=== PATIENT | female | born 1955 | race Caucasian/White ===

== ENCOUNTER 2017-06-04 15:14 | Emergency (ER) | payer BC, MEDICARE, SELFPAY ==
[2017-06-04 16:22] VITALS: BP 117/72; PULSE 110; RESP 20; TEMP 37; O2SAT 98; BMI 27.4
[2017-06-04 16:23] LABS: UTC Influenza A Antigen Negative (Negative); UTC Influenza B Antigen Negative (Negative)
--- NOTE | 2017-06-04 16:58 | HMH.EDUTC ---
[facility] [place] Disposition Clinical Impression: Viral upper respiratory illness Disposition: Home, Self-Care Condition on Discharge: Good Instructions: DI for Viral Upper Respiratory Infection -- Adult Additional Instructions: * Monitor Temp. Tylenol and/or Ibuprofen as needed. ER if fever is no less than 101 despite alternating Tylenol and Ibuprofen * Encourage fluids, water, Gatorade, powerade, pedialyte if infant/toddler/or child * Warm salt water gargles for throat irritation *Warm fluids *Sore throat lozenges *Sleep elevated *humidifier or vaporizer Lots of rest Increase fluids, water, Gatorade, powerade Follow up with family doctor Return if needed Prescriptions: Dextromethorphan Polistirex [Delsym] 10 ml PO Q12H #200 blas.er.12h Referrals: Brandon Woods [Primary Care Provider] - Time of Disposition: 17:02 Medical Decision Making Vital Signs: 06/04/17 16:22 Temperature 98.6 F Temperature Source Temporal Artery Scan Pulse Rate [Brachial] 110 H Respiratory Rate 20 Blood Pressure [Right Arm] 117/72 Blood Pressure Mean [Right Arm] 87 Blood Pressure Source [Right Arm] Automatic Cuff Blood Pressure Position [Right Arm] Sitting 02 Sat by Pulse Oximetry 98 Oxygen Delivery Method Room Air - Lab Data Lab Results 06/04/17 16:13: Influenza Type A Ag Negative, Influenza Type B Ag Negative - Mitchell Inquiry Pt receiving controlled substance: No Mitchell was queried for this patient: No [facility] [place] HPI - General Stated complaint: Dry cough, headache, body aches Mode of Arrival: Ambulatory Source of Information: Patient Limitations: No Limitations Description of Symptoms (Recalled from Triage Doc. by RN): HAS FLU SYMPTOMS SINCE LAST NIGHT, GRANDSON HAS FLU HEENT Symptoms (Recalled from RN notes): Yes Resp Symptoms (Recalled from RN notes): Yes Skin Symptoms (Recalled from RN notes): No MS Symptoms (Recalled from RN notes): No Functional Status (Recalled from RN notes): NA - History of Present Illness Provider Complaint: State that she has been taking care of two of her grandchildren that have had the flu and she was worried that she may have had it too and wanted to get checked States that she has been having body aches and not feeling well - Related Data Home Medications Medication Instructions Recorded Confirmed Phentermine HCl 37.5 mg PO BID 06/04/17 06/04/17 Simvastatin [Simvastatin] 20 mg PO DAILY 06/04/17 06/04/17 Triamterene/Hydrochlorothiazid 25 mg PO DAILY 06/04/17 06/04/17 [Maxzide-25 tablet] Previous Rx's Medication Instructions Recorded Dextromethorphan Polistirex 10 ml PO Q12H #200 blas.er.12h 06/04/17 [Delsym] Allergies Allergy/AdvReac Type Severity Reaction Status Date / Time clindamycin [CLINDAMYCIN] Allergy Unknown Verified 06/04/17 16:25 diazepam [From VALIUM] Allergy Unknown Verified 06/04/17 16:25 Tetracyclines [TETRACYCLINES] Allergy Unknown Verified 06/04/17 16:25 - Worker's Comp Is this a Worker's Comp case?: No [facility] History I have reviewed the patient's past medical history: Yes - *Social History Smoking Status: Never smoker Alcohol Intake: never - Psychiatric History Expresses thoughts of harming self/others: None Suicide Plan Description: No Plan ROS Obtained: Yes All systems reviewed & no additional complaints - Constitutional Constitutional: Reports body ache, Reports chills, Reports fever(s) - Respiratory Respiratory: Yes cough Physical Exam - General General appearance: alert, in no apparent distress - ENT ENT exam: Present: normal exam, normal oropharynx, mucous membranes moist, TM's normal bilaterally, normal external ear exam - Respiratory Respiratory exam: Present: normal lung sounds bilaterally. Absent: respiratory distress - Cardiovascular Cardiovascular exam: Present: normal rhythm. Absent: JVD - Abdominal Exam Abdominal exam: Present: soft, normal bowel sounds. Absent: distention, tenderness, guarding - Ne
--- NOTE | 2017-06-04 17:01 | ED_ITS ---
[facility] [place] Disposition Clinical Impression: Viral upper respiratory illness Disposition: Home, Self-Care Condition on Discharge: Good Instructions: DI for Viral Upper Respiratory Infection -- Adult Additional Instructions: * Monitor Temp. Tylenol and/or Ibuprofen as needed. ER if fever is no less than 101 despite alternating Tylenol and Ibuprofen * Encourage fluids, water, Gatorade, powerade, pedialyte if infant/toddler/or child * Warm salt water gargles for throat irritation *Warm fluids *Sore throat lozenges *Sleep elevated *humidifier or vaporizer Lots of rest Increase fluids, water, Gatorade, powerade Follow up with family doctor Return if needed Prescriptions: Dextromethorphan Polistirex [Delsym] 10 ml PO Q12H #200 blas.er.12h Referrals: Brandon Woods [Primary Care Provider] - Time of Disposition: 17:02 Medical Decision Making Vital Signs: 06/04/17 16:22 Temperature 98.6 F Temperature Source Temporal Artery Scan Pulse Rate [Brachial] 110 H Respiratory Rate 20 Blood Pressure [Right Arm] 117/72 Blood Pressure Mean [Right Arm] 87 Blood Pressure Source [Right Arm] Automatic Cuff Blood Pressure Position [Right Arm] Sitting 02 Sat by Pulse Oximetry 98 Oxygen Delivery Method Room Air - Lab Data Lab Results 06/04/17 16:13: Influenza Type A Ag Negative, Influenza Type B Ag Negative - Mitchell Inquiry Pt receiving controlled substance: No Mitchell was queried for this patient: No [facility] [place] HPI - General Stated complaint: Dry cough, headache, body aches Mode of Arrival: Ambulatory Source of Information: Patient Limitations: No Limitations Description of Symptoms (Recalled from Triage Doc. by RN): HAS FLU SYMPTOMS SINCE LAST NIGHT, GRANDSON HAS FLU HEENT Symptoms (Recalled from RN notes): Yes Resp Symptoms (Recalled from RN notes): Yes Skin Symptoms (Recalled from RN notes): No MS Symptoms (Recalled from RN notes): No Functional Status (Recalled from RN notes): NA - History of Present Illness Provider Complaint: State that she has been taking care of two of her grandchildren that have had the flu and she was worried that she may have had it too and wanted to get checked States that she has been having body aches and not feeling well - Related Data Home Medications Medication Instructions Recorded Confirmed Phentermine HCl 37.5 mg PO BID 06/04/17 06/04/17 Simvastatin [Simvastatin] 20 mg PO DAILY 06/04/17 06/04/17 Triamterene/Hydrochlorothiazid 25 mg PO DAILY 06/04/17 06/04/17 [Maxzide-25 tablet] Previous Rx's Medication Instructions Recorded Dextromethorphan Polistirex 10 ml PO Q12H #200 blas.er.12h 06/04/17 [Delsym] Allergies Allergy/AdvReac Type Severity Reaction Status Date / Time clindamycin [CLINDAMYCIN] Allergy Unknown Verified 06/04/17 16:25 diazepam [From VALIUM] Allergy Unknown Verified 06/04/17 16:25 Tetracyclines [TETRACYCLINES] Allergy Unknown Verified 06/04/17 16:25 - Worker's Comp Is this a Worker's Comp case?: No [facility] [place] History I have reviewed the patient's past medical history: Yes - *Social History Smoking Status: Never smoker Alcohol Intake: never - Psychiatric History Expresses thoughts of harming self/others: None Suicide Plan Description: No Plan ROS Obtained: Yes All systems re
== END 2017-06-04 17:30 | disposition home or self-care (01) ==
PROVIDERS: Emergency Provider Nurse Practitioner; PCP Internal Medicine
DX: J06.9 Acute upper respiratory infection, unspecified (principal); I10 Essential (primary) hypertension; E78.5 Hyperlipidemia, unspecified
CPT/HCPCS: 87804; 99202

== ENCOUNTER → 2017-06-22 11:31 | Outpatient (CLI) | payer BC, MEDICARE, SELFPAY ==
--- NOTE | 2017-06-22 12:12 | XR_ITS ---
XR chest 2V Ordering Physician: Brandon Woods Patient Age: 61 years: Female HISTO RY: ITS.REASON: CHEST PAIN,SHORTNESS OF BREATH chest pain short of breath TECHNIQUE PA and lateral chest COMPARISON :January 2011 CXR 2 view Also left shoulder from January 2012 FINDINGS Nothing definitely acute. I believe the subtle density off the cardiac apex is most likely slightly more evident anterior fat pad and doubt infiltrate . Heart is upper normal in size mitesh [Structures unremarkable. Lungs clear. Chest wall unremarkable. T-spine intact. IMPRESSION: Lungs clear nothing definitely acute
[2017-06-22 12:20] LABS: Troponin I < 0.02 ng/ml (0.00-0.06)
== END ==
PROVIDERS: PCP Internal Medicine; Visit Provider Internal Medicine
DX: R07.9 Chest pain, unspecified (principal); R06.02 Shortness of breath
CPT/HCPCS: 36415; 71046; 84484; 93005

== ENCOUNTER 2017-06-23 11:23 | Day surgery (SDC) | payer BC, MEDICARE, SELFPAY ==
[2017-06-23] VITALS (12 sets, daily range): BP systolic 100–120; BP diastolic 58–74; PULSE 63–101; RESP 16–20; TEMP 36.7; O2SAT 92–100; BMI 27.4
--- NOTE | 2017-06-23 11:12 | IR_ITS ---
CARDIAC CATHETERIZATION DATE OF CATHETERIZATION:06/23/2017 12:14 PM PROCEDURES: 1. Left heart catheterization 2. Left ventriculogram 3. Selective coronary angiogram INDICATION FOR TEST: 1. New left bundle-branch block 2. Angina pectoris class IV 3. LDL 201 with severe hyperlipidemia 4. Numerous risk factors for coronary artery disease Informed consent was obtained prior to the procedure. COMPLICATIONS: None ESTIMATED BLOOD LOSS: Less than 10 ml. TECHNIQUE: One percent lidocaine used to anesthetize the right anterior aspect of the wrist. The right radial artery was accessed via the Seldinger technique. A 6 Green[place] sheath was placed in the right radial artery. 2.5 mg of verapamil, 800 mcg of nitroglycerin and 5000 U Heparin were given through the arterial sheath. The trap catheter was also used to perform left heart catheterization and left ventriculography. At the end of the procedure the patient was transferred to the post-op holding area in stable condition for arterial sheath removal. ANGIOGRAPHIC RESULTS: 1. The left main artery normal 2. The left anterior descending artery normal 3. The circumflex artery normal 4. The right coronary artery dominant normal 5. The SINGH ventriculogram reveals normal left ventricular size with anterior wall hypokinesis estimated ejection fraction 45% 6. The left ventricular end-diastolic pressure 20 mmHg IMPRESSION: 1. Normal coronary arteries. 2. Regional wall motion abnormality with mildly reduced ejection fraction consistent with cardiomyopathy of unknown etiology 3. Mildly elevated LVEDP PLAN: 1. Bisoprolol 10 mg daily 2. Lisinopril 2.5 mg twice a day 3. Lipitor 40 mg daily in order to decrease the severely elevated LDL of 201. 4. Echocardiogram will be obtained 5. Chest x-ray 6. Risk factor modification
[2017-06-23 12:05] LABS: Basophils # 0.1 K/mm3 (0-0.2); Eosinophils # 0.3 K/mm3 (0.0-0.4); Eosinophils % 3.6 % (0.1-12.0); Hematocrit 42.3 % (37.0-47.0); Lymphocytes # 2.5 K/mm3 (0.7-4.5); Lymphocytes % 27.1 K/mm3 (10-50); Mean Corpuscular HGB Conc 33.2 g/dL (31.8-35.4); Mean Corpuscular Hemoglobin 28.5 pg (27.0-31.2); Mean Platelet Volume 6.9 fl (7.4-10.4); Monocytes # 0.6 K/mm3 (0.1-1.0); Monocytes % 5.9 % (1.7-9.3); Neutrophils # 5.8 K/mm3 (1.8-7.8); Neutrophils % 62.4 % (37.0-80.0); Platelet Count 377 K/mm3 (142-424); Red Blood Count 4.92 M/mm3 (4.20-5.40); Red Cell Distribution Width 12.9 % (11.5-17.5); White Blood Count 9.3 K/mm3 (4.8-10.8)
[2017-06-23 12:10] LABS: Blood Urea Nitrogen 13 mg/dL (7-18); Carbon Dioxide 27 mmol/L (21.0-32.0); Chloride 108 mmol/L (98-107); Creatinine Clearance Estimated 100 mL/min (0-300); Creatinine,Serum 0.71 mg/dL (0.55-1.02); Estimated Glomerular Filt Rate 84 ml/min (>60); GFR (African American) 102 ML/MIN (>60); Glucose 97 mg/dL (74-106); Sodium 143 mmol/L (136-145)
== END 2017-06-23 15:51 | disposition home or self-care (01) ==
LOC: CATHLAB 11:23
PROVIDERS: PCP Internal Medicine; Visit Provider Internal Medicine
DX: I20.9 Angina pectoris, unspecified (principal); I42.9 Cardiomyopathy, unspecified; I44.7 Left bundle-branch block, unspecified; E78.4 Other hyperlipidemia
CPT/HCPCS: 80048; 85025; 93458; 99152; C1725; C1769; J1644; Q9967

== ENCOUNTER 2017-06-30 12:43 | Emergency (ER) | payer BC, MEDICARE, SELFPAY ==
[2017-06-30 13:34] VITALS: BP 118/51; PULSE 79; RESP 20; TEMP 36.6; O2SAT 99; BMI 26.6
[2017-06-30 13:44] VITALS: BP 115/65; PULSE 80; RESP 20; TEMP 36.7; O2SAT 100
[2017-06-30 14:03] LABS: Appearance,Urine SL CLOUDY (Clear); Bilirubin,Urine Negative (Negative); Blood, Urine TRACE-I (Negative); Color,Urine YELLOW (Yellow); Glucose,Urine (UA) Negative (Negative); Ketones,Urine Negative (Negative); Leukocyte Esterase,Urine 2+ (Negative); Microscopic, Urine URINE MICROSCOPIC (MICROSCOPIC); Nitrate,Urine Negative (Negative); PH,Urine 5.5 (5.0-8.5); Protein,Urine Negative (Negative); Specific Gravity, Urine 1.015 (1.005-1.030); Urobilinogen,Urine 0.2 EU/dl (0.2)
[2017-06-30 14:08] LABS: Basophils # 0.1 K/mm3 (0-0.2); Basophils % 0.8 % (0.1-2.0); Eosinophils # 0.3 K/mm3 (0.0-0.4); Hematocrit 43.2 % (37.0-47.0); Hemoglobin 14.1 g/dL (12.2-16.2); Lymphocytes # 2.2 K/mm3 (0.7-4.5); Lymphocytes % 23.6 K/mm3 (10-50); Mean Corpuscular HGB Conc 32.6 g/dL (31.8-35.4); Mean Corpuscular Hemoglobin 28.5 pg (27.0-31.2); Mean Corpuscular Volume 87.5 fl (81-99); Monocytes # 0.6 K/mm3 (0.1-1.0); Monocytes % 6.6 % (1.7-9.3); Neutrophils # 6.3 K/mm3 (1.8-7.8); Platelet Count 371 K/mm3 (142-424); Red Blood Count 4.94 M/mm3 (4.20-5.40); Red Cell Distribution Width 13.1 % (11.5-17.5); White Blood Count 9.5 K/mm3 (4.8-10.8)
[2017-06-30 14:10] LABS: Bacteria,Urine 1+ /lpf
[2017-06-30 14:15] LABS: Alanine Aminotransferase 35 U/L (12-78); Albumin Level 4.1 gm/dL (3.4-5.0); Alkaline Phosphatase 123 U/L (46-116); Anion Gap 11.6 mEq/L (5-15); Aspartate Amino Transferase 24 U/L (15-37); Bilirubin,Total 0.6 mg/dL (0.2-1.0); Blood Urea Nitrogen 13 mg/dL (7-18); Calcium 8.8 mg/dL (8.5-10.1); Carbon Dioxide 30 mmol/L (21.0-32.0); Chloride 105 mmol/L (98-107); Creatinine Clearance Estimated 68 mL/min (0-300); Creatinine,Serum 0.72 mg/dL (0.55-1.02); Estimated Glomerular Filt Rate 82 ml/min (>60); GFR (African American) 100 ML/MIN (>60); Globulin 4.1 gm/dl (1.3-3.2); Potassium 3.6 mmoL/L (3.5-5.1); Sodium 143 mmol/L (136-145); Total Protein,Serum 8.2 gm/dL (6.4-8.2)
--- NOTE | 2017-06-30 14:52 | CT_ITS ---
CT abdomen pelvis without contrast CLINICAL INDICATION: Rectal bleeding and diarrhea, history of ulcerative colitis, UTI ITS.REASON: abdominal pain, hx of ulcerative colitis ORDERING PHYSICIAN: Zeeshan Ray MD PATIENT AGE: 62 years COMPARISON: None TECHNIQUE: Axial images obtained with sagittal and coronal reformats. PROCEDURE: Oral Contrast: None IV Contrast: None . FINDINGS: Lung bases show no acute finding. There is a small hiatal hernia. The liver, gallbladder, spleen, adrenal glands, and pancreas have an unremarkable unenhanced CT appearance. Bilateral parapelvic renal cysts. No obstructing renal or ureteral calculi. No intestinal obstruction or free air. No evidence of appendicitis. There is diffuse thickening of the descending and sigmoid colon without distention or pericolic stranding of the fat consistent with colitis. Prior hysterectomy. No acute bony anomalies. IMPRESSION: 1. Mild diffuse thickening of the descending and sigmoid colon consistent with colitis. 2. Otherwise negative unenhanced CT abdomen pelvis
[2017-06-30 15:00] VITALS: BP 123/79; PULSE 65; RESP 18
[2017-06-30 16:05] LABS: Glucose 148 mg/dL (74-106)
--- NOTE | 2017-06-30 18:53 | HMH.EDGENADL ---
ED Disposition Clinical Impression: Rectal bleeding Ulcerative colitis Qualifiers: Ulcerative colitis location: other ulcerative colitis Digestive disease complication type: other complication Qualified Code(s): K51.818 - Other ulcerative colitis with other complication Abdominal pain Qualifiers: Abdominal location: left lower quadrant Qualified Code(s): R10.32 - Left lower quadrant pain Disposition: Home, Self-Care Condition on Discharge: Good Instructions: Ulcerative Colitis, Gastrointestinal Bleeding Additional Instructions: Please drink plenty of fluids, we will up with Dr. Lazo, as already scheduled. Prescriptions: Ciprofloxacin HCl [Cipro 500mg Tab] 500 mg PO BID #20 tab metroNIDAZOLE [Flagyl] 500 mg PO TID #30 tab predniSONE [Prednisone 20mg Tab] 20 mg PO TID #15 tab Referrals: Brandon Woods [Primary Care Provider] - Davie Lazo MD [Staff Physician] - Time of Disposition: 18:53 - Critical Care Critical Care Time: No Attestation: On 06/30/17, the high probability of a clinically significant, sudden or life threatening deterioration of the following system(s) required my full and direct attention, intervention and personal management. The time I documented below is in addition to time spent performing reported procedures but includes the following listed in this critical care notation. Medical Decision Making - Medical Records Medical records reviewed: Yes: I reviewed the patient's medical records. Vital Signs: 06/30/17 13:34 06/30/17 13:44 06/30/17 15:00 Temperature 97.9 F 98.0 F Temperature Source Oral Oral Pulse Rate Pulse Rate [Right Radial] 79 80 65 Respiratory Rate 20 20 18 Blood Pressure Blood Pressure [Right Arm] 118/51 115/65 123/79 Blood Pressure Mean [Right Arm] 73 81 93 Blood Pressure Source [Right Arm] Automatic Cuff Automatic Cuff Automatic Cuff Blood Pressure Position [Right Arm] Sitting Supine Supine 02 Sat by Pulse Oximetry 99 100 Oxygen Delivery Method Room Air Room Air 06/30/17 21:18 Temperature 0 F L Temperature Source Pulse Rate 0 L Pulse Rate [Right Radial] Respiratory Rate 0 L Blood Pressure 0/0 Blood Pressure [Right Arm] Blood Pressure Mean [Right Arm] Blood Pressure Source [Right Arm] Blood Pressure Position [Right Arm] 02 Sat by Pulse Oximetry Oxygen Delivery Method - Lab Data Lab results reviewed: Yes: I reviewed the patient's lab results. Lab Results 06/30/17 13:30: WBC 9.5, RBC 4.94, Hgb 14.1, Hct 43.2, MCV 87.5, MCH 28.5, MCHC 32.6, RDW 13.1, Plt Count 371, MPV 7.0 L, Neut % (Auto) 66.0, Lymph % (Auto) 23.6, [place] % (Auto) 6.6, Eos % (Auto) 3.0, Baso % (Auto) 0.8, Neut # (Auto) 6.3, Lymph # (Auto) 2.2, Terry # (Auto) 0.6, Eos # (Auto) 0.3, Baso # (Auto) 0.1 06/30/17 13:30: Sodium 143, Potassium 3.6, Chloride 105, Carbon Dioxide 30, Anion Gap 11.6, BUN 13, Creatinine 0.72, Estimated Creat Clear 68, Estimated GFR 82, Est GFR ( Amer) 100, Glucose 148 H, Calcium 8.8, Total Bilirubin 0.6, AST 24, ALT 35, Alkaline Phosphatase 123 H, Total Protein 8.2, Albumin 4.1, Globulin 4.1 H, Albumin/Globulin Ratio 1.0 L 06/30/17 13:55: Urine Color Yellow, Urine Appearance Sl cloudy, Urine pH 5.5, Ur Specific [place] 1.015, Urine Protein Negative, Urine Glucose (UA) Negative, Urine Ketones Negative, Urine Blood Trace-i, Urine Nitrate Negative, Urine Bilirubin Negative, Urine Urobilinogen 0.2, Ur Leukocyte Esterase 2+ A, Urine RBC None, Urine WBC 10-20, Ur Squamous Epith Cells 5-10, Urine Bacteria 1+ Result diagrams: 06/30/17 13:30 06/30/17 13:30 Orders (Tests/Meds): ED MEDICATIONS Discontinued Medications Generic Name Dose Route Start Last Admin Trade Name Freq PRN Reason Stop Dose Admin Lactated Ringer's 1,000 mls @ 999 mls/hr 06/30/17 15:00 06/30/17 15:18 Lactated Ringer's 1000 Ml Bag IV 06/30/17 16:00 999 mls/hr .Q1H1M KIMMY Administration Ketorolac Tromethamine 30 mg 06/30/17 14:53 06/30/17 15:18 To
--- NOTE | 2017-06-30 18:56 | ED_ITS ---
ED Disposition Clinical Impression: Rectal bleeding Ulcerative colitis Qualifiers: Ulcerative colitis location: other ulcerative colitis Digestive disease complication type: other complication Qualified Code(s): K51.818 - Other ulcerative colitis with other complication Abdominal pain Qualifiers: Abdominal location: left lower quadrant Qualified Code(s): R10.32 - Left lower quadrant pain Disposition: Home, Self-Care Condition on Discharge: Good Instructions: Ulcerative Colitis, Gastrointestinal Bleeding Additional Instructions: Please drink plenty of fluids, we will up with Dr. Lazo, as already scheduled. Prescriptions: Ciprofloxacin HCl [Cipro 500mg Tab] 500 mg PO BID #20 tab metroNIDAZOLE [Flagyl] 500 mg PO TID #30 tab predniSONE [Prednisone 20mg Tab] 20 mg PO TID #15 tab Referrals: Brandon Woods [Primary Care Provider] - Davie Lazo MD [Staff Physician] - Time of Disposition: 18:53 - Critical Care Critical Care Time: No Attestation: On 06/30/17, the high probability of a clinically significant, sudden or life threatening deterioration of the following system(s) required my full and direct attention, intervention and personal management. The time I documented below is in addition to time spent performing reported procedures but includes the following listed in this critical care notation. Medical Decision Making - Medical Records Medical records reviewed: Yes: I reviewed the patient's medical records. Vital Signs: 06/30/17 13:34 06/30/17 13:44 06/30/17 15:00 Temperature 97.9 F 98.0 F Temperature Source Oral Oral Pulse Rate Pulse Rate [Right Radial] 79 80 65 Respiratory Rate 20 20 18 Blood Pressure Blood Pressure [Right Arm] 118/51 115/65 123/79 Blood Pressure Mean [Right Arm] 73 81 93 Blood Pressure Source [Right Arm] Automatic Cuff Automatic Cuff Automatic Cuff Blood Pressure Position [Right Arm] Sitting Supine Supine 02 Sat by Pulse Oximetry 99 100 Oxygen Delivery Method Room Air Room Air 06/30/17 21:18 Temperature 0 F L Temperature Source Pulse Rate 0 L Pulse Rate [Right Radial] Respiratory Rate 0 L Blood Pressure 0/0 Blood Pressure [Right Arm] Blood Pressure Mean [Right Arm] Blood Pressure Source [Right Arm] Blood Pressure Position [Right Arm] 02 Sat by Pulse Oximetry Oxygen Delivery Method - Lab Data Lab results reviewed: Yes: I reviewed the patient's lab results. Lab Results 06/30/17 13:30: WBC 9.5, RBC 4.94, Hgb 14.1, Hct 43.2, MCV 87.5, MCH 28.5, MCHC 32.6, RDW 13.1, Plt Count 371, MPV 7.0 L, Neut % (Auto) 66.0, Lymph % (Auto) 23.6, [place] % (Auto) 6.6, Eos % (Auto) 3.0, Baso % (Auto) 0.8, Neut # (Auto) 6.3 , Lymph # (Auto) 2.2, [place] # (Auto) 0.6, Eos # (Auto) 0.3, Baso # (Auto) 0.1 06/30/17 13:30: Sodium 143, Potassium 3.6, Chloride 105, Carbon Dioxide 30, Anion Gap 11.6, BUN 13, Creatinine 0.72, Estimated Creat Clear 68, Estimated GFR 82, Est GFR ( Amer) 100, Glucose 148 H, Calcium 8.8, Total Bilirubin 0.6, AST 24, ALT 35, Alkaline Phosphatase 123 H, Total Protein 8.2, Albumin 4.1 , Globulin 4.1 H, Albumin/Globulin Ratio 1.0 L 06/30/17 13:55: Urine Color Yellow, Urine Appearance Sl cloudy, Urine pH 5.5, Ur Specific [place] 1.015, Urine Protein Negative, Urine Glucose (UA) Negative, Urine Ketones Negative, Urine Blood Trace-i, Urine Nitrate Negative, Urine Bilirubin Ne
[2017-06-30 21:18] VITALS: BP 0/0; PULSE 0; RESP 0; TEMP -17.7; TEMP 0
== END 2017-06-30 21:18 | disposition home or self-care (01) ==
PROVIDERS: Emergency Provider Emergency Medicine; PCP Internal Medicine
DX: K51.911 Ulcerative colitis, unspecified with rectal bleeding (principal); R10.32 Left lower quadrant pain; Z87.19 Personal history of other diseases of the digestive system
CPT/HCPCS: 74176; 74177; 80053; 81001; 85025; 87086; 96365; 96375; 99281; 99282; J2405

== ENCOUNTER 2017-07-31 10:45 | Day surgery (SDC) | payer BC, MEDICARE, SELFPAY ==
[2017-07-30 09:09] VITALS: BMI 26.6
[2017-07-31 11:07] VITALS: BP 127/71; PULSE 88; RESP 18; TEMP 36.4; O2SAT 95
[2017-07-31 11:31] VITALS: O2SAT 98
--- NOTE | 2017-07-31 11:53 | P.PCN_ITS ---
[facility] Procedure Note Procedure Note:: Upper Endoscopy Procedure Report: Esophagogastroduodenoscopy with cold biopsies and TTS balloon dilation Endoscopost: Davie Lazo II, MD Referring Physician: Brandon Woods MD Date of Procedure: July 31, 2017 Equipment: Olympus GIF 180 standard upper endoscope Sedation: MAC sedation Indications: Mrs. Ayoub is a 62-year-old female with dyspepsia. She has had chest pain and she has had cardiac evaluation which was normal. She was told that she had severe inflammation of the esophagus. She did go to the emergency department last month and had a CT scan of the chest and abdomen that did show diffuse thickening of the descending and sigmoid colon. The patient does have a history of ulcerative colitis. She continues to have some abdominal pain in the left lower abdomen. She continues to have reflux, dyspepsia and some dysphagia. Procedure: Prior to the procedure, a history and physical exam was performed, and patient' s medications and allergies were reviewed. The risks, benefits and alternatives of the sedation and procedure were discussed with the patient. All questions were answered and informed consent was obtained. The patient was brought to the procedure room. Patient identification and proposed procedure were verified by the physician and the nurse. The patient was placed in a left lateral decubitus position and the scope was passed under direct vision. Throughout the procedure, the patient's blood pressure, pulse, and oxygen saturations were monitored continuously. The upper GI endoscopy was accomplished without difficulty. The patient tolerated the procedure well. Findings: The scope was passed directly into the upper esophagus and advanced to the third portion of the duodenum. The post bulbar duodenum and duodenal bulb were normal with normal mucosa and conniventes. The scope was withdrawn through a normal duodenal bulb and pylorus into the stomach. There was bile reflux with linear erythema of the antrum and body consistent with linear reactive gastritis. The remainder of the antrum, body and fundus of the stomach were grossly normal. Upon retroflexion there was no significant hiatal hernia. 2 biopsies were taken in the antrum and along the lesser curvature for histology to rule out gastritis and/or H pylori. The scope was then withdrawn into the esophagus. There were at least 1 or 2 distal superficial erosions consistent with grade A reflux esophagitis (LA classification). There were tertiary contractions and evidence of moderate esophageal dysmotility/ esophageal dyskinesia. The entire esophagus was dilated to 60 [place]/20 mm with a TTS hydrostatic balloon. There was some resistance at the cricopharyngeus. The remainder of the esophageal mucosa was normal. Impression: 1. Cricopharyngeal spasm status post dilation to 20 mm 2. Grade A reflux esophagitis (LA classification) with moderate esophageal dysmotility/esophageal dyskinesia 3. 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 We will discuss additional dietary measures and treatment options. I will proceed with flexible sigmoidoscopy for further evaluation of her ulcerative colitis and abnormal CAT scan.
--- NOTE | 2017-07-31 11:59 | HMH.PROC ---
[facility] [place] Procedure Note Procedure Note:: Flexible Sigmoidoscopy Procedure Report: Sigmoidoscopy with cold biopsies Endoscopist: Davie Lazo II, MD Referring physician: Brandon Woods MD Date of Procedure: July 31, 2017 Equipment: Olympus 180 variable stiffness pediatric colonoscope Sedation: MAC sedation Indication: Mrs. Ayoub is a 62-year-old female with a long history of ulcerative colitis. This is primarily been left-sided ulcerative colitis. She did have a full colonoscopy in January 2017 and had minimally active chronic left-sided ulcerative colitis with grade 1 internal hemorrhoids. She had been on Lialda 4.8 g daily and was recommended to have full screening again in 3 years. The patient has had severe rectal bleeding, left lower quadrant abdominal pain and bowel irregularity. Showed mild diffuse thickening of the descending and sigmoid colon with colitis. She was given 10 days of Cipro and Flagyl with a short course of prednisone. She had some fever. PCR panel was negative. Blood work showed no hemoglobin 14.1 and hematocrit 43.2. There was a large cystic mass of the ovary consistent with adnexal cyst and possible cystic neoplasm of the ovary. Procedure: Prior to the procedure, a history and physical exam was performed, and patient's medications and allergies were reviewed. The risks, benefits and alternatives of the sedation and procedure were discussed with the patient. All questions were answered and informed consent was obtained. The patient was brought to the procedure room. Patient identification and proposed procedure were verified by the physician and the nurse. The patient was placed in a left lateral decubitus position and the scope was passed under direct vision. Throughout the procedure, the patient's blood pressure, pulse, and oxygen saturations were monitored continuously. The colonoscopy was accomplished without difficulty. The patient tolerated the procedure well. Findings: On digital rectal examination there was normal rectal tone there were no external hemorrhoids the scope was then inserted through the vein down to the rectum and advanced to 45 cm. There was solid stool proximal to this. Upon withdrawal there was loss of haustral pattern/haustral folds with lead piping but mostly colonoscopic remission of the left-sided ulcerative colitis. There was minimal erythema and minimal loss of vascular pattern. There was no granularity friability or bleeding. There was no ulceration. Cold biopsies were taken from the sigmoid and rectum. Within the rectum there were small grade 1 internal hemorrhoids without cryptitis. Impression: 1. Minimally active left-sided ulcerative colitis with mostly chronic changes ( lead piping with loss of haustral pattern) Plan: I will follow up the biopsies. I would continue maintenance of remission therapy. I do feel that most of her symptoms are most likely functional. We will discuss treatment options.
[2017-07-31 12:00] VITALS: BP 103/67; PULSE 85; RESP 20; TEMP 36.4; O2SAT 93
[2017-07-31 12:10] VITALS: BP 95/63; PULSE 78; RESP 20; O2SAT 97
[2017-07-31 12:20] VITALS: BP 120/76; PULSE 65; RESP 20; O2SAT 93
[2017-07-31 12:30] VITALS: BP 116/73; PULSE 68; RESP 20; O2SAT 99
--- NOTE | 2017-07-31 14:46 | P.PN_ITS ---
[facility] Anesthesia Checklist - Patient Identification Patient Identification: Arm Band - Structural Data Admitted From: Home Planned Operative Procedure/s: egd/flexible sigmoidoscopy Consent for Planned Operative Procedure(s) Verified: Yes Verified Documents: Surgical Consent, History and Physical - NPO Status Verified Time NPO: 00:00 - Additional verifications Anesthesia Reactions: No - Airway Assessment C-Spine Mobility Assessed: Yes (mp2) TMJ Mobility Assessed: Yes - Neurological Assessment Level of Consciousness: Awake, Alert - Anesthesia Plan Anesthesia Risk discussed: Yes Anesthesia Plan: Verified ASA Class: II Anesthesia Type: MAC [facility] Anesthesia HX I have reviewed the patient's past medical history: Yes Medical History: Reports:: Gastroesophageal Reflux Disease(GERD), Hyperlipidemia , Hypertension Denies:: Diabetes Mellitus Type 1, Diabetes Mellitus Type 2, Lung Disease, Seizures Other Surgeries: Yes: Hysterectomy-Total, Tubal Ligation Amputation: No Fractures: No *Family Hx:: Coronary Artery Disease, Heart Attack, Cancer
== END 2017-07-31 12:35 | disposition home or self-care (01) ==
PROVIDERS: PCP Internal Medicine; Visit Provider Internal Medicine Gastroenterology
PROC: 0DJ08ZZ Inspection of Upper Intestinal Tract, Via Natural or Artificial Opening Endoscopic (ICD-10-PCS; CPT 43235; principal; 2017-07-31 11:30)
PROC: 0DJD8ZZ Inspection of Lower Intestinal Tract, Via Natural or Artificial Opening Endoscopic (ICD-10-PCS; CPT 45330; 2017-07-31 11:30)
DX: J39.2 Other diseases of pharynx (principal); K21.0 Gastro-esophageal reflux disease with esophagitis; K22.10 Ulcer of esophagus without bleeding; K22.4 Dyskinesia of esophagus; K29.60 Other gastritis without bleeding; K51.90 Ulcerative colitis, unspecified, without complications
CPT/HCPCS: 43239; 43249; 45331; C1726

== ENCOUNTER → 2017-09-07 12:49 | Outpatient (CLI) | payer BC, MEDICARE, SELFPAY ==
--- NOTE | 2017-09-07 12:52 | CA_ITS ---
PROCEDURE: 2-D M-mode and color Doppler study INDICATIONS FOR THE TEST: Chest pain + COPD Heart Murmur Tobacco Smoking Palpitations Fatigue+ Syncope Edema Hypertension+Diabetes Mellitus Rheumatic Fever SOB LINK+Obesity Hyperlipidemia Family History HD+ Additional History ABN EKG PATIENT INFORMATION HEIGHT: 65 WEIGHT:165 GENDER: Female B/P:135/67 2-D/M-MODE INTERPRETATION: 2-D MEASUREMENTS OBSERVED VALUES IN CMS Right Ventricular Dimension (RVDd) 2.1 Interventricular Septum (Thickness)(IVsd) 1.1 Left Ventricular Internal Dimensions(LVIDd) 4.1 Left Ventricular Posterior Wall (Thickness)(LVPWd) 1.0 Aortic Root 3.0 Aortic Cusp Separation 2.0 Left Atrial Dimensions (LAD) 3.4 2D 1. Left atrium is mildly enlarged, left ventricle is normal size, there is mild concentric left ventricular hypertrophy, visually estimated ejection fraction 55% with no obvious regional wall motion abnormality. 2. The right atrium and right ventricle are normal size and contractility. 3. The aortic valve is minimally thickened and fibrosed. 4. The mitral and tricuspid valve leaflets are grossly normal . 5. The pulmonic valve is poorly visualized 6. No significant pericardial effusion noted. DOPPLER INTERROGATION: Doppler interrogation of the aortic, mitral and tricuspid valvular presence of mild mitral and tricuspid regurgitation, tricuspid and jet velocity is insufficient for calculation of the right ventricular systolic pressure, grade 1 diastolic dysfunction seen with tissue Doppler evidence of raised left atrial pressure. CONCLUSION: 1. Mildly enlarged left atrium, normal left ventricular size, mild concentric left ventricular hypertrophy, visually estimated ejection fraction 55% with no obvious regional wall motion abnormality, grade 1 diastolic dysfunction seen with tissue Doppler evidence of raised left atrial pressure. 2. Mild mitral and tricuspid regurgitation 3. No significant pericardial effusion noted.
== END ==
PROVIDERS: PCP Internal Medicine; Visit Provider Internal Medicine
DX: R07.9 Chest pain, unspecified (principal); I10 Essential (primary) hypertension; E78.5 Hyperlipidemia, unspecified; R06.00 Dyspnea, unspecified; R55 Syncope and collapse; R94.31 Abnormal electrocardiogram [ECG] [EKG]; Z82.49 Family history of ischemic heart disease and other diseases of the circulatory system
CPT/HCPCS: 93306

== ENCOUNTER → 2017-09-14 08:08 | Outpatient (POV) | payer BC, MEDICARE, SELFPAY | PROVIDERS: PCP Internal Medicine; Visit Provider Nurse Practitioner Acute Care | DX: Z00.00 Encounter for general adult medical examination without abnormal findings (principal) ==

== ENCOUNTER → 2018-02-15 15:19 | Outpatient (POV) | payer BC, MEDICARE, SELFPAY | PROVIDERS: PCP Internal Medicine; Visit Provider Nurse Practitioner Acute Care | DX: Z00.00 Encounter for general adult medical examination without abnormal findings (principal) ==

== ENCOUNTER → 2018-03-23 10:17 | Outpatient (CLI) | payer BC, MEDICARE, SELFPAY ==
[2018-03-23 10:49] LABS: Basophils # 0.1 K/mm3 (0-0.2); Basophils % 1.4 % (0.1-2.0); Eosinophils # 0.2 K/mm3 (0.0-0.4); Eosinophils % 3.4 % (0.1-12.0); Hematocrit 43.5 % (37.0-47.0); Hemoglobin 14.2 g/dL (12.2-16.2); Lymphocytes # 1.5 K/mm3 (0.7-4.5); Lymphocytes % 24.2 K/mm3 (10-50); Mean Corpuscular HGB Conc 32.7 g/dL (31.8-35.4); Mean Corpuscular Hemoglobin 28.6 pg (27.0-31.2); Mean Corpuscular Volume 87.4 fl (81-99); Mean Platelet Volume 6.6 fl (7.4-10.4); Monocytes # 0.3 K/mm3 (0.1-1.0); Monocytes % 5.5 % (1.7-9.3); Neutrophils # 4.1 K/mm3 (1.8-7.8); Neutrophils % 65.6 % (37.0-80.0); Platelet Count 340 K/mm3 (142-424); Red Blood Count 4.98 M/mm3 (4.20-5.40); Red Cell Distribution Width 12.8 % (11.5-17.5); White Blood Count 6.3 K/mm3 (4.8-10.8)
[2018-03-23 12:43] LABS: Cholesterol 178 mg/dL (140-200); HDL Cholesterol 45 mg/dL (29-89); LDL Cholesterol 117 mg/dL (0-130); Triglycerides 81 mg/dL (30-200); VLDL Cholesterol 16 mg/dL (0-40)
[2018-03-23 13:07] LABS: Alanine Aminotransferase 21 U/L (12-78); Albumin Level 3.9 gm/dL (3.4-5.0); Albumin/Globulin Ratio 1.1 (1.1-1.8); Alkaline Phosphatase 113 U/L (46-116); Anion Gap 11.3 mEq/L (5-15); Aspartate Amino Transferase 14 U/L (15-37); Bilirubin,Total 0.6 mg/dL (0.2-1.0); Blood Urea Nitrogen 12 mg/dL (7-18); C-Reactive Protein 1.3 mg/L (0.0-0.9); Carbon Dioxide 29 mmol/L (21.0-32.0); Chloride 105 mmol/L (98-107); Creatinine,Serum 0.62 mg/dL (0.55-1.02); Estimated Glomerular Filt Rate 98 ml/min (>60); Ferritin 75 ng/mL (8-388); GFR (African American) 118 ML/MIN (>60); Globulin 3.5 gm/dl (1.3-3.2); Glucose 94 mg/dL (74-106); Potassium 4.3 mmoL/L (3.5-5.1); Sodium 141 mmol/L (136-145); Total Protein,Serum 7.4 gm/dL (6.4-8.2)
[2018-03-23 13:23] LABS: Erythrocyte Sedimentation Rate 38 mm/hr (0-30)
[2018-03-24 08:27] LABS: Iron 45 ug/dL (27-139); UIBC 219 ug/dL (118-369)
[2018-03-24 14:45] LABS: Iron Saturation 17 % (15-55); Vitamin B12 389 pg/mL (232-1245); Vitamin D 25 Hydroxy 26.5 ng/mL (30.0-100.0)
== END ==
PROVIDERS: PCP Internal Medicine; Visit Provider Nurse Practitioner Acute Care
DX: K51.20 Ulcerative (chronic) proctitis without complications (principal); K30 Functional dyspepsia
CPT/HCPCS: 36415; 80053; 80061; 82607; 82652; 82728; 83540; 83550; 85025; 85651; 86140

== ENCOUNTER → 2018-07-20 11:01 | Outpatient (POV) | payer BC, MEDICARE, SELFPAY | PROVIDERS: Visit Provider Dermatology | DX: Z00.00 Encounter for general adult medical examination without abnormal findings (principal) ==

== ENCOUNTER → 2018-07-28 16:12 | Outpatient (CLI) | payer BC, MEDICARE, SELFPAY ==
--- NOTE | 2018-07-28 16:17 | MM_ITS ---
MM Dig screening mamm BI w/CAD CAD Screening COMPARISON: Digital mammograms with CAD 02/13/2016 and additional views left breast, outside facility 02/21/2016 INDICATION: There is no personal or family history of breast cancer there have been previous biopsies on left breast for benign disease. TECHNIQUE: Standard CC and MLO images were obtained. R2 CAD reviewed. FINDINGS: Prominent diffuse somewhat heterogenic fibroglandular densities are seen in the central portions of both breasts. There are 2 biopsy clips left breast. There are few benign-appearing microcalcifications in each breast. There is a mole marker left breast. There is no suspicious lesion and there are no suspicious microcalcifications. IMPRESSION: Moderate diffuse breast density with no suspicious lesion seen BI-RADS Category: 2 Benign Finding(s) RECOMMENDED FOLLOW-UP: 1YR - 1 YEAR FOLLOW-UP (A letter has been sent to the patient regarding results of the study.)
== END ==
PROVIDERS: PCP Internal Medicine; Visit Provider Obstetrics & Gynecology
DX: Z12.31 Encounter for screening mammogram for malignant neoplasm of breast (principal)
CPT/HCPCS: 77067

== ENCOUNTER → 2018-12-27 14:31 | Outpatient (POV) | payer BC, MEDICARE, SELFPAY ==
[2018-12-27 16:28] LABS: Basophils # 0.1 K/mm3 (0-0.2); Basophils % 1.1 % (0.1-2.0); Eosinophils # 0.4 K/mm3 (0.0-0.4); Eosinophils % 5.4 % (0.1-12.0); Hematocrit 43.1 % (37.0-47.0); Hemoglobin 13.9 g/dL (12.2-16.2); Lymphocytes # 1.9 K/mm3 (0.7-4.5); Lymphocytes % 28.4 % (10-50); Mean Corpuscular HGB Conc 32.3 g/dL (31.8-35.4); Mean Corpuscular Hemoglobin 28.8 pg (27.0-31.2); Mean Corpuscular Volume 89.2 fl (81-99); Mean Platelet Volume 6.6 fl (7.4-10.4); Monocytes # 0.4 K/mm3 (0.1-1.0); Monocytes % 6.1 % (1.7-9.3); Neutrophils # 3.9 K/mm3 (1.8-7.8); Platelet Count 367 K/mm3 (142-424); Red Blood Count 4.83 M/mm3 (4.20-5.40); Red Cell Distribution Width 12.9 % (11.5-17.5); White Blood Count 6.5 K/mm3 (4.8-10.8)
[2018-12-27 17:27] LABS: Chol/HDL Ratio 4.1 (1-3.5); Cholesterol 220 mg/dL (140-200); HDL Cholesterol 54 mg/dL (29-89); LDL Cholesterol 149 mg/dL (0-130); Triglycerides 87 mg/dL (30-200); VLDL Cholesterol 17 mg/dL (0-40)
[2018-12-27 17:32] LABS: Erythrocyte Sedimentation Rate 11 mm/hr (0-30)
[2018-12-27 17:40] LABS: Alanine Aminotransferase 22 U/L (12-78); Albumin/Globulin Ratio 1.2 (1.1-1.8); Alkaline Phosphatase 86 U/L (46-116); Aspartate Amino Transferase 13 U/L (15-37); Bilirubin,Total 0.7 mg/dL (0.2-1.0); Blood Urea Nitrogen 11 mg/dL (7-18); Calcium 9.3 mg/dL (8.5-10.1); Carbon Dioxide 29 mmol/L (21.0-32.0); Chloride 103 mmol/L (98-107); Creatinine,Serum 0.56 mg/dL (0.55-1.02); Estimated Glomerular Filt Rate 110 ml/min (>60); Ferritin 52 ng/mL (8-388); GFR (African American) 133 ML/MIN (>60); Globulin 3.3 gm/dl (1.3-3.2); Glucose 80 mg/dL (74-106); Sodium 139 mmol/L (136-145); Total Protein,Serum 7.3 gm/dL (6.4-8.2)
[2018-12-27 17:42] LABS: C-Reactive Protein < 0.2 mg/dL (0.0-0.9)
[2018-12-29 08:17] LABS: Iron 82 ug/dL (27-139); UIBC 218 ug/dL (118-369)
[2018-12-29 11:13] LABS: Iron Saturation 27 % (15-55); Vitamin B12 382 pg/mL (232-1245); Vitamin D 25 Hydroxy 19.9 ng/mL (30.0-100.0)
== END ==
PROVIDERS: PCP Internal Medicine; Visit Provider Nurse Practitioner Family
DX: K51.20 Ulcerative (chronic) proctitis without complications (principal); K30 Functional dyspepsia; K59.00 Constipation, unspecified; E78.5 Hyperlipidemia, unspecified; R06.00 Dyspnea, unspecified
CPT/HCPCS: 36415; 80053; 80061; 82607; 82652; 82728; 83540; 83550; 85025; 85651; 86140

== ENCOUNTER → 2019-02-28 12:49 | Outpatient (POV) | payer BC, MEDICARE, SELFPAY | PROVIDERS: PCP Internal Medicine; Visit Provider Nurse Practitioner Family | DX: Z00.00 Encounter for general adult medical examination without abnormal findings (principal) ==

== ENCOUNTER → 2019-03-29 08:05 | Outpatient (POV) | payer BC, MEDICARE, SELFPAY | PROVIDERS: Visit Provider Dermatology | DX: Z00.00 Encounter for general adult medical examination without abnormal findings (principal) ==

== ENCOUNTER → 2019-05-24 11:40 | Outpatient (CLI) | payer BC, MEDICARE, SELFPAY ==
[2019-05-24 11:57] LABS: Basophils # 0.1 K/mm3 (0-0.2); Eosinophils # 0.2 K/mm3 (0.0-0.4); Eosinophils % 3.3 % (0.1-12.0); Hematocrit 43.1 % (37.0-47.0); Hemoglobin 13.7 g/dL (12.2-16.2); Lymphocytes # 1.3 K/mm3 (0.7-4.5); Lymphocytes % 24.5 % (10-50); Mean Corpuscular HGB Conc 31.8 g/dL (31.8-35.4); Mean Corpuscular Hemoglobin 28.8 pg (27.0-31.2); Mean Corpuscular Volume 90.4 fl (81-99); Monocytes # 0.4 K/mm3 (0.1-1.0); Monocytes % 8.6 % (1.7-9.3); Neutrophils # 3.2 K/mm3 (1.8-7.8); Neutrophils % 62.6 % (37.0-80.0); Platelet Count 269 K/mm3 (142-424); Red Blood Count 4.77 M/mm3 (4.20-5.40); Red Cell Distribution Width 13.9 % (11.5-17.5); White Blood Count 5.1 K/mm3 (4.8-10.8)
== END ==
PROVIDERS: Visit Provider Internal Medicine
DX: K92.1 Melena (principal); K52.9 Noninfective gastroenteritis and colitis, unspecified
CPT/HCPCS: 36415; 85025

== ENCOUNTER → 2019-07-27 07:51 | Outpatient (CLI) | payer MEDICARE, SELFPAY ==
--- NOTE | 2019-07-27 07:51 | MM_ITS ---
PROCEDURE: MM DIG SCREENING MAMM BI W/CAD CLINICAL INDICATION: screening There is a history of breast cancer patient's sister diagnosed after menopause. There have been previous biopsies on each breast for benign disease. COMPARISON: [facility] DIG MAMM-SCREEN CHING from 02/13/2016 MY Digital Dx Unilat LT from 02/21/2016 [facility] MM Dig screening mamm BI w/CAD from 07/28/2018 TECHNIQUE: Standard CC and MLO images and 3D Tomosynthesis was obtained. R2 CAD reviewed. FINDINGS: Moderate diffuse fibroglandular densities are seen in the central portions of both breasts and the findings of bilateral and symmetrical. There are 2 biopsy clips left breast and a single biopsy clip right breast. There is a mole marker left breast. Ollie images were reviewed. There is no new or suspicious lesion in either breast and no suspicious microcalcifications. IMPRESSION: Moderate diffuse breast density with no suspicious lesions seen BI-RAD Category: 2 Benign Finding(s) FOLLOW-UP: 1YR 1 Year Follow-up (A letter has been sent to the patient regarding results of the study.) Dictated by: Dr. Zeeshan Ramirez MD 07/28/2019 10:[address] Zeeshan Ramirez MD in [place] 07/28/2019 10:14
== END ==
PROVIDERS: PCP Internal Medicine; Referring Provider Obstetrics & Gynecology; Visit Provider Obstetrics & Gynecology
DX: Z12.31 Encounter for screening mammogram for malignant neoplasm of breast (principal)
CPT/HCPCS: 77063; 77067

== ENCOUNTER → 2019-10-20 10:45 | Outpatient (CLI) | payer MEDICARE, SELFPAY | PROVIDERS: PCP Internal Medicine; Visit Provider Internal Medicine | DX: R55 Syncope and collapse (principal) | CPT/HCPCS: 93270 ==

== ENCOUNTER → 2019-12-06 08:16 | Outpatient (POV) | payer MEDICARE, SELFPAY | PROVIDERS: PCP Internal Medicine; Visit Provider Dermatology | DX: Z00.00 Encounter for general adult medical examination without abnormal findings (principal) ==

== ENCOUNTER → 2019-12-09 07:48 | Outpatient (CLI) | payer MEDICARE, SELFPAY ==
--- NOTE | 2019-12-09 | CA_ITS ---
APPROVED REPORT Exam: Pharmacologic Technologist: Mariluz Cook, Ht: 5 ft 5 in Wt: 173 lbs BSA: 1.86 m2 HR: 70 bpm BP: 131/56 mmHg Rhythm: SINUS RHYTHM,RBBB Medical History Medical History: Hyperlipidemia Medications: Lasix,,,,, Cardiac Risk Factors: Hyperlipidemia, FHX of CAD Stress Test Details Test: LEXISCAN HR Resting HR: 79 bpm Max Heart Rate (APMHR): 157 bpm Max HR Achieved: 119 bpm Target HR (85% APMHR): 133 bpm % of APMHR: 75 Recovery HR: 70 bpm BP Resting BP: 131.0/56.0 mmHg Max BP: 132.0/56.0 mmHg Recovery BP: 119.0/62.0 mmHg ECG Resting ECG: SINUS RHYTHM,RBBB Clinical Exercise duration: 04:00 min Highest Stage Achieved: Stress ECG Conclusion LEXISCAN PORTION COMPLETED. PATIENT C/O SOA AT PEAK INFUSION. NO CP. POSITIVE FOR SOA AT PEAK INFUSION. RESOLVED IN RECOVERY. NO ECTOPY. GREATER THAN 1.5MM ST DEPRESSION. IMAGES TO FOLLOW Test Summary REST . . . . . . . Sitting REST . . . . . . . Sitting REST 03:00 . . 79 . 131/ 56 . . Stage 1 . . . . . . . Myoview Injected Stage 1 01:00 . . 111 . . . . Stage 2 01:00 . . 108 . 119/ 69 . . Stage 3 01:00 . . 101 . 132/ 56 . . Stage 4 01:00 . . 100 . 125/ 66 . Stop exercise at 04:00 RECOVERY 01:00 . . 106 . 119/ 62 . . RECOVERY 02:00 . . 96 . 127/ 65 . . RECOVERY 03:00 . . 96 . 119/ 62 . . RECOVERY 03:58 . . 95 . 118/ 59 . . Electronically signed by : Dc Stoll, 12/09/2019 13:36:31
--- NOTE | 2019-12-09 07:48 | NM_ITS ---
APPROVED REPORT Exam: Nuclear Stress Test Indication: chest pain..short of breath..fatigue Patient Location: Outpatient Stress Tech: Nisreen Joyce [place] Tech:LAURA Ac RT(R)(N) Ht: 5 ft 5 in Wt: 173 lbs Bra Size: 38b HR: 70 bpm BP: 131/56 mmHg BSA: 1.86 m2 BMI: 28.7 History: chest pain..short of breath..fatigue Procedure: Patient received a 0.4 mg of intravenous Lexiscan, resting heart rate 70 bpm, resting blood pressure 131/56 mmHg, with Lexiscan maximum heart rate achived was 114 bpm which is Less than 85 % of the maximum predicted heart rate and blood pressure was 119/69 mmHg. With Lexiscan, patient denied any complaint of chest pain. Electrocardiogram Resting electrocardiogram shows sinus rhythm left bundle branch block, with Lexiscan there is less than 1.[address] segment depression noted from the baseline EKG. The EKG portion of the Lexiscan Myoview is nondiagnostic. Cardiac Stress and Resting SPECT Images: Cardiac Stress and Resting SPECT images were obtained using technetium 99m Myoview 27.6 mCi stress and 10.10 mCi at rest. Gated SPECT for analysis of segmental wall motion and calculation of the ejection fraction also done. Cardiac stress and resting SPECT images show a fixed defect involving the anteroseptal wall with normal adeline gated SPECT is likely secondary to intraventricular conduction delay and left bundle branch block, no reversible ischemia seen. Computer derived ejection fraction is 61% with no regional wall motion abnormality, right ventricle is normal size and contractility. Conclusion: 1. The EKG portion of the Lexiscan Myoview is nondiagnostic. 2. Scintigraphic evidence of fixed defect involving the anteroseptal area likely secondary to left bundle branch block, there is no reversible ischemia seen, computer derived ejection fraction is 61% with no regional wall motion abnormality, right ventricle is normal size and contractility. 3. Likely normal Lexiscan Myoview study. Electronically signed by : Dc Stoll, 12/09/2019 13:39:20
--- NOTE | 2019-12-09 08:11 | CA_ITS ---
APPROVED REPORT EXAM: Comprehensive 2D, Doppler, and color-flow Echocardiogram [employer] Specialist: Neelima Wang RDCS Ht: 5 ft 8 in Wt: 175lbs BSA: 1.93 BP: 157/75 mmHg Indications: CP, SOB, LINK, HTN, hyperlipidemia, syncope 2D Dimensions LVOT 1.89 cm (M/F) 1.5-2.5 M-Mode Dimensions RVDd 2.18 cm (0.9-2.6) LVDd 5.62 cm (3.5-5.7) LVDs 4.76 cm (3.5-5.7) IVSd 0.84 cm (0.6-1.1) PWd 0.55 cm (0.6-1.1) EF (Teich) 32.00% FS 15.30% EDV (Teich) 154.90 mL ESV (Teich) 105.40 mL LV Diastology E/A Ratio 0.86 Mitral Valve MV A Velocity 69.00 (40-130 cm/s) Left Ventricle Left atrium is mildly enlarged, left ventricle is normal size, mild concentric left ventricular hypertrophy, visually estimated ejection fraction 55% with no regional wall motion abnormality, grade 1 diastolic dysfunction seen without tissue Doppler evidence of raise left atrial pressure. Right Ventricle Right atrium and right ventricular normal size and contractility. Aortic Valve Aortic valve is minimally thickened and fibrosed, there is no aortic stenosis or aortic insufficiency. Mitral Valve Mitral valve is grossly normal, there is mild mitral regurgitation. Tricuspid Valve Tricuspid valve is grossly normal, there is mild tricuspid regurgitation, tricuspid regurgitation jet velocity is inadequate for calculation of the right ventricular systolic pressure. Pulmonic Valve Pulmonic valve is poorly visualized. Great Vessels Aortic root is normal size. Pericardium No significant pericardial effusion noted. Conclusion 1. Mildly enlarged left atrium, normal left ventricular size, mild concentric left ventricular hypertrophy, visually estimated ejection fraction 55% with no regional wall motion abnormality, grade 1 diastolic dysfunction seen without tissue Doppler evidence of raise left atrial pressure. 2. Thickened and calcified aortic valve consistent with aortic sclerosis, there is no aortic stenosis or aortic insufficiency. 3. Mild mitral and tricuspid regurgitation. 4. No significant pericardial effusion noted. Electronically signed by : Dc Stoll, 12/09/2019 14:10:07
== END ==
PROVIDERS: PCP Internal Medicine; Visit Provider Urology
DX: I10 Essential (primary) hypertension; R00.2 Palpitations; R06.00 Dyspnea, unspecified; R55 Syncope and collapse; R60.0 Localized edema; E78.49 Other hyperlipidemia
CPT/HCPCS: 78452; 93017; 93306; A9502; J2785

== ENCOUNTER → 2019-12-28 14:45 | Outpatient (CLI) | payer MEDICARE, SELFPAY ==
[2019-12-28 15:38] LABS: Chloride 103 mmol/L (98-107); Potassium 4.7 mmoL/L (3.5-5.1); Sodium 142 mmol/L (136-145)
[2019-12-28 15:40] LABS: Blood Urea Nitrogen 18 mg/dl (7-17); Estimated Glomerular Filt Rate 85 ml/min (>60); GFR (African American) 102 ML/MIN (>60)
[2019-12-28 15:41] LABS: Alanine Aminotransferase 20 U/L (12-78); Albumin Level 4.5 g/dl (3.5-5.0); Alkaline Phosphatase 98 U/L (38-126); Anion Gap 15.7 mEq/L (5-15); Aspartate Amino Transferase 23 U/L (14-36); Bilirubin,Unconjugated 1.1 mg/dL (0.0-1.1); Calcium 9.9 mg/dl (8.4-10.2); Carbon Dioxide 28 mmol/L (22.0-30.0); Cholesterol 221 mg/dl (140-200); Glucose 101 mg/dl (74-100); Total Protein,Serum 7.6 g/dl (6.3-8.2); Triglycerides 185 mg/dl (30-150); VLDL Cholesterol 37 mg/dL (0-40)
[2019-12-28 15:42] LABS: Chol/HDL Ratio 5.8 (1-3.5); HDL Cholesterol 38 mg/dl (40-60)
[2019-12-28 15:53] LABS: Direct LDL Cholesterol 148.74 mg/dL (100-129)
== END ==
PROVIDERS: Visit Provider Urology
DX: E78.5 Hyperlipidemia, unspecified (principal); I10 Essential (primary) hypertension; R00.2 Palpitations; R06.00 Dyspnea, unspecified; R07.9 Chest pain, unspecified; R55 Syncope and collapse; R60.0 Localized edema
CPT/HCPCS: 36415; 80048; 80061; 80076

== ENCOUNTER → 2020-03-09 10:40 | Outpatient (CLI) | payer MEDICARE, SELFPAY ==
[2020-03-09 11:28] LABS: Basophils # 0.1 K/mm3 (0-0.2); Basophils % 1.5 % (0.1-2.0); Eosinophils # 0.3 K/mm3 (0.0-0.4); Eosinophils % 4.8 % (0.1-12.0); Hematocrit 48.4 % (37.0-47.0); Hemoglobin 15.5 g/dL (12.2-16.2); Lymphocytes # 1.7 K/mm3 (0.7-4.5); Lymphocytes % 25.9 % (10-50); Mean Corpuscular HGB Conc 31.9 g/dL (31.8-35.4); Mean Corpuscular Hemoglobin 28.2 pg (27.0-31.2); Mean Corpuscular Volume 88.3 fl (81-99); Mean Platelet Volume 7.4 fl (7.4-10.4); Monocytes # 0.6 K/mm3 (0.1-1.0); Monocytes % 8.8 % (1.7-9.3); Neutrophils # 3.9 K/mm3 (1.8-7.8); Neutrophils % 58.9 % (37.0-80.0); Platelet Count 403 K/mm3 (142-424); Red Blood Count 5.48 M/mm3 (4.20-5.40); Red Cell Distribution Width 13.4 % (11.5-17.5); White Blood Count 6.6 K/mm3 (4.8-10.8)
[2020-03-09 12:02] LABS: Erythrocyte Sedimentation Rate 13 mm/hr (0-30)
[2020-03-09 13:06] LABS: Chloride 100 mmol/L (98-107); Sodium 139 mmol/L (136-145)
[2020-03-09 13:07] LABS: Potassium 4.7 mmoL/L (3.5-5.1)
[2020-03-09 13:09] LABS: Alanine Aminotransferase 20 U/L (12-78); Albumin Level 4.6 g/dl (3.5-5.0); Albumin/Globulin Ratio 1.5 (1.1-1.8); Alkaline Phosphatase 97 U/L (38-126); Anion Gap 12.7 mEq/L (5-15); Aspartate Amino Transferase 24 U/L (14-36); Blood Urea Nitrogen 19 mg/dl (7-17); Calcium 10.2 mg/dl (8.4-10.2); Carbon Dioxide 31 mmol/L (22.0-30.0); Estimated Glomerular Filt Rate 72 ml/min (>60); GFR (African American) 88 ML/MIN (>60); Glucose 115 mg/dl (74-100); Iron 65 ug/dL (37-170); Total Protein,Serum 7.6 g/dl (6.3-8.2)
[2020-03-09 13:15] LABS: C-Reactive Protein 10.7 mg/L (0-4)
[2020-03-09 13:19] LABS: Total Iron Binding Capacity 357 ug/dL (265-497)
[2020-03-09 13:27] LABS: 25-OH Vitamin D, Total 26.2 ng/mL (30-100)
[2020-03-09 13:45] LABS: Ferritin 43.2 ng/ml (11.1-264)
[2020-03-09 15:38] LABS: Vitamin B12 420 pg/mL (239-931)
[2020-03-12 12:11] LABS: Adenovirus F 40/41, stool Not Detected (NotDetected); Astrovirus Not Detected (NotDetected); Campylobacter Not Detected (NotDetected); Cryptosporidium Not Detected (NotDetected); Cyclospora Cayetanesis Not Detected (NotDetected); Entamoeba histolytica Not Detected (NotDetected); Enteroaggregative E coli Not Detected (NotDetected); Enteropathogenic E coli Not Detected (NotDetected); Enterotoxigenic E coli Not Detected (NotDetected); Giardia lamblia Not Detected (NotDetected); Norovirus Not Detected (NotDetected); Plesimonas Shigalloides, PCR Not Detected (NotDetected); Rotavirus A Not Detected (NotDetected); Salmonella, PCR Not Detected (NotDetected); Sapovirus Not Detected (NotDetected); Shiga-like toxin E coli Not Detected (NotDetected); Shigella Enterovasive E coli Not Detected (NotDetected); Vibrio Cholerae Not Detected (NotDetected); Vibrio, PCR Not Detected (NotDetected); Yersinia Entercolitica, PCR Not Detected (NotDetected)
[2020-03-16 09:18] LABS: Clostridium Difficile A/B, PCR Detected (NotDetected)
[2020-03-18 15:27] LABS: Calprotectin, Fecal 1726 ug/g (0-120)
== END ==
PROVIDERS: Visit Provider Nurse Practitioner Family
DX: R10.30 Lower abdominal pain, unspecified (principal); R19.7 Diarrhea, unspecified; R19.4 Change in bowel habit; K51.20 Ulcerative (chronic) proctitis without complications; K30 Functional dyspepsia; K62.5 Hemorrhage of anus and rectum
CPT/HCPCS: 36415; 80053; 82306; 82607; 82728; 83540; 83550; 83993; 85025; 85651; 86140; 87506

== ENCOUNTER → 2020-04-11 09:49 | Outpatient (CLI) | payer MEDICARE, SELFPAY ==
[2020-04-11 11:40] LABS: Coronavirus 19 IgG Antibody Negative (Negative); Coronavirus 19 IgM Antibody Negative (Negative)
== END ==
PROVIDERS: Visit Provider Internal Medicine Gastroenterology
DX: Z01.818 Encounter for other preprocedural examination (principal); Z12.11 Encounter for screening for malignant neoplasm of colon
CPT/HCPCS: 36415; 86328

== ENCOUNTER 2020-04-13 11:33 | Day surgery (SDC) | payer MEDICARE, SELFPAY ==
[2020-04-10 12:32] VITALS: BMI 28.6
[2020-04-10 13:47] VITALS: BMI 28.3
[2020-04-13] VITALS (8 sets, daily range): BP systolic 99–166; BP diastolic 58–86; PULSE 76–101; RESP 16–18; TEMP 36.5; O2SAT 90–100
--- NOTE | 2020-04-13 12:40 | P.PN_ITS ---
[facility] Anesthesia Checklist - Structural Data Admitted From: Home Planned Operative Procedure/s: colonoscopy Consent for Planned Operative Procedure(s) Verified: Yes - Additional verifications Anesthesia Reactions: No - Airway Assessment C-Spine Mobility Assessed: Yes TMJ Mobility Assessed: Yes Dentition: Poor Dentition - Neurological Assessment Level of Consciousness: Awake, Alert, Appropriate - Anesthesia Plan Anesthesia Risk discussed: Yes Anesthesia Plan: Verified ASA Class: III Anesthesia Type: MAC [facility] History I have reviewed the patient's past medical history: Yes Medical History: Reports:: Gastroesophageal Reflux Disease(GERD), Hyperlipidemia, Hypertension, Palpitations Denies:: Cancer, Diabetes Mellitus Type 1, Diabetes Mellitus Type 2, Internal Pacemaker, Lung Disease, MRSA, Seizures *Have you ever received a pneumonia vaccine?: No *Have you received a flu vaccine this season?: No Anesthesia experience/problems:: none Other Surgeries: Yes: Cancer Surgery (Back ), Cardiac Catheterization (x2), Colonoscopy, Dilation and Curettage, Hysterectomy-Total, Tubal Ligation. No: Pacemaker Amputation: No Fractures: Yes - *Social History Last grade of school completed: High school graduate Smoking Status: Never smoker Alcohol Intake: never Alcohol Intake Frequency:: other Substance Use Type: denies use *Occupational Status:: disabled Housing: house Household Members: spouse *Travel in the last 8 weeks: None Family Hx:: Coronary Artery Disease, Heart Attack, Cancer
--- NOTE | 2020-04-13 12:46 | HMH.PROC ---
[facility] Procedure Note Procedure Note:: Colonoscopy Procedure Report: Colonoscopy with cold biopsies Endoscopist: Davie Lazo II, MD Referring physician: Brandon Woods MD Date of Procedure: April 13, 2020 Equipment: Olympus 180 variable stiffness pediatric colonoscope Sedation: MAC sedation Indication: Mrs. Ayoub is a 64-year-old female who is here for diagnostic colonoscopy. The patient continues to have bright red rectal bleeding that is frequent. She gets some lower abdominal discomfort. She was previously on Lialda and Canasa but stopped this. She also stopped the MiraLAX and Konsyl. She has been taking FiberCon. She did have a sigmoidoscopy in July 2017 and had minimally active left-sided colitis with changes of chronic proctitis. She had a colonoscopy in June 2016 showing minimally active ulcerative colitis and grade 1-2 internal hemorrhoids which were ablated/coagulated. Her recent fecal calprotectin from March 09, 2020 was 1726 (normal being less than 120 mcg/g). She is not on any maintenance of remission therapy presently. Procedure: Prior to the procedure, a history and physical exam was performed, and patient's medications and allergies were reviewed. The risks, benefits and alternatives of the sedation and procedure were discussed with the patient. All questions were answered and informed consent was obtained. The patient was brought to the procedure room. Patient identification and proposed procedure were verified by the physician and the nurse. The patient was placed in a left lateral decubitus position and the scope was passed under direct vision. Throughout the procedure, the patient's blood pressure, pulse, and oxygen saturations were monitored continuously. The colonoscopy was accomplished without difficulty. The patient tolerated the procedure well. Findings: On digital rectal examination there was normal rectal tone. There were no external hemorrhoids. The colonoscope was introduced through the anal canal to the rectum and advanced to the cecum. The ileocecal valve and appendiceal orifice were identified. The scope was advanced a short distance into the ileum which appeared grossly normal. The scope was then withdrawn into the colon. There was no evidence of patchy erythema throughout the colon alternating with skip areas and normal vascular pattern. There were intermittent aphthous ulcers in the colon. The findings with skip areas would be consistent with chronic Crohn's colitis. Individual biopsies were taken from the right colon, left colon and rectum. There was evidence of proctitis. There were grade 1 internal hemorrhoids but the bleeding appeared to be related to the proctitis. The preparation was excellent throughout with [place] Preparation Score of 9. The cecal time was 12 minutes. Impression: 1. Chronic Crohn's colitis with skip areas (mild to moderate) Plan: The patient does have Crohn's disease of the large intestine but not small intestine. I would recommend a step up approach presently and go back to [place]. I would consider a prednisone taper. If her symptoms persist, I would consider adding Xeljanz. I will discuss treatment options.
== END 2020-04-13 14:10 | disposition home or self-care (01) ==
LOC: OUTP 11:35
PROVIDERS: PCP Internal Medicine; Visit Provider Internal Medicine Gastroenterology
PROC: 0DJD8ZZ Inspection of Lower Intestinal Tract, Via Natural or Artificial Opening Endoscopic (ICD-10-PCS; CPT 45378; principal; 2020-04-13 12:30)
DX: K50.10 Crohn's disease of large intestine without complications (principal); K64.0 First degree hemorrhoids; K62.89 Other specified diseases of anus and rectum; Z87.19 Personal history of other diseases of the digestive system
CPT/HCPCS: 45380; 88305

== ENCOUNTER → 2020-06-11 14:52 | Outpatient (CLI) | payer MEDICARE, SELFPAY ==
[2020-06-11 15:16] LABS: Basophils # 0.1 K/mm3 (0-0.2); Eosinophils # 0.4 K/mm3 (0.0-0.4); Eosinophils % 4.7 % (0.1-12.0); Hematocrit 45.4 % (37.0-47.0); Hemoglobin 15.6 g/dL (12.2-16.2); Lymphocytes # 2.4 K/mm3 (0.7-4.5); Lymphocytes % 29.5 % (10-50); Mean Corpuscular HGB Conc 34.3 g/dL (31.8-35.4); Mean Corpuscular Hemoglobin 29.1 pg (27.0-31.2); Mean Corpuscular Volume 84.9 fl (81-99); Mean Platelet Volume 7.1 fl (7.4-10.4); Monocytes # 0.7 K/mm3 (0.1-1.0); Monocytes % 8.1 % (1.7-9.3); Neutrophils # 4.6 K/mm3 (1.8-7.8); Neutrophils % 56.6 % (37.0-80.0); Platelet Count 373 K/mm3 (142-424); Red Blood Count 5.34 M/mm3 (4.20-5.40); Red Cell Distribution Width 14.3 % (11.5-17.5); White Blood Count 8.1 K/mm3 (4.8-10.8)
--- NOTE | 2020-06-11 15:28 | XR_ITS ---
PROCEDURE: XR ACUTE ABDOMEN SERIES CLINICAL INDICATION: RLQ ABD PAIN, CROHN'S DISEASE COMPARISON: CT ABDPELW CT abdomen pelvis w/o con from 06/30/2017 CR XR CHEST PORTABLE from 08/26/2019 FINDINGS: Frontal view of the chest shows no acute finding. Upright and supine views of the abdomen demonstrates a nonspecific bowel gas pattern. No intestinal obstruction or free air. No acute bony findings. Scattered pelvic calcifications are present consistent phleboliths. Other findings:None. IMPRESSION: No acute findings. Dictated by: Zion Sands MD 06/11/2020 16:09 Zion Sands MD in [place] 06/11/2020 16:09
[2020-06-12 10:13] LABS: Blood Urea Nitrogen 15 mg/dl (7-17); Estimated Glomerular Filt Rate 72 ml/min (>60); GFR (African American) 88 ML/MIN (>60)
== END ==
PROVIDERS: PCP Internal Medicine; Visit Provider Internal Medicine
DX: R10.31 Right lower quadrant pain (principal); K50.90 Crohn's disease, unspecified, without complications
CPT/HCPCS: 36415; 74021; 82565; 84520; 85025

== ENCOUNTER → 2020-06-14 10:58 | Outpatient (CLI) | payer MEDICARE, SELFPAY ==
--- NOTE | 2020-06-14 11:02 | CT_ITS ---
PROCEDURE: CT ABDOMEN PELVIS W CON CLINICAL INDICATION: MID LOWER ADB PAIN, CROHN'S DISEASE Pain lower belly Nodule rt side marked with BB Chrons disease since March COMPARISON: CT ABDPELW CT abdomen pelvis w/o con from 06/30/2017 TECHNIQUE: IV Contrast: 75ML Isovue 370 Oral Contrast None Axial images obtained with sagittal and coronal reformats. All CT scans at the facility use one or more dose reduction, viz: automated exposure control, ma/kV adjustment per patient size (including targeted exams where dose is matched to indication, i.e. head), or iterative reconstruction technique. FINDINGS: LOWER THORAX: No acute finding ABDOMEN & PELVIS: The liver, spleen, adrenal glands, gallbladder, pancreas, have an unremarkable appearance. There are bilateral parapelvic renal cysts. No intestinal obstruction or free air. There is given history of Crohn's disease. Terminal ileum has an unremarkable appearance. There is no evidence of small-bowel obstruction. There is mild thickening of the ascending colon, hepatic flexure, and proximal transverse colon. There is also mild thickening with prominent submucosal fat in the descending colon and sigmoid colon. This may be seen with chronic inflammatory bowel disease and may also be seen with obesity. There has been a prior hysterectomy. No abscess is evident. No fistulous tracts apparent. There is a small umbilical hernia which contains fat. There is anterior angulation at the tip of the coccyx. There are few small mesenteric lymph nodes. IMPRESSION: 1. There is mild thickening of the ascending colon hepatic flexure and proximal descending colon suggesting mild colitis. 2. There is also thickening with prominent submucosal fat within the descending colon and sigmoid colon. This is not significantly changed and could be seen with chronic inflammatory bowel disease or other entities such as obesity. This is not significantly changed. 3. No abscess or bowel obstruction. Dictated by: Zion Sands MD 06/15/2020 12:25 Zion Sands MD in [place] 06/15/2020 12:25
== END ==
PROVIDERS: PCP Internal Medicine; Visit Provider Internal Medicine
DX: R10.30 Lower abdominal pain, unspecified (principal); K50.90 Crohn's disease, unspecified, without complications
CPT/HCPCS: 74177; Q9967

== ENCOUNTER → 2020-07-11 13:39 | Outpatient (CLI) | payer MEDICARE, SELFPAY ==
[2020-07-11 14:38] LABS: Basophils # 0.1 K/mm3 (0-0.2); Basophils % 1.2 % (0.1-2.0); Eosinophils # 0.8 K/mm3 (0.0-0.4); Eosinophils % 10.2 % (0.1-12.0); Hematocrit 45.2 % (37.0-47.0); Hemoglobin 14.8 g/dL (12.2-16.2); Lymphocytes # 2.1 K/mm3 (0.7-4.5); Lymphocytes % 27.1 % (10-50); Mean Corpuscular HGB Conc 32.7 g/dL (31.8-35.4); Mean Corpuscular Hemoglobin 29.1 pg (27.0-31.2); Mean Platelet Volume 6.9 fl (7.4-10.4); Monocytes # 0.5 K/mm3 (0.1-1.0); Monocytes % 5.9 % (1.7-9.3); Neutrophils # 4.4 K/mm3 (1.8-7.8); Neutrophils % 55.6 % (37.0-80.0); Platelet Count 342 K/mm3 (142-424); Red Blood Count 5.08 M/mm3 (4.20-5.40); Red Cell Distribution Width 14.5 % (11.5-17.5); White Blood Count 7.8 K/mm3 (4.8-10.8)
[2020-07-11 15:31] LABS: Chloride 106 mmol/L (98-107); Sodium 140 mmol/L (136-145)
[2020-07-11 15:32] LABS: Potassium 4.3 mmoL/L (3.5-5.1)
[2020-07-11 15:34] LABS: Alanine Aminotransferase 39 U/L (12-78); Alkaline Phosphatase 125 U/L (38-126); Anion Gap 15.3 mEq/L (5-15); Aspartate Amino Transferase 27 U/L (14-36); Bilirubin,Total 0.8 mg/dl (0.2-1.3); Blood Urea Nitrogen 12 mg/dl (7-17); Carbon Dioxide 23 mmol/L (22.0-30.0); Estimated Glomerular Filt Rate 84 ml/min (>60); GFR (African American) 102 ML/MIN (>60)
[2020-07-11 15:35] LABS: Albumin Level 4.8 g/dl (3.5-5.0); Albumin/Globulin Ratio 1.5 (1.1-1.8); Globulin 3.3 g/dL (1.3-3.2); Glucose 140 mg/dl (74-100); Iron 85 ug/dL (37-170); Total Protein,Serum 8.1 g/dl (6.3-8.2)
[2020-07-11 15:41] LABS: C-Reactive Protein 6.9 mg/L (0-4)
[2020-07-11 15:44] LABS: Total Iron Binding Capacity 319 ug/dL (265-497)
[2020-07-11 16:10] LABS: Ferritin 46.8 ng/ml (11.1-264)
[2020-07-11 16:13] LABS: 25-OH Vitamin D, Total < 12.8 ng/mL (30-100)
[2020-07-11 16:27] LABS: Vitamin B12 333 pg/mL (239-931)
[2020-07-11 17:01] LABS: Erythrocyte Sedimentation Rate 18 mm/hr (0-30)
== END ==
PROVIDERS: Visit Provider Nurse Practitioner Family
DX: R10.30 Lower abdominal pain, unspecified (principal); A04.72 Enterocolitis due to Clostridium difficile, not specified as recurrent; K50.111 Crohn's disease of large intestine with rectal bleeding; R19.7 Diarrhea, unspecified; E55.9 Vitamin D deficiency, unspecified
CPT/HCPCS: 36415; 80053; 82306; 82607; 82728; 83540; 83550; 85025; 85651; 86140

== ENCOUNTER → 2020-07-16 15:53 | Outpatient (POV) | payer MEDICARE, SELFPAY | PROVIDERS: Visit Provider Nurse Practitioner Family | DX: Z00.00 Encounter for general adult medical examination without abnormal findings (principal) ==

== ENCOUNTER → 2020-07-31 10:23 | Outpatient (CLI) | payer MEDICARE, SELFPAY ==
--- NOTE | 2020-07-31 10:23 | MM_ITS ---
PROCEDURE: MM DIG SCREENING MAMM BI W/CAD Digital Breast Tomosynthesis Included CLINICAL INDICATION: Routine Screening Mammogram There is a history of breast cancer patient's sister diagnosed after menopause. There have been previous biopsies on each breast for benign disease. COMPARISON: MG MY Digital Dx Unilat LT from 02/21/2016 MG [facility] MM Dig screening mamm BI w/CAD from 07/28/2018 MG MM DIG SCREENING MAMM BI W/CAD from 07/27/2019 TECHNIQUE: Standard CC and MLO images and 3D Tomosynthesis was obtained. R2 CAD reviewed. FINDINGS: Moderate somewhat heterogenic fibroglandular densities are seen in the central portions of both breasts. There are 2 biopsy clips left breast and a single biopsy clip right breast. There is a mole marker left breast. There is no new or suspicious lesion in either breast and no suspicious microcalcifications. IMPRESSION: Stable moderate breast density with no suspicious lesions seen BI-RAD Category: 2 Benign Finding(s) FOLLOW-UP: 1YR 1 Year Follow-up (A letter has been sent to the patient regarding results of the study.) Dictated by: Dr. Zeeshan Ramirez MD 08/05/2020 12:26 Dr. Zeeshan Ramirez MD in [place] 08/05/2020 12:26
== END ==
PROVIDERS: PCP Internal Medicine; Visit Provider Obstetrics & Gynecology
DX: Z12.31 Encounter for screening mammogram for malignant neoplasm of breast (principal)
CPT/HCPCS: 77063; 77067

== ENCOUNTER → 2020-07-31 13:29 | Outpatient (POV) | payer MEDICARE, SELFPAY | PROVIDERS: Visit Provider Dermatology | DX: Z00.00 Encounter for general adult medical examination without abnormal findings (principal) ==

== ENCOUNTER → 2020-09-11 15:01 | Outpatient (CLI) | payer MEDICARE, SELFPAY ==
--- NOTE | 2020-09-11 15:14 | ECG_ITS ---
APPROVED REPORT Exam: Resting ECG HR:109 bpm ECG Measurements Heart Rate 109 AXES AZ 176 P 47 QRSd 132 QRS -5 QT 374 T 121 QTc 503 Conclusion Sinus tachycardia Left bundle branch block Abnormal ECG Electronically signed by : Jonathan Bill, 09/12/2020 17:35:20
== END ==
PROVIDERS: PCP Internal Medicine; Visit Provider Internal Medicine
DX: R00.0 Tachycardia, unspecified (principal); I44.7 Left bundle-branch block, unspecified
CPT/HCPCS: 93005; 93225; 93226

== ENCOUNTER 2020-09-12 21:41 | Observation (INO) | payer MEDICARE, SELFPAY ==
--- NOTE | 2020-09-12 21:32 | ECG_ITS ---
APPROVED REPORT Exam: Resting ECG HR:130 bpm ECG Measurements Heart Rate 130 AXES UT 200 P -3 QRSd 126 QRS -17 QT 298 T 137 QTc 438 Conclusion Sinus tachycardia Left bundle branch block Abnormal ECG Electronically signed by : Jonathan Bill, 09/14/2020 19:12:17
[2020-09-12 21:44] VITALS: BP 133/100; PULSE 133; RESP 16; TEMP 36.6; O2SAT 96
--- NOTE | 2020-09-12 21:55 | XR_ITS ---
PROCEDURE: XR CHEST 2V CLINICAL HISTORY: chest pain COMPARISON: CR CXR CHEST(2 VIEWS-NOT PORTABLE) from 06/06/2016 CR CXR2V XR chest 2V from 06/22/2017 CR XR CHEST PORTABLE from 08/26/[address] ABDOMEN PELVIS W CON from 09/12/2020 FINDINGS: The cardiomediastinal silhouette and pulmonary vascularity are within normal limits. No lobar consolidation or collapse. No acute bony abnormalities. IMPRESSION: No acute findings. Dictated by: Zion Sands MD 09/13/2020 05:26 Zion Sands MD in [place] 09/13/2020 05:26
--- NOTE | 2020-09-12 21:55 | CT_ITS ---
PROCEDURE: CT ABDOMEN PELVIS W CON CLINICAL INDICATION: midepigastric pain Mid epigastric pain, vomiting COMPARISON: CT CT ABDOMEN PELVIS W CON from 06/14/2020 TECHNIQUE: IV Contrast: 75ML Isovue 370 Oral Contrast None Axial images obtained with sagittal and coronal reformats. All CT scans at the facility use one or more dose reduction, viz: automated exposure control, ma/kV adjustment per patient size (including targeted exams where dose is matched to indication, i.e. head), or iterative reconstruction technique. FINDINGS: LOWER THORAX: Small hiatal hernia. ABDOMEN & PELVIS: The liver, spleen, adrenal glands, and pancreas have an unremarkable appearance. Gallbladder is slightly distended. No evidence of appendicitis. There are bilateral parapelvic renal cysts. No renal or ureteral calculi. There is mild colonic wall thickening involving the ascending colon, hepatic flexure, descending colon and rectosigmoid. There is also mild diffuse small bowel wall thickening. No intestinal obstruction or free air. There is fatty infiltration of the colon involving the rectosigmoid region. There is a moderate amount of retained colonic feces. Prior hysterectomy. No acute bony findings. IMPRESSION: 1. Diffuse small bowel wall thickening and segmental large bowel wall thickening. Enterocolitis is considered. Celiac sprue also a consideration. 2. Constipation Dictated by: Zion Sands MD 09/13/2020 06:29 Zion Sands MD in [facility] 09/13/2020 06:29
[2020-09-12 22:04] LABS: Basophils % 0.3 % (0.1-2.0); Eosinophils # 0.2 K/mm3 (0.0-0.4); Hematocrit 45.1 % (37.0-47.0); Lymphocytes # 0.9 K/mm3 (0.7-4.5); Mean Corpuscular HGB Conc 33.2 g/dL (31.8-35.4); Mean Corpuscular Hemoglobin 28.8 pg (27.0-31.2); Mean Corpuscular Volume 86.7 fl (81-99); Mean Platelet Volume 7.3 fl (7.4-10.4); Monocytes # 0.4 K/mm3 (0.1-1.0); Monocytes % 3.7 % (1.7-9.3); Neutrophils # 9.9 K/mm3 (1.8-7.8); Neutrophils % 85.9 % (37.0-80.0); Platelet Count 385 K/mm3 (142-424); Red Blood Count 5.21 M/mm3 (4.20-5.40); Red Cell Distribution Width 13.4 % (11.5-17.5); White Blood Count 11.5 K/mm3 (4.8-10.8)
--- NOTE | 2020-09-12 22:05 | HMH.EDCP ---
ED Disposition Clinical Impression: Obesity (BMI 30.0-34.9), LBBB (left bundle branch block) Chest pain Qualifiers: Chest pain type: precordial pain Qualified Code(s): R07.2 - Precordial pain Disposition: Admitted as Observation Condition on Discharge: Good - Critical Care Critical Care Time: No Attestation: On 09/12/20, the high probability of a clinically significant, sudden or life threatening deterioration of the following system(s) required my full and direct attention, intervention and personal management. The time I documented below is in addition to time spent performing reported procedures but includes the following listed in this critical care notation. Medical Decision Making - Medical Records Medical records reviewed: Yes: I reviewed the patient's medical records. - Mitchell Inquiry Pt receiving controlled substance: No Vital Signs: 09/12/20 21:44 09/12/20 22:16 09/12/20 22:49 Temperature 97.8 F Temperature Source Oral Pulse Rate 120 H 126 H Pulse Rate [Right Brachial] 133 H Respiratory Rate 16 18 18 Blood Pressure 124/88 133/84 Blood Pressure [Right Arm] 133/100 H Blood Pressure Mean 97 Blood Pressure Mean [Right Arm] 111 Blood Pressure Source Automatic Cuff Blood Pressure Source [Right Arm] Automatic Cuff Blood Pressure Position Supine Blood Pressure Position [Right Arm] Sitting 02 Sat by Pulse Oximetry 96 96 97 Oxygen Delivery Method Room Air Room Air 09/12/20 23:00 09/12/20 23:30 Temperature Temperature Source Pulse Rate 127 H 123 H Pulse Rate [Right Brachial] Respiratory Rate 18 18 Blood Pressure 141/79 H 140/75 Blood Pressure [Right Arm] Blood Pressure Mean 95 92 Blood Pressure Mean [Right Arm] Blood Pressure Source Blood Pressure Source [Right Arm] Blood Pressure Position Blood Pressure Position [Right Arm] 02 Sat by Pulse Oximetry 95 96 Oxygen Delivery Method - Lab Data Lab results reviewed: Yes: I reviewed the patient's lab results. Lab Results 09/12/20 21:40: WBC 11.5 H, RBC 5.21, Hgb 15.0, Hct 45.1, MCV 86.7, MCH 28.8, MCHC 33.2, RDW 13.4, Plt Count 385, MPV 7.3 L, Neut % (Auto) 85.9 H, Lymph % (Auto) 8.0 L, [place] % (Auto) 3.7, Eos % (Auto) 2.0, Baso % (Auto) 0.3, Neut # (Auto) 9.9 H, Lymph # (Auto) 0.9, [place] # (Auto) 0.4, Eos # (Auto) 0.2, Baso # (Auto) 0.0, Total Counted 100, Neutrophils % (Manual) 80 H, Band Neutrophils % 7.0, Lymphocytes % (Manual) 5 L, Monocytes % (Manual) 4, Eosinophils % (Manual) 4 H, Toxic Granulation 1+, Platelet Estimate Normal, RBC Morphology Normal, ESR 18 09/12/20 21:40: Sodium 139, Potassium 4.0, Chloride 106, Carbon Dioxide 25, Anion Gap 12.0, BUN 17, Creatinine 0.80, Estimated Creat Clear 71, Estimated GFR 72, Est GFR ( Amer) 87, Glucose 141 H, Calcium 9.5, Total Bilirubin 0.6, Direct Bilirubin 0.0, Conjugated Bilirubin 0.0, Indirect Bilirubin 0.6, Unconjugated Bilirubin 0.7, AST 33, ALT 24, Alkaline Phosphatase 112, C-Reactive Protein 9.5 H, Total Protein 8.0, Albumin 4.6, Amylase 66, Lipase 125 09/12/20 21:40: Troponin I < 0.01 Result diagrams: 09/12/20 21:40 09/12/20 21:40 Orders (Tests/Meds): ED MEDICATIONS Generic Name Dose Route Start Last Admin Trade Name Freq PRN Reason Stop Dose Admin Sodium Chloride 1,000 mls @ 999 mls/hr 09/12/20 22:00 09/12/20 22:02 Sod Chlor 0.9% 1000ml Bag IV 09/12/20 23:00 999 mls/hr .Q1H1M KIMMY Administration Sodium Chloride 8 ml 09/12/20 21:57 Sodium Chloride 0.9% 10ml Vial IV 10/12/20 21:56 NEEDED PRN dilute pepcid Discontinued Medications Generic Name Dose Route Start Last Admin Trade Name Freq PRN Reason Stop Dose Admin Famotidine 20 mg 09/12/20 21:57 09/12/20 22:03 Famotidine 20mg/2ml Vial IV 09/12/20 21:58 20 mg ONCE ONE Administration Iopamidol 75 ml 09/12/20 22:55 09/12/20 22:56 Iopamidol-370 (76%);100ml Bottle IV 09/12/20 22:56 75 ml ONCE ONE Administration Metoclopramide HCl 1
[2020-09-12 22:07] LABS: MANUAL DIFFERENTIAL MANUAL DIFFERENTIAL (MANUAL DIFF)
[2020-09-12 22:09] LABS: Alanine Aminotransferase 24 U/L (12-78); Albumin Level 4.6 g/dl (3.5-5.0); Alkaline Phosphatase 112 U/L (38-126); Amylase 66 U/L (30-110); Aspartate Amino Transferase 33 U/L (14-36); Bilirubin,Indirect 0.6 mg/dL (0.0-0.9); Bilirubin,Total 0.6 mg/dl (0.2-1.3); Bilirubin,Unconjugated 0.7 mg/dL (0.0-1.1); Blood Urea Nitrogen 17 mg/dl (7-17); Calcium 9.5 mg/dl (8.4-10.2); Carbon Dioxide 25 mmol/L (22.0-30.0); Chloride 106 mmol/L (98-107); Creatinine Clearance Estimated 71 mL/min (50-200); Estimated Glomerular Filt Rate 72 ml/min (>60); GFR (African American) 87 ML/MIN (>60); Glucose 141 mg/dl (74-100); Lipase 125 U/L (23-300); Sodium 139 mmol/L (136-145)
[2020-09-12 22:16] VITALS: BP 124/88; PULSE 120; RESP 18; O2SAT 96
[2020-09-12 22:16] LABS: C-Reactive Protein 9.5 mg/L (0-4)
[2020-09-12 22:41] LABS: Erythrocyte Sedimentation Rate 18 mm/hr (0-30)
[2020-09-12 22:49] VITALS: BP 133/84; PULSE 126; RESP 18; O2SAT 97
[2020-09-12 22:59] LABS: Eosinophils % 4 % (0-3); Lymphocytes % 5 % (10-50); Monocytes % 4 % (2-9); Neutrophils % 80 % (42-76); Total Cells Counted 100
[2020-09-12 23:00] VITALS: BP 141/79; PULSE 127; RESP 18; O2SAT 95
[2020-09-12 23:02] LABS: Platelet Estimate Normal; RBC Morphology Normal
[2020-09-12 23:03] LABS: Toxic Granulation 1+
[2020-09-12 23:30] VITALS: BP 140/75; PULSE 123; RESP 18; O2SAT 96
[2020-09-13] VITALS (7 sets, daily range): BP systolic 114–150; BP diastolic 58–77; PULSE 80–127; RESP 14–26; TEMP 36.5–37.5; O2SAT 92–98; BMI 29.0
[2020-09-13 00:03] LABS: Adenovirus,PCR Not Detected (NotDetected); Bordetella Pertussis Not Detected (NotDetected); Chlamydophila Pneumoniae, PCR Not Detected (NotDetected); Coronavirus 19, PCR Not Detected (NotDetected); Coronavirus 229E Not Detected (NotDetected); Coronavirus NL63 Not Detected (NotDetected); Coronavirus OC43 Not Detected (NotDetected); Coronovirus HKU1,PCR Not Detected (NotDetected); Human Metapneumovirus Not Detected (NotDetected); Influenza A, PCR Not Detected (NotDetected); Influenza AH1, 2009 Not Detected (NotDetected); Influenza AH1, PCR Not Detected (NotDetected); Influenza AH3,PCR Not Detected (NotDetected); Influenza B, PCR Not Detected (NotDetected); Mycoplasma Pneumoniae, PCR Not Detected (NotDetected); Parainfluenza 1, PCR Not Detected (NotDetected); Parainfluenza 2, PCR Not Detected (NotDetected); Parainfluenza 3, PCR Not Detected (NotDetected); Parainfluenza 4, PCR Not Detected (NotDetected); Respiratory Syncytial Virus Not Detected (NotDetected); Rhinovirus/Enterovirus Not Detected (NotDetected)
[2020-09-13 00:18] LABS: Troponin I < 0.01 ng/ml (0.00-0.034)
--- NOTE | 2020-09-13 01:47 | PC.NURSE ---
patient up to floor via wheelchair .
--- NOTE | 2020-09-13 03:39 | PC.NURSE ---
Pt. has not c/o cp, n/v/d, or dizziness. Pt. reports soa upon movement or supine; reports intermittent productive cough with quintanilla, thick sputum, instructed pt. on obtaining sputum sample, pt. has not expectorated since admission.
[2020-09-13 04:13] LABS: Troponin I < 0.01 ng/ml (0.00-0.034)
[2020-09-13 06:22] LABS: Chloride 106 mmol/L (98-107); Potassium 3.8 mmoL/L (3.5-5.1); Sodium 136 mmol/L (136-145)
[2020-09-13 06:25] LABS: Anion Gap 10.8 mEq/L (5-15); Basophils % 0.4 % (0.1-2.0); Blood Urea Nitrogen 12 mg/dl (7-17); Carbon Dioxide 23 mmol/L (22.0-30.0); Creatinine Clearance Estimated 69 mL/min (50-200); Eosinophils # 0.2 K/mm3 (0.0-0.4); Eosinophils % 2.2 % (0.1-12.0); Estimated Glomerular Filt Rate 101 ml/min (>60); GFR (African American) 122 ML/MIN (>60); Glucose 137 mg/dl (74-100); Hematocrit 39.3 % (37.0-47.0); Lymphocytes # 0.9 K/mm3 (0.7-4.5); Lymphocytes % 8.8 % (10-50); Mean Corpuscular HGB Conc 33.8 g/dL (31.8-35.4); Mean Corpuscular Volume 85.9 fl (81-99); Mean Platelet Volume 7.4 fl (7.4-10.4); Monocytes # 0.4 K/mm3 (0.1-1.0); Monocytes % 3.9 % (1.7-9.3); Neutrophils # 8.9 K/mm3 (1.8-7.8); Neutrophils % 84.7 % (37.0-80.0); Platelet Count 344 K/mm3 (142-424); Red Blood Count 4.57 M/mm3 (4.20-5.40); Red Cell Distribution Width 13.5 % (11.5-17.5); White Blood Count 10.5 K/mm3 (4.8-10.8)
[2020-09-13 06:26] LABS: Chol/HDL Ratio 7.5 (1-3.5); Cholesterol 217 mg/dl (140-200); HDL Cholesterol 29 mg/dl (40-60); Magnesium 1.5 mg/dl (1.6-2.3); Triglycerides 123 mg/dl (30-150); VLDL Cholesterol 25 mg/dL (0-40)
[2020-09-13 06:40] LABS: Troponin I < 0.01 ng/ml (0.00-0.034)
[2020-09-13 06:42] LABS: Calcium 8.5 mg/dl (8.4-10.2)
[2020-09-13 06:45] LABS: Hemoglobin 13.2 g/dL (12.2-16.2)
--- NOTE | 2020-09-13 07:12 | HMH.PHAVTE ---
[facility] Pharmacy VTE Monitoring - Patient Demographics Admission date: 09/13/20 Report Date: 09/13/20 Time: 07:12 Allergies/Adverse Reactions: Patient Allergies clindamycin [CLINDAMYCIN] Allergy (Unknown, Verified 09/11/20 13:43) diazepam [From VALIUM] Allergy (Unknown, Verified 09/11/20 13:43) Tetracyclines [TETRACYCLINES] Allergy (Unknown, Verified 09/11/20 13:43) Height: 1.63 m Weight: 77.111 kg Patient Problems: Current Active Problems LBBB (left bundle branch block) (Acute) Obesity (BMI 30.0-34.9) (Acute) Chest pain (Chronic) - VTE Risk Labs: VTE Related Lab Results Hgb 13.2 g/dL (12.2-16.2) D 09/13/20 06:02 Hct 39.3 % (37.0-47.0) 09/13/20 06:02 Plt Count 344 K/mm3 (142-424) 09/13/20 06:02 BUN 12 mg/dl (7-17) D 09/13/20 06:02 Creatinine 0.60 mg/dl (0.52-1.04) D 09/13/20 06:02 Estimated Creat Clear 69 mL/min (50-200) 09/13/20 06:02 Was VTE Risk Assessment Performed: Yes VTE Score: 3 VTE Risk Level: Low Risk - Prophylaxis VTE Prophylaxis Ordered?: Yes Types of VTE Prophylaxis: TEDS Knee High Location of Applied Device: Bilateral Lower Extremeties
--- NOTE | 2020-09-13 07:43 | HMH.CNCARD ---
History of Present Illness Consult date: 09/13/20 Requesting physician: Jonathan Bill Consult reason: chest pain Chief complaint: chest pain Additional Medical History:: 1. Hypertension A. Echocardiogram, 11/2019, mild LAE, mild LVH, EF 55%, grade 1 diastolic dysfunction, mild MR and TR. 2. Palpitations with history of PVCs A. Holter, 08/2020, Sinus with periods of A. flutter with variable response. B. Start sotalol 80 mg BID, 09/13/2020 3. Family history of coronary artery disease 4. Reported history of either ulcerative colitis or Crohn's followed by GI (Dr. Lazo) A. Prior use of prednisone and sulfasalazine 5. Hyperlipidemia 6. Normal coronary arteries by cardiac catheterization, 2019 A. Lexiscan Myoview 11/2019, no ischemia with slightly decreased ejection fraction felt related to left bundle branch block which is chronic. History of present illness: pt describes pain in her mid chest and left chest wall that she states has went on intermittently since and was wearing a holter monitor up until she came in here; states it worsened after eating and with movement this date. history of hiatal hernia. denies dyspnea unless moves and attempts to bend over. The above per ER MD, Dr. Carpio Pt relates history of Ulcerative colitis/Crohn's for which she follows with Dr. Lazo. She has had multiple episodes of vomiting and now diarrhea in the last few days. Holter monitor placed recently due to complaints of palpitations. Report is pending. Pt had been on bisoprolol 5 mg daily but seems to have been stopped due to reports of dizziness and low HR. Currently she is sinus tachycardia at 110-120 bpm at rest (just returned from bathroom with report of diarrhea). She does relate chest pain but she relates history of a hiatal hernia and does not think this is her heart since she had normal coronaries by cath in 2019 and normal stress test last year. Troponins overnight have been normal and EKG is sinus with LBBB (known to be chronic) at 120 bpm. [facility] History Medical History: Reports:: Gastroesophageal Reflux Disease(GERD), Hyperlipidemia, Hypertension, Palpitations Denies:: Cancer, Diabetes Mellitus Type 1, Diabetes Mellitus Type 2, Internal Pacemaker, Lung Disease, MRSA, Seizures *Have you ever received a pneumonia vaccine?: No *Have you received a flu vaccine this season?: No Other Surgeries: Yes: Cancer Surgery (Back ), Cardiac Catheterization, Colonoscopy, Dilation and Curettage, Hysterectomy-Total, Tubal Ligation. No: Pacemaker Amputation: No Fractures: Yes - *Social History Last grade of school completed: High school graduate Smoking Status: Never smoker Alcohol Intake: never Alcohol Intake Frequency:: other Substance Use Type: denies use *Occupational Status:: retired Housing: house Household Members: spouse *Travel in the last 8 weeks: Inside the [place] Family Hx:: Cancer, Heart Attack Meds Home Medications Medication Instructions Recorded Confirmed Type atorvastatin 40 mg tablet 40 mg PO HS 07/31/20 09/03/20 History cholecalciferol (vitamin D3) 1,250 1,250 mcg PO WEEKLY 07/31/20 09/13/20 History mcg (50,000 unit) capsule furosemide 20 mg tablet 20 mg PO DAILY #180 tab 07/31/20 09/13/20 Rx estradioL [Estradiol] 10 mcg VAGINAL .twice weekly 09/13/20 History metroNIDAZOLE [Metronidazole] 500 mg PO BID 09/13/20 History Allergies Allergy/AdvReac Type Severity Reaction Status Date / Time clindamycin [CLINDAMYCIN] Allergy Unknown Verified 09/11/20 13:43 diazepam [From VALIUM] Allergy Unknown Verified 09/11/20 13:43 Tetracyclines [TETRACYCLINES] Allergy Unknown Verified 09/11/20 13:43 Exam Vital signs and Labs for Last 24 Hours: Temp Pulse Resp BP Pulse Ox 99.5 F 127 H 26 H 123/70 97 09/13/20 04:00 09/13/20 04:00 09/13/20 04:00 09/13/20 04:00 09/13/20 04:00 Laboratory Results - last 24 hr 09/12/20 21:40: WBC 11.5 H, RBC 5.21, Hgb 15.0, Hct 45.1, MCV 86.7, MCH 28
--- NOTE | 2020-09-13 08:00 | CA_ITS ---
APPROVED REPORT EXAM: Comprehensive 2D, Doppler, and color-flow Echocardiogram Automatic Developer: Johana Garcia CRT Ht: 5 ft 4 in Wt: 175lbs BSA: 1.85 BP: 140/75 mmHg Indications: Chest Pain, Palpitations, Hyperlipidemia, Hypertension/HDD,tachycardia 2D Dimensions LVOT 1.81 cm (M/F) 1.5-2.5 LA Volume 24.30 mL LA Volume Index 13.10 mL/m2 (M/F) 16-34 M-Mode Dimensions RVDd 2.49 cm (0.9-2.6) LA Diam 3.69 cm (1.9-4.0) LVDd 3.99 cm (3.5-5.7) Ao Diam 3.09 cm (2.0-3.7) LVDs 2.83 cm (3.5-5.7) IVSd 2.02 cm (0.6-1.1) PWd 0.53 cm (0.6-1.1) EF (Teich) 56.50% FS 29.10% EDV (Teich) 69.60 mL TAPSE 2.26 (<1.7) ESV (Teich) 30.30 mL LV Diastology E Decel Time 150.00 (160-240 msec) E/A Ratio 4.47 Aortic Valve AO Peak GR. 9.20 mmHg Mitral Valve MV E Max Willam. 132.00 (40-130 cm/s) MV A Velocity 29.00 (40-130 cm/s) E/A Ratio 4.47 MV Decel. Time 150.00 (160-240 ms) MV PHT 44.00 ms Tricuspid Valve TR P. Velocity 142.00 cm/s RAP Estimate 10.00 mmHg RVSP 18.10 mmHg Left Ventricle Technically limited and difficult study, patient was tachycardic throughout the study. Left atrium is mildly enlarged, left ventricle is normal size, mild concentric left ventricular hypertrophy, visually estimated ejection fraction 55% with no obvious regional wall motion abnormality, diastolic parameters are inconclusive. Right Ventricle Right atrium and right ventricle are normal size and contractility. Aortic Valve Aortic valve is minimally thickened and fibrosed, there is no aortic stenosis or aortic insufficiency. Mitral Valve Mitral valve grossly normal, there is trace mitral regurgitation. Tricuspid Valve Tricuspid grossly normal, there is trace tricuspid regurgitation, tricuspid regurgitation jet velocity is inadequate for calculation of the right ventricular systolic pressure. Pulmonic Valve Pulmonic valve is poorly visualized. Great Vessels Aortic root is normal size. Pericardium No significant pericardial effusion noted. Conclusion 1. Technically difficult study as described above. 2. Mildly enlarged left atrium, normal left ventricular size, mild concentric left ventricular hypertrophy, visually estimated ejection fraction 55% with no regional wall motion abnormality, diastolic parameters are inconclusive. 3. Trace mitral and tricuspid regurgitation. 4. No significant pericardial effusion noted. Electronically signed by : Dc Stoll, 09/13/2020 16:06:32
--- NOTE | 2020-09-13 08:08 | HMH.HP ---
*Admission Date: 09/13/20 *Chief complaint: Tachycardia, nausea/vomiting *History of present illness: 65-year-old white female with history of tachycardia, left bundle branch block which developed in 2018-had negative left heart cath and essentially normal echocardiogram at that point, and has been maintained on bisoprolol until recently when it was discontinued because of low diastolic pressure. She also has a history of inflammatory bowel disease, followed by Dr. Lazo, in April she had a colonoscopy because of blood in the stools and has been fairly stable since that time on medication. Unfortunately over the past 4 to 5 days has had a recurrence of vomiting, some diarrhea, has stopped most of her medications including the bisoprolol which was discontinued as noted above. Over the past 3 or 4 days she has had increasing heart rate problems, was seen in her physician's office and EKG showed tachycardia but otherwise nondiagnostic and Holter monitor was placed which was taken off yesterday. She called me carpentry professional last night, was tachycardic, weak and dizzy, I recommended going to the emergency department. She was found to be mildly dehydrated. Significant tachycardia noted with left bundle branch block pattern and occasional PVCs, admitted to hospital for further diagnosis. Of note CT scan of abdomen and pelvis showed bowel wall thickening consistent with colitis. [facility] History I have reviewed the patient's past medical history: Yes Medical History: Reports:: Gastroesophageal Reflux Disease(GERD), Hyperlipidemia, Hypertension, Palpitations Denies:: Cancer, Diabetes Mellitus Type 1, Diabetes Mellitus Type 2, Internal Pacemaker, Lung Disease, MRSA, Seizures *Have you ever received a pneumonia vaccine?: No *Have you received a flu vaccine this season?: No Comment:: Left bundle branch block Other Surgeries: Yes: Cancer Surgery (Back ), Cardiac Catheterization, Colonoscopy, Dilation and Curettage, Hysterectomy-Total, Tubal Ligation. No: Pacemaker Amputation: No Fractures: Yes - *Social History Last grade of school completed: High school graduate Smoking Status: Never smoker Alcohol Intake: never Alcohol Intake Frequency:: other Substance Use Type: denies use *Occupational Status:: retired Housing: house Household Members: spouse *Travel in the last 8 weeks: Inside the [place] Family Hx:: Cancer, Heart Attack Review of Systems - Review of Systems Review of systems:: pertinent systems reviewed and negative unless documented below - *Neurologic Denies localized weakness, Denies headache(s), Denies seizure-like activity Meds Home Medications Medication Instructions Recorded Confirmed Type atorvastatin 40 mg tablet 40 mg PO HS 07/31/20 09/03/20 History cholecalciferol (vitamin D3) 1,250 1,250 mcg PO WEEKLY 07/31/20 09/13/20 History mcg (50,000 unit) capsule furosemide 20 mg tablet 20 mg PO DAILY #180 tab 07/31/20 09/13/20 Rx estradioL [Estradiol] 10 mcg VAGINAL .twice weekly 09/13/20 History metroNIDAZOLE [Metronidazole] 500 mg PO BID 09/13/20 History Allergies Allergy/AdvReac Type Severity Reaction Status Date / Time clindamycin [CLINDAMYCIN] Allergy Unknown Verified 09/11/20 13:43 diazepam [From VALIUM] Allergy Unknown Verified 09/11/20 13:43 Tetracyclines [TETRACYCLINES] Allergy Unknown Verified 09/11/20 13:43 Exam Vital signs and Labs for Last 24 Hours: Temp Pulse Resp BP Pulse Ox 99.5 F 127 H 26 H 123/70 97 09/13/20 04:00 09/13/20 04:00 09/13/20 04:00 09/13/20 04:00 09/13/20 04:00 Laboratory Results - last 24 hr 09/12/20 21:40: WBC 11.5 H, RBC 5.21, Hgb 15.0, Hct 45.1, MCV 86.7, MCH 28.8, MCHC 33.2, RDW 13.4, Plt Count 385, MPV 7.3 L, Neut % (Auto) 85.9 H, Lymph % (Auto) 8.0 L, [place] % (Auto) 3.7, Eos % (Auto) 2.0, Baso % (Auto) 0.3, Neut # (Auto) 9.9 H, Lymph # (Auto) 0.9, [place] # (Auto) 0.4, Eos # (Auto) 0.2, Baso # (Auto) 0.0, Total Counted 100, Neutrophils % (Manual) 80 H, Band Neut
--- NOTE | 2020-09-13 09:28 | HMH.PHAINT ---
MEDICATION RECONCILIATION COMPLETED USING EXTERNAL FILL HISTORY AND HOME PHARMACY
--- NOTE | 2020-09-13 18:08 | PC.NURSE ---
Addendum entered by Mariella Araiza RN 09/13/20 18:20: ATTEMPTED TO NOTIFY DR. DOMINGUEZ OFFICE EARLIER TODAY, AND HIS OFFICE IS CLOSED ON THURSDAY. PT IS AWARE. Original Note: PT HAS HAD A GOOD DAY. NO C/O OF N/V, OR CP. SHE HAS HAD 1 LOOSE STOOL ON THIS SHIFT. NS INFUSING PER ORDER.VSS. CALL LIGHT WITHIN REACH. WILL CONT. TO MONITOR.
[2020-09-14] VITALS (9 sets, daily range): BP systolic 101–127; BP diastolic 51–63; PULSE 60–83; RESP 16–18; TEMP 36.5–36.7; O2SAT 94–96; BMI 29.5; BMI 29.3
--- NOTE | 2020-09-14 04:00 | PC.NURSE ---
pt is AxOx4, no complaints of N/V/D this shift, has ambulated independently t/o room, remains on room air
[2020-09-14 06:49] LABS: Basophils % 0.1 % (0.1-2.0); Eosinophils % 0.3 % (0.1-12.0); Hematocrit 38.3 % (37.0-47.0); Hemoglobin 12.4 g/dL (12.2-16.2); Lymphocytes # 0.9 K/mm3 (0.7-4.5); Lymphocytes % 8.7 % (10-50); Mean Corpuscular HGB Conc 32.2 g/dL (31.8-35.4); Mean Corpuscular Hemoglobin 28.6 pg (27.0-31.2); Mean Corpuscular Volume 88.7 fl (81-99); Mean Platelet Volume 7.2 fl (7.4-10.4); Monocytes # 0.3 K/mm3 (0.1-1.0); Monocytes % 2.4 % (1.7-9.3); Neutrophils # 9.1 K/mm3 (1.8-7.8); Neutrophils % 88.5 % (37.0-80.0); Platelet Count 368 K/mm3 (142-424); Red Blood Count 4.32 M/mm3 (4.20-5.40); Red Cell Distribution Width 13.4 % (11.5-17.5); White Blood Count 10.3 K/mm3 (4.8-10.8)
[2020-09-14 06:51] LABS: Chloride 108 mmol/L (98-107); MANUAL DIFFERENTIAL MANUAL DIFFERENTIAL (MANUAL DIFF)
[2020-09-14 06:52] LABS: Potassium 3.7 mmoL/L (3.5-5.1); Sodium 137 mmol/L (136-145)
[2020-09-14 06:54] LABS: Blood Urea Nitrogen 15 mg/dl (7-17); Creatinine Clearance Estimated 70 mL/min (50-200); Estimated Glomerular Filt Rate 101 ml/min (>60); GFR (African American) 122 ML/MIN (>60)
[2020-09-14 06:55] LABS: Anion Gap 10.7 mEq/L (5-15); Calcium 8.9 mg/dl (8.4-10.2); Carbon Dioxide 22 mmol/L (22.0-30.0); Glucose 169 mg/dl (74-100)
--- NOTE | 2020-09-14 09:41 | ECG_ITS ---
APPROVED REPORT Exam: Resting ECG HR:68 bpm ECG Measurements Heart Rate 68 AXES NC 194 P 47 QRSd 156 QRS -14 QT 490 T 113 QTc 521 Conclusion Normal sinus rhythm with sinus arrhythmia Left bundle branch block Abnormal ECG Electronically signed by : Jonathan Bill, 09/14/2020 19:07:37
--- NOTE | 2020-09-14 09:53 | HMH.PNCARD ---
Subjective Date: 09/14/20 Time: 09:53 Principal diagnosis: Tachycardia Interval history: 65-year-old white female in bed in no acute distress. Some abdominal fullness noted but no vomiting or diarrhea. Sotalol started yesterday. EKG today shows sinus rhythm with left bundle branch block and a QTC of 521 ms with EKG earlier this admission with a QTC of 501 ms. Exam Vital signs and Labs for Last 24 Hours: Temp Pulse Resp BP Pulse Ox 97.9 F 68 16 111/51 L 95 09/14/20 07:47 09/14/20 07:47 09/14/20 07:47 09/14/20 07:47 09/14/20 07:47 Laboratory Results - last 24 hr 09/14/20 06:25: WBC 10.3, RBC 4.32, Hgb 12.4, Hct 38.3, MCV 88.7, MCH 28.6, MCHC 32.2, RDW 13.4, Plt Count 368, MPV 7.2 L, Neut % (Auto) 88.5 H, Lymph % (Auto) 8.7 L, [place] % (Auto) 2.4, Eos % (Auto) 0.3, Baso % (Auto) 0.1, Neut # (Auto) 9.1 H, Lymph # (Auto) 0.9, [place] # (Auto) 0.3, Eos # (Auto) 0.0, Baso # (Auto) 0.0 09/14/20 06:25: Sodium 137, Potassium 3.7, Chloride 108 H, Carbon Dioxide 22, Anion Gap 10.7, BUN 15, Creatinine 0.60, Estimated Creat Clear 70, Estimated GFR 101, Est GFR ( Amer) 122, Glucose 169 H, Calcium 8.9 I & O for Last 24 hours: Intake & Output 09/11/20 09/12/20 09/13/20 09/14/20 11:59 11:59 11:59 11:59 Intake Total 1000 / 1000 1052 / 1052 Output Total 100 / 100 1200 / 1200 Balance 900 / 900 -148 / -148 Weight 170 lb 173 lb - Constitutional no acute distress - *Routine HEENT Exam Head: Present: normocephalic Eye: Present: EOMI, PERRL ENT: Present: mucous membranes moist - *Routine Neck Exam Present: supple. Absent: lymphadenopathy - *Routine Respiratory Exam Present: CTA bilaterally - *Routine Cardiovascular Exam Present: RRR - *Routine Abdominal Exam Present: soft, normoactive bowel sounds. Absent: tenderness - *Routine Extremities Exam Absent: cyanosis, clubbing, edema - *Routine Skin Exam Present: warm. Absent: rash - *Routine Neurological Exam Present: alert, oriented X3 Progress Note: A&P (1) Abdominal pain Status: Acute (2) Chest pain Status: Chronic (3) LBBB (left bundle branch block) Status: Acute (4) Obesity (BMI 30.0-34.9) Status: Acute (5) Ulcerative colitis Status: Acute (6) Family history of ischemic heart disease Status: Chronic (7) HLD (hyperlipidemia) Status: Chronic (8) HTN (hypertension) Status: Chronic (9) Palpitations Status: Chronic (10) Atrial flutter with rapid ventricular response Status: Acute Assessment and Plan for All Diagnoses:: 1. Abdominal pain with nausea, vomiting and diarrhea with history of inflammatory bowel disease (ulcerative colitis/Crohn's disease). Defer to PCP. Plans for GI evaluation today. 2. Atypical chest pain with history of normal coronary arteries in 2019 and normal stress test in 2020. With normal troponins we will hold off on further cardiac testing at this time. Echocardiogram EF 55% this admission. 3. Atrial flutter with variable response. Currently maintaining sinus rhythm on sotalol 80 mg twice daily. No significant arrhythmias noted on telemetry. 4. Abnormal EKG with left bundle branch block, chronic If patient is discharged home this evening then we would recommend obtaining an EKG on Thursday in our office due to new sotalol therapy. If patient is kept overnight then repeat EKG in a.m. to evaluate QTc interval.
[2020-09-14 10:31] LABS: Total Cells Counted 100
[2020-09-14 10:32] LABS: Lymphocytes % 10 % (10-50); Monocytes % 6 % (2-9); Neutrophils % 84 % (42-76); Platelet Estimate Normal; RBC Morphology Normal
--- NOTE | 2020-09-14 15:03 | P.CONS_ITS ---
Gastroenterology Consult Consult:: S: Mrs. Ayoub is a 65-year-old female with chronic functional dyspepsia and IBD (ulcerative colitis). The patient presented with more significant epigastric abdominal pain. Her CT scan of the abdomen and pelvis showed diffuse small bowel wall thickening and segmental large bowel wall thickening suggestive of enterocolitis. She also had constipation. The patient is improved and is up talking. Her labs showed a mildly elevated white blood cell count at 11.5 but normal hemoglobin 15.0 and hematocrit 45.1. She also had negative PCR panel. Her C-reactive protein was 9.5. Her liver and kidney function were normal. The patient does report belching, bloating and fullness with some nausea. She does have the epigastric pain. She also has had some intermittent diarrhea. She is a longstanding patient and was last seen in our office on July 16, 2020. O: Physical Examination: Gen.: The patient is a well-developed well-nourished individual in no acute distress HEENT: Normocephalic/atraumatic extraocular movements are intact anicteric Neck: Supple no lymphadenopathy Chest: Clear to auscultation Cardiovascular: Regular rate and rhythm Abdomen: Moderate distention and bloating with tenderness in the epigastrium, palpable stool and gas present, no rebound or guarding, no hernias no hepato splenomegaly Extremities: No edema Labs/CT scan: See chart A/P: 1. Acute on chronic dyspepsia. I do feel that the CT scan findings are possibly resolving enterocolitis. I do feel that she has more obstipation related symptoms. I would recommend treatment with Xifaxan 550 mg p.o. 3 times daily for 14 days. I would recommend low FODMAP diet, FDgard and consider digestive enzyme (beano) especially since she has been eating a lot of cabbage and beans. There are a long list of medicines for dyspepsia that have failed with Mrs. Ayoub. I would like for her to follow-up in the office with Celeste MENDOZA in 2 to 4 weeks. We will advance diet to low residue and low FODMAP.
--- NOTE | 2020-09-14 16:40 | PC.NURSE ---
Pt has had no episodes of chest pain, SOA this shift. Violet consult this afternoon. Pt started on new meds per MD Lazo. Pt no longer NPO and advanced to low fiber diet. Pt has c/o of tenderness and both upper quads. Active bowel sounds in all 4 quads. No BM noted this shift. No other acute changes or complaints at this time.
--- NOTE | 2020-09-14 18:01 | HMH.ACPN2 ---
Internal Medicine - PN: Subj *Date: 09/14/20 *Time: 08:20 Interval history: Patient doing better this morning. Tolerating p.o. intake. Still having abdominal pain but improving. Still having some loose stools, had diarrhea this morning. Remains afebrile. Denies any blood in stool. No nausea or vomiting. Adequate urine output. GI consult placed for today, patient aware. Exam Vital signs and Labs for Last 24 Hours: Temp Pulse Resp BP Pulse Ox 98.1 F 83 18 127/61 95 09/14/20 15:30 09/14/20 16:00 09/14/20 15:30 09/14/20 15:30 09/14/20 15:30 Laboratory Results - last 24 hr 09/14/20 06:25: WBC 10.3, RBC 4.32, Hgb 12.4, Hct 38.3, MCV 88.7, MCH 28.6, MCHC 32.2, RDW 13.4, Plt Count 368, MPV 7.2 L, Neut % (Auto) 88.5 H, Lymph % (Auto) 8.7 L, [place] % (Auto) 2.4, Eos % (Auto) 0.3, Baso % (Auto) 0.1, Neut # (Auto) 9.1 H, Lymph # (Auto) 0.9, [place] # (Auto) 0.3, Eos # (Auto) 0.0, Baso # (Auto) 0.0, Total Counted 100, Neutrophils % (Manual) 84 H, Lymphocytes % (Manual) 10, Monocytes % (Manual) 6, Platelet Estimate Normal, RBC Morphology Normal 09/14/20 06:25: Sodium 137, Potassium 3.7, Chloride 108 H, Carbon Dioxide 22, Anion Gap 10.7, BUN 15, Creatinine 0.60, Estimated Creat Clear 70, Estimated GFR 101, Est GFR ( Amer) 122, Glucose 169 H, Calcium 8.9 I & O for Last 24 hours: Intake & Output 09/11/20 09/12/20 09/13/20 09/14/20 23:59 23:59 23:59 23:59 Intake Total 1420 / 1420 752 / 752 Output Total 1300 / 1300 Balance 120 / 120 752 / 752 Weight 79.379 kg 77.111 kg 78 kg Narrative: - *Routine HEENT Exam Head: Present: normocephalic Eye: Present: EOMI, PERRL ENT: Present: mucous membranes moist - *Routine Neck Exam Present: supple. Absent: lymphadenopathy - *Routine Respiratory Exam Present: CTA bilaterally - *Routine Cardiovascular Exam Present: RRR, tachycardia - *Routine Abdominal Exam Present: soft, normoactive bowel sounds, tenderness (Minimal tenderness but no rebound or guarding) - *Routine Extremities Exam Absent: cyanosis, clubbing, edema - *Routine Skin Exam Present: warm. Absent: rash - *Routine Neurological Exam Present: alert, oriented X3 Assessment and Plan (1) Abdominal pain Status: Acute Qualifiers: Abdominal location: left lower quadrant Qualified Code(s): R10.32 - Left lower quadrant pain Category: Medical Code(s): R10.9 - Unspecified abdominal pain (2) Chest pain Status: Chronic Qualifiers: Chest pain type: precordial pain Qualified Code(s): R07.2 - Precordial pain Category: Medical Code(s): R07.9 - Chest pain, unspecified (3) LBBB (left bundle branch block) Status: Acute Category: Medical Code(s): I44.7 - Left bundle-branch block, unspecified (4) Obesity (BMI 30.0-34.9) Status: Acute Category: Medical Code(s): E66.9 - Obesity, unspecified (5) Ulcerative colitis Status: Acute Qualifiers: Ulcerative colitis location: other ulcerative colitis Digestive disease complication type: other complication Qualified Code(s): K51.818 - Other ulcerative colitis with other complication Category: Medical Code(s): K51.90 - Ulcerative colitis, unspecified, without complications (6) Family history of ischemic heart disease Status: Chronic Category: Medical Code(s): Z82.49 - Family history of ischemic heart disease and other diseases of the circulatory system (7) HLD (hyperlipidemia) Status: Chronic Qualifiers: Hyperlipidemia type: mixed hyperlipidemia Qualified Code(s): E78.2 - Mixed hyperlipidemia Category: Medical Code(s): E78.5 - Hyperlipidemia, unspecified (8) HTN (hypertension) Status: Chronic Qualifiers: Hypertension type: essential hypertension Qualified Code(s): I10 - Essential (primary) hypertension Category: Medical Code(s): I10 - Essential (primary) hypertension (9) Palpitations Status: Chronic Category: Medical Code(s): R00.2 - Palpitat
[2020-09-15] VITALS: BP 137/62; PULSE 65; PULSE 70; RESP 16; TEMP 36.7; O2SAT 96
--- NOTE | 2020-09-15 01:24 | PC.NURSE ---
She is A&O. She has reported a headache and some pain in her upper abdomen. She was offered PRN tylenol but she did not want it. She stated she would call out if she decided that she wants it. She has been taking to her family on the phone.
[2020-09-15 04:00] VITALS: BP 113/62; PULSE 50; PULSE 69; RESP 16; TEMP 36.5; O2SAT 96
[2020-09-15 05:38] VITALS: BMI 29.3
[2020-09-15 07:39] VITALS: BP 142/58; PULSE 59; RESP 18; TEMP 36.6; O2SAT 94
--- NOTE | 2020-09-15 07:42 | HMH.DCSUM ---
General - General Admission date:: 09/13/20 Discharge date: 09/15/20 HPI HPI: 65-year-old white female with history of tachycardia, left bundle branch block which developed in 2018-had negative left heart cath and essentially normal echocardiogram at that point, and has been maintained on bisoprolol until recently when it was discontinued because of low diastolic pressure. She also has a history of inflammatory bowel disease, followed by Dr. Lazo, in April she had a colonoscopy because of blood in the stools and has been fairly stable since that time on medication. Unfortunately over the past 4 to 5 days has had a recurrence of vomiting, some diarrhea, has stopped most of her medications including the bisoprolol which was discontinued as noted above. Over the past 3 or 4 days she has had increasing heart rate problems, was seen in her physician's office and EKG showed tachycardia but otherwise nondiagnostic and Holter monitor was placed which was taken off yesterday. She called me campaign consultant last night, was tachycardic, weak and dizzy, I recommended going to the emergency department. She was found to be mildly dehydrated. Significant tachycardia noted with left bundle branch block pattern and occasional PVCs, admitted to hospital for further diagnosis. Of note CT scan of abdomen and pelvis showed bowel wall thickening consistent with colitis. Hospital Course Hospital Course: Patient was admitted, ruled out for myocardial infarction. Steroids were given for evidence of colitis. She improved very nicely. Cardiology consultation recommended switching metoprolol to sotalol given her low blood pressure with metoprolol and her lack of coronary disease. This was done and she tolerated this well. GI evaluated her, felt she would be a good candidate for Xifaxan, she was given a couple of doses of this and did well with this as well. This morning she was feeling good, eating well, dietary recommendations reviewed with patient. She will be discharged home and follow-up with GI and cardiology next week. We will prescribe sotalol and Xifaxan as noted. Objective Vital signs: Temp Pulse Resp BP Pulse Ox 97.9 F 59 L 18 142/58 H 94 L 09/15/20 07:39 09/15/20 07:39 09/15/20 07:39 09/15/20 07:39 09/15/20 07:39 no acute distress - *Routine HEENT Exam Head: Present: normocephalic Eye: Present: EOMI, PERRL ENT: Present: mucous membranes moist - *Routine Neck Exam Present: supple - *Routine Respiratory Exam Present: CTA bilaterally - *Routine Cardiovascular Exam Present: RRR - *Routine Abdominal Exam Present: soft, normoactive bowel sounds. Absent: tenderness - *Routine Extremities Exam Absent: cyanosis, clubbing, edema - *Routine Skin Exam Present: warm. Absent: rash - Detailed Eye Exam Eyelids: Bilateral normal inspection Results Labs on day of discharge: Labs from last 24 hours 09/14/20 06:25 Total Counted 100 Neutrophils % (Manual) 84 H Lymphocytes % (Manual) 10 Monocytes % (Manual) 6 Platelet Estimate Normal RBC Morphology Normal DS: Diagnosis - Discharge Diagnosis (1) Abdominal pain Status: Acute (2) Chest pain Status: Chronic (3) LBBB (left bundle branch block) Status: Acute (4) Obesity (BMI 30.0-34.9) Status: Acute (5) Ulcerative colitis Status: Acute (6) Family history of ischemic heart disease Status: Chronic (7) HLD (hyperlipidemia) Status: Chronic (8) HTN (hypertension) Status: Chronic (9) Palpitations Status: Chronic (10) Atrial flutter with rapid ventricular response Status: Acute Discharge Plan - Patient Discharge Instructions ACTIVITY: Continue current activity DIET: continue same diet Patient Instructions: Diverticulitis, DI for Diverticulitis, DI for Abdominal Pain-Adult, DI for Chest Pain, DI for Colitis - Follow up Plan Follow up with: Brandon Woods [Primary Care Provider] - 04
[2020-09-15 08:00] VITALS: PULSE 70; O2SAT 94
== END 2020-09-15 10:35 | disposition home or self-care (01) ==
LOC: ER 21:55 → 2ND 09-13 00:13
PROVIDERS: Admitting Provider Internal Medicine Adolescent Medicine; Emergency Provider Emergency Medicine; PCP Internal Medicine; Visit Provider Internal Medicine Adolescent Medicine
DX: I48.92 Unspecified atrial flutter (principal); K51.818 Other ulcerative colitis with other complication; R07.2 Precordial pain; I44.7 Left bundle-branch block, unspecified; E86.0 Dehydration; R10.32 Left lower quadrant pain; Z82.49 Family history of ischemic heart disease and other diseases of the circulatory system; I10 Essential (primary) hypertension; Z79.899 Other long term (current) drug therapy; Z88.8 Allergy status to other drugs, medicaments and biological substances
CPT/HCPCS: 36415; 71046; 74177; 80048; 80061; 80076; 82150; 83690; 83735; 84484; 85007; 85025; 85651; 86140; 87581; 87633; 87798; 93005; 93306; 96365; 96375; 99283; G0378; Q9967

== ENCOUNTER → 2020-10-08 10:35 | Outpatient (POV) | payer MEDICARE, SELFPAY ==
[2020-10-08 13:10] LABS: Blood Urea Nitrogen 12 mg/dl (7-17)
[2020-10-08 13:11] LABS: Estimated Glomerular Filt Rate 101 ml/min (>60); GFR (African American) 122 ML/MIN (>60)
== END ==
PROVIDERS: Visit Provider Nurse Practitioner Family
DX: Z01.812 Encounter for preprocedural laboratory examination (principal)
CPT/HCPCS: 36415; 82565; 84520

== ENCOUNTER → 2020-10-09 12:37 | Outpatient (CLI) | payer MEDICARE, SELFPAY ==
--- NOTE | 2020-10-09 12:37 | CT_ITS ---
PROCEDURE: CT HEAD/BRAIN WO/W CON CLINICAL INDICATION: left side facial pain Dizziness pain/headache No prior COMPARISON: No exams were available for comparison TECHNIQUE: IV Contrast: 100ML Isovue 370 Axial images obtained. All CT scans at the facility use one or more dose reduction, viz: automated exposure control, ma/kV adjustment per patient size (including targeted exams where dose is matched to indication, i.e. head), or iterative reconstruction technique. FINDINGS: No midline shift, mass effect, intracranial hemorrhage, hydrocephalus, or extra-axial fluid collection is evident. No enhancing lesions are evident. There is a small hyperdense focus in the right centrum semiovale suggesting a small area mineralization with no enhancement at this region. The calvarium has an unremarkable appearance. No mastoid effusion no sinus air-fluid level IMPRESSION: No acute intracranial findings Dictated by: Zion Sands MD 10/10/2020 11:12 Zion Sands MD in [place] 10/10/2020 11:12
== END ==
PROVIDERS: PCP Internal Medicine; Visit Provider Physician Assistant
DX: E78.2 Mixed hyperlipidemia (principal); I10 Essential (primary) hypertension; I48.92 Unspecified atrial flutter; R51.9 Headache, unspecified; R60.0 Localized edema
CPT/HCPCS: 70470; Q9967

== ENCOUNTER 2020-11-17 20:59 | Inpatient (IN) | payer MEDICARE, SELFPAY ==
[2020-11-17] VITALS (8 sets, daily range): BP systolic 116–147; BP diastolic 55–89; PULSE 88–103; RESP 14–16; TEMP 36.7; O2SAT 97–99; BMI 29.7; BMI 30.6
--- NOTE | 2020-11-17 21:14 | ECG_ITS ---
APPROVED REPORT Exam: Resting ECG HR:90 bpm ECG Measurements Heart Rate 90 AXES LA 190 P 58 QRSd 148 QRS -8 QT 432 T 91 QTc 528 Conclusion Normal sinus rhythm Left bundle branch block Abnormal ECG Electronically signed by : Jonathan Bill, 11/19/2020 17:33:08
--- NOTE | 2020-11-17 21:40 | XR_ITS ---
PROCEDURE INFORMATION: Exam: XR Pelvis Exam date and time: 11/17/2020 9:40 PM Age: 65 years old Clinical indication: Injury or trauma; Blunt trauma (contusions or hematomas); Does not apply; Pelvic region; Patient HX: Fall, syncopal episode TECHNIQUE: Imaging protocol: XR pelvis. Views: 1 or 2 view. COMPARISON: CT ABDOMEN PELVIS W CON 09/12/2020 10:27 PM FINDINGS: Bones/joints: No acute displaced fracture. Bilateral hip joints appear preserved. Mild degenerative spurring of the SI joints. Mild lower lumbar facet osteoarthropathy. Soft tissues: Pelvic phleboliths. IMPRESSION: No acute displaced fracture.
--- NOTE | 2020-11-17 21:40 | CT_ITS ---
PROCEDURE INFORMATION: Exam: CT Cervical Spine Without Contrast Exam date and time: 11/17/2020 9:40 PM Age: 65 years old Clinical indication: Injury or trauma; Blunt trauma; Patient HX: Fall, syncope TECHNIQUE: Imaging protocol: Computed tomography images of the cervical spine without contrast. Radiation optimization: All CT scans at this facility use at least one of these dose optimization techniques: automated exposure control; mA and/or kV adjustment per patient size (includes targeted exams where dose is matched to clinical indication); or iterative reconstruction. COMPARISON: [facility] PERFORMER/O MRI-C-SPINE W/O 12/08/2013 3:28 PM FINDINGS: Bones/joints: Nonspecific straightening of the normal cervical lordosis, which may relate to muscle spasm or positioning. Minimal grade 1 retrolisthesis of C4 on C5, favored to be degenerative nature. No uncovering of facet joints or abnormal widening of posterior spinous processes. No acute cervical spine fracture. Advanced right TMJ osteoarthrosis. Discs/Spinal canal/Neural foramina: [id number] right neural foraminal stenosis at C3-C4 due to asymmetric facet arthropathy. Mild to moderate right neural foraminal stenosis C4-C5 due to uncovertebral spurring. Mild spinal canal stenosis at C4-C5 due to disc bulging and uncinate process hypertrophy. No evidence of a high-grade spinal canal stenosis. Sinuses: Mild mucosal opacification of the sphenoid sinuses, with some frothy secretion noted, raising the possibility of acute sinusitis. Lungs: Mild scarring at the lung apices. Soft tissues: Unremarkable. IMPRESSION: 1. No acute cervical spine fracture. 2. Minimal grade 1 retrolisthesis of C4 on C5 is favored to be degenerative in nature. 3. Possible acute sinusitis. Please correlate for associated symptoms.
--- NOTE | 2020-11-17 21:40 | XR_ITS ---
PROCEDURE INFORMATION: Exam: XR Chest Exam date and time: 11/17/2020 9:40 PM Age: 65 years old Clinical indication: Injury or trauma; Blunt trauma (contusions or hematomas); Patient HX: Fall, syncope TECHNIQUE: Imaging protocol: XR of the chest. Views: 2 views. COMPARISON: CR XR CHEST 2V 09/12/2020 10:35 PM FINDINGS: Lungs: Mild linear subsegmental atelectasis or scarring at the left lung base. No consolidation. Pleural spaces: No pleural effusion. No pneumothorax. Heart/Mediastinum: Normal heart size. Bones/joints: Unremarkable. No acute displaced fracture. IMPRESSION: Mild linear subsegmental atelectasis or scarring at the left lung base.
--- NOTE | 2020-11-17 21:40 | CT_ITS ---
PROCEDURE INFORMATION: Exam: CT Head Without Contrast Exam date and time: 11/17/2020 9:40 PM Age: 65 years old Clinical indication: Injury or trauma; Blunt trauma (contusions or hematomas); With loss of consciousness; Not specified; Syncope and collapse; Patient HX: Fall, syncope TECHNIQUE: Imaging protocol: Computed tomography of the head without contrast. Radiation optimization: All CT scans at this facility use at least one of these dose optimization techniques: automated exposure control; mA and/or kV adjustment per patient size (includes targeted exams where dose is matched to clinical indication); or iterative reconstruction. COMPARISON: CT HEAD/BRAIN WO/W CON 10/09/2020 1:32 PM FINDINGS: Brain: Unchanged small focus of calcification within the right centrum semiovale (series 2, image 23). No intraparenchymal hemorrhage. No acute-appearing loss of quintanilla-white differentiation. No midline shift. Extra-axial space: Unremarkable. No fluid collection or mass. Cerebral ventricles: Within expected limits for age. No ventricular outflow obstruction. Paranasal sinuses: Mild mucosal thickening throughout the ethmoid and sphenoid sinuses, with some frothy secretions seen. Mastoid air cells: Visualized mastoid air cells are well aerated. Bones/joints: Advanced right TMJ osteoarthrosis. No depressed or calvarial fracture. Soft tissues: Unremarkable. IMPRESSION: 1. No acute intracranial abnormality. 2. Possible acute sinusitis.
--- NOTE | 2020-11-17 22:02 | HMH.EDSYNC ---
ED Disposition Clinical Impression: LBBB (left bundle branch block) Syncope Qualifiers: Syncope type: unspecified Qualified Code(s): R55 - Syncope and collapse Disposition: Admitted as Observation Condition on Discharge: Serious Instructions: DI for Syncope in Adults (Fainting), DI for Syncope in Children (Fainting) Referrals: Brandon Woods [Primary Care Provider] - - Critical Care Critical Care Time: No Attestation: On 11/17/20, the high probability of a clinically significant, sudden or life threatening deterioration of the following system(s) required my full and direct attention, intervention and personal management. The time I documented below is in addition to time spent performing reported procedures but includes the following listed in this critical care notation. Medical Decision Making - Medical Records Medical records reviewed: Yes: I reviewed the patient's medical records. - Mitchell Inquiry Pt receiving controlled substance: No Vital Signs: 11/17/20 21:27 11/17/20 21:34 11/17/20 21:35 Temperature 98.0 F Temperature Source Oral Pulse Rate 96 H 91 H Pulse Rate [Right] 98 H Respiratory Rate 14 Blood Pressure 134/79 147/88 H Blood Pressure [Right Arm] 141/73 H Blood Pressure Mean 105 Blood Pressure Mean [Right Arm] 95 Blood Pressure Source [Right Arm] Automatic Cuff Blood Pressure Position [Right Arm] Supine 02 Sat by Pulse Oximetry 97 99 99 Oxygen Delivery Method Room Air 11/17/20 21:36 11/17/20 22:00 11/17/20 22:46 Temperature Temperature Source Pulse Rate 103 H 94 H 88 Pulse Rate [Right] Respiratory Rate 16 Blood Pressure 137/82 116/62 146/89 H Blood Pressure [Right Arm] Blood Pressure Mean 104 Blood Pressure Mean [Right Arm] Blood Pressure Source [Right Arm] Blood Pressure Position [Right Arm] 02 Sat by Pulse Oximetry 98 97 97 Oxygen Delivery Method 11/17/20 23:00 Temperature Temperature Source Pulse Rate 88 Pulse Rate [Right] Respiratory Rate 16 Blood Pressure 118/55 L Blood Pressure [Right Arm] Blood Pressure Mean 90 Blood Pressure Mean [Right Arm] Blood Pressure Source [Right Arm] Blood Pressure Position [Right Arm] 02 Sat by Pulse Oximetry 97 Oxygen Delivery Method - Lab Data Lab results reviewed: Yes: I reviewed the patient's lab results. Lab Results 11/17/20 21:43: WBC 9.6, RBC 5.18, Hgb 15.1, Hct 44.1, MCV 85.1, MCH 29.1, MCHC 34.1, RDW 13.5, Plt Count 326, MPV 7.5, Neut % (Auto) 60.0, Lymph % (Auto) 25.6, [place] % (Auto) 8.3, Eos % (Auto) 4.9, Baso % (Auto) 1.2, Neut # (Auto) 5.8, Lymph # (Auto) 2.5, [place] # (Auto) 0.8, Eos # (Auto) 0.5 H, Baso # (Auto) 0.1, ESR 16 11/17/20 21:43: Sodium 139, Potassium 4.6, Chloride 102, Carbon Dioxide 28, Anion Gap 13.6, BUN 19 H, Creatinine 0.80, Estimated Creat Clear 73, Estimated GFR 72, Est GFR ( Amer) 87, Glucose 115 H, Calcium 9.0, Total Bilirubin 0.6, AST 36, ALT 30, Alkaline Phosphatase 101, Troponin I 0.05 H, C-Reactive Protein 7.3 H, Total Protein 7.5, Albumin 4.5, Globulin 3.0, Albumin/Globulin Ratio 1.5, Procalcitonin 0.052 11/17/20 22:04: SARS-CoV-2 (PCR) Not detected, Influenza A Untype (PCR) Not detected, Influenza Type B (PCR) Not detected 11/17/20 22:05: Urine Color Yellow, Urine Appearance Sl cloudy, Urine pH 6.0, Ur Specific Coy 1.020, Urine Protein Negative, Urine Glucose (UA) Negative, Urine Ketones Negative, Urine Blood Negative, Urine Nitrate Negative, Urine Bilirubin Negative, Urine Urobilinogen 0.2, Ur Leukocyte Esterase 1+ A, Urine WBC 10-20, Ur Squamous Epith Cells 3-5, Urine Bacteria Trace Result diagrams: 11/17/20 21:43 11/17/20 21:43 Orders (Tests/Meds): ED MEDICATIONS Generic Name Dose Route Start Last Admin Trade Name Freq PRN Reason Stop Dose Admin Sodium Chloride 1,000 mls @ 999 mls/hr 11/17/20 21:45 11/17/20 21:47 Sod Chlor 0.9% 1000ml Bag IV 11/17/20 22:45 999 mls/hr .Q1H1M KIMMY Administration ORDERS Ca
[2020-11-17 22:08] LABS: Alanine Aminotransferase 30 U/L (12-78); Albumin Level 4.5 g/dl (3.5-5.0); Albumin/Globulin Ratio 1.5 (1.1-1.8); Alkaline Phosphatase 101 U/L (38-126); Anion Gap 13.6 mEq/L (5-15); Aspartate Amino Transferase 36 U/L (14-36); Bilirubin,Total 0.6 mg/dl (0.2-1.3); Blood Urea Nitrogen 19 mg/dl (7-17); Carbon Dioxide 28 mmol/L (22.0-30.0); Chloride 102 mmol/L (98-107); Creatinine Clearance Estimated 73 mL/min (50-200); Estimated Glomerular Filt Rate 72 ml/min (>60); GFR (African American) 87 ML/MIN (>60); Glucose 115 mg/dl (74-100); Potassium 4.6 mmoL/L (3.5-5.1); Sodium 139 mmol/L (136-145); Total Protein,Serum 7.5 g/dl (6.3-8.2)
[2020-11-17 22:10] LABS: Coronavirus 19, PCR Not Detected (NotDetected); Influenza A, PCR Not Detected (NotDetected); Influenza B, PCR Not Detected (NotDetected)
[2020-11-17 22:12] LABS: Basophils # 0.1 K/mm3 (0-0.2); Basophils % 1.2 % (0.1-2.0); Eosinophils # 0.5 K/mm3 (0.0-0.4); Eosinophils % 4.9 % (0.1-12.0); Hematocrit 44.1 % (37.0-47.0); Hemoglobin 15.1 g/dL (12.2-16.2); Lymphocytes # 2.5 K/mm3 (0.7-4.5); Lymphocytes % 25.6 % (10-50); Mean Corpuscular HGB Conc 34.1 g/dL (31.8-35.4); Mean Corpuscular Hemoglobin 29.1 pg (27.0-31.2); Mean Corpuscular Volume 85.1 fl (81-99); Mean Platelet Volume 7.5 fl (7.4-10.4); Monocytes # 0.8 K/mm3 (0.1-1.0); Monocytes % 8.3 % (1.7-9.3); Neutrophils # 5.8 K/mm3 (1.8-7.8); Platelet Count 326 K/mm3 (142-424); Red Blood Count 5.18 M/mm3 (4.20-5.40); Red Cell Distribution Width 13.5 % (11.5-17.5); White Blood Count 9.6 K/mm3 (4.8-10.8)
[2020-11-17 22:13] LABS: C-Reactive Protein 7.3 mg/L (0-4)
[2020-11-17 22:18] LABS: Microscopic, Urine URINE MICROSCOPIC (MICROSCOPIC)
[2020-11-17 22:23] LABS: Troponin I 0.05 ng/ml (0.00-0.034)
[2020-11-17 22:24] LABS: Appearance,Urine SL CLOUDY (Clear); Bilirubin,Urine Negative (Negative); Blood, Urine Negative (Negative); Color,Urine YELLOW (Yellow); Glucose,Urine (UA) Negative (Negative); Ketones,Urine Negative (Negative); Leukocyte Esterase,Urine 1+ (Negative); Nitrate,Urine Negative (Negative); Protein,Urine Negative (Negative); Urobilinogen,Urine 0.2 EU/dl (0.2)
[2020-11-17 22:27] LABS: Procalcitonin 0.052 ng/mL (0.0-2.0)
--- NOTE | 2020-11-17 22:27 | PC.NURSE ---
pt gone to radiology.
[2020-11-17 22:34] LABS: Bacteria,Urine Trace /lpf
[2020-11-17 22:41] LABS: Erythrocyte Sedimentation Rate 16 mm/hr (0-30)
--- NOTE | 2020-11-17 23:27 | PC.NURSE ---
Dr Carpio speaking with Dr Quinn for admission
--- NOTE | 2020-11-17 23:28 | PC.NURSE ---
called house supervisors for bed assignments
--- NOTE | 2020-11-17 23:48 | ECG_ITS ---
APPROVED REPORT Exam: Resting ECG HR:37 bpm ECG Measurements Heart Rate 37 AXES MT P 48 QRSd 136 QRS -37 QT 604 T 11 QTc 474 Conclusion Marked sinus bradycardia with AV dissociation and Idioventricular rhythm Left axis deviation Right bundle branch block Abnormal ECG Electronically signed by : Jonathan Bill, 11/19/2020 17:33:04
--- NOTE | 2020-11-17 23:50 | PC.NURSE ---
pt HR alarmed on monitor. upon entering room pt states was feeling dizziness, HR was in mid 30s. Ekg was obtained sinus german and 2nd heart block
--- NOTE | 2020-11-17 23:53 | PC.NURSE ---
NOMAN Wright spoke with dr rowe
--- NOTE | 2020-11-17 23:59 | PC.NURSE ---
ER on phone with dr can to give pt updated after episode
[2020-11-18] VITALS (13 sets, daily range): BP systolic 100–127; BP diastolic 54–75; PULSE 30–82; RESP 16–21; TEMP 36.6–36.8; O2SAT 95–99; BMI 30.7
--- NOTE | 2020-11-18 00:58 | PC.NURSE ---
PT. ARRIVED TO [facility] VIA [facility]RET[facility]ER AT [id number]
[2020-11-18 01:16] LABS: Troponin I 0.08 ng/ml (0.00-0.034)
[2020-11-18 04:14] LABS: Troponin I 0.06 ng/ml (0.00-0.034)
--- NOTE | 2020-11-18 04:31 | PC.NURSE ---
pt had an episode during the night where her HR dropped to mid 20's, pt stated she felt like she was going to black out, but she felt better minutes late and HR increased to high 30's. BP is stable at 100/60. Pt states she felt fine.
[2020-11-18 06:37] LABS: Basophils # 0.1 K/mm3 (0-0.2); Basophils % 1.1 % (0.1-2.0); Eosinophils # 0.4 K/mm3 (0.0-0.4); Eosinophils % 5.8 % (0.1-12.0); Hematocrit 36.4 % (37.0-47.0); Lymphocytes # 1.9 K/mm3 (0.7-4.5); Lymphocytes % 31.4 % (10-50); Mean Corpuscular Hemoglobin 29.8 pg (27.0-31.2); Mean Corpuscular Volume 85.2 fl (81-99); Mean Platelet Volume 7.6 fl (7.4-10.4); Monocytes # 0.5 K/mm3 (0.1-1.0); Monocytes % 7.5 % (1.7-9.3); Neutrophils # 3.3 K/mm3 (1.8-7.8); Neutrophils % 54.2 % (37.0-80.0); Platelet Count 259 K/mm3 (142-424); Red Blood Count 4.27 M/mm3 (4.20-5.40); Red Cell Distribution Width 13.4 % (11.5-17.5); White Blood Count 6.1 K/mm3 (4.8-10.8)
[2020-11-18 06:44] LABS: Chloride 110 mmol/L (98-107)
[2020-11-18 06:45] LABS: Potassium 3.9 mmoL/L (3.5-5.1); Sodium 139 mmol/L (136-145)
[2020-11-18 06:47] LABS: Blood Urea Nitrogen 17 mg/dl (7-17); Creatinine Clearance Estimated 75 mL/min (50-200); Estimated Glomerular Filt Rate 124 ml/min (>60); GFR (African American) 150 ML/MIN (>60)
[2020-11-18 06:48] LABS: Anion Gap 8.9 mEq/L (5-15); Calcium 8.3 mg/dl (8.4-10.2); Carbon Dioxide 24 mmol/L (22.0-30.0); Glucose 110 mg/dl (74-100)
[2020-11-18 07:37] LABS: Hemoglobin 12.7 g/dL (12.2-16.2)
--- NOTE | 2020-11-18 08:49 | HMH.HP ---
*Admission Date: 11/18/20 *Chief complaint: Syncope *History of present illness: This 65-year-old white female presented in the emergency room at [facility] after a syncopal event in which she passed out and turned blue. She does not have a history of fainting apart from one other time in the distant past which sounded orthostatic. She has had some tachydysrhythmia in the past and was on sotalol for a while. 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 Pt is A&O x 3 PERRL 3mm. Moves all extremities. pt was not feeling well and then had dec pulse and some chest tightness and had syncopal episode and was blue for a few minutes and spont improved Significant in the patient's history is that she has inflammatory bowel disease. She does not have known thyroid disease. There is a family history of heart disease in her father. In the emergency room she was found to have third-degree heart block with heart rates in the 40s. The emergency room physician contacted Dr. Lopez who requested admission for likely pacemaker placement. Dr. Quinn did speak to Dr. Lopez as well. [facility] History Medical History: Reports:: Arrhythmia, Gastroesophageal Reflux Disease(GERD), Hyperlipidemia, Hypertension, Palpitations Denies:: Cancer, Diabetes Mellitus Type 1, Diabetes Mellitus Type 2, Internal Pacemaker, Lung Disease, MRSA, Seizures *Have you ever received a pneumonia vaccine?: No *Have you received a flu vaccine this season?: No Other Medical History: Reports: Cataracts. Denies: Thyroid Disease Other Surgeries: Yes: Cancer Surgery (Back ), Cardiac Catheterization, Colonoscopy, Dilation and Curettage, Hysterectomy-Total, Tubal Ligation. No: Pacemaker Amputation: No Fractures: Yes - *Social History Last grade of school completed: High school graduate Smoking Status: Never smoker Alcohol Intake: never Alcohol Intake Frequency:: other Substance Use Type: denies use *Occupational Status:: retired (She used to work at the hospital in housekeeping.) Housing: house Household Members: spouse *Travel in the last 8 weeks: None Comment: She has 1 son Family Hx:: Cancer, Diabetes, Hypertension Review of Systems - *Neurologic Denies seizure-like activity, Denies headache(s), Denies tingling/numbness/burning sensations, Denies seizure-like activity Meds Home Medications Medication Instructions Recorded Confirmed Type furosemide 20 mg tablet 20 mg PO DAILY #180 tab 07/31/20 11/17/20 Rx Atorvastatin Calcium [Lipitor 40mg 40 mg PO HS 09/13/20 11/17/20 History Tab] polyethylene glycoL 3350 [Miralax 17 gm PO DAILY 11/17/20 11/17/20 History 17gm Packet] Allergies Allergy/AdvReac Type Severity Reaction Status Date / Time clindamycin [CLINDAMYCIN] Allergy Unknown Verified 11/06/20 10:33 diazepam [From VALIUM] Allergy Unknown Verified 11/06/20 10:33 Tetracyclines [TETRACYCLINES] Allergy Unknown Verified 11/06/20 10:33 Exam Vital signs and Labs for Last 24 Hours: Temp Pulse Resp BP Pulse Ox 97.8 F 72 16 106/55 L 98 11/18/20 07:53 11/18/20 07:53 11/18/20 07:53 11/18/20 07:53 11/18/20 07:53 Laboratory Results - last 24 hr 11/17/20 21:43: WBC 9.6, RBC 5.18, Hgb 15.1, Hct 44.1, MCV 85.1, MCH 29.1, MCHC 34.1, RDW 13.5, Plt Count 326, MPV 7.5, Neut % (Auto) 60.0, Lymph % (Auto) 25.6, [place] % (Auto) 8.3, Eos % (Auto) 4.9, Baso % (Auto) 1.2, Neut # (Auto) 5.8, Lymph # (Auto) 2.5, [place] # (Auto) 0.8, Eos # (Auto) 0.5 H, Baso # (Auto) 0.1, ESR 16 11/17/20 21:43: Sodium 139, Potassium 4.6, Chloride 102, Carbon Dioxide 28, Anion Gap 13.6, BUN 19 H, Creatinine 0.80, Estimated Creat Clear 73, Estimated GF
--- NOTE | 2020-11-18 10:35 | HMH.PHAVTE ---
[facility] VTE Monitoring - Patient Demographics Admission date: 11/18/20 Report Date: 11/18/20 Time: 10:35 Allergies/Adverse Reactions: Patient Allergies clindamycin [CLINDAMYCIN] Allergy (Unknown, Verified 11/06/20 10:33) diazepam [From VALIUM] Allergy (Unknown, Verified 11/06/20 10:33) Tetracyclines [TETRACYCLINES] Allergy (Unknown, Verified 11/06/20 10:33) Height: 1.65 m Weight: 83.716 kg Patient Problems: Current Active Problems LBBB (left bundle branch block) (Acute) Third degree heart block (Acute) Ulcerative colitis (Acute) Family history of ischemic heart disease (Chronic) Syncope (Chronic) - VTE Risk Labs: VTE Related Lab Results Hgb 12.7 g/dL (12.2-16.2) D 11/18/20 06:24 Hct 36.4 % (37.0-47.0) L 11/18/20 06:24 Plt Count 259 K/mm3 (142-424) 11/18/20 06:24 BUN 17 mg/dl (7-17) 11/18/20 06:24 Creatinine 0.50 mg/dl (0.52-1.04) L D 11/18/20 06:24 Estimated Creat Clear 75 mL/min (50-200) 11/18/20 06:24 Was VTE Risk Assessment Performed: Yes VTE Score: 2 VTE Risk Level: Very Low Risk - Prophylaxis Types of VTE Prophylaxis: TEDS Knee High (NATALIO HOSE ORDER PLACED) Location of Applied Device: Not Applicable
--- NOTE | 2020-11-18 15:35 | PC.NURSE ---
PT IS RESTING IN BED. NO COMPLAINTS OF CHEST PAIN OR SOA. NSR ON THE MONITOR. HR 65-75 T/O THE SHIFT. CALLED THIS MORNING AND STATED TO MAKE PT NPO AFTER MIDNIGHT. ORDER ECHO FOR IN THE MORNING AND THE PLAN WILL BE FOR PT TO HAVE A PACEMAKER PLACED TOMORROW. LUNG SOUNDS CLEAR. ABDOMEN SOFT/NON TENDER WITH ACTIVE BOWEL SOUNDS. EATING AND DRINKING WELL. WILL CONTINUE TO MONITOR.
[2020-11-19] VITALS (20 sets, daily range): BP systolic 99–142; BP diastolic 43–88; PULSE 63–124; RESP 17–19; TEMP 36.4–36.9; O2SAT 94–100; BMI 30.8
--- NOTE | 2020-11-19 | IR_ITS ---
APPROVED REPORT Patient Location: Inpatient Host/Hostess Head: LAURA Simon RT (R) PROCEDURES 1. Pocket formation for Permanent Pacemaker Placement. 2. Placement of an atrial sensing and pacing coil into the right atrial appendage. 3. Placement of a ventricular sensing and pacing coil in the right ventricular apex. 4. Permanent Pacemaker Placement. INDICATION Third degree heart block Informed consent was obtained prior to the procedure. COMPLICATIONS None Estimated Blood Loss: Less than 10 mls TECHNIQUE 1% Lidocaine with epinephrine used to anesthetized the left anterior aspect of the chest. Scalpel was used to make the initial cutaneous incision while electrocautery was used to dissect down tinto the fascia. The fascia was lifted off the pectoralis muscle and digitally manipulated creating a pocket for the pacemaker. The patient was then placed in Trendelenburg position and the subclavian vein was accessed twice via the Selinger technique, there are two wires in the vein. A 6 [place] sheath was placed under fluoroscopic guidance into the subclavian vein over one of the wires while keeping the other wire in place within the subclavian vein. The dilator was removed from the sheath. Using fluoroscopic guidance, the ventricular lead was placed into the right ventricular apex, screwed and secured into place. Electronic interrogation proved acceptable thresholds and voltage within the lead. Using 3-0 silk, the ventricular lead was then secured into place. Lead was secured to the facia using the 3-0 silk. Following this, the sheath was pealed away. An additional 6 [place] fresh sheath and dilator was placed over the existing wire. Using fluoroscopic guidance, the atrial lead was the placed into the right atrial appendage and screwed and secured in place. Electrical interrogation demonstrated acceptable thresholds and voltage number. The atrial lead was then secured into place using 3-0 silk. 1 gram of Ancef was used to flush the pocket. Following the pacemaker generator being secured to the fascia and in place, Monocryl was used to close the subcutaneous layers while mitali were used to close the cutaneous layer. A pressure dressing was placed and the patient was transferred to the postop holding area in stable condition for postoperative care. INTERROGATION Generator Model number: [id number] YOUSSEF DR, L311 Generator Serial number: [id number] Atrial lead model number: INGEVITY+ 45cm, 7840 Atrial lead serial number: [id number] P-wave: 4.0mV Impedence: 564 ohms Threshold: 1.0V@0.4ms Right Ventricular lead model number: INGEVITY+ 52cm, 7841 Right Ventricular lead serial number: [id number] R-wave: 12.0mV Impedence: 1100 ohms Threshold: 0.5V@0.4ms Pacing Parameters: Mode: DDDR Base/Max Track: 60/130 ppm No diaphragmatic stimulation at 10 volts. IMPRESSION 1. Successful pocket formation for Permanent Pacemaker Placement. 2. Successful placement of an atrial sensing and pacing coil into the right atrial appendage. 3. Successful placement of a ventricular sensing and pacing coil in the right ventricular apex. 4. Successful permanent Pacemaker Placement. PLAN 1. Post op wound care, follow up office visit Electronically signed by : Krishna Lopez, 11/19/2020 15:06:16
--- NOTE | 2020-11-19 | IR_ITS ---
APPROVED REPORT Patient Location: Inpatient Vp Business Development: LAURA Simon RT (R) PROCEDURES Left heart catheterization Left ventriculogram Selective coronary angiogram INDICATION Elevated troponin, Third-degree heart block, Suspected coronary disease, Informed consent was obtained prior to the procedure. COMPLICATIONS None Estimated Blood Loss: Less than 10 mls TECHNIQUE One percent lidocaine used to anesthetize the right anterior aspect of the wrist. The right radial artery was accessed via the Seldinger technique. A 6 Solomon Islander sheath was placed in the right radial artery. 2.5 mg of verapamil, 800 mcg of nitroglycerin, 1mg Lidocaine and 5000 U Heparin were given through the arterial sheath. The Poppa catheter was also used to perform left heart catheterization, left ventriculogram and selective coronary angiogram. At the end of the procedure the sheath was removed good hemostasis was achieved using Traclet band, patient was transferred to the postop holding area in stable condition. ANGIOGRAPHIC RESULTS The left main artery Normal The left anterior descending artery Normal The circumflex artery Normal The right coronary artery Dominant normal The SINGH ventriculogram reveals Normal 65% The left ventricular end-diastolic pressure 10 mmHg IMPRESSION Normal coronary arteries Normal ejection fraction Normal left ventricular end-diastolic pressure PLAN 1. Proceed with pacemaker for third-degree AV block Electronically signed by : Krishna Lopez, 11/19/2020 12:57:43
--- NOTE | 2020-11-19 03:49 | PC.NURSE ---
No acute changes this shift. Pt slept well. HR remained in 70's-80's all shift. Lungs are CTA. IV patent. Elder is draining clear, yellow urine. Pt had 1 BM using the bedside commode. Room air with stats high 90's. Pt is able to make needs known to staff, call light within reach, VSS. No concerns at this time.
--- NOTE | 2020-11-19 06:00 | CA_ITS ---
APPROVED REPORT EXAM: Comprehensive 2D, Doppler, and color-flow Echocardiogram Boardmarker: Johana Garcia CRT Ht: 5 ft 4 in Wt: 184lbs BSA: 1.89 BP: 106/55 mmHg Indications: Arrhythmia, Palpitations, Hyperlipidemia, Hypertension/HDD, GERD, Syncope, bradycardia 2D Dimensions LVOT 1.81 cm (M/F) 1.5-2.5 LA Volume 24.40 mL LA Volume Index 12.90 mL/m2 (M/F) 16-34 M-Mode Dimensions RVDd 2.13 cm (0.9-2.6) LA Diam 3.37 cm (1.9-4.0) LVDd 4.29 cm (3.5-5.7) Ao Diam 3.61 cm (2.0-3.7) LVDs 2.97 cm (3.5-5.7) IVSd 2.10 cm (0.6-1.1) PWd 0.56 cm (0.6-1.1) EF (Teich) 58.60% FS 30.80% EDV (Teich) 82.60 mL TAPSE 2.10 (<1.7) ESV (Teich) 34.20 mL LV Diastology E Decel Time 150.00 (160-240 msec) E/A Ratio 0.77 MED E' 7.20 (< 7 cm/sec) MED A' 8.20 cm/s E'/MED E' Ratio 10.78 (>14) LAT E' 8.60 (<10 cm/sec) LAT A' 10.50 cm/s E/LAT E' Ratio 9.02 (>14) Aortic Valve AO Peak GR. 5.20 mmHg Mitral Valve MV E Max Willam. 78.00 (40-130 cm/s) MV A Velocity 101.00 (40-130 cm/s) E/A Ratio 0.77 MV Decel. Time 150.00 (160-240 ms) MV PHT 44.00 ms Pulmonary Valve PV Peak Velocity 56.00 (50-150 cm/s) Tricuspid Valve TR P. Velocity 235.00 cm/s RAP Estimate 10.00 mmHg RVSP 32.00 mmHg Left Ventricle Left atrium is mildly enlarged, left ventricle is normal size, mild concentric left ventricular hypertrophy, visually estimated ejection fraction 50%, there is abnormal septal motion. Grade 1 diastolic dysfunction seen without tissue Doppler evidence of raise left atrial pressure. Right Ventricle Right atrium and right ventricle are normal size and contractility. Aortic Valve Aortic valve is minimally thickened and fibrosed, there is no aortic stenosis or aortic insufficiency. Mitral Valve Mitral valve is grossly normal, there is mild mitral regurgitation. Tricuspid Valve Tricuspid grossly normal, there is mild tricuspid rotation, tricuspid regurgitation jet velocity is inadequate for calculation of the right ventricular systolic pressure. Pulmonic Valve Pulmonic valve is poorly visualized. Great Vessels Aortic root is normal size. Inferior vena cava is normal size with normal inspiratory collapse. Pericardium No significant pericardial effusion noted. Conclusion 1. Mildly enlarged left atrium, normal left ventricular size, mild concentric left ventricular hypertrophy, visually estimated ejection fraction 50% with no regional wall motion abnormality, there is abnormal septal motion, grade 1 diastolic dysfunction seen without tissue Doppler evidence of raise left atrial pressure. 2. Mild mitral and tricuspid regurgitation. 3. No significant pericardial effusion noted, inferior vena cava is normal size with normal inspiratory collapse. Electronically signed by : Dc Stoll, 11/19/2020 09:07:31
[2020-11-19 08:27] LABS: Basophils # 0.1 K/mm3 (0-0.2); Basophils % 1.1 % (0.1-2.0); Eosinophils # 0.4 K/mm3 (0.0-0.4); Eosinophils % 7.1 % (0.1-12.0); Hematocrit 39.3 % (37.0-47.0); Hemoglobin 13.2 g/dL (12.2-16.2); Lymphocytes # 1.6 K/mm3 (0.7-4.5); Lymphocytes % 27.8 % (10-50); Mean Corpuscular HGB Conc 33.5 g/dL (31.8-35.4); Mean Corpuscular Hemoglobin 28.2 pg (27.0-31.2); Mean Corpuscular Volume 84.2 fl (81-99); Mean Platelet Volume 7.4 fl (7.4-10.4); Monocytes # 0.4 K/mm3 (0.1-1.0); Monocytes % 6.8 % (1.7-9.3); Neutrophils # 3.3 K/mm3 (1.8-7.8); Neutrophils % 57.3 % (37.0-80.0); Platelet Count 278 K/mm3 (142-424); Red Blood Count 4.67 M/mm3 (4.20-5.40); Red Cell Distribution Width 13.5 % (11.5-17.5); White Blood Count 5.8 K/mm3 (4.8-10.8)
[2020-11-19 08:33] LABS: Chloride 110 mmol/L (98-107); Sodium 140 mmol/L (136-145)
[2020-11-19 08:36] LABS: Blood Urea Nitrogen 10 mg/dl (7-17); Creatinine Clearance Estimated 75 mL/min (50-200); Estimated Glomerular Filt Rate 101 ml/min (>60); GFR (African American) 122 ML/MIN (>60)
[2020-11-19 08:37] LABS: Calcium 8.4 mg/dl (8.4-10.2); Carbon Dioxide 24 mmol/L (22.0-30.0); Glucose 102 mg/dl (74-100)
--- NOTE | 2020-11-19 08:50 | P.PN_ITS ---
Internal Medicine - PN: Subj *Date: 11/19/20 *Time: 08:50 Interval history: Patient states she has had no more presyncopal or syncopal episodes during the night. She states she has ongoing chest pressure and feels funny. She has only been up to the bedside commode. She also comments that she has had ongoing shortness of breath. Plan is for her to have pacemaker insertion this a.m. CBC this morning is normal. Blood chemistries show normal renal function with a sodium of 140 and potassium of 4. She had an echocardiogram done this morning with pending results. Exam Vital signs and Labs for Last 24 Hours: Temp Pulse Resp BP Pulse Ox 97.8 F 70 18 111/48 L 98 11/19/20 07:43 11/19/20 07:43 11/19/20 07:43 11/19/20 07:43 11/19/20 07:43 Laboratory Results - last 24 hr 11/19/20 08:18: WBC 5.8, RBC 4.67, Hgb 13.2, Hct 39.3, MCV 84.2, MCH 28.2, MCHC 33.5, RDW 13.5, Plt Count 278, MPV 7.4, Neut % (Auto) 57.3, Lymph % (Auto) 27.8, [place] % (Auto) 6.8, Eos % (Auto) 7.1, Baso % (Auto) 1.1, Neut # (Auto) 3.3, Lymph # (Auto) 1.6, [place] # (Auto) 0.4, Eos # (Auto) 0.4, Baso # (Auto) 0.1 11/19/20 08:18: Sodium 140, Potassium 4.0, Chloride 110 H, Carbon Dioxide 24, Anion Gap 10.0, BUN 10 D, Creatinine 0.60, Estimated Creat Clear 75, Estimated GFR 101, Est GFR ( Amer) 122, Glucose 102 H, Calcium 8.4 I & O for Last 24 hours: Intake & Output 11/16/20 11/17/20 11/18/20 11/19/20 11:59 11:59 11:59 11:59 Intake Total 1120 / 1120 1320 / 1320 Output Total 3300 / 3300 Balance 1120 / 1120 -1979 / Weight 184 lb 9 oz Microbiology Reports for the Last 24 Hours: Microbiology 11/17/20 22:05 Urine,Clean Catch Urine Culture - Final Multiple organisms, suggests contamination. - Constitutional no acute distress - *Routine Respiratory Exam Present: CTA bilaterally (Anteriorly and posteriorly) - *Routine Cardiovascular Exam Present: RRR (7 days without ectopy) - *Routine Abdominal Exam Present: soft, normoactive bowel sounds. Absent: tenderness - *Routine Extremities Exam Absent: edema, calf tenderness - *Routine Neurological Exam Present: alert, oriented X3 Assessment and Plan (1) Third degree heart block Status: Acute Category: Medical Code(s): I44.2 - Atrioventricular block, complete (2) Syncope Status: Chronic Qualifiers: Syncope type: unspecified Qualified Code(s): R55 - Syncope and collapse Category: Medical Code(s): R55 - Syncope and collapse (3) LBBB (left bundle branch block) Status: Acute Category: Medical Code(s): I44.7 - Left bundle-branch block, unspecified (4) Ulcerative colitis Status: Acute Qualifiers: Ulcerative colitis location: other ulcerative colitis Digestive disease complication type: other complication Qualified Code(s): K51.818 - Other ulcer ative colitis with other complication Category: Medical Code(s): K51.90 - Ulcerative colitis, unspecified, without complications (5) Family history of ischemic heart disease Status: Chronic Category: Medical Code(s): Z82.49 - Family history of ische shannan heart disease and other diseases of the circulatory system - Assessment and plan all Dx Assessment and Plan for all problems:: Cardiology to see. Plan is for patient to have pacemaker insertion.
--- NOTE | 2020-11-19 10:08 | HMH.CNCARD ---
<Dina Adams - Last Filed: 11/19/20 10:19> History of Present Illness Consult date: 11/19/20 Requesting physician: Tasha Quinn Consult reason: chest pain Chief complaint: syncope, chest pain History of present illness: This is a 65-year-old white female who presented to the emergency department after syncopal event at home that was witnessed by her family. The patient states that she had been short of breath for several days prior to having the syncope. She states that she gets significantly short of breath with exertion and even with lying down. She states that about 3 nights before she passed out she had to sit up in bed because she was so profoundly short of breath. She states that she was having a cookout in her backyard and playing corn hole when she bent over and got significantly dizzy. She states that she walked around to the front of the house and sat down to check her blood pressure and heart rate. She states her blood pressure was 121/60 and her heart rate was down around 43. She states that her dizziness passed and she started to feel okay so she went to walk to her back porch and she started to feel bad again. She states that she grabbed her a chair and that is when her syncopal episode happened. This was witnessed by her . He states that her eyes rolled into the back of her head she fell down. The patient stopped breathing very briefly and she turned blue. Her went to start CPR on her and the patient sat up and told him she was all right. They did call EMS but ultimately the patient was brought into the emergency department by her and their personal car. She states that when she got to the hospital her heart rate was in the 100s but while she was having all of her testing completed she got significantly dizzy again and started feeling bad and her heart rate dropped down into the 30s. The patient was found to be in third-degree heart block. She is also been having chest pressure. This is in the substernal aspect of her chest. She states that this is an 8 out of 10. It radiates to her left arm. It is associated with shortness of breath and nausea. She states that this has continued to occur throughout her hospitalization and she states that it is still around an 8 out of 10 this morning. She did have an elevated troponin on admission. [place] History I have reviewed the patient's past medical history: Yes Medical History: Reports:: Arrhythmia, Cardiomyopathy, Gastroesophageal Reflux Disease(GERD), Hyperlipidemia, Hypertension, Palpitations Denies:: Cancer, Diabetes Mellitus Type 1, Diabetes Mellitus Type 2, Internal Pacemaker, Lung Disease, MRSA, Seizures *Have you ever received a pneumonia vaccine?: No *Have you received a flu vaccine this season?: No Other Medical History: Reports: Cataracts. Denies: Thyroid Disease Other Surgeries: Yes: Cancer Surgery (Back ), Cardiac Catheterization, Colonoscopy, Dilation and Curettage, Hysterectomy-Total, Tubal Ligation. No: Pacemaker Amputation: No Fractures: Yes - *Social History Last grade of school completed: High school graduate Smoking Status: Never smoker Alcohol Intake: never Alcohol Intake Frequency:: other Substance Use Type: denies use *Occupational Status:: retired (She used to work at the hospital in housekeeping.) Housing: house Household Members: spouse *Travel in the last 8 weeks: None Family Hx:: Cancer, Diabetes, Hypertension Meds Home Medications Medication Instructions Recorded Confirmed Type furosemide 20 mg tablet 20 mg PO DAILY #180 tab 07/31/20 11/17/20 Rx Atorvastatin Calcium [Lipitor 40mg 40 mg PO HS 09/13/20 11/17/20 History Tab] polyethylene glycoL 3350 [Miralax 17 gm PO DAILY 11/17/20 11/17/20 History 17gm Packet] Allergies Allergy/AdvReac Type Severity Reaction Status Date / Time clindamycin [CLINDAMYCIN] Allergy Unknown Verified 11/06/20 10:33 diazepam [From VALIUM] Allergy Unknown Verified 10/23
--- NOTE | 2020-11-19 14:33 | P.PN_ITS ---
[facility] Anesthesia Checklist - Patient Identification Patient Identification: Arm Band - Structural Data Admitted From: Home Planned Operative Procedure/s: Dual chamber pacemaker insertion Consent for Planned Operative Procedure(s) Verified: Yes Verified Documents: Surgical Consent, History and Physical - NPO Status Verified Time NPO: 00:00 - Additional verifications Anesthesia Reactions: No - Airway Assessment C-Spine Mobility Assessed: Yes TMJ Mobility Assessed: Yes Dentition: Good Dentition - Neurological Assessment Level of Consciousness: Awake, Drowsy - Anesthesia Plan Anesthesia Risk discussed: Yes Anesthesia Plan: Verified ASA Class: III Anesthesia Type: MAC [facility] History Medical History: Reports:: Arrhythmia, Cardiomyopathy, Gastroesophageal Reflux Disease(GERD), Hyperlipidemia, Hypertension, Palpitations Denies:: Cancer, Diabetes Mellitus Type 1, Diabetes Mellitus Type 2, Internal Pacemaker, Lung Disease, MRSA, Seizures *Have you ever received a pneumonia vaccine?: No *Have you received a flu vaccine this season?: No Other Medical History: Reports: Cataracts. Denies: Thyroid Disease Anesthesia experience/problems:: None Other Surgeries: Yes: Cancer Surgery (Back ), Cardiac Catheterization, Colonoscopy, Dilation and Curettage, Hysterectomy-Total, Tubal Ligation. No: Pacemaker Amputation: No Fractures: Yes - *Social History Last grade of school completed: High school graduate Smoking Status: Never smoker Alcohol Intake: never Alcohol Intake Frequency:: other Substance Use Type: denies use *Occupational Status:: retired (She used to work at the hospital in housekeeping.) Housing: house Household Members: spouse *Travel in the last 8 weeks: None Family Hx:: Cancer, Diabetes, Hypertension
--- NOTE | 2020-11-19 19:39 | PC.NURSE ---
she is aox4, able to make needs known to staff, right heart cath and dual chamber pacemaker todat. pt vss since arriving to floor, denies n/v/d, no drainage from either site, dsg in place c/d/i, pt does not require o2 support. medicated with tylenol prn with good effectiveness.
[2020-11-20] VITALS: BP 111/51; PULSE 90; PULSE 93; RESP 17; TEMP 36.8; O2SAT 92
[2020-11-20 04:00] VITALS: BP 100/51; PULSE 80; PULSE 81; RESP 16; TEMP 36.8; O2SAT 91
--- NOTE | 2020-11-20 04:31 | PC.NURSE ---
pt is AxOx4, remains on room air, right radial cath site with dressing in place C/D/I, soft to touch, pacemaker site with minimal bruising, pt has complained of pain one time so far this shift and was treated per MAR, cordova remains in place, HR 79-93 this shift, systolic BP 104-111
[2020-11-20 06:00] VITALS: BMI 30.8
[2020-11-20 08:00] VITALS: BP 140/62; PULSE 87; RESP 16; TEMP 36.9; O2SAT 97
--- NOTE | 2020-11-20 08:25 | HMH.PNCARD ---
Subjective Date: 11/20/20 Time: 08:26 Principal diagnosis: 3rd degree heart block Interval history: This is a 65-year-old white female who is admitted to the hospital after syncopal episode. She was found to have third-degree heart block and was having chest pain with an elevated troponin. The patient underwent left cardiac catheterization yesterday and was found to have normal coronary arteries, normal EF and normal LVEDP. She also underwent successful implantation of a permanent pacemaker yesterday secondary to third-degree heart block. She is having some mild tenderness and pain around the pacemaker insertion site. This morning she denies any chest pain or pressure. She denies any shortness of breath or edema. She denies any fever, chills, nausea, vomiting, diarrhea, PND or orthopnea. Pacemaker site has dressing intact. No bleeding or signs of infection noted. Exam Vital signs and Labs for Last 24 Hours: Temp Pulse Resp BP Pulse Ox 98.3 F 81 16 100/51 L 91 L 11/20/20 04:00 11/20/20 04:00 11/20/20 04:00 11/20/20 04:00 11/20/20 04:00 Laboratory Results - last 24 hr 11/19/20 08:18: WBC 5.8, RBC 4.67, Hgb 13.2, Hct 39.3, MCV 84.2, MCH 28.2, MCHC 33.5, RDW 13.5, Plt Count 278, MPV 7.4, Neut % (Auto) 57.3, Lymph % (Auto) 27.8, [place] % (Auto) 6.8, Eos % (Auto) 7.1, Baso % (Auto) 1.1, Neut # (Auto) 3.3, Lymph # (Auto) 1.6, [place] # (Auto) 0.4, Eos # (Auto) 0.4, Baso # (Auto) 0.1 11/19/20 08:18: Sodium 140, Potassium 4.0, Chloride 110 H, Carbon Dioxide 24, Anion Gap 10.0, BUN 10 D, Creatinine 0.60, Estimated Creat Clear 75, Estimated GFR 101, Est GFR ( Amer) 122, Glucose 102 H, Calcium 8.4 I & O for Last 24 hours: Intake & Output 11/17/20 11/18/20 11/19/20 11/20/20 23:59 23:59 23:59 23:59 Intake Total 1000 / 1120 1440 / 1440 685 / 805 1034 / 1034 Output Total 2400 / 2400 900 / 900 1000 / 1000 Balance 1000 / 1120 -960 / -960 -215 / -95 34 / 34 Weight 184 lb 1 oz 184 lb 9 oz 185 lb 3.013 oz 185 lb 3.013 oz Microbiology Reports for the Last 24 Hours: Microbiology 11/17/20 22:05 Urine,Clean Catch Urine Culture - Final Multiple organisms, suggests contamination. Narrative: LHC shows: The left main artery Normal The left anterior descending artery Normal The circumflex artery Normal The right coronary artery Dominant normal The SINGH ventriculogram reveals Normal 65% The left ventricular end-diastolic pressure 10 mmHg IMPRESSION Normal coronary arteries Normal ejection fraction Normal left ventricular end-diastolic pressure PLAN 1. Proceed with pacemaker for third-degree AV block Successful PPM implant: Pacing Parameters: Mode: DDDR Base/Max Track: 60/130 ppm No diaphragmatic stimulation at 10 volts. IMPRESSION 1. Successful pocket formation for Permanent Pacemaker Placement. 2. Successful placement of an atrial sensing and pacing coil into the right atrial appendage. 3. Successful placement of a ventricular sensing and pacing coil in the right ventricular apex. 4. Successful permanent Pacemaker Placement. PLAN 1. Post op wound care, follow up office visit - Constitutional no acute distress, average body habitus - *Routine HEENT Exam Head: Present: normocephalic, atraumatic Eye: Present: EOMI, PERRL ENT: Present: mucous membranes moist - *Routine Neck Exam Present: supple, full ROM, normal carotid upstroke. Absent: JVD, carotid bruit, lymphadenopathy - *Routine Respiratory Exam Present: CTA bilaterally - *Routine Cardiovascular Exam Present: RRR, Normal S1, Normal S2. Absent: murmur - *Routine Abdominal Exam Present: soft, normoactive bowel sounds. Absent: tenderness, distended - *Routine Extremities Exam Present: full ROM, pulses intact, normal capillary refill. Absent: cyanosis, clubbing, edema - *Routine Skin Exam Present: intact, warm. Absent: erythema, rash - *Routine Neurological Exam Present: alert, oriented X3, CN II-XII intact.
[2020-11-20 08:33] LABS: Chloride 109 mmol/L (98-107); Sodium 139 mmol/L (136-145)
[2020-11-20 08:34] LABS: Potassium 4.3 mmoL/L (3.5-5.1)
[2020-11-20 08:35] LABS: Basophils # 0.1 K/mm3 (0-0.2); Basophils % 0.8 % (0.1-2.0); Eosinophils # 0.4 K/mm3 (0.0-0.4); Hematocrit 40.9 % (37.0-47.0); Hemoglobin 13.7 g/dL (12.2-16.2); Lymphocytes # 1.6 K/mm3 (0.7-4.5); Lymphocytes % 25.6 % (10-50); Mean Corpuscular HGB Conc 33.4 g/dL (31.8-35.4); Mean Corpuscular Hemoglobin 28.5 pg (27.0-31.2); Mean Corpuscular Volume 85.2 fl (81-99); Mean Platelet Volume 7.1 fl (7.4-10.4); Monocytes # 0.4 K/mm3 (0.1-1.0); Monocytes % 6.1 % (1.7-9.3); Neutrophils # 3.8 K/mm3 (1.8-7.8); Neutrophils % 61.5 % (37.0-80.0); Platelet Count 252 K/mm3 (142-424); Red Cell Distribution Width 13.6 % (11.5-17.5); White Blood Count 6.2 K/mm3 (4.8-10.8)
[2020-11-20 08:36] LABS: Blood Urea Nitrogen 7 mg/dl (7-17); Creatinine Clearance Estimated 75 mL/min (50-200); Estimated Glomerular Filt Rate 84 ml/min (>60); GFR (African American) 102 ML/MIN (>60)
[2020-11-20 08:37] LABS: Anion Gap 8.3 mEq/L (5-15); Calcium 8.5 mg/dl (8.4-10.2); Carbon Dioxide 26 mmol/L (22.0-30.0); Glucose 119 mg/dl (74-100)
--- NOTE | 2020-11-20 08:50 | HMH.ACPN2 ---
Internal Medicine - PN: Subj *Date: 11/20/20 *Time: 08:50 Interval history: Patient states she had a rough night. She had left anterior upper chest discomfort at pacer site. Also she has some left arm pain and some right wrist pain. She was able to eat breakfast this morning but she does experience some nausea. She has not been out of bed. Exam Vital signs and Labs for Last 24 Hours: Temp Pulse Resp BP Pulse Ox 98.3 F 81 16 100/51 L 91 L 11/20/20 04:00 11/20/20 04:00 11/20/20 04:00 11/20/20 04:00 11/20/20 04:00 Laboratory Results - last 24 hr 11/20/20 08:21: WBC 6.2, RBC 4.80, Hgb 13.7, Hct 40.9, MCV 85.2, MCH 28.5, MCHC 33.4, RDW 13.6, Plt Count 252, MPV 7.1 L, Neut % (Auto) 61.5, Lymph % (Auto) 25.6, [place] % (Auto) 6.1, Eos % (Auto) 6.0, Baso % (Auto) 0.8, Neut # (Auto) 3.8, Lymph # (Auto) 1.6, [place] # (Auto) 0.4, Eos # (Auto) 0.4, Baso # (Auto) 0.1 11/20/20 08:21: Sodium 139, Potassium 4.3, Chloride 109 H, Carbon Dioxide 26, Anion Gap 8.3, BUN 7 D, Creatinine 0.70, Estimated Creat Clear 75, Estimated GFR 84, Est GFR ( Amer) 102, Glucose 119 H, Calcium 8.5 I & O for Last 24 hours: Intake & Output 11/17/20 11/18/20 11/19/20 11/20/20 11:59 11:59 11:59 11:59 Intake Total 1120 / 1120 1320 / 1320 1719 / 1719 Output Total 3300 / 3300 1000 / 1000 Balance 1120 / 1120 -1979 / 719 / 719 Weight 184 lb 9 oz 185 lb 3.013 oz Microbiology Reports for the Last 24 Hours: Microbiology 11/17/20 22:05 Urine,Clean Catch Urine Culture - Final Multiple organisms, suggests contamination. - Constitutional no acute distress - Routine Chest/Breast/Axilla Exam Chest wall: Present: pacemaker (Left chest wall at site with clean, dry dressing and intact) - *Routine Respiratory Exam Present: CTA bilaterally (Anteriorly and posteriorly) - *Routine Cardiovascular Exam Present: RRR - *Routine Abdominal Exam Present: soft, normoactive bowel sounds. Absent: tenderness - *Routine Extremities Exam Absent: edema, calf tenderness - *Routine Neurological Exam Present: alert, oriented X3 Assessment and Plan (1) Third degree heart block Status: Acute Category: Medical Code(s): I44.2 - Atrioventricular block, complete (2) Angina pectoris Status: Resolved Category: Medical Code(s): I20.9 - Angina pectoris, unspecified (3) Elevated troponin Status: Acute Category: Medical Code(s): R77.8 - Other specified abnormalities of plasma proteins (4) Abnormal echocardiogram Status: Acute Category: Medical Code(s): R93.1 - Abnormal findings on diagnostic imaging of heart and coronary circulation (5) Syncope Status: Chronic Qualifiers: Syncope type: unspecified Qualified Code(s): R55 - Syncope and collapse Category: Medical Code(s): R55 - Syncope and collapse (6) LBBB (left bundle branch block) Status: Acute Category: Medical Code(s): I44.7 - Left bundle-branch block, unspecified (7) Ulcerative colitis Status: Acute Qualifiers: Ulcerative colitis location: other ulcerative colitis Digestive disease complication type: other complication Qualified Code(s): K51.818 - Other ulcerative colitis with other complication Category: Medical Code(s): K51.90 - Ulcerative colitis, unspecified, without complications (8) Family history of ischemic heart disease Status: Chronic Category: Medical Code(s): Z82.49 - Family history of ischemic heart disease and other diseases of the circulatory system (9) Pacemaker Status: Chronic Category: Medical Code(s): Z95.0 - Presence of cardiac pacemaker - Assessment and plan all Dx Assessment and Plan for all problems:: Patient can be discharged as per cardiology perspective. She will need to be out of bed and have Elder catheter removed prior to discharge.
[2020-11-20 12:00] VITALS: BP 120/64; PULSE 70; RESP 16; TEMP 36.9; O2SAT 93
--- NOTE | 2020-11-23 15:27 | HMH.DCSUM ---
General - General Admission date:: 11/18/20 Discharge date: 11/20/20 HPI HPI: This 65-year-old white female presented in the emergency room at [facility] after a syncopal event in which she passed out and turned blue. She does not have a history of fainting apart from one other time in the distant past which sounded orthostatic. She has had some tachydysrhythmia in the past and was on sotalol for a while. The following is a narrative from the emergency room: Pt was outside playing [employer] and bent over to cook pickled meat a tariq bag and felt dizzy went to the house to sit down and had a syncopal episode, states her eyes rolled back in her head and she was was not breathing briefly, lifted her shirt to start CPR and pt sit up and told him she was alright. Pt is A&O x 3 PERRL 3mm. Moves all extremities. pt was not feeling well and then had dec pulse and some chest tightness and had syncopal episode and was blue for a few minutes and spont improved Significant in the patient's history is that she has inflammatory bowel disease. She does not have known thyroid disease. There is a family history of heart disease in her father. In the emergency room she was found to have third-degree heart block with heart rates in the 40s. The emergency room physician contacted Dr. Lopez who requested admission for likely pacemaker placement. Dr. Quinn did speak to Dr. Lopez as well. Hospital Course Hospital Course: Patient had a cervical spine CT showing minimal grade 1 retrolisthesis of C4 on C5 but was favored to be degenerative in nature. She also had acute sinusitis. She had a chest x-ray showing mild linear atelectasis in the left lung base but nothing acute. She had a head CT showing acute sinusitis but nothing acute. She had a pelvic x-ray showing no fractures. The patient was admitted as per cardiology. She had a pacemaker placed on 11/19/2020 along with a heart catheterization which showed normal coronary arteries. She had an echo showing an EF of 50% with grade 1 diastolic dysfunction. She did well after the procedure and had no more presyncopal or syncopal episodes. She only had mild tenderness and pain at the pacemaker insertion site. She was stable to be discharged home and will follow up with cardiology. Objective Vital signs: Temp Pulse Resp BP Pulse Ox 98.5 F 70 16 120/64 93 L 11/20/20 12:00 11/20/20 12:00 11/20/20 12:00 11/20/20 12:00 11/20/20 12:00 Narrative: - Constitutional no acute distress (At present she is in her hospital bed resting comfortably) - *Routine HEENT Exam Head: Present: normocephalic Eye: Present: PERRL ENT: Present: mucous membranes moist - *Routine Neck Exam Absent: JVD, carotid bruit, thyromegaly - Routine Chest/Breast/Axilla Exam Chest wall: Absent: tenderness - *Routine Respiratory Exam Present: CTA bilaterally. Absent: wheezes - *Routine Cardiovascular Exam Present: RRR (At this point her rate is 60 and regular. She is monitoring normal sinus rhythm) - *Routine Abdominal Exam Present: soft. Absent: tenderness, mass - *Routine Rectal Exam Rectal:: deferred - *Routine Genitalia Exam Genitalia:: deferred - *Routine Extremities Exam Present: edema (Trace) - *Routine Skin Exam Present: warm. Absent: rash - *Routine Neurological Exam Present: alert, oriented X3 - Routine Psychiatric Exam Present: normal affect, normal thought process DS: Diagnosis - Discharge Diagnosis (1) Third degree heart block Status: Acute (2) Angina pectoris Status: Resolved (3) Elevated troponin Status: Acute (4) Abnormal echocardiogram Status: Acute (5) Syncope Status: Chronic (6) LBBB (left bundle branch block) Status: Acute (7) Ulcerative colitis Status: Acute (8) Family history of ischemic heart disease Status: Chronic (9) Pacemaker Status: Chronic Discharge Plan - Mauri
== END 2020-11-20 14:55 | disposition home or self-care (01) | DRG 243 ==
LOC: ER 22:39 → 2ND 23:33
PROVIDERS: Internal Medicine; Admitting Provider Family Medicine; Emergency Provider Emergency Medicine; PCP Internal Medicine; Visit Provider Family Medicine
DX: I44.2 Atrioventricular block, complete (principal); K51.90 Ulcerative colitis, unspecified, without complications; I10 Essential (primary) hypertension; Z82.49 Family history of ischemic heart disease and other diseases of the circulatory system; I44.7 Left bundle-branch block, unspecified
CPT/HCPCS: 33208; 36415; 70450; 71046; 72125; 72170; 80048; 80053; 81001; 83735; 84145; 84484; 85025; 85651; 86140; 87086; 93005; 93306; 93458; 96365; 99152; 99284; C1725; C1769; C1785; C1898; J1644; J2405; J2720; Q9967; U0003

== ENCOUNTER → 2020-12-31 14:02 | Outpatient (CLI) | payer MEDICARE, SELFPAY ==
--- NOTE | 2020-12-31 14:04 | CA_ITS ---
APPROVED REPORT Left Upper Extremity Venous Study for DVT. Duty Engineer: Johana Garcia CRT Indications Upper Extremity Pain: Pacer put in in october. Vein Imaging IJV (L): Normal phasic flow is seen. Normal flow, augmentation and compression is seen. No evidence of Deep Vein Thrombosis. No abnormalities are demonstrated. SCV (L): Normal phasic flow is seen. Normal flow, augmentation and compression is seen. No evidence of Deep Vein Thrombosis. No abnormalities are demonstrated. Axillary (L): Normal phasic flow is seen. Normal flow, augmentation and compression is seen. No evidence of Deep Vein Thrombosis. No abnormalities are demonstrated. Brachial (L): Normal phasic flow is seen. Normal flow, augmentation and compression is seen. No evidence of Deep Vein Thrombosis. No abnormalities are demonstrated. Basilic (L): Normal phasic flow is seen. Normal flow, augmentation and compression is seen. No evidence of Deep Vein Thrombosis. No abnormalities are demonstrated. Cephalic (L): Normal phasic flow is seen. Normal flow, augmentation and compression is seen. No evidence of Deep Vein Thrombosis. No abnormalities are demonstrated. Radial (L): Normal phasic flow is seen. Normal flow, augmentation and compression is seen. No evidence of Deep Vein Thrombosis. No abnormalities are demonstrated. Ulnar (L): Normal phasic flow is seen. Normal flow, augmentation and compression is seen. No evidence of Deep Vein Thrombosis. No abnormalities are demonstrated. Findings LUE negative for DVT/SVT Vessels compressible Conclusion LUE negative for DVT/SVT Vessels compressible Electronically signed by : Zion Sands MD 12/31/2020 16:38:07
--- NOTE | 2020-12-31 14:07 | XR_ITS ---
PROCEDURE: XR CHEST 2V CLINICAL HISTORY: chest pain COMPARISON: CR XR CHEST PORTABLE from 08/26/2019 CR XR CHEST 2V from 09/12/2020 CR XR CHEST 2V from 11/17/2020 FINDINGS: Bipolar pacemaker is present from left subclavian approach. No evidence of pneumothorax. Normal heart size. Minimal atelectatic or fibrotic changes present in the left lung base. The right lung is clear. The lungs are clear without infiltrates, suspicious nodules, or pleural effusions. No acute bony abnormalities. IMPRESSION: No change with no acute finding Dictated by: Zion Sands MD 12/31/2020 14:45 Zion Sands MD in [place] 12/31/2020 14:45
== END ==
PROVIDERS: PCP Internal Medicine; Visit Provider Physician Assistant
DX: E78.5 Hyperlipidemia, unspecified (principal); I10 Essential (primary) hypertension; I48.92 Unspecified atrial flutter; M79.674 Pain in right toe(s); Z95.0 Presence of cardiac pacemaker
CPT/HCPCS: 71046; 93971

== ENCOUNTER → 2021-01-01 10:42 | Outpatient (CLI) | payer MEDICARE, SELFPAY ==
[2021-01-01 11:38] LABS: Basophils # 0.1 K/mm3 (0-0.2); Basophils % 1.4 % (0.1-2.0); Eosinophils # 0.4 K/mm3 (0.0-0.4); Eosinophils % 6.2 % (0.1-12.0); Hematocrit 44.4 % (37.0-47.0); Lymphocytes # 1.7 K/mm3 (0.7-4.5); Lymphocytes % 28.2 % (10-50); Mean Corpuscular HGB Conc 33.8 g/dL (31.8-35.4); Mean Corpuscular Hemoglobin 28.7 pg (27.0-31.2); Monocytes # 0.5 K/mm3 (0.1-1.0); Monocytes % 7.7 % (1.7-9.3); Neutrophils # 3.4 K/mm3 (1.8-7.8); Neutrophils % 56.5 % (37.0-80.0); Platelet Count 336 K/mm3 (142-424); Red Blood Count 5.23 M/mm3 (4.20-5.40); Red Cell Distribution Width 13.7 % (11.5-17.5); White Blood Count 6.1 K/mm3 (4.8-10.8)
[2021-01-01 12:07] LABS: Chloride 107 mmol/L (98-107); Potassium 4.7 mmoL/L (3.5-5.1); Sodium 139 mmol/L (136-145)
[2021-01-01 12:10] LABS: Alanine Aminotransferase 87 U/L (12-78); Albumin Level 4.3 g/dl (3.5-5.0); Albumin/Globulin Ratio 1.5 (1.1-1.8); Alkaline Phosphatase 120 U/L (38-126); Anion Gap 11.7 mEq/L (5-15); Aspartate Amino Transferase 58 U/L (14-36); Bilirubin,Total 0.8 mg/dl (0.2-1.3); Blood Urea Nitrogen 15 mg/dl (7-17); Calcium 9.3 mg/dl (8.4-10.2); Carbon Dioxide 25 mmol/L (22.0-30.0); Estimated Glomerular Filt Rate 101 ml/min (>60); GFR (African American) 122 ML/MIN (>60); Globulin 2.9 g/dL (1.3-3.2); Glucose 110 mg/dl (74-100); Iron 89 ug/dL (37-170); Total Protein,Serum 7.2 g/dl (6.3-8.2)
[2021-01-01 12:10] LABS: Chol/HDL Ratio 6.1 (1-3.5); Cholesterol 243 mg/dl (140-200); HDL Cholesterol 40 mg/dl (40-60); Triglycerides 190 mg/dl (30-150); VLDL Cholesterol 38 mg/dL (0-40)
[2021-01-01 12:16] LABS: Erythrocyte Sedimentation Rate 28 mm/hr (0-30)
[2021-01-01 12:18] LABS: C-Reactive Protein 5.7 mg/L (0-4)
[2021-01-01 12:19] LABS: Total Iron Binding Capacity 304 ug/dL (265-497)
[2021-01-01 12:21] LABS: Direct LDL Cholesterol 155.36 mg/dL (100-129)
[2021-01-01 12:27] LABS: 25-OH Vitamin D, Total 24.9 ng/mL (30-100)
[2021-01-01 12:46] LABS: Ferritin 42.9 ng/ml (11.1-264)
[2021-01-01 19:45] LABS: Vitamin B12 337 pg/mL (239-931)
== END ==
PROVIDERS: Internal Medicine; Visit Provider Nurse Practitioner Family
DX: K50.111 Crohn's disease of large intestine with rectal bleeding (principal); K30 Functional dyspepsia; E78.5 Hyperlipidemia, unspecified; E55.9 Vitamin D deficiency, unspecified
CPT/HCPCS: 36415; 80053; 80061; 82306; 82607; 82728; 83540; 83550; 85025; 85651; 86140

== ENCOUNTER → 2021-01-14 09:28 | Outpatient (POV) | payer MEDICARE, SELFPAY | PROVIDERS: Visit Provider Nurse Practitioner Family | DX: Z00.00 Encounter for general adult medical examination without abnormal findings (principal) ==

== ENCOUNTER → 2021-02-04 18:54 | Outpatient (CLI) | payer MEDICARE, SELFPAY | PROVIDERS: Visit Provider Internal Medicine | DX: N39.0 Urinary tract infection, site not specified (principal); R31.9 Hematuria, unspecified | CPT/HCPCS: 87086; 87088; 87186 ==

== ENCOUNTER → 2021-02-07 09:50 | Outpatient (CLI) | payer MEDICARE, SELFPAY ==
[2021-02-07 10:16] LABS: Basophils # 0.1 K/mm3 (0-0.2); Basophils % 1.5 % (0.1-2.0); Eosinophils # 0.3 K/mm3 (0.0-0.4); Eosinophils % 4.9 % (0.1-12.0); Hemoglobin 15.5 g/dL (12.2-16.2); Lymphocytes # 1.8 K/mm3 (0.7-4.5); Lymphocytes % 26.8 % (10-50); Mean Corpuscular HGB Conc 33.1 g/dL (31.8-35.4); Mean Corpuscular Hemoglobin 29.8 pg (27.0-31.2); Mean Corpuscular Volume 90.1 fl (81-99); Mean Platelet Volume 7.1 fl (7.4-10.4); Monocytes # 0.5 K/mm3 (0.1-1.0); Monocytes % 6.6 % (1.7-9.3); Neutrophils # 4.1 K/mm3 (1.8-7.8); Neutrophils % 60.1 % (37.0-80.0); Platelet Count 357 K/mm3 (142-424); Red Blood Count 5.22 M/mm3 (4.20-5.40); Red Cell Distribution Width 13.1 % (11.5-17.5); White Blood Count 6.8 K/mm3 (4.8-10.8)
[2021-02-07 11:18] LABS: Chloride 103 mmol/L (98-107); Sodium 142 mmol/L (136-145)
[2021-02-07 11:21] LABS: Blood Urea Nitrogen 10 mg/dl (7-17); Calcium 9.7 mg/dl (8.4-10.2); Carbon Dioxide 27 mmol/L (22.0-30.0); Estimated Glomerular Filt Rate 101 ml/min (>60); GFR (African American) 122 ML/MIN (>60); Glucose 107 mg/dl (74-100)
[2021-02-07 11:31] LABS: NT Pro Brain Natriuretic Pep. 252 pg/mL (0-125)
== END ==
PROVIDERS: Visit Provider Internal Medicine Cardiovascular Disease
DX: R06.00 Dyspnea, unspecified; I44.7 Left bundle-branch block, unspecified; I10 Essential (primary) hypertension; E78.5 Hyperlipidemia, unspecified
CPT/HCPCS: 36415; 80048; 83880; 85025

== ENCOUNTER → 2021-02-14 09:16 | Outpatient (CLI) | payer MEDICARE, SELFPAY ==
--- NOTE | 2021-02-14 09:16 | CA_ITS ---
APPROVED REPORT EXAM: Comprehensive 2D, Doppler, and color-flow Echocardiogram [employer] Retailer Sales Consultant: Johana Garcia CRT Ht: 5 ft 4 in Wt: 182lbs BSA: 1.88 BP: 135/69 mmHg Indications: ef check, ef 50% 11/18/20 on echo, post pacer placement 10/2020 2D Dimensions LVOT 1.87 cm (M/F) 1.5-2.5 M-Mode Dimensions RVDd 2.58 cm (0.9-2.6) LA Diam 3.51 cm (1.9-4.0) LVDd 3.58 cm (3.5-5.7) Ao Diam 3.47 cm (2.0-3.7) LVDs 2.56 cm (3.5-5.7) IVSd 1.80 cm (0.6-1.1) PWd 0.98 cm (0.6-1.1) EF (Teich) 55.90% FS 28.50% EDV (Teich) 53.70 mL ESV (Teich) 23.70 mL Conclusion 1. Weighted echocardiogram was performed to evaluate left ventricular systolic function. 2. Normal left ventricular size, mild concentric left ventricular hypertrophy, visually estimated ejection fraction 50%, there is abnormal septal motion. 3. No significant pericardial effusion noted. Electronically signed by : Dc Stoll MD 02/14/2021 14:53:07
== END ==
PROVIDERS: PCP Internal Medicine; Visit Provider Internal Medicine Cardiovascular Disease
DX: R06.00 Dyspnea, unspecified (principal); I44.7 Left bundle-branch block, unspecified; I44.2 Atrioventricular block, complete
CPT/HCPCS: 93308

== ENCOUNTER → 2021-02-26 17:09 | Outpatient (CLI) | payer MEDICARE, SELFPAY | PROVIDERS: Visit Provider Internal Medicine | DX: R10.9 Unspecified abdominal pain (principal) | CPT/HCPCS: 87086 ==

== ENCOUNTER 2021-03-26 15:24 | Emergency (ER) | payer MEDICARE, SELFPAY ==
[2021-03-26 17:17] VITALS: BP 140/73; PULSE 85; RESP 16; TEMP 36.9; O2SAT 99; BMI 29.6
--- NOTE | 2021-03-26 17:28 | HMH.EDUTC ---
[facility] [place] Clinical Impression: Strep [place] Disposition: Home, Self-Care Condition on Discharge: Good Instructions: Strep Throat, DI for Strep Throat, DI for COVID-19 (Suspected or Confirmed ), Preventing the Spread of Coronavirus Discharge Instructions Additional Instructions: Drink plenty of fluids. Take tylenol or ibuprofen for pain or fever. Take the medications as directed. Follow up with your regular doctor. GO TO THE ER FOR ANY WORSENING SYMPTOMS Throw your tooth brush away and get a new one. Quarantine until you know the results of your covid-19 test. If it is positive, the health department should call you and give you further instructions about your length of Quarantine and other things. Notify your school or workplace of your results and follow their instructions regarding return to work/school. Prescriptions: Benzonatate [Tessalon Perle 100mg Cap] 100 mg PO TIDP PRN #30 cap PRN Reason: Cough Transmission Status: Received by [id number] Azithromycin [Z-Hakan 250mg Tab*] 250 mg PO UD DOSE PK #6 tab Transmission Status: Received by [id number] Referrals: Brandon Woods [Primary Care Provider] - Time of Disposition: 17:30 Medical Decision Making - Medical Records Medical records reviewed: No: I reviewed the patient's medical records. - Mitchell Inquiry Pt receiving controlled substance: No Vital Signs: 03/26/21 17:17 03/26/21 17:41 Temperature 98.4 F 98.4 F Temperature Source Oral Pulse Rate 85 Pulse Rate [Left] 85 Respiratory Rate 16 22 Blood Pressure 140/73 Blood Pressure [Right Arm] 140/73 Blood Pressure Mean [Right Arm] 95 02 Sat by Pulse Oximetry 99 - Lab Data Lab results reviewed: Yes: I reviewed the patient's lab results. Lab Results 03/26/21 17:15: Strep Scn Rapid Clinic Positive A Orders (Tests/Meds): ORDERS Category Date Time Status Full Resp Panel w/COVID ([facility]) Routine Lab 03/26/21 17:28 [place] [facility] [place] - General Stated complaint: FEVER CHILLS,SORE THROAT,COUGH,SOB Time Seen by Provider: 03/26/21 17:28 Mode of Arrival: Ambulatory Source of Information: Patient Limitations: No Limitations Description of Symptoms (Recalled from Triage Doc. by RN): pt c/o fever, sore throat, body aches, diarrhea, JONES, cough and lethargy. HEENT Symptoms (Recalled from RN notes): Yes (sore throat and JONES) Resp Symptoms (Recalled from RN notes): Yes (cough) Skin Symptoms (Recalled from RN notes): No MS Symptoms (Recalled from RN notes): No Functional Status (Recalled from RN notes): body aches and lethargy - History of Present Illness Provider Complaint: She c/o sore throat, cough and congestion since yesterday. Her grand son currently has strep throat. She would like to be tested for covid also. - Related Data Home Medications Medication Instructions Recorded Confirmed Atorvastatin Calcium [Lipitor 40mg 40 mg PO HS 09/13/20 02/07/21 Tab] Previous Rx's Medication Instructions Recorded metronidazole 0.75 % vaginal gel 1 appful VAGINAL DAILY 5 Days #70 g 01/31/21 indomethacin 75 mg 75 mg PO DAILY #30 cap 02/07/21 capsule,extended release Azithromycin [Z-Hakan 250mg Tab*] 250 mg PO UD DOSE PK #6 tab 03/26/21 Benzonatate [Tessalon Perle 100mg 100 mg PO TIDP PRN #30 cap 03/26/21 Cap] Allergies Allergy/AdvReac Type Severity Reaction Status Date / Time metronidazole [From Flagyl] Allergy Mild Vomiting Verified 02/07/21 09:15 clindamycin [CLINDAMYCIN] Allergy Unknown Verified 02/07/21 09:15 diazepam [From VALIUM] Allergy Unknown Verified 02/07/21 09:15 Tetracyclines [TETRACYCLINES] Allergy Unknown Verified 02/07/21 09:15 - Worker's Comp Is this a Worker's Comp case?: No [facility] History - Hepatitis A Screen Drug use history?: No High risk sexual behaviors?: No History of sexually transmitted infection?: No Currently employed?: No Childcare worker?: No Do you have indoor plumbing?: Yes Do you have elec
[2021-03-26 17:40] LABS: Adenovirus,PCR Not Detected (NotDetected); Bordetella Pertussis Not Detected (NotDetected); Chlamydophila Pneumoniae, PCR Not Detected (NotDetected); Coronavirus 19, PCR Not Detected (NotDetected); Coronavirus 229E Not Detected (NotDetected); Coronavirus NL63 Not Detected (NotDetected); Coronavirus OC43 Not Detected (NotDetected); Coronovirus HKU1,PCR Not Detected (NotDetected); Human Metapneumovirus Not Detected (NotDetected); Influenza A, PCR Not Detected (NotDetected); Influenza AH1, 2009 Not Detected (NotDetected); Influenza AH1, PCR Not Detected (NotDetected); Influenza AH3,PCR Not Detected (NotDetected); Influenza B, PCR Not Detected (NotDetected); Mycoplasma Pneumoniae, PCR Not Detected (NotDetected); Parainfluenza 1, PCR Not Detected (NotDetected); Parainfluenza 2, PCR Not Detected (NotDetected); Parainfluenza 3, PCR Not Detected (NotDetected); Parainfluenza 4, PCR Not Detected (NotDetected); Respiratory Syncytial Virus Not Detected (NotDetected); Rhinovirus/Enterovirus Not Detected (NotDetected)
[2021-03-26 17:41] VITALS: BP 140/73; PULSE 85; RESP 22; TEMP 36.9
[2021-03-26 18:38] LABS: UTC Strep Screen (Rapid) Positive (Negative)
== END 2021-03-26 17:57 | disposition home or self-care (01) ==
PROVIDERS: Emergency Provider Nurse Practitioner Family; PCP Internal Medicine
DX: J02.0 Streptococcal pharyngitis (principal)
CPT/HCPCS: G0463; 87581; 87632; 87798; 87880; 99203; C9803; U0003; U0005

== ENCOUNTER → 2021-04-12 15:46 | Outpatient (CLI) | payer MEDICARE, SELFPAY ==
--- NOTE | 2021-04-12 | ECG_ITS ---
APPROVED REPORT Exam: Resting ECG HR:105 bpm ECG Measurements Heart Rate 105 AXES QRSd 150 QRS -80 QT 432 T 76 QTc 570 Conclusion pacer rhythm Left axis deviation Abnormal ECG Electronically signed by : Brandon Woods MD 04/15/2021 10:42:39
--- NOTE | 2021-04-12 16:10 | XR_ITS ---
PROCEDURE INFORMATION: Exam: XR Chest Exam date and time: 04/12/2021 4:10 PM Age: 65 years old Clinical indication: Shortness of breath; Additional info: SOA TECHNIQUE: Imaging protocol: XR of the chest. Views: 2 views. COMPARISON: CR XR CHEST 2V 12/31/2020 2:13 PM FINDINGS: Lungs: Unremarkable. No consolidation. Pleural spaces: Unremarkable. No pleural effusion. No pneumothorax. Heart/Mediastinum: Unremarkable. No cardiomegaly. Bones/joints: Unremarkable. IMPRESSION: No acute findings.
[2021-04-12 16:15] LABS: Basophils # 0.1 K/mm3 (0-0.2); Basophils % 1.7 % (0.1-2.0); Eosinophils # 0.3 K/mm3 (0.0-0.4); Hematocrit 44.8 % (37.0-47.0); Hemoglobin 15.3 g/dL (12.2-16.2); Lymphocytes # 2.3 K/mm3 (0.7-4.5); Lymphocytes % 33.7 % (10-50); Mean Corpuscular HGB Conc 34.2 g/dL (31.8-35.4); Mean Corpuscular Volume 87.5 fl (81-99); Mean Platelet Volume 7.6 fl (7.4-10.4); Monocytes # 0.5 K/mm3 (0.1-1.0); Neutrophils # 3.5 K/mm3 (1.8-7.8); Neutrophils % 51.6 % (37.0-80.0); Platelet Count 399 K/mm3 (142-424); Red Blood Count 5.12 M/mm3 (4.20-5.40); Red Cell Distribution Width 13.2 % (11.5-17.5); White Blood Count 6.8 K/mm3 (4.8-10.8)
[2021-04-12 16:42] LABS: Alanine Aminotransferase 28 U/L (12-78); Albumin Level 4.6 g/dl (3.5-5.0); Albumin/Globulin Ratio 1.6 (1.1-1.8); Alkaline Phosphatase 116 U/L (38-126); Anion Gap 14.9 mEq/L (5-15); Aspartate Amino Transferase 27 U/L (14-36); Bilirubin,Total 0.5 mg/dl (0.2-1.3); Blood Urea Nitrogen 15 mg/dl (7-17); Calcium 9.4 mg/dl (8.4-10.2); Carbon Dioxide 26 mmol/L (22.0-30.0); Chloride 105 mmol/L (98-107); Estimated Glomerular Filt Rate 84 ml/min (>60); GFR (African American) 102 ML/MIN (>60); Globulin 2.9 g/dL (1.3-3.2); Glucose 102 mg/dl (74-100); Potassium 3.9 mmoL/L (3.5-5.1); Sodium 142 mmol/L (136-145); Total Protein,Serum 7.5 g/dl (6.3-8.2)
[2021-04-12 16:50] LABS: NT Pro Brain Natriuretic Pep. 1190 pg/mL (0-125)
[2021-04-12 17:37] LABS: D-Dimer 0.91 ug/mL (0.0-0.5)
== END ==
PROVIDERS: Visit Provider Internal Medicine Cardiovascular Disease
DX: R06.02 Shortness of breath (principal); R00.0 Tachycardia, unspecified
CPT/HCPCS: 36415; 71046; 80053; 83880; 85025; 85378; 93005

== ENCOUNTER → 2021-04-15 10:13 | Outpatient (CLI) | payer MEDICARE, SELFPAY ==
[2021-04-15 10:19] LABS: Adenovirus F 40/41, stool Not Detected (NotDetected); Astrovirus Not Detected (NotDetected); Campylobacter Not Detected (NotDetected); Clostridium Difficile A/B, PCR Not Detected (NotDetected); Cryptosporidium Not Detected (NotDetected); Cyclospora Cayetanesis Not Detected (NotDetected); Entamoeba histolytica Not Detected (NotDetected); Enteroaggregative E coli Not Detected (NotDetected); Enteropathogenic E coli Not Detected (NotDetected); Enterotoxigenic E coli Not Detected (NotDetected); Giardia lamblia Not Detected (NotDetected); Norovirus Not Detected (NotDetected); Plesimonas Shigalloides, PCR Not Detected (NotDetected); Rotavirus A Not Detected (NotDetected); Salmonella, PCR Not Detected (NotDetected); Sapovirus Not Detected (NotDetected); Shiga-like toxin E coli Not Detected (NotDetected); Shigella Enterovasive E coli Not Detected (NotDetected); Vibrio Cholerae Not Detected (NotDetected); Vibrio, PCR Not Detected (NotDetected); Yersinia Entercolitica, PCR Not Detected (NotDetected)
[2021-04-18 19:07] LABS: Calprotectin, Fecal 1088 ug/g (0-120)
== END ==
PROVIDERS: Visit Provider Nurse Practitioner Family
DX: R19.7 Diarrhea, unspecified (principal); R19.4 Change in bowel habit; R19.5 Other fecal abnormalities
CPT/HCPCS: 83993; 87506

== ENCOUNTER → 2021-04-25 10:27 | Outpatient (CLI) | payer MEDICARE, SELFPAY ==
[2021-04-25 10:57] LABS: Chloride 105 mmol/L (98-107); Potassium 5.4 mmoL/L (3.5-5.1); Sodium 140 mmol/L (136-145)
[2021-04-25 10:59] LABS: Alanine Aminotransferase 33 U/L (12-78); Aspartate Amino Transferase 34 U/L (14-36); Bilirubin,Unconjugated 0.3 mg/dL (0.0-1.1); Blood Urea Nitrogen 22 mg/dl (7-17); Estimated Glomerular Filt Rate 84 ml/min (>60); GFR (African American) 102 ML/MIN (>60)
[2021-04-25 11:00] LABS: Albumin Level 4.4 g/dl (3.5-5.0); Alkaline Phosphatase 97 U/L (38-126); Anion Gap 12.4 mEq/L (5-15); Bilirubin,Direct 0.3 mg/dl (0.0-0.4); Bilirubin,Indirect 0.3 mg/dL (0.0-0.9); Bilirubin,Total 0.6 mg/dl (0.2-1.3); Calcium 9.7 mg/dl (8.4-10.2); Carbon Dioxide 28 mmol/L (22.0-30.0); Chol/HDL Ratio 3.8 (1-3.5); Cholesterol 277 mg/dl (140-200); Glucose 116 mg/dl (74-100); HDL Cholesterol 72 mg/dl (40-60); Total Protein,Serum 7.2 g/dl (6.3-8.2); Triglycerides 133 mg/dl (30-150); VLDL Cholesterol 27 mg/dL (0-40)
[2021-04-25 11:11] LABS: Direct LDL Cholesterol 176.99 mg/dL (100-129)
--- NOTE | 2021-04-25 12:47 | CT_ITS ---
PROCEDURE: CT ANGIO CHEST PE PROTOCOL CLINCIAL INDICATION: dyspnea/positive d dimer COMPARISON: CT CT ABDOMEN PELVIS W CON from 09/12/[address] HEAD/BRAIN WO/W CON from 10/09/2020 TECHNIQUE: IV Contrast: 70ML Isovue 370 Axial images obtained with sagittal and coronal reformats. All CT scans at the facility use one or more dose reduction, viz: automated exposure control, ma/kV adjustment per patient size (including targeted exams where dose is matched to indication, i.e. head), or iterative reconstruction technique. FINDINGS: HEART AND MEDIASTINAL STRUCTURES: No evidence of pulmonary embolus, aortic aneurysm, or aortic dissection.. No mediastinal or hilar mass or adenopathy. The right and left main pulmonary arteries are slightly prominent left more so than right. LUNGS AND PLEURAL SPACES: Calcified granuloma left upper lobe. Minimal scarring in the lung bases. No infiltrates or effusions. No suspicious pulmonary nodules identified BONY STRUCTURES: No acute bony abnormalities apparent. UPPER ABDOMEN: Left parapelvic renal cyst incompletely imaged. ADDITIONAL FINDINGS: No other significant abnormalities. IMPRESSION: No acute finding. No evidence of pulmonary embolus. Mild prominence of the main pulmonary arteries Dictated by: Zion Sands MD 04/26/2021 07:21 Zion Sands MD in [place] 04/26/2021 07:21
== END ==
PROVIDERS: PCP Internal Medicine; Visit Provider Physician Assistant
DX: E78.5 Hyperlipidemia, unspecified (principal); I10 Essential (primary) hypertension; I44.7 Left bundle-branch block, unspecified; R06.00 Dyspnea, unspecified; R07.9 Chest pain, unspecified; R94.31 Abnormal electrocardiogram [ECG] [EKG]; R79.89 Other specified abnormal findings of blood chemistry
CPT/HCPCS: 36415; 71275; 80048; 80061; 80076

== ENCOUNTER → 2021-06-11 13:51 | Outpatient (POV) | payer MEDICARE, SELFPAY | PROVIDERS: Visit Provider Dermatology | DX: Z00.00 Encounter for general adult medical examination without abnormal findings (principal) ==

== ENCOUNTER → 2021-06-15 08:18 | Outpatient (CLI) | payer MEDICARE, SELFPAY ==
[2021-06-15 09:04] LABS: Basophils # 0.2 K/mm3 (0-0.2); Basophils % 3.2 % (0.1-2.0); Eosinophils # 0.5 K/mm3 (0.0-0.4); Eosinophils % 7.5 % (0.1-12.0); Hematocrit 46.8 % (37.0-47.0); Hemoglobin 15.3 g/dL (12.2-16.2); Lymphocytes # 2.2 K/mm3 (0.7-4.5); Lymphocytes % 31.8 % (10-50); Mean Corpuscular HGB Conc 32.6 g/dL (31.8-35.4); Mean Corpuscular Hemoglobin 28.9 pg (27.0-31.2); Mean Corpuscular Volume 88.8 fl (81-99); Mean Platelet Volume 7.5 fl (7.4-10.4); Monocytes # 0.5 K/mm3 (0.1-1.0); Monocytes % 6.5 % (1.7-9.3); Neutrophils # 3.5 K/mm3 (1.8-7.8); Neutrophils % 50.9 % (37.0-80.0); Platelet Count 298 K/mm3 (142-424); Red Blood Count 5.27 M/mm3 (4.20-5.40); Red Cell Distribution Width 13.5 % (11.5-17.5); White Blood Count 6.9 K/mm3 (4.8-10.8)
[2021-06-15 10:46] LABS: 25-OH Vitamin D, Total 26.3 ng/mL (30-100)
[2021-06-15 11:12] LABS: Erythrocyte Sedimentation Rate 16 mm/hr (0-30)
[2021-06-15 14:34] LABS: Alanine Aminotransferase 22 U/L (12-78); Albumin Level 4.6 g/dl (3.5-5.0); Albumin/Globulin Ratio 1.5 (1.1-1.8); Alkaline Phosphatase 84 U/L (38-126); Anion Gap 14.1 mEq/L (5-15); Aspartate Amino Transferase 49 U/L (14-36); Bilirubin,Total 0.9 mg/dl (0.2-1.3); Blood Urea Nitrogen 12 mg/dl (7-17); Calcium 9.8 mg/dl (8.4-10.2); Carbon Dioxide 23 mmol/L (22.0-30.0); Chloride 104 mmol/L (98-107); Estimated Glomerular Filt Rate 101 ml/min (>60); GFR (African American) 122 ML/MIN (>60); Glucose 94 mg/dl (74-100); Potassium 5.1 mmoL/L (3.5-5.1); Sodium 136 mmol/L (136-145); Total Protein,Serum 7.6 g/dl (6.3-8.2)
[2021-06-15 14:39] LABS: C-Reactive Protein 4.7 mg/L (0-4)
[2021-06-15 15:23] LABS: Vitamin B12 343 pg/mL (239-931)
[2021-06-15 15:37] LABS: Iron 99 ug/dL (37-170)
[2021-06-15 15:46] LABS: Total Iron Binding Capacity 330 ug/dL (265-497)
[2021-06-15 16:13] LABS: Ferritin 32.2 ng/ml (11.1-264)
== END ==
PROVIDERS: Visit Provider Nurse Practitioner Family
DX: K50.90 Crohn's disease, unspecified, without complications (principal); R14.0 Abdominal distension (gaseous); K59.00 Constipation, unspecified; K30 Functional dyspepsia; R94.5 Abnormal results of liver function studies; E55.9 Vitamin D deficiency, unspecified
CPT/HCPCS: 36415; 80053; 82306; 82607; 82728; 83540; 83550; 85025; 85651; 86140

== ENCOUNTER → 2021-08-01 14:16 | Outpatient (CLI) | payer MEDICARE, SELFPAY | PROVIDERS: PCP Internal Medicine; Visit Provider Internal Medicine | DX: R06.00 Dyspnea, unspecified (principal) | CPT/HCPCS: 93306 ==

== ENCOUNTER 2021-08-10 08:56 | Emergency (ER) | payer MEDICARE, SELFPAY ==
[2021-08-10] VITALS (9 sets, daily range): BP systolic 98–132; BP diastolic 50–64; PULSE 64–107; RESP 15–20; TEMP 37.1–38.1; O2SAT 95–99; BMI 29.6
--- NOTE | 2021-08-10 09:18 | XR_ITS ---
PROCEDURE INFORMATION: Exam: XR Chest Exam date and time: 08/10/2021 9:24 AM Age: 66 years old Clinical indication: Fever and shortness of breath; Additional info: Fever, vomitting, chest pressure TECHNIQUE: Imaging protocol: XR of the chest. Views: 1 view. COMPARISON: CR XR CHEST 2V 04/12/2021 4:12 PM FINDINGS: Tubes, catheters and devices: Transvenous pacemaker leads in the heart Lungs: Unremarkable. No consolidation. Pleural spaces: Unremarkable. No pleural effusion. No pneumothorax. Heart/Mediastinum: Unremarkable. No cardiomegaly. Bones/joints: Unremarkable. IMPRESSION: No acute process
--- NOTE | 2021-08-10 09:19 | HMH.EDGENADL ---
ED Disposition Clinical Impression: Pyelonephritis Disposition: Home, Self-Care Condition on Discharge: Good Additional Instructions: Take antibiotics as directed, Zofran as directed for nausea and vomiting. Drink plenty of fluids, stay hydrated. Follow-up with your PCP as needed, return with new or concerning symptoms. Contact Dr. Wong's office on Thursday morning to set up an appointment for evaluation for elective cholecystectomy. Prescriptions: Cefdinir [Omnicef 300mg Capsule] 300 mg PO BID 10 Days #20 cap Ondansetron [Zofran 4mg ODT] 4 mg PO QID PRN 3 Days #12 tab PRN Reason: Nausea And Vomiting [id number] Referrals: Brandon Woods [Primary Care Provider] - Forrest Lopez MD [Staff Physician] - - Critical Care Critical Care Time: No Attestation: On 08/10/21, the high probability of a clinically significant, sudden or life threatening deterioration of the following system(s) required my full and direct attention, intervention and personal management. The time I documented below is in addition to time spent performing reported procedures but includes the following listed in this critical care notation. Medical Decision Making - Medical Records Medical records reviewed: Yes: I reviewed the patient's medical records. - Mitchell Inquiry Pt receiving controlled substance: No Vital Signs: 08/10/21 08:58 08/10/21 09:02 08/10/21 09:55 Temperature 100.5 F H Temperature Source Oral Pulse Rate 64 72 Pulse Rate [Left Radial] 64 Respiratory Rate 20 18 18 Blood Pressure 132/50 L 106/64 L Blood Pressure [Right Arm] 132/60 Blood Pressure Mean 92 71 Blood Pressure Mean [Right Arm] 84 Blood Pressure Source Blood Pressure Source [Right Arm] Automatic Cuff Blood Pressure Position Blood Pressure Position [Right Arm] Sitting 02 Sat by Pulse Oximetry 99 99 97 Oxygen Delivery Method Room Air 08/10/21 10:57 08/10/21 11:51 Temperature Temperature Source Pulse Rate 107 H 71 Pulse Rate [Left Radial] Respiratory Rate 18 15 Blood Pressure 107/57 L 112/58 L Blood Pressure [Right Arm] Blood Pressure Mean 71 Blood Pressure Mean [Right Arm] Blood Pressure Source Manual Cuff/ Auscultation Blood Pressure Source [Right Arm] Blood Pressure Position Sitting Blood Pressure Position [Right Arm] 02 Sat by Pulse Oximetry 96 99 Oxygen Delivery Method Room Air - Lab Data Lab Results 08/10/21 09:10: WBC 5.4, RBC 4.84, Hgb 14.2, Hct 42.7, MCV 88.3, MCH 29.4, MCHC 33.3, RDW 14.4, Plt Count 288, MPV 8.6, Neut % (Auto) 71.4, Lymph % (Auto) 16.0, [place] % (Auto) 9.3, Eos % (Auto) 2.0, Baso % (Auto) 1.3, Neut # (Auto) 3.8, Lymph # (Auto) 0.9, [place] # (Auto) 0.5, Eos # (Auto) 0.1, Baso # (Auto) 0.1 08/10/21 09:10: Sodium 139, Potassium 4.1, Chloride 107, Carbon Dioxide 26, Anion Gap 10.1, BUN 11, Creatinine 0.70, Estimated GFR 84, Est GFR ( Amer) 102, Glucose 96, Calcium 8.1 L, Total Bilirubin 0.9, AST 58 H, ALT 43, Alkaline Phosphatase 101, Total Protein 7.4, Albumin 4.2, Globulin 3.2, Albumin/Globulin Ratio 1.3, Lipase 61 08/10/21 10:49: Urine Color Yellow, Urine Appearance Sl cloudy, Urine pH 6.0, Ur Specific [place] 1.020, Urine Protein Negative, Urine Glucose (UA) Negative, Urine Ketones Negative, Urine Blood Negative, Urine Nitrate Negative, Urine Bilirubin Negative, Urine Urobilinogen 0.2, Ur Leukocyte Esterase 2+ A, Urine RBC 3-5, Urine WBC 20-50, Ur Squamous Epith Cells 5-10, Urine Bacteria 3+ 08/10/21 11:45: Lactate < 0.5 L Result diagrams: 08/10/21 09:10 08/10/21 09:10 Orders (Tests/Meds): ED MEDICATIONS Generic Name Dose Route Start Last Admin Trade Name Freq PRN Reason Stop Dose Admin Ondansetron HCl 4 mg 08/10/21 09:10 Ondansetron 4mg/2ml Vial IV 09/09/21 09:09 Q6 PRN Nausea And Vomiting Discontinued Medications Generic Name Dose Route Start Last Admin Trade Name Freq PRN Reason Stop Dose Admi
--- NOTE | 2021-08-10 09:21 | PC.NURSE ---
pt in room, labs sent by rn
--- NOTE | 2021-08-10 09:29 | US_ITS ---
PROCEDURE INFORMATION: Exam: US Abdomen, Limited; Right Upper Quadrant Exam date and time: 08/10/2021 10:16 AM Age: 66 years old Clinical indication: Abdominal pain; Acute; Additional info: Fever, vomiting, ruq abdominal pain TECHNIQUE: Imaging protocol: US abdomen. Real time ultrasound with image documentation. Limited exam focused on the right upper quadrant. COMPARISON: CT ABDOMEN PELVIS W CON 09/12/2020 10:27 PM FINDINGS: Liver: Normal. No masses. Gallbladder: Sludge in the gallbladder. No gallstones. Gallbladder wall thickening 2.9- 3.4 mm.. Common bile duct: Common bile duct 3.7 mm Pancreas: Visualized pancreas is unremarkable Right kidney: Right kidney 10 cm. No hydronephrosis. Renal cortex thinning in the right kidney Portal venous: Hepatopetal flow in the portal vein IMPRESSION: Sludge in the gallbladder. No gallstones. Gallbladder wall thickening 2.9-3.4 mm.. This may represent acalculous cholecystitis in the appropriate clinical setting
[2021-08-10 09:36] LABS: Basophils # 0.1 K/mm3 (0-0.2); Basophils % 1.3 % (0.1-2.0); Eosinophils # 0.1 K/mm3 (0.0-0.4); Hematocrit 42.7 % (37.0-47.0); Hemoglobin 14.2 g/dL (12.2-16.2); Lymphocytes # 0.9 K/mm3 (0.7-4.5); Mean Corpuscular HGB Conc 33.3 g/dL (31.8-35.4); Mean Corpuscular Hemoglobin 29.4 pg (27.0-31.2); Mean Corpuscular Volume 88.3 fl (81-99); Mean Platelet Volume 8.6 fl (7.4-10.4); Monocytes # 0.5 K/mm3 (0.1-1.0); Monocytes % 9.3 % (1.7-9.3); Neutrophils # 3.8 K/mm3 (1.8-7.8); Neutrophils % 71.4 % (37.0-80.0); Platelet Count 288 K/mm3 (142-424); Red Blood Count 4.84 M/mm3 (4.20-5.40); Red Cell Distribution Width 14.4 % (11.5-17.5); White Blood Count 5.4 K/mm3 (4.8-10.8)
--- NOTE | 2021-08-10 09:36 | ECG_ITS ---
APPROVED REPORT Exam: Resting ECG HR:110 bpm ECG Measurements Heart Rate 110 AXES WI 253 P -50 QRSd 156 QRS -73 QT 415 T 83 QTc 480 Conclusion ELECTRONIC VENTRICULAR PACEMAKER ABNORMAL RHYTHM ECG UNCONFIRMED REPORT Electronically signed by : Jonathan Bill MD 08/13/2021 16:51:18
[2021-08-10 09:42] LABS: Chloride 107 mmol/L (98-107)
[2021-08-10 09:43] LABS: Potassium 4.1 mmoL/L (3.5-5.1); Sodium 139 mmol/L (136-145)
[2021-08-10 09:45] LABS: Alanine Aminotransferase 43 U/L (12-78); Alkaline Phosphatase 101 U/L (38-126); Anion Gap 10.1 mEq/L (5-15); Aspartate Amino Transferase 58 U/L (14-36); Bilirubin,Total 0.9 mg/dl (0.2-1.3); Blood Urea Nitrogen 11 mg/dl (7-17); Carbon Dioxide 26 mmol/L (22.0-30.0); Estimated Glomerular Filt Rate 84 ml/min (>60); GFR (African American) 102 ML/MIN (>60); Lipase 61 U/L (23-300)
[2021-08-10 09:46] LABS: Albumin Level 4.2 g/dl (3.5-5.0); Albumin/Globulin Ratio 1.3 (1.1-1.8); Calcium 8.1 mg/dl (8.4-10.2); Globulin 3.2 g/dL (1.3-3.2); Glucose 96 mg/dl (74-100); Total Protein,Serum 7.4 g/dl (6.3-8.2)
--- NOTE | 2021-08-10 09:57 | PC.NURSE ---
waiting for US
--- NOTE | 2021-08-10 10:55 | PC.NURSE ---
Sent urine on pt
[2021-08-10 11:01] LABS: Microscopic, Urine URINE MICROSCOPIC (MICROSCOPIC)
[2021-08-10 11:03] LABS: Appearance,Urine SL CLOUDY (Clear); Bilirubin,Urine Negative (Negative); Blood, Urine Negative (Negative); Color,Urine YELLOW (Yellow); Glucose,Urine (UA) Negative (Negative); Ketones,Urine Negative (Negative); Leukocyte Esterase,Urine 2+ (Negative); Nitrate,Urine Negative (Negative); Protein,Urine Negative (Negative); Urobilinogen,Urine 0.2 EU/dl (0.2)
[2021-08-10 11:17] LABS: Bacteria,Urine 3+ /lpf; WBC,Urine 20-50 #/hpf (0-3)
--- NOTE | 2021-08-10 11:39 | PC.NURSE ---
Paged General Surgery
[2021-08-10 12:06] LABS: Lactic Acid < 0.5 mmol/L (0.7-2.1)
== END 2021-08-10 12:45 | disposition home or self-care (01) ==
PROVIDERS: Emergency Provider Emergency Medicine; PCP Internal Medicine
DX: N12 Tubulo-interstitial nephritis, not specified as acute or chronic (principal); K21.9 Gastro-esophageal reflux disease without esophagitis; E78.5 Hyperlipidemia, unspecified; I10 Essential (primary) hypertension; Z95.0 Presence of cardiac pacemaker; Z79.899 Other long term (current) drug therapy
CPT/HCPCS: 36415; 71045; 76705; 80053; 81001; 83605; 83690; 85025; 87086; 87088; 87186; 93005; 96365; 96367; 96375; 99284; C9803; U0003; U0005

== ENCOUNTER → 2021-09-10 13:16 | Outpatient (CLI) | payer MEDICARE, SELFPAY ==
--- NOTE | 2021-09-10 13:16 | MM_ITS ---
PROCEDURE INFORMATION: Exam: MG Bilateral Screening 3D Mammography Exam date and time: 09/10/2021 1:15 PM Age: 66 years old Clinical indication: Screening examination; Additional info: Screening mammogram. Family history of breast carcinoma. TECHNIQUE: Imaging protocol: Bilateral Screening tomosynthesis and 2D mammography including computer-aided detection (CAD) when performed. COMPARISON: 1. MG MM DIG SCREENING MAMM BI W/CAD 07/31/2020 11:06 AM 2. MG MM DIG SCREENING MAMM BI W/CAD 07/27/2019 8:03 AM 3. MG SCBI MM Dig screening mamm BI w/CAD 07/28/2018 4:33 PM FINDINGS: MAMMOGRAPHY: Breast composition: The breasts are heterogeneously dense, which may obscure small masses. Mass: No suspicious masses. Architectural distortion: No suspicious distortion. Calcifications: No suspicious calcifications. Asymmetric density: None. Skin thickening: None. Axillary adenopathy: None. Limitations: Partial obscuration of the left axilla on MLO projection secondary to overlying cardiac pacing device. Images are best obtainable. IMPRESSION: No mammographic evidence of malignancy. Annual screening is recommended unless otherwise clinically indicated. ASSESSMENT: BI-RADS Category 2: Benign
== END ==
PROVIDERS: PCP Internal Medicine; Visit Provider Obstetrics & Gynecology
DX: Z12.31 Encounter for screening mammogram for malignant neoplasm of breast (principal)
CPT/HCPCS: 77063; 77067

== ENCOUNTER 2021-09-19 06:03 | Day surgery (SDC) | payer MEDICARE, OTHER, SELFPAY ==
[2021-09-17 08:27] VITALS: BMI 29.2
[2021-09-19] VITALS (14 sets, daily range): BP systolic 138–153; BP diastolic 70–88; PULSE 60–92; RESP 16–20; TEMP 36.4–43; O2SAT 92–97
--- NOTE | 2021-09-19 07:44 | HMH.ANESCL ---
[facility] Anesthesia Checklist - Patient Identification Patient Identification: Arm Band - Structural Data Admitted From: Home Planned Operative Procedure/s: laparoscopic cholecystectomy Consent for Planned Operative Procedure(s) Verified: Yes Verified Documents: Surgical Consent, History and Physical - NPO Status Verified Time NPO: 00:00 - Additional verifications Anesthesia Reactions: Yes (fentynal-vomiting) Hx Blood Transfusions: No Blood Transfusion Reaction: No - Airway Assessment C-Spine Mobility Assessed: Yes (mp2) TMJ Mobility Assessed: Yes Dentition: Good Dentition - Neurological Assessment Level of Consciousness: Awake, Alert - Anesthesia Plan Anesthesia Risk discussed: Yes Anesthesia Plan: Verified ASA Class: III Anesthesia Type: General [facility] History I have reviewed the patient's past medical history: Yes Medical History: Reports:: Arrhythmia, Cardiomyopathy, Gastroesophageal Reflux Disease(GERD), Hyperlipidemia, Hypertension, Internal Pacemaker, Palpitations Denies:: Cancer, Diabetes Mellitus Type 1, Diabetes Mellitus Type 2, Lung Disease, MRSA, Seizures *Have you ever received a pneumonia vaccine?: No *Have you received a flu vaccine this season?: No Other Medical History: Reports: Cataracts. Denies: Blood Transfusion Reaction, Thyroid Disease Anesthesia experience/problems:: nac Other Surgeries: Yes: Cancer Surgery (Back ), Cardiac Catheterization, Colonoscopy, Dilation and Curettage, Hysterectomy-Total, Pacemaker, Tubal Ligation, Other Amputation: No Fractures: Yes - *Social History Last grade of school completed: High school graduate Smoking Status: Never smoker Alcohol Intake: never Alcohol Intake Frequency:: other Substance Use Type: denies use *Occupational Status:: retired Housing: house Household Members: spouse *Travel in the last 8 weeks: None Family Hx:: Cancer, Heart Attack
--- NOTE | 2021-09-19 08:03 | P.OP_ITS ---
Date of procedure: 09/19/21 Pre-op Diagnosis:: Chronic cholecystitis Post-op Diagnosis:: Same Procedure performed:: Laparoscopic cholecystectomy Surgeon:: Forrest Lopez MD [employer] PROFESSOR:: Lamine Esposito Anesthesia: GETDeandre Estimated blood loss (mL): 15 Operative findings:: Significant pericholecystic fat stranding Adhesions between gallbladder and omentum/colon/small bowel Operative note:: After informed consent was obtained, the patient was taken to the operating room and placed in the supine position. General anesthesia was induced and the abdomen was prepped and draped in a sterile fashion. After infiltration with local anesthetic an infraumbilical incision was made. A Veress needle was placed in position. The abdomen was insufflated. A 5 mm optical trocar was placed in position. Under direct visualization, a 12 mm trocar was placed in the subxiphoid position and 2 additional 5 mm trocars were placed in the right upper quadrant. The gallbladder was elevated up and over the liver margin. The tissue around the cystic duct was carefully dissected. 3 clips were placed proximally and the duct was transected with harmonic kayden. Harmonic kayden were then utilized to dissect the gallbladder away from the liver margin with careful attention to the control of the cystic artery. The gallbladder was placed in a retrieval bag and removed through the subxiphoid trocar site. The right upper quadrant was thoroughly irrigated. No active bleeding or bile leak was noted. Fascia at the subxiphoid trocar site was reapproximated utilizing the NeoClose device. The remaining trocars were removed. All wounds were irrigated and skin was closed with 4-0 Monocryl in a subcuticular fashion. Steri-Strips were applied. The patient's anesthetic agents were reversed and extubation was completed prior to transfer to recovery in stable condition. Condition: stable Disposition: PACU Specimens:: Gallbladder and contents Complications:: No immediate
--- NOTE | 2021-09-19 08:13 | P.PN_ITS ---
[facility] Anesthesia Record Part I Intake, IV Amount: 600 Estimated blood loss (mL): 10 Urine output (mL): 0 Blood Pressure: 138/88 SaO2: 92 Pulse Rate: 91 Respiratory Rate: 16 Temperature: 98.8 F Patient is:: Drowsy, Stable Stable to PACU at:: 08:05
--- NOTE | 2021-09-19 13:18 | HMH.ANESII ---
[facility] Anesthesia Record Part II Discharge Time: 08:35 Destination: Surgical Day Care (OP Surgery) PACU nurse assessment reviewed?: Yes Patient Condition:: Good Anesthesia Complications:: None Swallowing reflex intact?: Yes Cyanosis?: No Blood Pressure: 146/87 Pulse Rate: 89 Temperature: 97.6 F Mental Status: Alert & Oriented Pain level:: 5 Nausea and/or vomitting:: None Intake, IV Amount: 0
== END 2021-09-19 10:05 | disposition home or self-care (01) ==
LOC: OR 06:05
PROVIDERS: PCP Internal Medicine; Visit Provider Surgery
PROC: 0FT44ZZ Resection of Gallbladder, Percutaneous Endoscopic Approach (ICD-10-PCS; CPT 47562; principal; 2021-09-19 07:30)
DX: K81.1 Chronic cholecystitis (principal); K66.0 Peritoneal adhesions (postprocedural) (postinfection); I49.9 Cardiac arrhythmia, unspecified; I42.9 Cardiomyopathy, unspecified; K21.9 Gastro-esophageal reflux disease without esophagitis; E78.5 Hyperlipidemia, unspecified; I10 Essential (primary) hypertension; Z95.0 Presence of cardiac pacemaker; R00.2 Palpitations; Z85.9 Personal history of malignant neoplasm, unspecified; Z80.9 Family history of malignant neoplasm, unspecified; Z82.3 Family history of stroke
CPT/HCPCS: 47562; 88304; 96374; J2405; J2710

== ENCOUNTER → 2021-10-02 12:34 | Outpatient (CLI) | payer MEDICARE, OTHER, SELFPAY ==
[2021-10-02 13:42] LABS: Microscopic, Urine URINE MICROSCOPIC (MICROSCOPIC)
[2021-10-02 13:50] LABS: Appearance,Urine CLEAR (Clear); Bilirubin,Urine Negative (Negative); Blood, Urine Negative (Negative); Color,Urine YELLOW (Yellow); Glucose,Urine (UA) Negative (Negative); Ketones,Urine Negative (Negative); Leukocyte Esterase,Urine 1+ (Negative); Nitrate,Urine Negative (Negative); Protein,Urine Negative (Negative); Urobilinogen,Urine 0.2 EU/dl (0.2)
[2021-10-02 14:03] LABS: Bacteria,Urine Trace /lpf; RBC,Urine Occasional #/hpf (0-3); Squamous Epithelial Cell,Urine Occasional #/hpf (0-5)
== END ==
PROVIDERS: PCP Internal Medicine; Visit Provider Internal Medicine
DX: N39.0 Urinary tract infection, site not specified (principal); B96.4 Proteus (mirabilis) (morganii) as the cause of diseases classified elsewhere
CPT/HCPCS: 81001; 87086; 87088; 87186

== ENCOUNTER → 2021-10-22 17:54 | Outpatient (CLI) | payer MEDICARE, OTHER, SELFPAY ==
[2021-10-22 18:59] LABS: Basophils # 0.1 K/mm3 (0-0.2); Basophils % 1.7 % (0.1-2.0); Eosinophils # 0.4 K/mm3 (0.0-0.4); Eosinophils % 5.6 % (0.1-12.0); Hematocrit 43.2 % (37.0-47.0); Hemoglobin 14.5 g/dL (12.2-16.2); Lymphocytes # 2.3 K/mm3 (0.7-4.5); Lymphocytes % 31.1 % (10-50); Mean Corpuscular HGB Conc 33.5 g/dL (31.8-35.4); Mean Corpuscular Hemoglobin 29.6 pg (27.0-31.2); Mean Corpuscular Volume 88.2 fl (81-99); Mean Platelet Volume 9.1 fl (7.4-10.4); Monocytes # 0.6 K/mm3 (0.1-1.0); Neutrophils # 3.9 K/mm3 (1.8-7.8); Neutrophils % 53.6 % (37.0-80.0); Platelet Count 372 K/mm3 (142-424); Red Blood Count 4.89 M/mm3 (4.20-5.40); Red Cell Distribution Width 13.8 % (11.5-17.5); White Blood Count 7.2 K/mm3 (4.8-10.8)
[2021-10-22 19:46] LABS: Erythrocyte Sedimentation Rate 15 mm/hr (0-30)
== END ==
PROVIDERS: PCP Internal Medicine; Visit Provider Internal Medicine
DX: G44.1 Vascular headache, not elsewhere classified (principal)
CPT/HCPCS: 85025; 85651

== ENCOUNTER → 2021-12-24 09:28 | Outpatient (CLI) | payer MEDICARE, OTHER, SELFPAY ==
[2021-12-24 10:04] LABS: Basophils # 0.1 K/mm3 (0-0.2); Basophils % 1.7 % (0.1-2.0); Eosinophils # 0.5 K/mm3 (0.0-0.4); Eosinophils % 8.2 % (0.1-12.0); Hematocrit 46.5 % (37.0-47.0); Hemoglobin 14.6 g/dL (12.2-16.2); Lymphocytes # 2.1 K/mm3 (0.7-4.5); Lymphocytes % 31.1 % (10-50); Mean Corpuscular HGB Conc 31.4 g/dL (31.8-35.4); Mean Corpuscular Hemoglobin 28.7 pg (27.0-31.2); Mean Corpuscular Volume 91.3 fl (81-99); Mean Platelet Volume 7.5 fl (7.4-10.4); Monocytes # 0.5 K/mm3 (0.1-1.0); Monocytes % 7.4 % (1.7-9.3); Neutrophils # 3.4 K/mm3 (1.8-7.8); Neutrophils % 51.6 % (37.0-80.0); Platelet Count 359 K/mm3 (142-424); Red Blood Count 5.09 M/mm3 (4.20-5.40); Red Cell Distribution Width 13.5 % (11.5-17.5); White Blood Count 6.6 K/mm3 (4.8-10.8)
[2021-12-24 10:29] LABS: Chol/HDL Ratio 6.8 (1-3.5); Cholesterol 271 mg/dl (140-200); HDL Cholesterol 40 mg/dl (40-60); Triglycerides 116 mg/dl (30-150); VLDL Cholesterol 23 mg/dL (0-40)
[2021-12-24 10:30] LABS: Alanine Aminotransferase 27 U/L (12-78); Albumin Level 4.3 g/dl (3.5-5.0); Albumin/Globulin Ratio 1.5 (1.1-1.8); Alkaline Phosphatase 117 U/L (38-126); Aspartate Amino Transferase 31 U/L (14-36); Bilirubin,Total 0.7 mg/dl (0.2-1.3); Blood Urea Nitrogen 15 mg/dl (7-17); Calcium 9.8 mg/dl (8.4-10.2); Carbon Dioxide 29 mmol/L (22.0-30.0); Chloride 106 mmol/L (98-107); Estimated Glomerular Filt Rate 100 ml/min (>60); GFR (African American) 121 ML/MIN (>60); Globulin 2.8 g/dL (1.3-3.2); Glucose 113 mg/dl (74-100); Sodium 139 mmol/L (136-145); Total Protein,Serum 7.1 g/dl (6.3-8.2)
[2021-12-24 10:36] LABS: C-Reactive Protein 5.9 mg/L (0-4)
[2021-12-24 10:41] LABS: Direct LDL Cholesterol 197.78 mg/dL (100-129)
[2021-12-24 10:47] LABS: 25-OH Vitamin D, Total 31.8 ng/mL (30-100)
[2021-12-24 10:48] LABS: Erythrocyte Sedimentation Rate 15 mm/hr (0-30)
[2021-12-24 10:53] LABS: Iron 84 ug/dL (37-170); Total Iron Binding Capacity 309 ug/dL (265-497)
[2021-12-24 11:20] LABS: Vitamin B12 372 pg/mL (239-931)
== END ==
PROVIDERS: PCP Internal Medicine; Visit Provider Nurse Practitioner Family
DX: K50.90 Crohn's disease, unspecified, without complications (principal); K30 Functional dyspepsia; K62.5 Hemorrhage of anus and rectum; E55.9 Vitamin D deficiency, unspecified; E78.5 Hyperlipidemia, unspecified; I50.32 Chronic diastolic (congestive) heart failure; I44.2 Atrioventricular block, complete
CPT/HCPCS: 36415; 80053; 80061; 82306; 82607; 82728; 83540; 83550; 85025; 85651; 86140

== ENCOUNTER → 2022-01-15 10:25 | Outpatient (CLI) | payer MEDICARE, OTHER, SELFPAY ==
--- NOTE | 2022-01-15 10:30 | XR_ITS ---
FINAL REPORT CLINICAL HISTORY: dyspnea COMPARISON: 08/10/2021 FINDINGS: 2 views of the chest were obtained . Left-sided pacemaker is unchanged. The heart is normal in size. The mediastinum is within normal limits. The lungs are clear. There is no pneumothorax. Osseous structures are unremarkable. IMPRESSION: No acute cardiopulmonary process. Reviewed, Interpreted and Dictated by Marifer Boykin MD Transcribed by Nimco Elizabeth Authenticated and [facility]
== END ==
PROVIDERS: PCP Internal Medicine; Visit Provider Nurse Practitioner
DX: R06.00 Dyspnea, unspecified (principal)
CPT/HCPCS: 71046

== ENCOUNTER 2022-01-21 12:06 | Outpatient (CLI) | payer MEDICARE, OTHER, SELFPAY ==
[2022-01-21 12:22] LABS: Adenovirus F 40/41, stool Not Detected (NotDetected); Astrovirus Not Detected (NotDetected); Campylobacter Not Detected (NotDetected); Clostridium Difficile A/B, PCR Not Detected (NotDetected); Cryptosporidium Not Detected (NotDetected); Cyclospora Cayetanesis Not Detected (NotDetected); Entamoeba histolytica Not Detected (NotDetected); Enteroaggregative E coli Not Detected (NotDetected); Enteropathogenic E coli Not Detected (NotDetected); Enterotoxigenic E coli Not Detected (NotDetected); Giardia lamblia Not Detected (NotDetected); Norovirus Not Detected (NotDetected); Plesimonas Shigalloides, PCR Not Detected (NotDetected); Rotavirus A Not Detected (NotDetected); Salmonella, PCR Not Detected (NotDetected); Sapovirus Not Detected (NotDetected); Shiga-like toxin E coli Not Detected (NotDetected); Shigella Enterovasive E coli Not Detected (NotDetected); Vibrio Cholerae Not Detected (NotDetected); Vibrio, PCR Not Detected (NotDetected); Yersinia Entercolitica, PCR Not Detected (NotDetected)
[2022-01-21 12:40] VITALS: BP 124/76; PULSE 76; RESP 18; TEMP 36.9; O2SAT 98
[2022-01-24 23:08] LABS: Calprotectin, Fecal 36 ug/g (0-120)
== END 2022-01-21 12:57 | disposition home or self-care (01) ==
LOC: INF 12:09
PROVIDERS: PCP Internal Medicine; Referring Provider Nurse Practitioner Family; Visit Provider Internal Medicine
DX: K50.90 Crohn's disease, unspecified, without complications (principal); R19.7 Diarrhea, unspecified; R19.4 Change in bowel habit; R11.0 Nausea
CPT/HCPCS: 83993; 87506; 96372; J1306

== ENCOUNTER → 2022-03-19 14:20 | Outpatient (CLI) | payer MEDICARE, OTHER, SELFPAY ==
--- NOTE | 2022-03-19 14:24 | CT_ITS ---
FINAL REPORT TECHNIQUE: Axial CT images were performed from the lung apices through the upper abdomen. Coronal reformats were submitted. This study was performed with techniques to keep radiation doses as low as reasonably achievable (ALARA). Individualized dose reduction techniques using automated exposure control or adjustment of mA and/or kV according to the patient's size were employed. CLINICAL HISTORY: CHRONIC COUGH COMPARISON: 04/25/2021 FINDINGS: There is no axillary adenopathy. There is no hilar or mediastinal mass or adenopathy. Heart size is normal. There is a left subclavian pacer. There is no pericardial or pleural effusion. No suspicious infiltrate or nodule is identified on lung window images. Note is made of mild scarring. There is a calcified granuloma in the left upper lobe. The patient is status post cholecystectomy. IMPRESSION: No acute process. Reviewed, Interpreted and Dictated by Domingo Scott III, MD Transcribed by Demetria Figueroa Authenticated and [facility]
== END ==
PROVIDERS: PCP Internal Medicine; Visit Provider Internal Medicine
DX: R05.3 Chronic cough (principal)
CPT/HCPCS: 71250

== ENCOUNTER → 2022-03-31 09:37 | Outpatient (CLI) | payer MEDICARE, OTHER, SELFPAY ==
[2022-03-31 10:30] VITALS: PULSE 70; PULSE 77
== END ==
PROVIDERS: PCP Internal Medicine; Visit Provider Internal Medicine Pulmonary Disease
DX: R06.09 Other forms of dyspnea (principal)
CPT/HCPCS: 94060; 94618; 94640; 94727; 94729

== ENCOUNTER 2022-04-23 11:19 | Outpatient (CLI) | payer MEDICARE, OTHER, SELFPAY ==
[2022-04-23 11:49] VITALS: BP 123/72; PULSE 93; RESP 18; O2SAT 97
== END 2022-04-23 11:58 | disposition home or self-care (01) ==
LOC: INF 11:21
PROVIDERS: PCP Internal Medicine; Visit Provider Internal Medicine
DX: K50.90 Crohn's disease, unspecified, without complications (principal); R11.0 Nausea; R19.7 Diarrhea, unspecified; R19.4 Change in bowel habit; E78.5 Hyperlipidemia, unspecified; I10 Essential (primary) hypertension
CPT/HCPCS: 96372; J1306

== ENCOUNTER → 2022-08-14 23:18 | Outpatient (CLI) | payer MEDICARE, OTHER, SELFPAY ==
[2022-08-14 18:09] LABS: Adenovirus,PCR Not Detected (NotDetected); Bordetella Pertussis Not Detected (NotDetected); Chlamydophila Pneumoniae, PCR Not Detected (NotDetected); Coronavirus 19, PCR Not Detected (NotDetected); Coronavirus 229E Not Detected (NotDetected); Coronavirus NL63 Not Detected (NotDetected); Coronavirus OC43 Not Detected (NotDetected); Coronovirus HKU1,PCR Not Detected (NotDetected); Human Metapneumovirus Not Detected (NotDetected); Influenza A, PCR Not Detected (NotDetected); Influenza AH1, 2009 Not Detected (NotDetected); Influenza AH1, PCR Not Detected (NotDetected); Influenza AH3,PCR Not Detected (NotDetected); Influenza B, PCR Not Detected (NotDetected); Mycoplasma Pneumoniae, PCR Not Detected (NotDetected); Parainfluenza 1, PCR Not Detected (NotDetected); Parainfluenza 2, PCR Not Detected (NotDetected); Parainfluenza 3, PCR Not Detected (NotDetected); Parainfluenza 4, PCR Not Detected (NotDetected); Respiratory Syncytial Virus Not Detected (NotDetected)
[2022-08-14 18:23] LABS: Basophils # 0.1 K/mm3 (0-0.2); Basophils % 0.7 % (0.1-2.0); Eosinophils # 0.5 K/mm3 (0.0-0.4); Eosinophils % 4.4 % (0.1-12.0); Hematocrit 44.6 % (37.0-47.0); Hemoglobin 14.8 g/dL (12.2-16.2); Lymphocytes # 1.8 K/mm3 (0.7-4.5); Lymphocytes % 15.6 % (10-50); Mean Corpuscular HGB Conc 33.1 g/dL (31.8-35.4); Mean Corpuscular Hemoglobin 29.2 pg (27.0-31.2); Mean Corpuscular Volume 88.2 fl (81-99); Mean Platelet Volume 8.2 fl (7.4-10.4); Monocytes # 0.8 K/mm3 (0.1-1.0); Monocytes % 7.2 % (1.7-9.3); Neutrophils # 8.3 K/mm3 (1.8-7.8); Neutrophils % 72.1 % (37.0-80.0); Platelet Count 383 K/mm3 (142-424); Red Blood Count 5.06 M/mm3 (4.20-5.40); Red Cell Distribution Width 13.3 % (11.5-17.5); White Blood Count 11.5 K/mm3 (4.8-10.8)
[2022-08-15 00:18] LABS: Rhinovirus/Enterovirus Detected (NotDetected)
== END ==
PROVIDERS: PCP Nurse Practitioner; Visit Provider Nurse Practitioner
DX: J06.9 Acute upper respiratory infection, unspecified (principal); R51.9 Headache, unspecified; R69 Illness, unspecified; B34.1 Enterovirus infection, unspecified
CPT/HCPCS: 85025; 87581; 87632; 87798; C9803; U0003; U0005

== ENCOUNTER → 2022-08-26 11:30 | Outpatient (CLI) | payer MEDICARE, OTHER, SELFPAY ==
[2022-08-26 11:39] LABS: Adenovirus F 40/41, stool Not Detected (NotDetected); Astrovirus Not Detected (NotDetected); Campylobacter Not Detected (NotDetected); Clostridium Difficile A/B, PCR Not Detected (NotDetected); Cryptosporidium Not Detected (NotDetected); Cyclospora Cayetanesis Not Detected (NotDetected); Entamoeba histolytica Not Detected (NotDetected); Enteroaggregative E coli Not Detected (NotDetected); Enteropathogenic E coli Not Detected (NotDetected); Enterotoxigenic E coli Not Detected (NotDetected); Giardia lamblia Not Detected (NotDetected); Plesimonas Shigalloides, PCR Not Detected (NotDetected); Rotavirus A Not Detected (NotDetected); Salmonella, PCR Not Detected (NotDetected); Sapovirus Not Detected (NotDetected); Shiga-like toxin E coli Not Detected (NotDetected); Shigella Enterovasive E coli Not Detected (NotDetected); Vibrio Cholerae Not Detected (NotDetected); Vibrio, PCR Not Detected (NotDetected); Yersinia Entercolitica, PCR Not Detected (NotDetected)
[2022-08-26 15:38] LABS: Norovirus Detected (NotDetected)
[2022-08-29 18:09] LABS: Calprotectin, Fecal 24 ug/g (0-120)
== END ==
PROVIDERS: PCP Nurse Practitioner Family; Visit Provider Internal Medicine
DX: R19.7 Diarrhea, unspecified (principal); R19.4 Change in bowel habit; K50.90 Crohn's disease, unspecified, without complications; K30 Functional dyspepsia; A08.11 Acute gastroenteropathy due to Norwalk agent
CPT/HCPCS: 83993; 87506

== ENCOUNTER → 2022-10-03 16:52 | Outpatient (CLI) | payer MEDICARE, OTHER, SELFPAY ==
[2022-10-03 17:29] LABS: Basophils # 0.1 K/mm3 (0-0.2); Basophils % 1.1 % (0.1-2.0); Eosinophils # 0.5 K/mm3 (0.0-0.4); Eosinophils % 7.6 % (0.1-12.0); Hematocrit 41.7 % (37.0-47.0); Lymphocytes # 2.4 K/mm3 (0.7-4.5); Lymphocytes % 35.8 % (10-50); Mean Corpuscular HGB Conc 33.4 g/dL (31.8-35.4); Mean Corpuscular Hemoglobin 29.4 pg (27.0-31.2); Mean Corpuscular Volume 88.1 fl (81-99); Mean Platelet Volume 8.4 fl (7.4-10.4); Monocytes # 0.6 K/mm3 (0.1-1.0); Monocytes % 8.2 % (1.7-9.3); Neutrophils # 3.2 K/mm3 (1.8-7.8); Neutrophils % 47.4 % (37.0-80.0); Platelet Count 334 K/mm3 (142-424); Red Blood Count 4.74 M/mm3 (4.20-5.40); Red Cell Distribution Width 13.7 % (11.5-17.5); White Blood Count 6.7 K/mm3 (4.8-10.8)
[2022-10-03 18:01] LABS: Chloride 98 mmol/L (98-107); Sodium 137 mmol/L (136-145)
[2022-10-03 18:02] LABS: Potassium 4.1 mmoL/L (3.5-5.1)
[2022-10-03 18:04] LABS: Alanine Aminotransferase 47 U/L (12-78); Albumin Level 4.1 g/dl (3.5-5.0); Albumin/Globulin Ratio 1.6 (1.1-1.8); Alkaline Phosphatase 108 U/L (38-126); Anion Gap 17.1 mEq/L (5-15); Aspartate Amino Transferase 41 U/L (14-36); Blood Urea Nitrogen 11 mg/dl (7-17); Carbon Dioxide 26 mmol/L (22.0-30.0); Cholesterol 185 mg/dl (140-200); Estimated Glomerular Filt Rate 100 ml/min (>60); GFR (African American) 121 ML/MIN (>60); Globulin 2.6 g/dL (1.3-3.2); Total Protein,Serum 6.7 g/dl (6.3-8.2); Triglycerides 198 mg/dl (30-150); VLDL Cholesterol 40 mg/dL (0-40)
[2022-10-03 18:05] LABS: Calcium 9.2 mg/dl (8.4-10.2); Chol/HDL Ratio 4.7 (1-3.5); Glucose 86 mg/dl (74-100); HDL Cholesterol 39 mg/dl (40-60)
[2022-10-03 18:16] LABS: Direct LDL Cholesterol 116.47 mg/dL (100-129)
[2022-10-03 19:06] LABS: Hemoglobin A1C 5.6 % (4.0-6.0)
== END ==
PROVIDERS: PCP Internal Medicine; Visit Provider Internal Medicine
DX: I50.32 Chronic diastolic (congestive) heart failure (principal); R73.01 Impaired fasting glucose; K50.90 Crohn's disease, unspecified, without complications; K21.9 Gastro-esophageal reflux disease without esophagitis; E78.5 Hyperlipidemia, unspecified; E66.09 Other obesity due to excess calories; Z68.29 Body mass index [BMI] 29.0-29.9, adult
CPT/HCPCS: 80053; 80061; 83036; 85025

== ENCOUNTER → 2022-10-13 08:38 | Outpatient (CLI) | payer MEDICARE, OTHER, SELFPAY ==
--- NOTE | 2022-10-13 08:44 | XR_ITS ---
FINAL REPORT CLINICAL HISTORY: screening FINDINGS: Using L1-4, the bone mineral density of the spine is 0.820 g/cm2, corresponding to T-score of -2.1. Using the left hip, the bone mineral density of the femoral neck is 0.791 g/cm2, corresponding to a T-score of -1.2. Using the right hip, the bone mineral density of the femoral neck is 0.743 g/cm2, corresponding to a T-score of -1.0. IMPRESSION: Diminished bone mineral density of the lumbar spine and bilateral hips consistent with osteopenia. 15% risk of major osteoporotic fracture based on FRAX data. Reviewed, Interpreted and Dictated by Domingo Scott III, MD Transcribed by Paul Franco Authenticated and [facility]
== END ==
PROVIDERS: PCP Internal Medicine; Visit Provider Internal Medicine
DX: Z78.0 Asymptomatic menopausal state (principal)
CPT/HCPCS: 77080

== ENCOUNTER 2022-10-21 08:07 | Outpatient (CLI) | payer MEDICARE, OTHER, SELFPAY ==
--- NOTE | 2022-10-21 08:07 | MM_ITS ---
PROCEDURE INFORMATION: Exam: MG Bilateral Screening 3D Mammography Exam date and time: 10/21/2022 8:05 AM Age: 67 years old Clinical indication: Screening. Her sister had breast cancer at age 61. TECHNIQUE: Imaging protocol: Bilateral Screening tomosynthesis and 2D mammography including computer-aided detection (CAD) when performed. COMPARISON: 1. MG MM DIG SCREENING MAMM BI W/CAD 09/10/2021 1:15 PM 2. MG MM DIG SCREENING MAMM BI W/CAD 07/31/2020 11:06 AM 3. MG MM DIG SCREENING MAMM BI W/CAD 07/27/2019 8:03 AM 4. MG SCBI MM Dig screening mamm BI w/CAD 07/28/2018 4:33 PM FINDINGS: MAMMOGRAPHY: Breast composition: The breasts are heterogeneously dense, which may obscure small masses. Mass: None. Architectural distortion: Bilateral biopsy clips. Calcifications: No suspicious calcifications. Asymmetric density: None. Skin thickening: None. Axillary adenopathy: Pacemaker in the left axilla, limits evaluation and accentuates the importance of clinical breast exam. IMPRESSION: No mammographic evidence of malignancy. Annual screening is recommended unless otherwise clinically indicated. ASSESSMENT: BI-RADS Category 1: Negative
[2022-10-21 09:00] VITALS: BP 129/74; PULSE 81; RESP 16; TEMP 36.5; O2SAT 98
== END 2022-10-21 09:20 | disposition home or self-care (01) ==
PROVIDERS: PCP Internal Medicine; Visit Provider Obstetrics & Gynecology
DX: Z12.31 Encounter for screening mammogram for malignant neoplasm of breast (principal); K50.90 Crohn's disease, unspecified, without complications; R11.0 Nausea; R19.7 Diarrhea, unspecified
CPT/HCPCS: 77063; 77067; 96372; J1306

== ENCOUNTER → 2022-11-04 12:13 | Outpatient (CLI) | payer MEDICARE, OTHER, SELFPAY ==
--- NOTE | 2022-11-04 12:20 | XR_ITS ---
FINAL REPORT CLINICAL HISTORY: lt ankle pain FINDINGS: LEFT ANKLE: Three views of the left ankle were obtained. There is no acute fracture or dislocation. The joint spaces and mortise are intact. Calcaneal spurs are present. There is no soft tissue abnormality. IMPRESSION: No acute process. Reviewed, Interpreted and Dictated by Domingo Scott III, MD Transcribed by Paul Franco Authenticated and . [facility]
== END ==
PROVIDERS: PCP Internal Medicine; Visit Provider Podiatrist
DX: M25.572 Pain in left ankle and joints of left foot (principal)
CPT/HCPCS: 73610

== ENCOUNTER → 2022-11-27 13:59 | Outpatient (CLI) | payer MEDICARE, OTHER, SELFPAY ==
[2022-11-27 15:23] LABS: Basophils # 0.1 K/mm3 (0-0.2); Basophils % 0.7 % (0.1-2.0); Eosinophils # 0.4 K/mm3 (0.0-0.4); Eosinophils % 5.2 % (0.1-12.0); Hematocrit 41.7 % (37.0-47.0); Hemoglobin 13.8 g/dL (12.2-16.2); Lymphocytes # 2.1 K/mm3 (0.7-4.5); Lymphocytes % 28.7 % (10-50); Mean Corpuscular HGB Conc 33.1 g/dL (31.8-35.4); Mean Corpuscular Volume 87.5 fl (81-99); Mean Platelet Volume 7.9 fl (7.4-10.4); Monocytes # 0.6 K/mm3 (0.1-1.0); Monocytes % 8.7 % (1.7-9.3); Neutrophils % 56.6 % (37.0-80.0); Platelet Count 338 K/mm3 (142-424); Red Blood Count 4.76 M/mm3 (4.20-5.40); Red Cell Distribution Width 13.5 % (11.5-17.5); White Blood Count 7.1 K/mm3 (4.8-10.8)
[2022-11-27 15:54] LABS: Erythrocyte Sedimentation Rate 18 mm/hr (0-30)
[2022-11-27 16:00] LABS: Alanine Aminotransferase 28 U/L (12-78); Albumin Level 4.3 g/dl (3.5-5.0); Albumin/Globulin Ratio 1.7 (1.1-1.8); Alkaline Phosphatase 98 U/L (38-126); Anion Gap 11.9 mEq/L (5-15); Aspartate Amino Transferase 37 U/L (14-36); Bilirubin,Total 0.6 mg/dl (0.2-1.3); Blood Urea Nitrogen 15 mg/dl (7-17); Calcium 8.9 mg/dl (8.4-10.2); Carbon Dioxide 28 mmol/L (22.0-30.0); Chloride 105 mmol/L (98-107); Estimated Glomerular Filt Rate 84 ml/min (>60); GFR (African American) 101 ML/MIN (>60); Globulin 2.5 g/dL (1.3-3.2); Glucose 94 mg/dl (74-100); Potassium 4.9 mmoL/L (3.5-5.1); Sodium 140 mmol/L (136-145); Total Protein,Serum 6.8 g/dl (6.3-8.2)
[2022-11-27 16:06] LABS: C-Reactive Protein 5.3 mg/L (0-4)
[2022-11-27 16:17] LABS: 25-OH Vitamin D, Total 34.3 ng/mL (30-100)
[2022-11-27 16:50] LABS: Vitamin B12 417 pg/mL (239-931)
[2022-11-27 17:02] LABS: Iron 85 ug/dL (37-170)
[2022-11-27 17:11] LABS: Total Iron Binding Capacity 308 ug/dL (265-497)
[2022-11-27 17:38] LABS: Ferritin 44.3 ng/ml (11.1-264)
== END ==
PROVIDERS: PCP Internal Medicine; Visit Provider Nurse Practitioner Family
DX: A08.11 Acute gastroenteropathy due to Norwalk agent (principal); R19.4 Change in bowel habit; R15.2 Fecal urgency; R19.7 Diarrhea, unspecified; K50.90 Crohn's disease, unspecified, without complications; E66.3 Overweight; Z68.29 Body mass index [BMI] 29.0-29.9, adult
CPT/HCPCS: 36415; 80053; 82306; 82607; 82728; 83540; 83550; 85025; 85651; 86140

== ENCOUNTER → 2023-01-27 10:17 | Outpatient (CLI) | payer MEDICARE, OTHER, SELFPAY ==
--- NOTE | 2023-01-27 10:19 | CA_ITS ---
APPROVED REPORT EXAM: Comprehensive 2D, Doppler, and color-flow Echocardiogram Force Dispatcher: Carisa Bullock, RT(R) Ht: 5 ft 5 in Wt: 189lbs BSA: 1.93 BP: 142/79 mmHg Indications: CP, HTN, syncope, hyperlipidemia, SOB, abn EKG, pacemaker, DD, RV pacing more than 40% 2D Dimensions LVOT 1.96 cm (M/F) 1.5-2.5 LA Volume 27.20 mL LA Volume Index 14.09 mL/m2 (M/F) 16-34 M-Mode Dimensions RVDd 2.28 cm (0.9-2.6) LA Diam 3.80 cm (1.9-4.0) LVDd 5.03 cm (3.5-5.7) Ao Diam 2.76 cm (2.0-3.7) LVDs 3.75 cm (3.5-5.7) IVSd 1.14 cm (0.6-1.1) PWd 0.64 cm (0.6-1.1) EF (Teich) 50.00% FS 25.40% EDV (Teich) 119.90 mL ESV (Teich) 60.00 mL LV Diastology E Decel Time 150.00 (160-240 msec) E/A Ratio 0.8 MED E' 5.20 (< 7 cm/sec) E'/MED E' Ratio 15.02 (>14) LAT E' 8.00 (<10 cm/sec) E/LAT E' Ratio 9.76 (>14) Mitral Valve MV E Max Willam. 78.00 (40-130 cm/s) MV A Velocity 101.00 (40-130 cm/s) E/A Ratio 0.78 MV Decel. Time 150.00 (160-240 ms) MV PHT 44.00 ms Left Ventricle The left ventricle is normal size. The left ventricular systolic function is normal. The left ventricular ejection fraction is within the normal range. There is increased LV wall thickness. Proximal septal thickening is noted. There is moderate hypokinesis of the mid to distal septal and inferoseptal LV valle, involving the apical region. The left ventricular diastolic function is normal. LVEF is 55% Right Ventricle The right ventricle is normal size. A device lead is noted in the rght ventricle. Atria The left atrium size is normal. The right atrium size is normal. A device lead is noted in the right atrium. There is no Doppler evidence of interatrial shunt. Aortic Valve The aortic valve is normal in structure. There is no aortic valvular stenosis. No aortic regurgitation is present. Mitral Valve The mitral valve is normal in structure. No evidence of mitral valve stenosis. Mild mitral regurgitation. Tricuspid Valve The tricuspid valve leaflets are thin and pliable. Trace tricuspid regurgitation. There is insufficient TR jet to estimate RVSP. Pulmonic Valve The pulmonary valve is normal in structure. Trace pulmonic regurgitation. Great Vessels The aortic root is normal in size. The ascending aorta is normal in size. IVC is normal in size and collapses >50% with inspiration. Pericardium There is no pericardial effusion. Other Information Study Quality: Fair Conclusion Normal biventricular systolic function (LVEF 55%) Mid to distal inferior and inferoseptal LV wall hypokinesis, involving the LV apical region No significant valvular disease. Electronically signed by : Zahra Parker, 01/27/2023 21:43:47
== END ==
PROVIDERS: PCP Internal Medicine; Visit Provider Physician Assistant
DX: E78.5 Hyperlipidemia, unspecified (principal); I10 Essential (primary) hypertension; I51.89 Other ill-defined heart diseases; Z95.0 Presence of cardiac pacemaker
CPT/HCPCS: 93306

== ENCOUNTER → 2023-02-02 10:40 | Outpatient (CLI) | payer MEDICARE, OTHER, SELFPAY ==
[2023-02-02 10:54] LABS: Coronavirus 19, PCR Not Detected (NotDetected); Influenza A, PCR Not Detected (NotDetected); Influenza B, PCR Not Detected (NotDetected)
--- NOTE | 2023-02-02 11:46 | XR_ITS ---
FINAL REPORT TECHNIQUE: Single view chest CLINICAL HISTORY: COVID testing, cough, sob, congestion COMPARISON: 01/15/2022 FINDINGS: A single view of the chest was obtained. A left subclavian pacemaker is in place. The heart and mediastinum are within normal limits. The lungs are clear. There is no pneumothorax. Osseous structures are unremarkable. IMPRESSION: No acute cardiopulmonary process. Reviewed, Interpreted and Dictated by Domingo Scott III, MD Transcribed by Nimco Elizabeth Authenticated and . [facility]
== END ==
PROVIDERS: PCP Internal Medicine; Visit Provider Internal Medicine
DX: Z20.822 Contact with and (suspected) exposure to COVID-19 (principal)
CPT/HCPCS: 71045; 87636

== ENCOUNTER → 2023-02-17 09:48 | Outpatient (CLI) | payer MEDICARE, OTHER, SELFPAY ==
--- NOTE | 2023-02-17 | CA_ITS ---
FINAL REPORT TECHNIQUE: Wyatt scale, color and spectral doppler images of the bilateral carotid arteries were obtained. CLINICAL HISTORY: JONES,HX TIA COMPARISON: None FINDINGS: Peak systolic velocity in the right internal carotid artery is 96 cm/sec. The internal carotid to common carotid artery ratio is 0.87. There is no significant carotid artery stenosis and no significant plaque formation. The right vertebral artery is normal in direction. Peak systolic velocity in the left internal carotid artery is 113.3 cm/sec. The internal carotid to common carotid artery ratio is 1.25. There is no significant carotid artery stenosis and no significant plaque formation. The left vertebral artery is normal in direction. IMPRESSION: No ultrasound evidence of hemodynamically significant carotid artery stenosis. Normal peak systolic velocities and normal internal to common carotid artery ratios bilaterally. Antegrade flow bilateral vertebral arteries. Reviewed, Interpreted and Dictated by Marifer Boykin MD Transcribed by Brittany Vivar Authenticated and [facility]
--- NOTE | 2023-02-17 10:22 | CT_ITS ---
FINAL REPORT TECHNIQUE: Thin section axial images were obtained from skull base to vertex without contrast. Coronal reconstruction images were obtained from the axial data. Exam was performed using dose reduction technique. CLINICAL HISTORY: MIGRAINES COMPARISON: 11/17/2020 FINDINGS: There is no mass effect or midline shift. There is no hydrocephalus. There is no intracranial hemorrhage. The posterior fossa is without acute abnormality. The basilar cisterns are preserved. There is an air-fluid level in the left maxillary sinus consistent with sinusitis. No acute osseous abnormality is identified. IMPRESSION: No acute intracranial abnormality. Left maxillary sinusitis. Reviewed, Interpreted and Dictated by Marifer Boykin MD Transcribed by Demetria Figueroa Authenticated and [facility]
== END ==
PROVIDERS: PCP Internal Medicine; Visit Provider Internal Medicine
DX: Z86.73 Personal history of transient ischemic attack (TIA), and cerebral infarction without residual deficits (principal)
CPT/HCPCS: 70450; 93880

== ENCOUNTER 2023-04-23 09:24 | Outpatient (CLI) | payer MEDICARE, OTHER, SELFPAY ==
[2023-04-23 09:50] VITALS: BP 140/67; PULSE 71; RESP 18; O2SAT 99
== END 2023-04-23 10:00 | disposition home or self-care (01) ==
PROVIDERS: PCP Internal Medicine; Visit Provider Internal Medicine
DX: E78.5 Hyperlipidemia, unspecified (principal)
CPT/HCPCS: 96372; J1306

== ENCOUNTER → 2023-05-11 12:20 | Outpatient (CLI) | payer MEDICARE, OTHER, SELFPAY ==
--- NOTE | 2023-05-11 12:21 | CA_ITS ---
APPROVED REPORT EXAM: Limited 2D Echocardiogram Hand Launderer: Neelima Wang RDCS Ht: 5 ft 5 in Wt: 192lbs BSA: 1.94 BP: 140/80 mmHg Indications: EF CHECK Other Information Study Quality: Fair Conclusion This is a limited TTE to evaluate for LVEF. Limited windows were obtained. The left ventricle is normal in size. There is increased LV wall thickness. There is moderate mid to distal hypokinesis of the inferior and inferoseptal LV valle. LVEF is calculated at 50-55%. Compared to prior study from 01/2023, the LVEF overall appears unchanged. Electronically signed by : Zahra Parker MD 05/13/2023 10:32:52
== END ==
PROVIDERS: PCP Internal Medicine; Visit Provider Physician Assistant
DX: I47.20 Ventricular tachycardia, unspecified (principal); I51.89 Other ill-defined heart diseases
CPT/HCPCS: 93308

== ENCOUNTER → 2023-05-11 13:25 | Outpatient (CLI) | payer MEDICARE, OTHER, SELFPAY ==
[2023-05-11 15:50] LABS: Alanine Aminotransferase 84 U/L (12-78); Albumin Level 4.1 g/dl (3.5-5.0); Albumin/Globulin Ratio 1.5 (1.1-1.8); Alkaline Phosphatase 109 U/L (38-126); Anion Gap 11.5 mEq/L (5-15); Aspartate Amino Transferase 82 U/L (14-36); Bilirubin,Total 0.7 mg/dl (0.2-1.3); Blood Urea Nitrogen 14 mg/dl (7-17); Calcium 8.7 mg/dl (8.4-10.2); Carbon Dioxide 23 mmol/L (22.0-30.0); Chloride 105 mmol/L (98-107); Chol/HDL Ratio 4.2 (1-3.5); Cholesterol 164 mg/dl (140-200); Estimated Glomerular Filt Rate 84 ml/min (>60); GFR (African American) 101 ML/MIN (>60); Globulin 2.8 g/dL (1.3-3.2); Glucose 97 mg/dl (74-100); HDL Cholesterol 39 mg/dl (40-60); Magnesium 1.8 mg/dl (1.6-2.3); Potassium 4.5 mmoL/L (3.5-5.1); Sodium 135 mmol/L (136-145); Total Protein,Serum 6.9 g/dl (6.3-8.2); Triglycerides 247 mg/dl (30-150); VLDL Cholesterol 49 mg/dL (0-40)
[2023-05-11 16:20] LABS: Thyroid Stimulating Hormone 6.64 uIU/mL (0.465-4.68)
== END ==
PROVIDERS: PCP Internal Medicine; Visit Provider Internal Medicine
DX: I50.32 Chronic diastolic (congestive) heart failure (principal); R73.9 Hyperglycemia, unspecified; I44.2 Atrioventricular block, complete; J30.9 Allergic rhinitis, unspecified; E78.5 Hyperlipidemia, unspecified; K52.9 Noninfective gastroenteritis and colitis, unspecified; E66.09 Other obesity due to excess calories; Z68.31 Body mass index [BMI] 31.0-31.9, adult
CPT/HCPCS: 80053; 80061; 83735; 84443; 93308

== ENCOUNTER → 2023-05-13 17:23 | Outpatient (CLI) | payer MEDICARE, OTHER, SELFPAY | LOC: LAB.DROPOF 17:24 | PROVIDERS: PCP Internal Medicine; Visit Provider Internal Medicine | DX: N39.0 Urinary tract infection, site not specified (principal); B96.89 Other specified bacterial agents as the cause of diseases classified elsewhere | CPT/HCPCS: 87086 ==

== ENCOUNTER → 2023-05-15 14:30 | Outpatient (CLI) | payer MEDICARE, OTHER, SELFPAY ==
--- NOTE | 2023-05-15 14:35 | US_ITS ---
FINAL REPORT CLINICAL HISTORY: ELEVATED LIVER ENZYMES FINDINGS: ULTRASOUND RIGHT UPPER QUADRANT Sonographic imaging of the right upper quadrant was obtained. The pancreas is partially obscured. The liver is unremarkable. The gallbladder is surgically absent. The common bile duct is normal at 4 mm. Limited images of the right kidney demonstrate minimal right hydronephrosis. The right kidney measures 10.2 cm. IMPRESSION: Minimal right hydronephrosis. Reviewed, Interpreted and Dictated by Solomon Castro MD Transcribed by Zoe Tanner Authenticated and [facility]
== END ==
PROVIDERS: PCP Internal Medicine; Visit Provider Internal Medicine
DX: R74.01 Elevation of levels of liver transaminase levels (principal)
CPT/HCPCS: 76705

== ENCOUNTER 2023-06-25 16:13 | Emergency (ER) | payer MEDICARE, OTHER, SELFPAY ==
[2023-06-25 16:15] VITALS: BP 128/76; PULSE 117; RESP 16; TEMP 38.2; O2SAT 98; BMI 30.1
--- NOTE | 2023-06-25 16:27 | HMH.EDGENADL ---
Discharge Plan Disposition Patient Disposition: Home, Self-Care Condition: Good Prescriptions Prescriptions: No Action bisoprolol fumarate 5 mg tablet 5 mg PO DAILY Qty: 30 2RF potassium chloride 10 mEq capsule, extended release 10 meq PO DAILY PRN (Reason: with fluid pill) Qty: 30 2RF furosemide [Lasix] 20 mg tablet 20 mg PO DAILY PRN (Reason: edema) Qty: 30 5RF Leqvio 284 mg/1.5 mL syringe 284 mg SQ [id number] Referrals Follow up/Referrals: Brandon Woods MD [Primary Care Provider] - See instructions Activity Restrictions/Add. Instructions Additional Instructions/Restrictions: Follow-up with PCP or return to ER for any worsening symptoms. Return to healthcare facility if significantly short of breath. Clinical Impressions Clinical Impression: Acute COVID-19 Discharge ED Provider: Thompson Syed General Adult HPI <RENAE Winston - Last Filed: 06/25/23 19:39> General Chief complaint: Upper Respiratory Infection Stated complaint: sore throat, JONES, nausea, home test + Time Seen by Provider: 06/25/23 16:27 History of Present Illness HPI narrative: Patient is a 68-year-old female presents to the emergency department initially with chief complaint of being COVID-positive. Patient is taken to home COVID test that were positive after suddenly feeling malaise subjective fever sore throat nonproductive cough today. Additionally patient states that I am on a medication that causes urinary tract infections and she wanted to have a urinalysis done to make sure that she was not suffering from her urinary tract infection. Related Data Home Medications Medication Instructions Recorded Confirmed inclisiran 284 mg/1.5 mL 284 mg SQ [id number] Cholesterol 01/15/22 05/12/23 subcutaneous syringe (Leqvio) Previous Rx's Medication Instructions Recorded bisoprolol fumarate 5 mg tablet 5 mg PO DAILY #30 tabs 05/11/23 furosemide 20 mg tablet (Lasix) 20 mg PO DAILY PRN edema #30 tabs 05/11/23 potassium chloride 10 mEq 10 meq PO DAILY PRN with fluid 05/11/23 capsule,extended release pill #30 caps Allergies Allergy/AdvReac Type Severity Reaction Status Date / Time metronidazole [From Flagyl] Allergy Mild Vomiting Verified 04/23/23 08:38 clindamycin [CLINDAMYCIN] Allergy Unknown Verified 04/23/23 08:38 diazepam [From VALIUM] Allergy Unknown Verified 04/23/23 08:38 Tetracyclines [TETRACYCLINES] Allergy Unknown Verified 04/23/23 08:38 verapamil AdvReac Mild Fatigued Verified 04/23/23 08:38 PFSH <RENAE Winston - Last Filed: 06/25/23 19:39> [facility] Disclaimer: The information contained in this section may have been updated after the patient was seen, as this information can be updated by other users. Medical History Abnormal ECG Acid reflux disease Allergic rhinitis Chest pain Chest pain Chronic cough Dyspnea Dyspnea Dyspnea Eosinophilia Family history of ischemic heart disease HLD (hyperlipidemia) HTN (hypertension) Recurrent UTI Syncope Surgical History History of permanent cardiac pacemaker placement Hx of cholecystectomy Family History Other Cancer Heart attack Social History Smoking Status: Never smoker second hand exposure: No alcohol intake: never substance use type: denies use current occupational status: retired Travel in the last 8 weeks: None household members: spouse housing: house current occupational exposures/hazards: No caffeine: No <RENAE Winston - Last Filed: 06/25/23 19:39> ROS Obtained: Yes Systems reviewed as appropriate & no additional complaints except as documented Physical Exam <RENAE Winston - Last Filed: 06/25/23 19:39> Narrative Physical exam: Patient is a very pleasant well-nourished well-developed 68-year-old female who otherwise is in no acute distress General General appearance: alert and in no apparent distress Head Head exam: atraumatic and normal inspection Eye Eye exam: Present normal appearance, PERRL and EOMI ENT ENT exam: Present mucous membranes moist and other (Patient has injected posterior pharynx but no exudate on the tonsils. Patient has slightly thick postnasal drip.) Neck Neck exam: Present normal inspection and full ROM Chest Chest inspection: Present normal inspection and symmetric chest wall rise Respiratory Respiratory exam: Present normal lung sounds bilaterally; Absent accessory muscle use Cardiovascular Cardiovascular exam: Present regular rate, normal rhythm, normal heart sounds, +S1 and +S2 Abdominal Exam Abdominal exam: Present soft, normal bowel sounds and other (No suprapubic tenderness negative CVA tenderness bilaterally to percussion); Absent tenderness, guarding or rebound Extremities Exam Extremities exam: Present normal inspection and full ROM Neurological Exam Neurological exam: Present alert and oriented X3 Psychiatric Psychiatric exam: Present normal affect and normal mood Skin Skin exam: Present warm, dry and normal color Lymphatic Lymphatic Findings: no adenopathy Medical Decision Making <RENEA Winston - Last Filed: 06/25/23 19:39> Medical Records Medical records reviewed: Yes I reviewed the patient's medical records. Mitchell Inquiry Pt receiving controlled substance: No Mitchell was queried for this patient: No Vital Signs: 06/25/23 16:15 06/25/23 19:40 Temperature 100.8 F H 101.5 F H Temperature Source Oral Oral Pulse Rate 89 Pulse Rate [Radial] 117 H Respiratory Rate 16 20 Blood Pressure 131/67 Blood Pressure [Right Arm] 128/76 Blood Pressure Mean [Right Arm] 93 Blood Pressure Source [Right Arm] Automatic Cuff Blood Pressure Position [Right Arm] Sitting 02 Sat by Pulse Oximetry 98 Oxygen Delivery Method Room Air Room Air Lab Data Lab Results 06/25/23 17:40: WBC 7.1, RBC 5.20, Hgb 15.8, Hct 46.5, MCV 89.4, MCH 30.4, MCHC 34.0, RDW 13.2, Plt Count 286, MPV 8.0, Neut % (Auto) 75.9, Lymph % (Auto) 10.1, [place] % (Auto) 7.6, Eos % (Auto) 5.2, Baso % (Auto) 1.2, Neut # (Auto) 5.4, Lymph # (Auto) 0.7, [place] # (Auto) 0.5, Eos # (Auto) 0.4, Baso # (Auto) 0.1, Sodium 139, Potassium 4.6, Chloride 102, Carbon Dioxide 27, Anion Gap 14.6, BUN 16, Creatinine 0.80, Estimated Creat Clear 71, Estimated GFR 72, Est GFR ( Amer) 87, Glucose 106 H, Calcium 9.6 06/25/23 18:22: Urine Color Yellow, Urine Appearance Clear, Urine pH 6.0, Ur Specific [place] 1.015, Urine Protein Negative, Urine Glucose (UA) Negative, Urine Ketones Negative, Urine Blood Negative, Urine Nitrate Negative, Urine Bilirubin Negative, Urine Urobilinogen 0.2, Ur Leukocyte Esterase Trace, Urine RBC None, Urine WBC Occasional, Ur Squamous Epith Cells Occasional, Urine Bacteria None 06/25/23 17:40 06/25/23 17:40 Orders (Tests/Meds): ED MEDICATIONS Discontinued Medications Generic Name Dose Route Start Last Admin Trade Name Tanvir PRN Reason Stop Dose Admin Acetaminophen 1,000 mg 06/25/23 19:29 06/25/23 19:33 Acetaminophen 1,000mg/100ml Vial IV 06/25/23 19:30 1,000 mg ONCE ONE Administration ORDERS Category Date Time Status BMP [Basic Metabolic Panel] Stat Lab 06/25/23 17:40 Completed CBC w/Auto Diff [Complete Blood Count Auto Diff] Stat Lab 06/25/23 17:40 Completed UA [Urinalysis and Microscopic] Stat Lab 06/25/23 18:22 Completed Medical Decision Narrative: In summary patient is a 68-year-old female who presents to the emergency department for evaluation of being COVID-positive. Patient is hemodynamically stable with a temperature of 100.8. Physical exam shows injected pharynx without any exudate and is otherwise nonactionable physical exam. Differential diagnosis includes acute COVID versus strep versus other viral URI. Initial workup will be conducted with hematologic labs and urinalysis. Initial interventions include NSAIDs for fever control and discomfort. Initial workup reviewed by me shows a normal BMP and CBC with no shift. Urinalysis was bland no bacteria. Upon repeat evaluation subjective improvement in her myalgias after administration of NSAIDs. Patient offered Paxlovid due to the multiple comorbidities however she stated I refuse to take that due to my immune system . Given this patient is appropriate home with instructions to treat symptomatically. Patient is to return to the emergency department with any worsening symptoms especially shortness of breath or hypoxia. Follow-up with PCP as needed. <Thompson Syed MD - Last Filed: 06/27/23 18:12> Vital Signs: 06/25/23 16:15 06/25/23 19:40 Temperature 100.8 F H 101.5 F H Temperature Source Oral Oral Pulse Rate 89 Pulse Rate [Radial] 117 H Respiratory Rate 16 20 Blood Pressure 131/67 Blood Pressure [Right Arm] 128/76 Blood Pressure Mean [Right Arm] 93 Blood Pressure Source [Right Arm] Automatic Cuff Blood Pressure Position [Right Arm] Sitting 02 Sat by Pulse Oximetry 98 Oxygen Delivery Method Room Air Room Air Lab Data Lab Results 06/25/23 17:40: WBC 7.1, RBC 5.20, Hgb 15.8, Hct 46.5, MCV 89.4, MCH 30.4, MCHC 34.0, RDW 13.2, Plt Count 286, MPV 8.0, Neut % (Auto) 75.9, Lymph % (Auto) 10.1, [place] % (Auto) 7.6, Eos % (Auto) 5.2, Baso % (Auto) 1.2, Neut # (Auto) 5.4, Lymph # (Auto) 0.7, [place] # (Auto) 0.5, Eos # (Auto) 0.4, Baso # (Auto) 0.1, Sodium 139, Potassium 4.6, Chloride 102, Carbon Dioxide 27, Anion Gap 14.6, BUN 16, Creatinine 0.80, Estimated Creat Clear 71, Estimated GFR 72, Est GFR ( Amer) 87, Glucose 106 H, Calcium 9.6 06/25/23 18:22: Urine Color Yellow, Urine Appearance Clear, Urine pH 6.0, Ur Specific [place] 1.015, Urine Protein Negative, Urine Glucose (UA) Negative, Urine Ketones Negative, Urine Blood Negative, Urine Nitrate Negative, Urine Bilirubin Negative, Urine Urobilinogen 0.2, Ur Leukocyte Esterase Trace, Urine RBC None, Urine WBC Occasional, Ur Squamous Epith Cells Occasional, Urine Bacteria None Orders (Tests/Meds): ED MEDICATIONS Discontinued Medications Generic Name Dose Route Start Last Admin Trade Name Freq PRN Reason Stop Dose Admin Acetaminophen 1,000 mg 06/25/23 19:29 06/25/23 19:33 Acetaminophen 1,000mg/100ml Vial IV 06/25/23 19:30 1,000 mg ONCE ONE Administration ORDERS Category Date Time Status BMP [Basic Metabolic Panel] Stat Lab 06/25/23 17:40 Completed CBC w/Auto Diff [Complete Blood Count Auto Diff] Stat Lab 06/25/23 17:40 Completed UA [Urinalysis and Microscopic] Stat Lab 06/25/23 18:22 Completed Medical Decision Narrative: In summary patient is a 68-year-old female who presents to the emergency department for evaluation of being COVID-positive. Patient is hemodynamically stable with a temperature of 100.8. Physical exam shows injected pharynx without any exudate and is otherwise nonactionable physical exam. Differential diagnosis includes acute COVID versus strep versus other viral URI. Initial workup will be conducted with hematologic labs and urinalysis. Initial interventions include NSAIDs for fever control and discomfort. Initial workup reviewed by me shows a normal BMP and CBC with no shift. Urinalysis was bland no bacteria. Upon repeat evaluation subjective improvement in her myalgias after administration of NSAIDs. Patient offered Paxlovid due to the multiple comorbidities however she stated I refuse to take that due to my immune system . Given this patient is appropriate home with instructions to treat symptomatically. Patient is to return to the emergency department with any worsening symptoms especially shortness of breath or hypoxia. Follow-up with PCP as needed. I was consulted by the JAQUI, and we discussed the complexity of the problems being addressed. I approved the treatment and management plan for this patient?s care in the Emergency Department, thus performing a substantive portion of the medical decision making. Thompson Syed MD <Thopmson Syed MD - Last Filed: 06/27/23 18:12> Critical Care Time Critical Care Time: No
[2023-06-25 18:10] LABS: Basophils # 0.1 K/mm3 (0-0.2); Basophils % 1.2 % (0.1-2.0); Eosinophils # 0.4 K/mm3 (0.0-0.4); Eosinophils % 5.2 % (0.1-12.0); Hematocrit 46.5 % (37.0-47.0); Hemoglobin 15.8 g/dL (12.2-16.2); Lymphocytes # 0.7 K/mm3 (0.7-4.5); Lymphocytes % 10.1 % (10-50); Mean Corpuscular Hemoglobin 30.4 pg (27.0-31.2); Mean Corpuscular Volume 89.4 fl (81-99); Monocytes # 0.5 K/mm3 (0.1-1.0); Monocytes % 7.6 % (1.7-9.3); Neutrophils # 5.4 K/mm3 (1.8-7.8); Neutrophils % 75.9 % (37.0-80.0); Platelet Count 286 K/mm3 (142-424); Red Cell Distribution Width 13.2 % (11.5-17.5); White Blood Count 7.1 K/mm3 (4.8-10.8)
[2023-06-25 18:28] LABS: Chloride 102 mmol/L (98-107); Potassium 4.6 mmoL/L (3.5-5.1); Sodium 139 mmol/L (136-145)
[2023-06-25 18:31] LABS: Blood Urea Nitrogen 16 mg/dl (7-17); Creatinine Clearance Estimated 71 mL/min (50-200); Estimated Glomerular Filt Rate 72 ml/min (>60); GFR (African American) 87 ML/MIN (>60)
[2023-06-25 18:32] LABS: Anion Gap 14.6 mEq/L (5-15); Calcium 9.6 mg/dl (8.4-10.2); Carbon Dioxide 27 mmol/L (22.0-30.0); Glucose 106 mg/dl (74-100)
[2023-06-25 18:34] LABS: Microscopic, Urine URINE MICROSCOPIC (MICROSCOPIC)
[2023-06-25 18:59] LABS: Appearance,Urine CLEAR (Clear); Bilirubin,Urine Negative (Negative); Blood, Urine Negative (Negative); Color,Urine YELLOW (Yellow); Glucose,Urine (UA) Negative (Negative); Ketones,Urine Negative (Negative); Leukocyte Esterase,Urine TRACE (Negative); Nitrate,Urine Negative (Negative); Protein,Urine Negative (Negative); Specific Gravity, Urine 1.015 (1.005-1.030); Urobilinogen,Urine 0.2 EU/dl (0.2)
[2023-06-25 19:28] LABS: Squamous Epithelial Cell,Urine Occasional #/hpf (0-5); WBC,Urine Occasional #/hpf (0-3)
[2023-06-25] MEDS: ACETAMINOPHEN 1,000MG/100ML VIAL 1000 MG IV (19:33)
[2023-06-25 19:40] VITALS: BP 131/67; PULSE 89; RESP 20; TEMP 38.6; O2SAT 97
== END 2023-06-25 19:43 | disposition home or self-care (01) ==
PROVIDERS: Physician Assistant; Emergency Provider Emergency Medicine; PCP Internal Medicine
DX: U07.1 COVID-19 (principal); R51.9 Headache, unspecified; J02.9 Acute pharyngitis, unspecified; R11.0 Nausea; R05.9 Cough, unspecified; E78.5 Hyperlipidemia, unspecified; I10 Essential (primary) hypertension
CPT/HCPCS: 80048; 81001; 85025; 96374; 99284; J0131

== ENCOUNTER 2023-07-27 10:11 | Outpatient (CLI) | payer MEDICARE, OTHER, SELFPAY ==
--- NOTE | 2023-07-27 10:15 | XR_ITS ---
FINAL REPORT CLINICAL HISTORY: RT LATERAL CHEST PAIN,COUGH COMPARISON: 02/02/2023 FINDINGS: 2 views of the chest were obtained . The heart is normal in size. There is a left subclavian pacemaker. The mediastinum is within normal limits. There is worsening left base atelectasis or pneumonia. There is no pneumothorax. Osseous structures are unremarkable. IMPRESSION: Single left base atelectasis or pneumonia. Reviewed, Interpreted and Dictated by Domingo Scott III, MD Transcribed by Nimco Elizabeth Authenticated and . [facility]
== END 2023-07-27 23:59 ==
PROVIDERS: PCP Internal Medicine; Visit Provider Internal Medicine
DX: J98.11 Atelectasis (principal); Z95.0 Presence of cardiac pacemaker
CPT/HCPCS: 71046

== ENCOUNTER 2023-08-31 15:12 | Outpatient (CLI) | payer MEDICARE, OTHER, SELFPAY ==
[2023-08-31 16:30] LABS: Alanine Aminotransferase 32 U/L (12-78); Albumin Level 4.3 g/dl (3.5-5.0); Albumin/Globulin Ratio 1.6 (1.1-1.8); Alkaline Phosphatase 96 U/L (38-126); Anion Gap 13.4 mEq/L (5-15); Aspartate Amino Transferase 41 U/L (14-36); Bilirubin,Total 1.1 mg/dl (0.2-1.3); Blood Urea Nitrogen 13 mg/dl (7-17); Calcium 9.7 mg/dl (8.4-10.2); Carbon Dioxide 25 mmol/L (22.0-30.0); Chloride 106 mmol/L (98-107); Chol/HDL Ratio 5.7 (1-3.5); Cholesterol 215 mg/dl (140-200); Estimated Glomerular Filt Rate 83 ml/min (>60); GFR (African American) 101 ML/MIN (>60); Globulin 2.7 g/dL (1.3-3.2); Glucose 92 mg/dl (74-100); HDL Cholesterol 38 mg/dl (40-60); Potassium 4.4 mmoL/L (3.5-5.1); Sodium 140 mmol/L (136-145); Triglycerides 208 mg/dl (30-150); VLDL Cholesterol 42 mg/dL (0-40)
[2023-08-31 17:03] LABS: Thyroid Stimulating Hormone 2.71 uIU/mL (0.465-4.68)
[2023-08-31 17:22] LABS: Vitamin B12 362 pg/mL (239-931)
== END 2023-08-31 23:59 ==
LOC: LAB.DROPOF 15:17
PROVIDERS: PCP Internal Medicine; Visit Provider Internal Medicine
DX: E03.9 Hypothyroidism, unspecified (principal); E78.5 Hyperlipidemia, unspecified; I50.32 Chronic diastolic (congestive) heart failure; K50.90 Crohn's disease, unspecified, without complications; J45.991 Cough variant asthma; R53.83 Other fatigue; Z68.26 Body mass index [BMI] 26.0-26.9, adult
CPT/HCPCS: 80053; 80061; 82607; 84443

== ENCOUNTER 2023-09-04 12:36 | Outpatient (CLI) | payer MEDICARE, OTHER, SELFPAY | END 2023-09-04 23:59 | LOC: LAB.DROPOF 12:37 | PROVIDERS: PCP Internal Medicine; Visit Provider Internal Medicine | DX: N39.0 Urinary tract infection, site not specified (principal); B96.89 Other specified bacterial agents as the cause of diseases classified elsewhere | CPT/HCPCS: 87086 ==

== ENCOUNTER 2023-10-21 09:27 | Outpatient (CLI) | payer MEDICARE, OTHER, SELFPAY ==
[2023-10-21 09:32] LABS: Microscopic, Urine URINE MICROSCOPIC (MICROSCOPIC)
[2023-10-21 10:06] LABS: Basophils # 0.1 K/mm3 (0-0.2); Basophils % 1.3 % (0.1-2.0); Eosinophils # 0.5 K/mm3 (0.0-0.4); Eosinophils % 10.1 % (0.1-12.0); Hematocrit 47.2 % (37.0-47.0); Hemoglobin 15.3 g/dL (12.2-16.2); Lymphocytes # 1.6 K/mm3 (0.7-4.5); Lymphocytes % 30.7 % (10-50); Mean Corpuscular HGB Conc 32.4 g/dL (31.8-35.4); Mean Corpuscular Hemoglobin 30.4 pg (27.0-31.2); Mean Corpuscular Volume 93.8 fl (81-99); Mean Platelet Volume 7.5 fl (7.4-10.4); Monocytes # 0.4 K/mm3 (0.1-1.0); Monocytes % 6.9 % (1.7-9.3); Neutrophils # 2.7 K/mm3 (1.8-7.8); Neutrophils % 50.9 % (37.0-80.0); Platelet Count 266 K/mm3 (142-424); Red Blood Count 5.03 M/mm3 (4.20-5.40); Red Cell Distribution Width 13.8 % (11.5-17.5); White Blood Count 5.3 K/mm3 (4.8-10.8)
[2023-10-21 11:16] LABS: Alanine Aminotransferase 43 U/L (12-78); Albumin Level 4.2 g/dl (3.5-5.0); Albumin/Globulin Ratio 1.5 (1.1-1.8); Alkaline Phosphatase 111 U/L (38-126); Amylase 55 U/L (30-110); Anion Gap 18.1 mEq/L (5-15); Aspartate Amino Transferase 45 U/L (14-36); Bilirubin,Total 0.8 mg/dl (0.2-1.3); Blood Urea Nitrogen 16 mg/dl (7-17); Calcium 9.6 mg/dl (8.4-10.2); Carbon Dioxide 21 mmol/L (22.0-30.0); Chloride 109 mmol/L (98-107); Estimated Glomerular Filt Rate 100 ml/min (>60); GFR (African American) 121 ML/MIN (>60); Globulin 2.8 g/dL (1.3-3.2); Glucose 94 mg/dl (74-100); Lipase 76 U/L (23-300); Potassium 4.1 mmoL/L (3.5-5.1); Sodium 144 mmol/L (136-145)
[2023-10-21 11:41] LABS: Appearance,Urine CLEAR (Clear); Bilirubin,Urine Negative (Negative); Blood, Urine Negative (Negative); Color,Urine YELLOW (Yellow); Glucose,Urine (UA) Negative (Negative); Ketones,Urine Negative (Negative); Leukocyte Esterase,Urine 1+ (Negative); Nitrate,Urine Negative (Negative); Protein,Urine Negative (Negative); Specific Gravity, Urine >= 1.030 (1.005-1.030); Urobilinogen,Urine 0.2 EU/dl (0.2)
[2023-10-21 12:30] LABS: Bacteria,Urine Trace /lpf
[2023-10-21 12:31] LABS: Calcium Oxalate Crystals,Urine Trace /lpf
== END 2023-10-21 23:59 | disposition home or self-care (01) ==
LOC: LAB 09:27
PROVIDERS: PCP Internal Medicine; Visit Provider Surgery
DX: K21.9 Gastro-esophageal reflux disease without esophagitis (principal); I10 Essential (primary) hypertension; N39.0 Urinary tract infection, site not specified
CPT/HCPCS: 36415; 80053; 81001; 82150; 83690; 85025; 87086

== ENCOUNTER 2023-10-23 08:08 | Outpatient (CLI) | payer MEDICARE, OTHER, SELFPAY ==
--- NOTE | 2023-10-23 08:09 | MM_ITS ---
PROCEDURE INFORMATION: Exam: MG Bilateral Screening 3D Mammography Exam date and time: 10/23/2023 8:03 AM Age: 68 years old Clinical indication: Screening examination TECHNIQUE: Imaging protocol: Bilateral Screening tomosynthesis and 2D mammography including computer-aided detection (CAD) when performed. COMPARISON: 1. MG MM DIG SCREENING MAMM BI W/CAD 10/21/2022 8:05 AM 2. MG MM DIG SCREENING MAMM BI W/CAD 09/10/2021 1:15 PM FINDINGS: MAMMOGRAPHY: Breast composition: The breasts are heterogeneously dense, which may obscure small masses. Mass: None. Architectural distortion: None. Calcifications: No suspicious calcifications. Asymmetric density: None. Skin thickening: None. Axillary adenopathy: None. IMPRESSION: No mammographic evidence of malignancy. Annual screening is recommended unless otherwise clinically indicated. ASSESSMENT: BI-RADS Category 1: Negative
== END 2023-10-23 23:59 | disposition home or self-care (01) ==
LOC: RAD 08:09
PROVIDERS: PCP Internal Medicine; Visit Provider Obstetrics & Gynecology
DX: Z12.31 Encounter for screening mammogram for malignant neoplasm of breast (principal)
CPT/HCPCS: 77063; 77067

== ENCOUNTER 2023-10-26 10:47 | Outpatient (CLI) | payer MEDICARE, OTHER, SELFPAY ==
[2023-11-02 16:12] LABS: Atopobium vaginae Low - 0 Score (.); BVAB2 Low - 0 Score (.); Candida albicans NAA Negative (Negative); Candida glabrata Negative (Negative); Chlamydia Trachomatis NAA Negative (Negative); HSV 1 NAA Negative (Negative); HSV 2 NAA Negative (Negative); Megasphaera 1 Low - 0 Score (.); Neisseria gonorrhoeae NAA Negative (Negative); Trich vag NAA Negative (Negative)
== END 2023-10-26 23:59 | disposition home or self-care (01) ==
LOC: LAB.DROPOF 10-27 10:47
PROVIDERS: PCP Urology; Visit Provider Urology
DX: N39.0 Urinary tract infection, site not specified (principal); N89.8 Other specified noninflammatory disorders of vagina
CPT/HCPCS: 87491; 87529; 87563; 87591; 87661; 87798; 87801

== ENCOUNTER 2023-10-28 14:16 | Outpatient (CLI) | payer MEDICARE, OTHER, SELFPAY ==
--- NOTE | 2023-10-28 14:30 | XR_ITS ---
FINAL REPORT CLINICAL HISTORY: SOB COMPARISON: 02/02/2023 FINDINGS: TWO-VIEW CHEST The heart size is normal. The mediastinum is normal. Left subclavian pacer is identified. There are mild bibasilar opacities, favor atelectasis. There is no pneumothorax. IMPRESSION: Bibasilar atelectasis. Reviewed, Interpreted and Dictated by Domingo Scott III, MD Transcribed by Demetria Figueroa Authenticated and [facility]
== END 2023-10-28 23:59 | disposition home or self-care (01) ==
LOC: RAD 14:18
PROVIDERS: PCP Internal Medicine; Visit Provider Internal Medicine Pulmonary Disease
DX: R06.02 Shortness of breath (principal)
CPT/HCPCS: 71046

== ENCOUNTER 2023-10-31 01:55 | Emergency (ER) | payer MEDICARE, OTHER, SELFPAY ==
[2023-10-31] VITALS (11 sets, daily range): BP systolic 117–186; BP diastolic 57–103; PULSE 64–88; RESP 13–20; TEMP 36.6–36.7; O2SAT 93–99; BMI 34.1
--- NOTE | 2023-10-31 01:54 | ECG_ITS ---
APPROVED REPORT Exam: Resting ECG HR:80 bpm ECG Measurements Heart Rate 80 AXES NJ 294 P 64 QRSd 148 QRS -71 QT 398 T 104 QTc 435 Conclusion ELECTRONIC VENTRICULAR PACEMAKER ABNORMAL RHYTHM ECG Negative Blake Electronically signed by : SHEN HOBSON, 11/01/2023 12:27:25
--- NOTE | 2023-10-31 02:03 | CT_ITS ---
PROCEDURE INFORMATION: Exam: CTA Chest With Contrast Exam date and time: 10/31/2023 2:57 AM Age: 68 years old Clinical indication: Pain; Radiating; Additional info: Acute chest pain radiating to back TECHNIQUE: Imaging protocol: Computed tomographic angiography of the chest with contrast. Exam focused on the arteries. 3D rendering (Not supervised by radiologist): MIP and/or 3D reconstructed images were created by the technologist. Radiation optimization: All CT scans at this facility use at least one of these dose optimization techniques: automated exposure control; mA and/or kV adjustment per patient size (includes targeted exams where dose is matched to clinical indication); or iterative reconstruction. Contrast material: ISOVUE; Contrast volume: 100 ml; Contrast route: INTRAVENOUS (IV); COMPARISON: CT ANGIO CHEST PE PROTOCOL 04/25/2021 1:24 PM FINDINGS: Tubes, catheters and devices: Left chest wall pacemaker device with intact catheters. Pulmonary arteries: Contrast bolus timing is adequate for assessment of the pulmonary arterial tree. Mixing artifact present within the subsegmental arteries. Within these limitations, no visualized pulmonary embolus. No secondary signs of hemodynamically significant pulmonary embolus. Aorta: Minimal scattered calcified atherosclerotic disease of the visualized aorta. Lungs: Scattered basilar scarring and atelectasis. Left upper lobe granuloma. Pleural spaces: Unremarkable. No pneumothorax. No pleural effusion. Heart: Unremarkable. No cardiomegaly. No pericardial effusion. Esophagus: Perhaps minimal thickening of the distal esophageal circumferentially. Lymph nodes: Calcified left hilar lymph node. Diaphragm: Sliding-type hiatal hernia. Bones/joints: Scattered degenerative change of the visualized osseous structures. Soft tissues: Unremarkable. IMPRESSION: 1. No acute vascular findings. 2. Within the above limitations, no pulmonary embolus. 3. Hiatal hernia with minimal thickening of the distal esophageal wall circumferentially, can be seen in esophagitis. Correlate clinically. 4. Additional nonacute findings as above.
[2023-10-31] MEDS: LIDOCAINE 2% VISCOUS SOL 15ML UDC 15 ML PO (02:16)
--- NOTE | 2023-10-31 02:21 | ED_ITS ---
Discharge Plan Disposition Patient Disposition: Home, Self-Care Referrals Follow up/Referrals: Provider,Referral, MD [Primary Care Provider] - See instructions Activity Restrictions/Add. Instructions Additional Instructions/Restrictions: Please follow-up with your primary care provider. Please return to the emergency department if you develop any new or worsening symptoms or become concerned for your health. Clinical Impressions Clinical Impression: Chest pain Qualifiers: Chest pain type: unspecified Qualified Code(s): R07.9 - Chest pain, unspecified Discharge ED Provider: Koko Ulrich Adult [facility] General Chief complaint: Chest Pain Stated complaint: Chest pain Time Seen by Provider: 10/31/23 02:00 Mode of Arrival: Ambulatory Source of Information: Patient Limitations: No Limitations Description of Symptoms (Recalled from ER Triage Doc. by RN): Pt. presented to the ED with c/o chest pain. the chest pain is sharp and radiates to the back. she said it started around 2330. she had one episode of vomiting. denies SOB, History of Present Illness HPI narrative: 68-year-old female with history of pacemaker, hypertension hyperlipidemia presents for chest pain. She reports it started prior to midnight, sharp in nature, radiating to the back. She reports 1 episode of vomiting. She has had pain like this before but this is more severe. It usually gets better after she drinks something but this time it did not. She denies any history of ischemic heart disease. She reports that the pacemaker was placed after she passed out multiple times, but she is not sure what the underlying reason was. On chart review it appears that she had paroxysmal atrial flutter but was intolerant to beta-blockers. Related Data Allergies Allergy/AdvReac Type Severity Reaction Status Date / Time metronidazole [From Flagyl] Allergy Mild Vomiting Verified 10/28/23 13:14 clindamycin [CLINDAMYCIN] Allergy Unknown Verified 10/28/23 13:14 diazepam [From VALIUM] Allergy Unknown Verified 10/28/23 13:14 Tetracyclines [TETRACYCLINES] Allergy Unknown Verified 10/28/23 13:14 verapamil AdvReac Mild Fatigued Verified 10/28/23 13:14 [facility] Disclaimer: The information contained in this section may have been updated after the patient was seen, as this information can be updated by other users. Medical History Vaginal odor Recurrent UTI Acid reflux disease Eosinophilia Allergic rhinitis Chronic cough Dyspnea Dyspnea Chest pain Family history of ischemic heart disease Abnormal ECG Syncope Dyspnea HLD (hyperlipidemia) HTN (hypertension) Chest pain Surgical History History of permanent cardiac pacemaker placement Hx of cholecystectomy Family History Other Cancer Heart attack Social History Smoking Status: Never smoker second hand exposure: No alcohol intake: never substance use type: denies use current occupational status: retired Travel in the last 8 weeks: None household members: spouse housing: house current occupational exposures/hazards: No caffeine: No ROS Obtained: Yes All systems reviewed & no additional complaints except as documented Physical Exam General General appearance: alert and in no apparent distress Head Head exam: atraumatic and normocephalic Eye Eye exam: Present normal appearance, PERRL and EOMI ENT ENT exam: Present normal oropharynx and normal external ear exam Neck Neck exam: Present normal inspection and full ROM Chest Chest inspection: Present normal inspection and symmetric chest wall rise; Absent tenderness Respiratory Respiratory exam: Present normal lung sounds bilaterally; Absent respiratory distress Cardiovascular Cardiovascular exam: Present regular rate and normal rhythm Abdominal Exam Abdominal exam: Present soft; Absent distention, tenderness or guarding Extremities Exam Extremities exam: Present normal inspection; Absent edema or joint swelling Back Exam Back exam: Present normal inspection; Absent tenderness Neurological Exam Neurological exam: Present alert and oriented X3; Absent motor sensory deficit Psychiatric Psychiatric exam: Present normal affect and normal mood Skin Skin exam: Present warm, dry and normal color Lymphatic Lymphatic Findings: no adenopathy Medical Decision Making Medical Records Medical records reviewed: Yes I reviewed the patient's medical records. Mitchell Inquiry Pt receiving controlled substance: No Mitchell was queried for this patient: No Vital Signs: 10/31/23 01:55 10/31/23 02:00 10/31/23 02:20 Temperature 98.1 F Temperature Source Oral Pulse Rate 76 Pulse Rate [Right Radial] 88 Respiratory Rate 20 20 Blood Pressure 182/101 H 166/86 H Blood Pressure [Right Arm] 180/92 H Blood Pressure Mean 118 Blood Pressure Mean [Right Arm] 121 Blood Pressure Source [Right Arm] Automatic Cuff Blood Pressure Position [Right Arm] Supine 02 Sat by Pulse Oximetry 99 97 Oxygen Delivery Method Room Air Room Air 10/31/23 02:30 10/31/23 03:15 10/31/23 03:30 Temperature Temperature Source Pulse Rate 71 75 75 Pulse Rate [Right Radial] Respiratory Rate 16 13 15 Blood Pressure 156/76 H 186/103 H 145/71 H Blood Pressure [Right Arm] Blood Pressure Mean Blood Pressure Mean [Right Arm] Blood Pressure Source [Right Arm] Blood Pressure Position [Right Arm] 02 Sat by Pulse Oximetry 96 97 95 Oxygen Delivery Method 10/31/23 04:00 10/31/23 04:30 10/31/23 05:01 Temperature Temperature Source Pulse Rate 80 64 72 Pulse Rate [Right Radial] Respiratory Rate 18 16 16 Blood Pressure 140/77 139/70 120/59 L Blood Pressure [Right Arm] Blood Pressure Mean Blood Pressure Mean [Right Arm] Blood Pressure Source [Right Arm] Blood Pressure Position [Right Arm] 02 Sat by Pulse Oximetry 95 93 L 95 Oxygen Delivery Method Room Air 10/31/23 05:03 Temperature Temperature Source Pulse Rate 68 Pulse Rate [Right Radial] Respiratory Rate 18 Blood Pressure 120/59 L Blood Pressure [Right Arm] Blood Pressure Mean Blood Pressure Mean [Right Arm] Blood Pressure Source [Right Arm] Blood Pressure Position [Right Arm] 02 Sat by Pulse Oximetry 97 Oxygen Delivery Method Room Air Lab Data Lab results reviewed: Yes I reviewed the patient's lab results. Lab Results 10/31/23 02:00: WBC 10.0, RBC 4.98, Hgb 15.9, Hct 46.6, MCV 93.7, MCH 32.0 H, MCHC 34.1, RDW 13.7, Plt Count 339, MPV 7.9, Neut % (Auto) 53.3, Lymph % (Auto) 30.0, [place] % (Auto) 8.1, Eos % (Auto) 7.3, Baso % (Auto) 1.3, Neut # (Auto) 5.3, Lymph # (Auto) 3.0, [place] # (Auto) 0.8, Eos # (Auto) 0.7 H, Baso # (Auto) 0.1, Sodium 138, Potassium 4.8, Chloride 102, Carbon Dioxide 25, Anion Gap 15.8 H, BUN 16, Creatinine 0.90, Estimated Creat Clear 80, Estimated GFR 62, Est GFR ( Amer) 76, Glucose 99, Calcium 9.6, Total Bilirubin 1.4 H, AST 65 H, ALT 30, Alkaline Phosphatase 95, Troponin I 0.03, Total Protein 8.7 H, Albumin 4.7, Globulin 4.0 H, Albumin/Globulin Ratio 1.2 10/31/23 05:03: Troponin I < 0.01 10/31/23 02:00 10/31/23 02:00 Orders (Tests/Meds): ED MEDICATIONS Generic Name Dose Route Start Last Admin Trade Name Freq PRN Reason Stop Dose Admin Nitroglycerin 0.4 mg 10/31/23 03:11 Nitroglycerin 0.4mg Sl Tablet SL 11/30/23 03:10 Q5MINP PRN Chest Pain Sodium Chloride 10 ml 10/31/23 03:07 10/31/23 03:08 Sodium Chloride 0.9% 10ml Syr (Rad Only) IV 11/30/23 03:06 10 ml NEEDED PRN Administration Maintain IV Site Discontinued Medications Generic Name Dose Route Start Last Admin Trade Name Freq PRN Reason Stop Dose Admin Acetaminophen 1,000 mg 10/31/23 02:32 10/31/23 02:40 Acetaminophen 500mg Tab PO 10/31/23 02:33 1,000 mg ONCE ONE Administration Aspirin 162 mg 10/31/23 03:11 10/31/23 03:46 Aspirin 81mg Chewable Tablet PO 10/31/23 03:12 162 mg ONCE ONE Administration Iopamidol 100 ml 10/31/23 03:07 10/31/23 03:08 Iopamidol-370 (76%);100ml Bottle IV 10/31/23 03:08 100 ml ONCE ONE Administration Lidocaine HCl 15 ml 10/31/23 02:03 10/31/23 02:16 Lidocaine 2% Viscous Millie 15ml Udc PO 10/31/23 02:04 15 ml ONCE ONE Administration Morphine Sulfate 4 mg 10/31/23 02:32 10/31/23 02:41 Morphine 4mg/Ml Syringe IV 10/31/23 02:33 4 mg ONCE ONE Administration Ondansetron HCl 4 mg 10/31/23 02:32 10/31/23 02:41 Ondansetron 4mg/2ml Vial IV 10/31/23 02:33 4 mg ONCE ONE Administration Sodium Chloride 50 ml 10/31/23 03:07 10/31/23 03:08 0.9 % Sodium Chloride 50 Ml Vial IV 10/31/23 03:08 50 ml ONCE ONE Administration ORDERS Category Date Time Status CTA Chest [CT angio chest - dissection] Stat Cat Scan 10/31/23 02:03 Completed CBC w/Auto Diff [Complete Blood Count Auto Diff] Stat Lab 10/31/23 02:00 Completed CMP [Comprehensive Metabolic Panel] Stat Lab 10/31/23 02:00 Completed Troponin I Q3H Lab 10/31/23 02:00 Completed Troponin I Q3H Lab 10/31/23 05:03 Completed ECG Data Tracing #1: I reviewed this ECG and interpreted as documented below: Ventricularly paced, rate of 80, no ischemic ST changes, normal intervals ECG initial impression date: 10/31/23 ECG initial impression time: 01:55 HEART Score History (anamnesis): Moderately suspicious ECG: Normal Age: >65 years Risk factors: 3 or more risk factors Troponin: </= normal limit HEART Score: 5 Medical Decision Narrative: 68-year-old female with history of Crohn's, ulcerative colitis, atrial flutter status post pacemaker, hypertension hyperlipidemia presents with chest pain radiating to the back, sharp, onset around midnight. History was obtained interactive discussion with patient, family, chart review. On arrival, patient is afebrile, hypertensive, satting under percent on room air, generally well- appearing alert and oriented x 4, moving all extremities spontaneously. Full physical exam performed and significant for no significant physical exam abnormalities, clear lungs bilaterally. Differential includes but is not limited to ACS, PE, aortic dissection, esophageal spasm, esophagitis, GERD, musculoskeletal chest pain. Patient was given IV morphine, Zofran, Tylenol, viscous lidocaine, 2 aspirins (she took 2 aspirin prior to arrival) for symptomatic management and correction of underlying abnormalities. Workup initiated including CBC CMP troponin EKG CTA chest to assess for aortic dissection. On re-evaluation, patient [remains afebrile, HD stable.] Reports resolution of pain after medications. Laboratory workup independently interpreted by me and significant for initial troponin within normal limits, no leukocytosis, normal renal function. Repeat troponin came back within normal limits. Imaging independently interpreted by me and significant for CTA chest shows no evidence of aortic dissection, PE or pulmonary pathology. Does show some esophageal thickening that may be consistent with esophagitis. See radiology read for full review of final results. Admission for chest pain was considered, but deemed unnecessary due to EKG without ischemic findings, negative troponin x 2, resolution of chest pain. Given patient history, exam and workup, patient's presentation most likely represents mild esophagitis. Interactive discussion with patient regarding her presentation. Low concern for cardiac or aortic pathology at this time. Recommend follow-up with PCP and with cardiology. Given strict return precautions.. Procedures Risk/Benefits of Procedure(s) Were Explained: Yes Critical Care Critical Care Time Critical Care Time: No
[2023-10-31 02:25] LABS: Basophils # 0.1 K/mm3 (0-0.2); Basophils % 1.3 % (0.1-2.0); Eosinophils # 0.7 K/mm3 (0.0-0.4); Eosinophils % 7.3 % (0.1-12.0); Hematocrit 46.6 % (37.0-47.0); Hemoglobin 15.9 g/dL (12.2-16.2); Mean Corpuscular HGB Conc 34.1 g/dL (31.8-35.4); Mean Corpuscular Volume 93.7 fl (81-99); Mean Platelet Volume 7.9 fl (7.4-10.4); Monocytes # 0.8 K/mm3 (0.1-1.0); Monocytes % 8.1 % (1.7-9.3); Neutrophils # 5.3 K/mm3 (1.8-7.8); Neutrophils % 53.3 % (37.0-80.0); Platelet Count 339 K/mm3 (142-424); Red Blood Count 4.98 M/mm3 (4.20-5.40); Red Cell Distribution Width 13.7 % (11.5-17.5)
[2023-10-31 02:32] LABS: Alanine Aminotransferase 30 U/L (12-78); Albumin Level 4.7 g/dl (3.5-5.0); Albumin/Globulin Ratio 1.2 (1.1-1.8); Alkaline Phosphatase 95 U/L (38-126); Anion Gap 15.8 mEq/L (5-15); Aspartate Amino Transferase 65 U/L (14-36); Bilirubin,Total 1.4 mg/dl (0.2-1.3); Blood Urea Nitrogen 16 mg/dl (7-17); Calcium 9.6 mg/dl (8.4-10.2); Carbon Dioxide 25 mmol/L (22.0-30.0); Chloride 102 mmol/L (98-107); Creatinine Clearance Estimated 80 mL/min (50-200); Estimated Glomerular Filt Rate 62 ml/min (>60); GFR (African American) 76 ML/MIN (>60); Glucose 99 mg/dl (74-100); Potassium 4.8 mmoL/L (3.5-5.1); Sodium 138 mmol/L (136-145); Total Protein,Serum 8.7 g/dl (6.3-8.2)
[2023-10-31] MEDS: ACETAMINOPHEN 500MG TAB 1000 MG PO (02:40)
[2023-10-31] MEDS: ONDANSETRON 4MG/2ML VIAL 4 MG IV (02:41)
[2023-10-31] MEDS: MORPHINE 4MG/ML SYRINGE 4 MG IV (02:41)
[2023-10-31 02:46] LABS: Troponin I 0.03 ng/ml (0.00-0.034)
[2023-10-31] MEDS: IOPAMIDOL-370 (76%);100ML BOTTLE 100 ML IV (03:08)
[2023-10-31] MEDS: SODIUM CHLORIDE 0.9% 10ML SYR (RAD ONLY) 10 ML IV (03:08)
[2023-10-31] MEDS: 0.9 % SODIUM CHLORIDE 50 ML VIAL IV (03:08)
[2023-10-31] MEDS: ASPIRIN 81MG CHEWABLE TABLET 162 MG PO (03:46)
--- NOTE | 2023-10-31 03:58 | PC.NURSE ---
ROUNDED ON PATIENT, NO NEEDS AT THIS TIME, AT BEDSIDE, CALL LIGHT WITHIN REACH
[2023-10-31 05:27] LABS: Troponin I < 0.01 ng/ml (0.00-0.034)
== END 2023-10-31 05:47 | disposition home or self-care (01) ==
PROVIDERS: Emergency Provider Emergency Medicine
DX: R07.9 Chest pain, unspecified (principal); Z95.0 Presence of cardiac pacemaker; I10 Essential (primary) hypertension; E78.5 Hyperlipidemia, unspecified; I48.92 Unspecified atrial flutter
CPT/HCPCS: 71275; 80053; 84484; 85025; 93005; 96374; 96375; 99285; J2270; J2405; Q9967

== ENCOUNTER 2023-11-05 09:19 | Outpatient (CLI) | payer MEDICARE, OTHER, SELFPAY ==
--- NOTE | 2023-11-05 09:20 | CT_ITS ---
FINAL REPORT TECHNIQUE: After the administration of oral and intravenous contrast, axial images were obtained through the abdomen and pelvis by computed tomography. The study was performed with techniques to keep radiation dose as low as reasonably achievable, (ALARA). Individual dose reduction techniques using automated exposure control or adjustment of mA and/or kV according to the patient's size were employed. CLINICAL HISTORY: RUQ pain COMPARISON: 09/12/2020 FINDINGS: Abdomen: The lung bases are clear. Small hiatal hernia is identified. The liver is normal in size and attenuation. There has been interval postoperative changes from cholecystectomy. The spleen is unremarkable. The adrenals are normal. The pancreas is unremarkable. There are bilateral renal parapelvic cysts. The aorta is normal in caliber. There is no free fluid or adenopathy. There is a small umbilical hernia and right inguinal hernia containing fat. Pelvis: The appendix is not identified. Patient is status post hysterectomy. The urinary bladder is unremarkable. There is no free fluid or adenopathy. IMPRESSION: Interval postoperative changes from cholecystectomy. Hernias as above. Reviewed, Interpreted and Dictated by Domingo Scott III, MD Transcribed by Demetria Figueroa Authenticated and [facility]
[2023-11-05] MEDS: BARIUM SULFATE(READI-CAT2);450ML BOTTLE 450 ML PO (10:16)
[2023-11-05] MEDS: SODIUM CHLORIDE 0.9% 10ML SYR (RAD ONLY) 10 ML IV (10:16)
[2023-11-05] MEDS: IOPAMIDOL-370 (76%);100ML BOTTLE 75 ML IV (10:17)
== END 2023-11-05 23:59 | disposition home or self-care (01) ==
LOC: RAD 09:20
PROVIDERS: PCP Internal Medicine; Visit Provider Surgery
DX: R10.11 Right upper quadrant pain (principal); R10.13 Epigastric pain; Z90.49 Acquired absence of other specified parts of digestive tract
CPT/HCPCS: 74177; Q9967

== ENCOUNTER 2024-01-07 07:50 | Outpatient (CLI) | payer MEDICARE, OTHER, SELFPAY ==
--- NOTE | 2024-01-07 07:51 | US_ITS ---
Ultrasound Sonograher: PROCEDURE: US TRANSVAGINAL CLINICAL INDICATION: post menopausal bleeding COMPARISON: No exams were available for comparison FINDINGS: Transvaginal sonographic images of the pelvis were obtained. UTERUS: Surgically absent, the vaginal cuff is intact. There are several small calcifications at the vaginal vault. LEFT OVARY: Not visualized. RIGHT OVARY: Not visualized. Both ovaries not seen. There is no fluid in the cul-de-sac. IMPRESSION: 1. The uterus has been surgically removed. The vaginal vault is intact. There are few small calcifications at the top of the vagina. 2. Ovaries were not visualized and likely surgically absent. Both adnexae appeared normal. 3. No fluid in the cul-de-sac. Dictated by: Manny Wood MD 01/08/2024 07:36 Manny Wood MD in [place] 01/08/2024 07:36
== END 2024-01-07 23:59 | disposition home or self-care (01) ==
LOC: RAD 07:51
PROVIDERS: PCP Internal Medicine; Visit Provider Obstetrics & Gynecology
DX: N95.0 Postmenopausal bleeding (principal)
CPT/HCPCS: 76830

== ENCOUNTER 2024-01-29 07:23 | Outpatient (CLI) | payer MEDICARE, OTHER, SELFPAY ==
--- NOTE | 2024-01-29 07:24 | CT_ITS ---
APPROVED REPORT Satellite Technician: CLINICAL INDICATION Chest Pain TECHNIQUE Image Acquisition: A 128 slice MDCT scanner ([employer] R[employer] View) was used for data acquisition. A noncontrast coronary calcium scan was performed. A CT attenuation threshold of 130 Hounsfield units (HU) was used for the detection of calcium in contiguous voxels of 1 sq mm in area to be counted as individual lesions. Bolus tracking in the ascending aorta with a threshold of 180 HU was performed. Immediately afterwards, ECG synchronized cardiac CT was then performed from the cardiac base to apex using retrospective gating with ECG tube current modulation. A total of 85 mL of Isovue 370 mg/mL contrast medium was administered at 5 mL/sec followed by a saline flush using a biphasic injection protocol. A tube voltage of 120 KVp was used. The patient received the following medications prior to the cardiac CT. 0.8 mg of sublingual nitroglycerin The average heart rate at the time of acquisition was 74 bpm and regular. Image Reconstruction Transaxial images were reconstructed at 0.67 mm slide thickness. Data was reviewed interactively on an advanced workstation capable of 2 and 3-dimensional displays in all conventional reconstruction formats, including multiplanar reformations, maximum intensity projections, curved multiplanar reformations, and volume rendered reconstructions. When applicable, selected routine images describing the relevant coronary anatomy and pathology were saved and sent to PACS. Complications None Technical Quality Overall image quality was good. Coronary artery opacification was adequate. Total DLP (Dose-Length Product) is 1761.0 mGy-cm. The reported value represents the total of one or more individual components during the CT acquisition of this date and at this time, and as such, the same value may appear in more than one CT report depending on the interpreting/reporting physicians. COMPARISON None FINDINGS CT Coronary Calcium Scoring LMA (Left Main Artery) = 0 LAD (Left Anterior Descending) = 0 LCX (Left Coronary Circumflex) = 0 RCA (Right Coronary Artery) = 0 Total Calcium Score = 0 using the AJ-130 method. The interpretation of the calcium heart score is based on the following continuum*: 0 = no calcified plaque detected (risk of coronary artery disease is very low ??? less than 5%) 1-10 = calcium detected in extremely minimal levels (risk of coronary diseases is still low ??? less than 10%) 11-100 = mild levels of plaque detected with certainty (mild or minimal narrowing of heart arteries is likely) 101-400 = definite,at least moderate levels of plaque detected (relatively high risk of a heart attack within 3-5 years) >401-999 = extensive levels of plaque detected (high risk of heart attack, high levels of vascular disease are present, high likelihood of at least one significant coronary narrowing) *The calcium heart score quantifies the burden of coronary calcification/plaque in the coronary arteries. The calcium heart score is not able to evaluate the presence or burden of non-calcified (i.e. soft) plaque. There is no identifiable calcification in the aortic valve, mitral annulus or mitral valve, pericardium, or myocardium. Coronary CT Angiography The coronary arterial system is right dominant. Quantitative Stenosis Grading: Left Main (LM): The left main originates normally from the left sinus of Valsalva. The LM bifurcates into the left anterior descending artery and left circumflex artery. The LM is patent with no evidence of atherosclerosis. Left Anterior Descending (LAD) and Diagonal Branches: The LAD gives off 3 diagonal branch(es). The LAD and its branches are patent with no evidence of atherosclerosis. There is no evidence of LAD-myocardial bridge. Left Circumflex (LCX) and Obtuse Marginals (OM): The LCX gives off 1 Obtuse Marginal (OM) branch(es). The LCX and its branches are patent with no evidence of atherosclerosis. Right Coronary Artery (RCA): The RCA originates normally from the right sinus of Valsalva. The RCA gives off a posterior descending artery (PDA) and posterolateral (PL) branches. There is a small segment of the proximal RCA that cannot be visualized due to significant device artifact. The remaining segments of the RCA and its branches are patent with no evidence of atherosclerosis. Non-Coronary Cardiac Findings: Analysis of the left ventricular (LV) structure and function was performed after 3-D reconstruction of the LV from axial images, with user-corrected automatic contouring for assessment of LV volumes and user-defined reconstruction from oblique planes for measurement of 3-D cardiac structure and function. -The left ventricle systolic function is normal. -There is no left atrial appendage filling defect. Two right pulmonary veins and two left pulmonary veins drain normally into the left atrium. -No pericardial thickening or calcification. -Central and branch pulmonary arteries in the [id number] are unremarkable. -Thoracic aorta within the visualized thoracic aortic-branches in the [id number] is unremarkable. Extracardiac Structures No significant extra-cardiac findings. Note, however, that this study is focused on the cardiac findings. IMPRESSION -No coronary calcification with an Agatston score = 0 using the AJ-130 method. -No evidence of significant flow-limiting atherosclerosis of the coronary arteries. -CAD-RADS 0. Management recommendations per ACC/AHA guidelines*, as clinically appropriate. *Recommendations: CAD RADS 0: Reassurance. Consider non-atherosclerotic causes of chest pain. CAD RADS 1: Consider non-atherosclerotic causes of chest pain. Consider preventive therapy and risk factor modification. CAD RADS 2: Consider non-atherosclerotic causes of chest pain. Consider preventive therapy and risk factor modification, particularly for patients with nonobstructive plaque in multiple segments. CAD RADS 3: Consider further functional testing. Consider symptom-guided anti-ischemic and preventive pharmacotherapy as well as risk factor modification per published guideline statements. CAD RADS 4A: Consider further functional testing or invasive coronary angiography with revascularization per published guideline statements. Consider symptom-guided anti-ischemic and preventive pharmacotherapy as well as risk factor modification per published guideline statements. CAD RADS 4B: Invasive coronary angiography recommended with revascularization per published guideline statements. Consider symptom-guided anti-ischemic and preventive pharmacotherapy as well as risk factor modification per published guideline statements. CAD RADS 5: Consider invasive angiography and/or viability assessment with revascularization per published guideline statements. Consider symptom-guided anti-ischemic and preventive pharmacotherapy as well as risk factor modification per published guideline statements. CRITICAL RESULT None COMMUNICATION Per this written report The coronary and cardiac findings of this CCTA were reviewed, reported, and signed by Link Parker MD (Electrocardiogram Technician) Conclusion Electronically signed by : Zahra Parker MD 02/01/2024 11:07:00
[2024-01-29 07:37] VITALS: BMI 30.9
[2024-01-29 07:44] VITALS: BP 136/80; PULSE 68; RESP 18; O2SAT 97
[2024-01-29 08:13] LABS: Anion Gap 7.5 mEq/L (5-15); Blood Urea Nitrogen 14 mg/dl (7-17); Calcium 9.7 mg/dl (8.4-10.2); Carbon Dioxide 26 mmol/L (22.0-30.0); Chloride 108 mmol/L (98-107); Creatinine Clearance Estimated 73 mL/min (50-200); Estimated Glomerular Filt Rate 83 ml/min (>60); GFR (African American) 101 ML/MIN (>60); Glucose 108 mg/dl (74-100); Potassium 5.5 mmoL/L (3.5-5.1); Sodium 136 mmol/L (136-145)
[2024-01-29 08:30] VITALS: BP 159/79; PULSE 74; RESP 16; O2SAT 96
[2024-01-29] MEDS: NITROGLYCERIN 0.4MG SL TABLET SL (08:30)
[2024-01-29 08:33] VITALS: BP 127/69; PULSE 75; RESP 16; O2SAT 96
[2024-01-29 08:36] VITALS: BP 106/54; PULSE 70; RESP 16; O2SAT 95
[2024-01-29 08:39] VITALS: BP 123/73; PULSE 73; RESP 16; O2SAT 98
[2024-01-29] MEDS: 0.9 % SODIUM CHLORIDE 50 ML VIAL IV (08:43)
[2024-01-29] MEDS: IOPAMIDOL-370 (76%);100ML BOTTLE 85 ML IV (08:43)
[2024-01-29] MEDS: SODIUM CHLORIDE 0.9% 10ML SYR (RAD ONLY) 10 ML IV (08:43)
== END 2024-01-29 08:51 | disposition home or self-care (01) ==
PROVIDERS: PCP Internal Medicine; Visit Provider Nurse Practitioner
DX: R53.83 Other fatigue (principal); R94.31 Abnormal electrocardiogram [ECG] [EKG]; R07.9 Chest pain, unspecified
CPT/HCPCS: 75574; 80048; Q9967

== ENCOUNTER 2024-02-03 13:55 | Outpatient (CLI) | payer MEDICARE, OTHER, SELFPAY ==
--- NOTE | 2024-02-03 14:03 | XR_ITS ---
FINAL REPORT CLINICAL HISTORY: Foot Pain. no trauma FINDINGS: Right foot Three views were obtained. There is no acute fracture or dislocation. There are mild degenerative changes of the 1st metatarsophalangeal joint. No soft tissue abnormality is identified. IMPRESSION: Mild degenerative changes as above. Reviewed, Interpreted and Dictated by Domingo Scott III, MD Transcribed by Demetria Figueroa Authenticated and [facility]
--- NOTE | 2024-02-03 14:03 | XR_ITS ---
FINAL REPORT CLINICAL HISTORY: Ankle Pain FINDINGS: Right ankle Three views were obtained. There is no acute fracture or dislocation. The joint spaces appear normal. No soft tissue abnormality is identified. IMPRESSION: No acute process. Reviewed, Interpreted and Dictated by Domingo Scott III, MD Transcribed by Demetria Figueroa Authenticated and [facility]
--- NOTE | 2024-02-03 14:03 | XR_ITS ---
FINAL REPORT CLINICAL HISTORY: Foot Pain, hx of old fx per patient FINDINGS: Left foot Three views were obtained. There is no acute fracture or dislocation. There are mild degenerative changes of the 1st metatarsophalangeal joint. Small calcaneal spurs are identified. No soft tissue abnormality is identified. IMPRESSION: Mild degenerative changes as above. Reviewed, Interpreted and Dictated by Domingo Scott III, MD Transcribed by Demetria Figueroa Authenticated and [facility]
--- NOTE | 2024-02-03 14:03 | XR_ITS ---
FINAL REPORT CLINICAL HISTORY: Ankle Pain, hx of old fx per patient FINDINGS: Left ankle Three views were obtained. There is no acute fracture or dislocation. The joint spaces appear normal. No soft tissue abnormality is identified. There are small calcaneal spurs. IMPRESSION: No acute process. Reviewed, Interpreted and Dictated by Domingo Scott III, MD Transcribed by Demetria Figueroa Authenticated and [facility]
== END 2024-02-03 23:59 | disposition home or self-care (01) ==
LOC: RAD 13:58
PROVIDERS: PCP Internal Medicine; Visit Provider Podiatrist
DX: M79.671 Pain in right foot (principal); M79.672 Pain in left foot; M19.072 Primary osteoarthritis, left ankle and foot; M81.0 Age-related osteoporosis without current pathological fracture; M72.2 Plantar fascial fibromatosis; I83.893 Varicose veins of bilateral lower extremities with other complications
CPT/HCPCS: 73610; 73630

== ENCOUNTER 2024-02-04 16:00 | Outpatient (CLI) | payer MEDICARE, OTHER, SELFPAY ==
[2024-02-04 17:42] LABS: Hemoglobin A1C 5.9 % (4.0-6.0)
[2024-02-04 19:21] LABS: Free T4 (Free Thyroxine) 0.68 ng/dl (0.78-2.19)
[2024-02-04 19:34] LABS: Thyroid Stimulating Hormone 8.17 uIU/mL (0.465-4.68)
[2024-02-04 19:54] LABS: Vitamin B12 327 pg/mL (239-931)
== END 2024-02-04 23:59 | disposition home or self-care (01) ==
LOC: LAB.DROPOF 02-05 12:51
PROVIDERS: PCP Internal Medicine; Visit Provider Internal Medicine
DX: R63.5 Abnormal weight gain (principal); R53.83 Other fatigue; R73.02 Impaired glucose tolerance (oral)
CPT/HCPCS: 82607; 83036; 84439; 84443

== ENCOUNTER 2024-04-05 12:20 | Outpatient (CLI) | payer MEDICARE, OTHER, SELFPAY ==
[2024-04-05 18:57] LABS: Alanine Aminotransferase 22 U/L (12-78); Albumin Level 4.7 g/dl (3.5-5.0); Albumin/Globulin Ratio 1.7 (1.1-1.8); Alkaline Phosphatase 102 U/L (38-126); Anion Gap 14.5 mEq/L (5-15); Aspartate Amino Transferase 27 U/L (14-36); Blood Urea Nitrogen 14 mg/dl (7-17); Calcium 9.5 mg/dl (8.4-10.2); Carbon Dioxide 26 mmol/L (22.0-30.0); Chloride 102 mmol/L (98-107); Chol/HDL Ratio 5.5 (1-3.5); Cholesterol 251 mg/dl (140-200); Estimated Glomerular Filt Rate 83 ml/min (>60); GFR (African American) 101 ML/MIN (>60); Globulin 2.8 g/dL (1.3-3.2); Glucose 86 mg/dl (74-100); HDL Cholesterol 46 mg/dl (40-60); Potassium 4.5 mmoL/L (3.5-5.1); Sodium 138 mmol/L (136-145); Total Protein,Serum 7.5 g/dl (6.3-8.2); Triglycerides 182 mg/dl (30-150); VLDL Cholesterol 36 mg/dL (0-40)
[2024-04-05 18:58] LABS: Hemoglobin A1C 5.8 % (4.0-6.0)
[2024-04-05 19:27] LABS: Thyroid Stimulating Hormone 1.68 uIU/mL (0.465-4.68)
== END 2024-04-05 23:59 | disposition home or self-care (01) ==
LOC: LAB.DROPOF 04-06 10:29
PROVIDERS: PCP Internal Medicine; Visit Provider Internal Medicine
DX: E03.9 Hypothyroidism, unspecified (principal); E78.5 Hyperlipidemia, unspecified; R73.02 Impaired glucose tolerance (oral); I10 Essential (primary) hypertension; E78.2 Mixed hyperlipidemia
CPT/HCPCS: 80053; 80061; 83036; 84443

== ENCOUNTER 2024-07-01 13:33 | Outpatient (CLI) | payer MEDICARE, SELFPAY ==
[2024-07-01 14:36] LABS: Albumin Level 4.6 g/dl (3.5-5.0); Chloride 105 mmol/L (98-107)
[2024-07-01 14:37] LABS: Potassium 4.2 mmoL/L (3.5-5.1); Sodium 138 mmol/L (136-145)
[2024-07-01 14:39] LABS: Alanine Aminotransferase 37 U/L (12-78); Albumin/Globulin Ratio 1.9 (1.1-1.8); Alkaline Phosphatase 95 U/L (38-126); Anion Gap 14.2 mEq/L (5-15); Aspartate Amino Transferase 35 U/L (14-36); Bilirubin,Total 0.8 mg/dl (0.2-1.3); Blood Urea Nitrogen 14 mg/dl (7-17); Calcium 9.6 mg/dl (8.4-10.2); Carbon Dioxide 23 mmol/L (22.0-30.0); Estimated Glomerular Filt Rate 83 ml/min (>60); GFR (African American) 101 ML/MIN (>60); Globulin 2.4 g/dL (1.3-3.2); Glucose 154 mg/dl (74-100); Iron 127 ug/dL (37-170)
[2024-07-01 14:49] LABS: Total Iron Binding Capacity 324 ug/dL (265-497)
[2024-07-01 14:56] LABS: 25-OH Vitamin D, Total 24.8 ng/mL (30-100)
[2024-07-01 15:02] LABS: Erythrocyte Sedimentation Rate 31 mm/hr (0-30)
[2024-07-01 15:04] LABS: Basophils # 0.1 K/mm3 (0-0.2); Basophils % 1.6 % (0.1-2.0); Eosinophils # 0.5 K/mm3 (0.0-0.4); Eosinophils % 6.9 % (0.1-12.0); Hematocrit 43.2 % (37.0-47.0); Hemoglobin 14.7 g/dL (12.2-16.2); Lymphocytes # 2.1 K/mm3 (0.7-4.5); Lymphocytes % 30.4 % (10-50); Mean Corpuscular Hemoglobin 29.9 pg (27.0-31.2); Mean Corpuscular Volume 87.8 fl (81-99); Mean Platelet Volume 10.2 fl (7.4-10.4); Monocytes # 0.6 K/mm3 (0.1-1.0); Monocytes % 9.4 % (1.7-9.3); Neutrophils # 3.5 K/mm3 (1.8-7.8); Neutrophils % 51.4 % (37.0-80.0); Platelet Count 325 K/mm3 (142-424); Red Blood Count 4.92 M/mm3 (4.20-5.40); Red Cell Distribution Width 12.4 % (11.5-17.5); White Blood Count 6.8 K/mm3 (4.8-10.8)
[2024-07-01 15:15] LABS: Ferritin 52.1 ng/ml (11.1-264)
[2024-07-01 16:21] LABS: Vitamin B12 355 pg/mL (239-931)
[2024-07-06 01:13] LABS: Calprotectin, Fecal 10 ug/g (0-120)
== END 2024-07-01 23:59 | disposition home or self-care (01) ==
LOC: LAB 13:34
PROVIDERS: PCP Internal Medicine; Visit Provider Nurse Practitioner Family
DX: K51.818 Other ulcerative colitis with other complication (principal); E55.9 Vitamin D deficiency, unspecified
CPT/HCPCS: 36415; 80053; 82306; 82607; 82728; 83540; 83550; 83993; 85025; 85651; 86140

== ENCOUNTER 2024-07-09 21:41 | Emergency (ER) | payer MEDICARE, SELFPAY ==
[2024-07-09 21:50] VITALS: BP 138/61; PULSE 62; RESP 18; TEMP 38.6; O2SAT 97; BMI 31.6
[2024-07-09 22:02] LABS: Coronavirus 19, PCR Not Detected (NotDetected); Influenza B, PCR Not Detected (NotDetected)
--- NOTE | 2024-07-09 22:04 | HMH.EDGENADL ---
Discharge Plan Disposition Patient Disposition: Home, Self-Care Condition: Fair Prescriptions Prescriptions: New oseltamivir [Tamiflu] 75 mg capsule 75 mg PO BID 5 Days Qty: 10 0RF promethazine 25 mg tablet 25 mg PO TID PRN (Reason: sedation) Qty: 14 0RF guaifenesin 400 mg tablet 400 mg PO TID PRN (Reason: congestion) Qty: 14 0RF No Action omega 4-wdt-lai-fish oil [Fish Oil] 1,000 (120-180) mg capsule 2 cap PO DAILY mupirocin 2 % ointment 1 applic topical BID 21 Days Qty: 22 1RF Rx Instructions: Apply to affected area up to twice daily pitavastatin calcium 2 mg tablet 2 mg PO QTUTH Patient Comments: TAKE 1 TABLET BY MOUTH 2 TIMES A WEEK escitalopram oxalate 5 mg tablet 5 mg PO DAILY Qty: 30 2RF Referrals Follow up/Referrals: Brandon Woods MD [Primary Care Provider] - See instructions Activity Restrictions/Add. Instructions Additional Instructions/Restrictions: You were diagnosed with influenza A. You have been prescribed Tamiflu and Phenergan. Take Tylenol every 6 hours for fever and pain. Ensure you are able to drink adequate amounts of fluid. If you are unable to tolerate fluids, please return for reevaluation. Clinical Impressions Clinical Impression: Influenza A Instructions Patient Instructions: DI for Influenza -- Adult Print Language Print Language: Slovenian Discharge ED Provider: Phoebe Martin General Adult HPI <Felicia Crooks APRN - Last Filed: 07/09/24 22:22> General Chief complaint: Nausea/Vomiting/Diarrhea Stated complaint: Fever 103,vomiting,weakness Time Seen by Provider: 07/09/24 22:45 Mode of Arrival: Ambulatory Source of Information: Patient Limitations: No Limitations Description of Symptoms (Recalled from ER Triage Doc. by RN): Patient presents reporting general illness today. Endorses N/V. Denies diarrhea. Endorses fever. Febrile in triage. Denies any known sick contacts. Endorses frequency. Related Data Home Medications ?Medication ?Instructions ?Recorded ?Confirmed omega 6-nra-omr-fish oil 1,000 mg 2 cap PO DAILY help with my 06/30/24 06/30/24 (120 mg-180 mg) capsule (Fish Oil) cholesterol pitavastatin calcium 2 mg tablet 2 mg PO QTUTH 06/30/24 06/30/24 Previous Rx's ?Medication ?Instructions ?Recorded escitalopram oxalate 5 mg tablet 5 mg PO DAILY #30 tabs 06/07/24 mupirocin 2 % topical ointment 1 applic topical BID cellulitis 3 06/30/24 weeks #22 grams guaifenesin 400 mg tablet 400 mg PO TID PRN congestion #14 07/09/24 tabs oseltamivir 75 mg capsule (Tamiflu) 75 mg PO BID 5 days #10 caps 07/09/24 promethazine 25 mg tablet 25 mg PO TID PRN sedation #14 tabs 07/09/24 Allergies Allergy/AdvReac Type Severity Reaction Status Date / Time metronidazole (From Flagyl) Allergy Mild Vomiting Verified 06/30/24 11:42 clindamycin (CLINDAMYCIN) Allergy Unknown Verified 06/30/24 11:42 diazepam (From VALIUM) Allergy Unknown Verified 06/30/24 11:42 Tetracyclines (TETRACYCLINES) Allergy Unknown Verified 06/30/24 11:42 verapamil AdvReac Mild Fatigued Verified 06/30/24 11:42 <Phoebe Martin MD - Last Filed: 07/09/24 23:19> History of Present Illness HPI narrative: Lyn Ayoub is a 69-year-old female presenting with nausea, vomiting and cough. Patient developed a fever today. Patient states she had visited a nursing facility and had been with her grandchildren yesterday but felt fine. Patient states she woke up today and began having nausea and vomiting and feeling poorly. Patient has a history significant for Crohn's disease. Patient has had no known sick contacts. [facility] <Felicia Crooks APRN - Last Filed: 07/09/24 22:22> [facility] Disclaimer: The information contained in this section may have been updated after the patient was seen, as this information can be updated by other users. Medical History V tach Fatigue Abnormal vaginal bleeding in postmenopausal patient Esophagitis Hiatal hernia Chest pain Vaginal odor Recurrent UTI Acid reflux disease Eosinophilia Allergic rhinitis Chronic cough Dyspnea Dyspnea Chest pain Family history of ischemic heart disease Abnormal ECG Syncope Dyspnea HLD (hyperlipidemia) HTN (hypertension) Chest pain Surgical History History of tubal ligation H/O: hysterectomy History of permanent cardiac pacemaker placement Hx of cholecystectomy Family History Other Cancer Heart attack Social History (Updated 06/30/24 @ 11:46 by NESSA Lockwood) Smoking Status: Never smoker second hand exposure: No alcohol intake: never substance use type: denies use current occupational status: retired Travel in the last 8 weeks: None housing: house current occupational exposures/hazards: No caffeine: No Have you lived/traveled outside [place] in past 30 days?: No Contact w/someone who lives/traveled outside US past 30 days?: No Exposure to someone with infectious disease in past 14 days?: No Do you have a fever (greater than 100.4 F or 38 C)?: Yes Have you tested positive for COVID-19: No Exposed to someone with COVID-19 in past 14 days?: No Do you have a sore throat?: No Do you have a cough?: No Do you have any weakness?: Yes Do you have any diarrhea?: No Are you experiencing any unusual bleeding?: No Do you have any muscle aches/pain?: No Do you have any abdominal pain?: No Are you experiencing loss of taste or smell?: No Other Medical History Have you received the Flu Vaccine for this season: No Have you received the Pneumonia Vaccine: No <Phoebe Martin MD - Last Filed: 07/09/24 23:19> ROS Obtained: Yes All systems reviewed & no additional complaints except as documented Physical Exam <Phoebe Martin MD - Last Filed: 07/09/24 23:19> General General appearance: alert and in no apparent distress ENT ENT exam: Present normal exam, normal oropharynx, mucous membranes moist and normal external ear exam Respiratory Respiratory exam: Present normal lung sounds bilaterally; Absent respiratory distress Cardiovascular Cardiovascular exam: Present regular rate and normal rhythm; Absent JVD Abdominal Exam Abdominal exam: Present soft and normal bowel sounds; Absent distention, tenderness or guarding Extremities Exam Extremities exam: Present normal inspection, full ROM and normal capillary refill; Absent calf tenderness Neurological Exam Neurological exam: Present alert and oriented X3 Skin Skin exam: Present warm, dry, intact and normal color Medical Decision Making <Felicia Crooks APRN - Last Filed: 07/09/24 22:22> Medical Records Screening: Per USPSTF and CDC recommendations, given the prevalence of disease in our region, it is our hospital?s policy to screen for HIV and viral Hepatitis for all patients aged 18 and over and those with ongoing risk factors. Vital Signs: 07/09/24 21:50 Temperature 101.4 F H Temperature Source Oral Pulse Rate [Radial] 62 Respiratory Rate 18 Blood Pressure [R Arm] 138/61 Blood Pressure Mean [R Arm] 86 Blood Pressure Source [R Arm] Automatic Cuff 02 Sat by Pulse Oximetry 97 Oxygen Delivery Method Room Air Lab Data Lab Results 07/09/24 21:56: SARS-CoV-2 (PCR) Not detected, Influenza A Untype (PCR) Detected A, Influenza Type B (PCR) Not detected Orders (Tests/Meds): ED MEDICATIONS Discontinued Medications Generic Name Dose Route Start Last Admin Trade Name Freq PRN Reason Stop Dose Admin Acetaminophen 1,000 mg 07/09/24 22:49 07/09/24 22:56 Acetaminophen 500mg Tab PO 07/09/24 22:50 1,000 mg ONCE ONE Administration Ibuprofen 800 mg 07/09/24 22:51 07/09/24 22:55 Ibuprofen 800 Mg Tablet PO 07/09/24 22:52 Not Given ONCE ONE Ondansetron HCl 4 mg 07/09/24 22:56 07/09/24 23:02 Ondansetron 4mg Odt SL 07/09/24 22:57 4 mg ONCE ONE Administration ORDERS Category Date Time Status Rapid PCR Covid and Flu A/B Stat Lab 07/09/24 21:56 Completed <Phoebe Martin MD - Last Filed: 07/09/24 23:19> Medical Records Medical records reviewed: Yes I reviewed the patient's medical records. Mitchell Inquiry Pt receiving controlled substance: No Mitchell was queried for this patient: No Vital Signs: 07/09/24 21:50 Temperature 101.4 F H Temperature Source Oral Pulse Rate [Radial] 62 Respiratory Rate 18 Blood Pressure [R Arm] 138/61 Blood Pressure Mean [R Arm] 86 Blood Pressure Source [R Arm] Automatic Cuff 02 Sat by Pulse Oximetry 97 Oxygen Delivery Method Room Air Lab Data Lab results reviewed: Yes I reviewed the patient's lab results. Lab Results 07/09/24 21:56: SARS-CoV-2 (PCR) Not detected, Influenza A Untype (PCR) Detected A, Influenza Type B (PCR) Not detected Orders (Tests/Meds): ED MEDICATIONS Discontinued Medications Generic Name Dose Route Start Last Admin Trade Name Tanvir PRN Reason Stop Dose Admin Acetaminophen 1,000 mg 07/09/24 22:49 07/09/24 22:56 Acetaminophen 500mg Tab PO 07/09/24 22:50 1,000 mg ONCE ONE Administration Ibuprofen 800 mg 07/09/24 22:51 07/09/24 22:55 Ibuprofen 800 Mg Tablet PO 07/09/24 22:52 Not Given ONCE ONE Ondansetron HCl 4 mg 07/09/24 22:56 07/09/24 23:02 Ondansetron 4mg Odt SL 07/09/24 22:57 4 mg ONCE ONE Administration ORDERS Category Date Time Status Rapid PCR Covid and Flu A/B Stat Lab 07/09/24 21:56 Completed Medical Decision Narrative: In summary, this is a 69-year-old female with a history of Crohn's disease presenting with nausea, vomiting, fever. Differential diagnosis includes but is not limited to, viral URI, gastroenteritis, pneumonia, sepsis, UTI, among others. Given patient's onset of symptoms to include nausea, vomiting and cough now associated with fever, viral upper respiratory infection is a leading diagnosis. At this time, laboratory evaluation is not indicated as patient has not had significant GI losses to warrant evaluation of electrolytes. Will perform respiratory swab. Respiratory swab significant for influenza A infection. Given patient's Crohn's disease we discussed treatment with Tamiflu since patient presented within 48 hours of symptom onset. Patient agreement with this plan. Patient also prescribed Phenergan after being treated with ODT Zofran in the emergency department. Patient was febrile on arrival and given Tylenol. Patient's fever had not decreased prior to discharge, however patient stable at this time. Patient given symptomatic treatment recommendations and follow-up recommendations. Patient discharged in stable condition after return precautions given. Phoebe Martin MD Critical Care <Phoebe Martin MD - Last Filed: 07/09/24 23:19> Critical Care Time Critical Care Time: No
[2024-07-09 22:26] LABS: Influenza A, PCR Detected (NotDetected)
[2024-07-09] MEDS: ACETAMINOPHEN 500MG TAB 1000 MG PO (22:56)
[2024-07-09] MEDS: ONDANSETRON 4MG ODT 4 MG SL (23:02)
[2024-07-09 23:16] VITALS: BP 130/57; PULSE 63; RESP 16; TEMP 38.9; O2SAT 95
--- NOTE | 2024-07-09 23:17 | PC.NURSE ---
Provider aware of discharge temp, pt treated with 1,000mg tylenol
== END 2024-07-09 23:21 | disposition home or self-care (01) ==
PROVIDERS: Emergency Provider Student in an Organized Health Care Education/Training Program; PCP Internal Medicine
DX: J10.1 Influenza due to other identified influenza virus with other respiratory manifestations (principal); R11.2 Nausea with vomiting, unspecified; R50.9 Fever, unspecified; R53.1 Weakness; R05.9 Cough, unspecified
CPT/HCPCS: 87636; 99283; Q0162

== ENCOUNTER 2024-07-22 07:50 | Outpatient (CLI) | payer MEDICARE, SELFPAY ==
--- NOTE | 2024-07-22 07:51 | FL_ITS ---
FINAL REPORT CLINICAL HISTORY: bloating/abdominal pain/hx of UC/crohns 2:01 fluoro DAP 3762.32 178.94 mGy FINDINGS: SMALL BOWEL FOLLOW THROUGH HISTORY: Acute diffuse abdominal pain, bloating, possible Crohn's disease. PROCEDURE: The patient ingested barium. Spot and overhead films were obtained. A total of 22 images were saved. FINDINGS: The tube sorter film demonstrates stool throughout the colon. The transit time to the colon is normal. Contrast reaches the colon at 45 minutes. The mucosal fold pattern is normal. Spot images of the terminal ileum are unremarkable. FLUOROSCOPY TIME: 2.01 minutes Fluoro dose: DAP in 3762.32 uGym2 IMPRESSION: Normal small bowel follow-through. Reviewed, Interpreted and Dictated by Tasha Rawls MD Transcribed by Barby Garcia PA-C Authenticated and [facility]
[2024-07-22] MEDS: BARIUM SULFATE(LIQUID E-Z-PAQUE);355ML BOTTLE 710 ML PO (09:05)
== END 2024-07-22 23:59 | disposition home or self-care (01) ==
LOC: RAD 07:51
PROVIDERS: PCP Internal Medicine; Visit Provider Nurse Practitioner Family
DX: K51.818 Other ulcerative colitis with other complication (principal); R10.13 Epigastric pain; R14.0 Abdominal distension (gaseous)
CPT/HCPCS: 74250

== ENCOUNTER 2024-12-12 07:43 | Outpatient (CLI) | payer MEDICARE, SELFPAY ==
--- OUTSIDE RECORDS SUMMARY | 2024-12-12 07:46 | XMS_ITS | Clinical Summary ---
Author Organization [facility] Address [address] [place] [address] Care Team Providers Care Building Components Designer Name Role Phone Unavailable Primary Care Provider Unavailabl e Social History Tobacco Use Types Packs/Day Years Used Date Smoking Tobacco: Never Assessed Comments Unknown Sex and Gender Information Value Date Recorded Sex Assigned at Not on file Legal Sex Female 7:35 PM EDT Gender Identity Not on file Sexual Orientation Not on file Plan of Treatment Health Maintenance Due Date Last Done Comments [facility]-Bone Density Scan 1956 [facility]-Depression Screening 1956 [facility]-Infant/Child/Adol SDOH Screenings 1956 [facility]- SDOH Screenings 1974 [facility]-Adult SDOH Screenings 1974 [facility]-DTaP,Tdap,and Td Vaccine s (1 - Tdap) 1975 CT Colonography 2001 Colonoscopy 2001 FIT-DNA 2001 FIT 2001 FOBT 2001 Sigmoidoscopy 2001 [facility]-Colorectal Cancer Screening 2001 [facility]-Pneumococcal Vaccine: 50 + Years (1 of 1 - PCV) 2006 [facility]-Zoster Vaccines (1 of 2) 2006 [id number] Vaccine (1 - 20 24-25 season) 2024 [facility]-Influenza Vaccine (#1) 2025 [facility]-RSV Vaccine: 60+ Years o r (1 - 1-dose 75+ series) 2031 HPV Vaccines Aged Out No longer eligi ble based on patient's age to complete this topic [facility]-HIB Vaccines Aged Out No longer e ligible based on patient's age to complete this topic [facility]-Hepatitis A Vaccines Aged Out No longer eligible based on patient's age to complete this topic [facility]-IPV Vaccines Aged Out No longer e ligible based on patient's age to complete this topic [facility]-Rotavirus Vaccines Aged Out No lo nger eligible based on patient's age to complete this topic Insurance MEDICARE [facility]
--- OUTSIDE RECORDS SUMMARY | 2024-12-12 07:46 | XMS_ITS | Clinical Summary ---
Author Organization [facility] Address [address] [place] [address] Phone Care Team Providers Care Ethanol Quality Leader Name Role Phone Brandon Woods MD Primary Care Provider [phone] Allergies Active Allergy Reactions Criticality Noted Date Comments Clindamycin 04/05/2013 Can cause diarrhea Naproxen 04/05/2013 Has ulcers Tetracycline 04/05/2013 Diazepam Other (See Comments) 04/05/2013 headache Medications naproxen (NAPROSYN) 375 mg tablet Take 1 Tab by mouth 2 times daily as needed for Pain for 12 doses. 12 Tab 0 04/05/2013 Active polyethylene glycol (GLYCOLAX) 17 gram/dose Oral Powder 09/10/2015 Active HYDROcodone-acet aminophen (NORCO) 5-325 mg Oral Tablet 09/10/2015 Active VITAMIN D 50,000 unit Oral Capsule 09/18/2015 Active omeprazole (PRILOSEC) 40 mg Oral Capsule, Delayed Release(E.C.) 08/29/2015 Activ e triamcinolone (KENALOG) 0.1 % Top Cream 07/14/2015 Active cyanocobalamin 1,000 mcg/mL Inj Solution 07/14/2015 Active Surgical History Surgery Date Site/Laterality Comments POLYPECTOMY HYSTERECTOMY CATARACT EXTRACTION EXTRACAP SULAR W/ INTRAOCULAR LENS IMPLANTATION 05/03/[address] Charis Andrews CATARACT EXTRACTION EXTRACAP SULAR W/ INTRAOCULAR LENS IMPLANTATION 05/09/[address] Charis Andrews Medical History Medical History Date Comments Ulcerative colitis (HCC) Social History Tobacco Use Types Packs/Day Years Used Date Smoking Tobacco: Never Smokeless Tobacco: Never Alcohol Use Standard Drinks/Week Comments No 0 (1 standard drink = 0.6 oz pur e alcohol) Comments No Sex and Gender Information Value Date Recorded Sex Assigned at Not on file Legal Sex Female 4:07 AM EDT Gender Identity Not on file Sexual Orientation Not on file Obstetrics History Last Filed Vital Signs Vital Sign Reading Time Taken Comments Blood Pressure 118/68 09/26/2015 6:30 PM EDT Pulse 75 09/26/2015 6:30 PM EDT Temperature 36.6 C (97.8 F) 09/26/2015 5:25 PM EDT Respiratory Rate 18 09/26/2015 6:30 PM EDT Oxygen Saturation 100% 09/26/2015 6:30 PM EDT Inhaled Oxygen Concentration - - Weight 61.2 kg (135 lb) 09/26/2015 5:25 PM EDT Height 163.8 cm (5' 4.5 ) 09/26/2015 5:25 PM EDT Body Mass Index 22.81 09/26/2015 5:25 PM EDT Plan of Treatment Health Maintenance Due Date Last Done Comments Annual Wellness Exam 1959 Hepatitis C Screening 1974 DTaP/TDaP/Td (1 - Tdap) 1975 Breast Cancer Screening 1996 Cologuard 2001 Colon Cancer Screening 2001 Colonoscopy 2001 FIT 2001 Sigmoidoscopy 2001 Virtual Colonography 2001 Pneumococcal Vaccine 50+ (1 of 1 - PCV) 2006 Zoster (1 of 2) 2006 Bone Density Screening 2021 COVID-19 Vaccine (1 - 2023-2 5 season) 2024 Influenza Vaccine (#1) 2025 Hepatitis B Vaccine Aged Out No longe r eligible based on patient's age to complete this topic Meningococcal B Vaccine Aged Out No l onger eligible based on patient's age to complete this topic Insurance [id number] [place] [address] [employer]IGNA MEDICARE SUPPLEMENT INS Care Teams Ethanol Quality Leader Relationship Specialty Start Date End Date Brandon Woods MD [address] [place] [address] [place] [id number] PCP - General Internal Medicine 09/26/15
--- OUTSIDE RECORDS SUMMARY | 2024-12-12 07:46 | XMS_ITS ---
Author Organization Unknown ENCOUNTERS Encounter Performer Location Date Diagnosis Diagnosis Status Emergency Phoebe Martin [facility] [address] [place] [address] [id number] TONJA Pre Admit Phoebe Martin [facility] [address] [place] [address] [id number] [facility] Ad[facility] [address] [place] [address] [id number] Emergency [address] [place] [address] [id number] TONJA Pre Admit Thompson [facility] [address] [place] [address] [id number] Emergency [address] [place] [address] [id number] TONJA Emergency Hal Garrett [facility] [address] [place] [address] [id number] TON[facility] Emergency Adiel Joseph [place] [id number] [place] [address] [id number] TONJA Outpatient [place] [id number] [facility] [facility] [place] [address] [id number] Inpatient [place] [id number] [facility] [address] [place] [address] [id number] TONJA Emergency [facility] [address] [place] [address] [id number] Outpatient Jonathan Bill [facility] [address] [place] [address] [id number] [facility] Emergency [place] [id number] [facility] [address] [place] [address] [id number] *Note: Encounters from your own facility or health system may be excluded. Allergies, Adverse Reactions, Alerts Allergen Type Severity Identification Date verapamil drug allergy 2 [id number] diazepam drug allergy 0 20190523 metronidazole drug allergy 2 [id number] clindamycin drug allergy 0 [id number] Tetracyclines drug allergy 0 20190523 Medications Name Date Quantity Days Supplied GPI Number
--- OUTSIDE RECORDS SUMMARY | 2024-12-12 07:46 | XMS_ITS | Data Portability ---
Author Organization [place] - [facility] Kyle Address [address] [place] [address] Care Team Providers Care Sales Executive Insurance Name Role Phone DACIA DOMINGUEZ Primary Care Provider [phone] PAT MAYBERRY Contact Lens Fitter [phone] Assessment No assessment recorded. Plan of Treatment Reminders Order Date Submit Date Provider Last Modified By Organization Details Last Modified Time Details Appointments None recorded. Lab C-reactive protein, quantitati ve, serum or plasma 2023 024 [facility] (Lab Registration) , [address] [place] [address] [place], [address], 4 11:54:14 calprotect in, stool 2023 024 [facility] (Lab Registration) , [address] [place] [address] [place], [address], 4 10:25:57 Referral None recorded. Procedures upper endoscopy procedure (EGD) (PROC) 2023 024 [facility] (Central Scheduling), [address] [place] [address] [place], [address], 4 10:18:09 colonoscop y procedure (PROC) [email or web address] [place] [address] (Central Scheduling), [address] [place] [address] [place], [address], 4 09:35:28 colonoscop y procedure (PROC) 2023 024 [email or web address] Iban Benitez MD, [address], [place], [address], 4 09:35:28 Surgeries None recorded. Imaging None recorded. Medication Orders famotidine 40 mg tablet 2023 024 [facility], [address] [place], [address], 4 10:32:51 Miralax 17 gram/dose oral powder [address] [facility], [address] [place], [address], 4 09:49:12 Dulcolax (bisacodyl ) 5 mg tablet,del ayed release [address] [facility], [address] [place], [address], 4 09:49:11 Patient TargetsNo targets recorded. Patient InstructionsNo instructions recorded. Reason for Referral None Reported. Results Created Date Observation Date Name Description Value Unit Range Abnormal Flag Note LastModifiedBy Organization Detail LastModifiedTime 12/18/19 24 12/18/2023 RFS-P ATHOL OGY SPECI MEN REQUE ST pathreq Patho logy [address] [place] [address] Phone or [phone] Fax Mohsen nugent Jr., M.D., Medic al Direc tor [facility] [address] : [place] [address] Phone Onesimo r: [phone] Favio magana M.D. PATHO LOGY MARY vega Name: RAOUL LYNNE Date of : 1955 Age/S ex: 68/F Accou nt Numbe r: [id number] Medic al Recor d Numbe r: [id number] Order ing MD: DARCY TALAMANTES RY Date Colle cted : 2023 Date Recei rox : 2023 Date Repor juan jose : 2023 Exam: Biops y Acces kita# : [id number] Labor atory #: [id number] Copie s To: ANGELICA MERRITT T Techn ician : Clini sherwin Histo ry Right sided abdom inal pain, ulcer ative colit is BodyS ite DUODE NUM, BIOPS Y Gross Descr iptio n Label ed duod enal biops y consi sts of multi ple piece s of orta soft tissu e measu ring 0.9 x 0.3 x 0.2 cm in aggre gate. Submi tted entir sahara in 1 block . BKO Micro scopi c Descr iptio n Tissu e block s are prepa red and slide s are exami aarsh micro scopi thang on all speci mens. See diagn osis for detai ls. Final Diagn osis DUODE NAL TYPE MUCOS A WITH NO SIGNI FICAN T HISTO PATHO LOGIC ABNOR MALIT IES NEGAT MARCIN FOR BRIGID C DISEA SE, METAP LASIA , MICRO ORGAN [place]MS [place] [address] BodyS ite ANTRU M, BIOPS Y Gross Descr iptio n Label ed antr um biops y consi sts of multi ple piece s of orta soft tissu e measu ring 1.3 x 0.3 x 0.2 [address] in aggre gate. Submi tted entir sahara 1 block . Legal ly authe ntica juan jose by MAGALI RIVAS RD, MD 12-17 14:43 :00 Final Diagn osis GASTR IC ANTRA L TYPE MUCOS A WITH REACT MARCIN (CHEM ICAL) GASTR OPATH Y NEGAT MARCIN H. PYLOR I, METAP LASIA [place] [address] BodyS ite ESOPH GORAN, BIOPS Y SubSi te DISTA L Gross Descr iptio n Label ed dist al esoph goran biops y consi sts of multi ple piece s of orta soft tissu e measu ring 1.0 x 0.3 x 0.2 [address] in aggre gate. Submi tted entir sahara in 1 block . Final Diagn osis REFLU X ESOPH AGITI S (0 EOSIN OPHIL S/HPF ) NEGAT MARCIN FOR INTES TINAL METAP LASIA , DYSPL TEVIN [place] [address] BodyS ite TERMI NAL ILEUM BIOPS Y Gross Descr iptio n Label ed term inal ileum biops y consi sts of 3 piece s of orta soft tissu e measu ring 0.8 x 0.3 x 0.2 [address] in aggre gate. Submi tted entir sahara 1 block . Final Diagn osis INTES TINAL MUCOS A WITHO UT PATHO LOGIC [place]TER [place] [address] BodyS ite RANDO M COLON BIOPS Y Gross Descr iptio n Legal ly authe ntica juan jose by MAGALI RIVAS RD, MD 12-17 14:43 :00 Label ed rand om colon biops y consi sts of multi ple piece s of orta soft tissu e measu ring 2.1 x 0.4 x 0.[address]. Speci men is filte red and submi tted entir sahara in 1 block . BKO Final Diagn osis COLON IC TYPE MUCOS A WITH NO SIGNI FICAN T HISTO PATHO LOGIC ABNOR MALIT IES NEGAT MARCIN FOR ARCHI TECTU RAL DISTO RTION , SIGNI FICAN T INFLA MMATI ON [place] [address] Legal ly authe ntica juan jose by MAGALI RIVAS RD, MD 12-17 14:43 :00 Not Available [facility] (Pre-Op Clinic) [address] [place] [address] [place], [address], 12/18/2023 15:06:41 12/02/19 24 12/02/2023 C-MARCEL CTIVE PROTE IN C-reactive protein, quant 1.00 mg/dL 0.05-0 .300 high Not Available [facility] (Lab Registration) [address], [place], [address], 12/02/2023 11:54:14 12/02/19 24 12/02/2023 C-MARCEL CTIVE PROTE IN note Unles s other aguila noted testi ng perfo rmed at: [facility] [address] [place] [address] [phone] Favio magana MD CLIA: [id number] Not Available [facility] (Lab Registration) [address] [place], [address], 12/02/2023 11:54:14 12/06/19 24 12/06/2023 CALPR OTECT IN, FECAL note Unles s other aguila noted testi ng perfo rmed at: [facility] [address] [place] [address] [phone] Favio magana MD CLIA: [id number] Not Available [facility] (Lab Registration) [address] [place], [address], 12/11/2023 18:11:32 12/06/19 24 12/11/2023 CALPR OTECT IN, FECAL calprotectin , fecal 226 ug/g 0-120 high Paula ntrat ion Inter preta tion Follo w-Up < 5 - 50 ug/g Mari l None >50 -120 ug/g Borde rline Re-ev aluat e in 4-6 weeks >120 ug/g Abnor mal Repea t as clini thang indic ated Perfo rmed at: [facility] [address] [facility] [place] [address] 7[address] Lab Direc tor: Genet reagan MD, Phone : [phone] Not Available [facility] (Lab Registration) [address] [place], [address], 12/11/2023 18:11:32 Result Notes None recorded. Problems Name Problem SNOMED Code Status Onset Date Resolution Date Notes Provider Name and Address Organization Details Recorded Time Right sided abdominal pain 241605292 Active 2023 Not Available [facility] 07/11/202 4 08:20:19 Ulcerative colitis 26799159 Active 2023 Pat Mayberry NP [address], [address], [place], [address] , [place] - [facility] - [place] & [place] 4 12:46:51 Gastro-esopha geal reflux disease with esophagitis 083583208 Active 2023 Pat Mayberry NP [address], [address], [place], [address] , [place] [facility] [place] & [place] 4 10:32:27 Problem Notes None recorded. Procedures Surgical History Date Name Laterality Status Provider Name and Address Organization Details Recorded Time 12/17/19 24 EGD/Endoscopy completed Marian Rodríguez [place] - [facility] - [place] & [place] 12/23/2023 10:50:35 12/17/19 24 Colonoscopy completed Marian Rodríguez [place] [facility] [place] 12/23/2023 10:50:44 03/26/20 23 Colonoscopy completed Marian Shaye [place] [facility] [place] & [place] 02/04/2024 13:20:14 04/04/20 02 Other completed Vale [place] [facility] [place] 12/02/2023 09:47:26 EGD completed Vale [place] [facility] [place] & [place] 12/02/2023 09:47:26 Pacemaker/Defibrill ator completed Vale Lyn [place] - [facility] [place] & [place] 12/02/2023 09:47:26 Cancer Surgery completed Vale [place] - [facility] [place] & [place] 12/02/2023 09:47:26 [place] Vale Lyn [place] [facility] & [place] 12/02/2023 09:47:26 Colonoscopy completed Vale Lyn [place] [facility] [place] 12/02/2023 09:47:26 Imaging Results None recorded. Procedure Notes None recorded. Medical Equipment None Reported. Allergies Allergen ID Allergen Name Allergen Category Reaction Reaction Severity Criticality Documentation Date Start Date Code Code System Note Provider Name and Address Organization Details Recorded Time 836855 tetracycl ine medicatio n diarrhea Not available Not available 12/02/2023 47279 RxNorm Vale Lyn null, DANIEL - [facility] & [place] 4 09:47:02 384134 clindamyc in Not available abdominal pain chest pain dizziness Not available Not available Not available Not available 12/02/2023 2582 RxNorm Vale [place] null, DANIEL - [facility] & [place] 4 09:47:02 176931 Valium medicatio n dizziness Not available Not available 12/02/2023 99015 2 RxNorm Vale [place] null, DANIEL - [facility] & [place] 4 09:47:02 Medications Name Sig Start Date Stop Date Status Note LastModified by Organization Details LastModified Time amoxicillin 500 mg capsule TAKE 3 CAPSULES BY MOUTH 2 TIMES A DAY FOR 10 DAYS 11/24 completed Not Available Not Available Not Available Miralax 17 gram/dose oral powder Take 17 g by oral route for 2 days. 01/31 completed Not Available Not Available Not Available potassium chloride ER 10 mEq capsule,ext ended release TAKE 1 CAPSULE BY MOUTH EVERY DAY NEEDED with Furosemid e 01/31 completed Not Available Not Available Not Available prednisone 10 mg tablet Take 4 tablets by mouth daily for 5 days, then 3 tabs daily for 2 days, then 2 tabs daily for 2 days, then 1 tab daily for 2 days, then stop 11/24 completed Not Available Not Available Not Available fluconazole 150 mg tablet take 1 tablet by mouth once then 1 tablet next day 11/24 completed Not Available Not Available Not Available hydrocodone 5 mg-acetamin ophen 325 mg tablet TAKE 1 OR 2 TABLETS BY MOUTH EVERY 4 TO 6 HOURS NEEDED 11/24 completed Not Available Not Available Not Available famotidine 40 mg tablet TAKE 1 TABLET BY MOUTH EVERY DAY active Not Available Not Available No t Available ciprofloxac in 250 mg tablet TAKE ONE TABLET BY MOUTH EVERY TWELVE HOURS FOR 3 DAYS -- FINISH ALL MEDICINE -- 11/24 completed Not Available Not Available Not Available levofloxaci n 250 mg tablet TAKE 1 TABLET BY MOUTH EVERY DAY FOR 3 DAYS 11/24 completed Not Available Not Available Not Available levothyroxi ne 50 mcg tablet TAKE 1 TABLET BY MOUTH EVERY DAY active Not Available Not Available No t Available esomeprazol e magnesium 40 mg capsule,del ayed release TAKE 1 CAPSULE BY MOUTH EVERY DAY 01/31 completed Not Available Not Available Not Available promethazin e 25 mg tablet TAKE 1/2 TO 1 TABLET BY MOUTH EVERY 6 HOURS NEEDED FOR NAUSEA AND VOMITING 11/24 completed Not Available Not Available Not Available codeine 10 mg-guaifene sin 100 mg/5 mL oral liquid TAKE 10 MLS BY MOUTH EVERY 4 HOURS NEEDED FOR COUGH 11/24 completed Not Available Not Available Not Available furosemide 20 mg tablet TAKE 1 TABLET BY MOUTH EVERY DAY NEEDED EDEMA 01/31 completed Not Available Not Available Not Available estradiol 0.01% (0.1 mg/gram) vaginal cream Apply 1 gram vaginally every night at bedtime for 14 days and then twice weekly active Not Available Not Available No t Available levofloxaci n 750 mg tablet TAKE 1 TABLET BY MOUTH EVERY 24 HOURS FOR 5 DAYS 11/24 completed Not Available Not Available Not Available methylpredn isolone 4 mg tablets in a dose pack TAKE 1 ROW OF TABLETS BY MOUTH EACH DAY INSTRUCTE D ON THE PACKAGE EVERY DAY 11/24 completed Not Available Not Available Not Available cefdinir 300 mg capsule TAKE 1 CAPSULE BY MOUTH 2 TIMES A DAY FOR 10 DAYS 11/24 completed Not Available Not Available Not Available Dulcolax (bisacodyl) 5 mg tablet,marti yed release Take 2 tablets by oral route for 1 day. 01/31 completed Not Available Not Available Not Available rosuvastati n 10 mg tablet TAKE 1 TABLET BY MOUTH EVERY DAY 01/31 completed Not Available Not Available Not Available nitrofurant oin monohydrate /macrocryst als 100 mg capsule TAKE 1 CAPSULE BY MOUTH 2 TIMES A DAY FOR 7 DAYS 11/24 completed Not Available Not Available Not Available GaviLyte-G 236 gram-22.74 gram-6.74 gram-5.86 gram oral solution USE DIRECTED FOR BOWEL PREPARATI ON 11/24 completed Not Available Not Available Not Available Vitals Date Recorded Body height Body weight Body mass index (BMI) Body temperature Oxygen saturation Oxygen saturation in Arterial blood by Pulse oximetry Heart rate Provider Name and Address Organization Details Last Updated DateTime 4 165.1 cm 51688.1 1 g 31.6 kg/m2 97.2 [degF] 97 % 97 % 83 /min Vale [place] 4 09:46:58 Date Recorded Body height Body mass index (BMI) Body weight Body temperature Oxygen saturation Oxygen saturation in Arterial blood by Pulse oximetry Heart rate Provider Name and Address Organization Details Last Updated DateTime 4 165.1 cm 32.3 kg/m2 92486.6 4 g 97 [degF] 96 % 96 % 76 /min Marian Shayered [place] & [place] 4 09:49:04 Social History Question Answer Notes LastModified by Dash Details LastModified Time Tobacco Smoking Status Never Smoker Vale frey, DANIEL RODRIGUEZ [facility] & [place] 12/02/2023 09:47:22 Do You Have An Advance Directive? Yes Information not available 12/02/2023 Are You Blind Or Do You Have Difficulty Seeing? No Information not available 12/02/2023 What Was The Date Of Your Most Recent Tobacco Screening? 02/01/2024 [email or web address] Information not available 02/04/2024 Are You Passively Exposed To Smoke? No Information not available 12/02/2023 How Much Tobacco Do You Smoke? No Information not available 12/02/2023 How Many Years Have You Smoked Tobacco? 0 Information not available 12/02/2023 Sex: Female Functional Status Question Answer Note LastModified by Dash Details LastModified Time Do you use any illicit or recreational drugs? No Information not available 12/02/2023 What is your level of alcohol consumption? None Information not available 12/02/2023 Do you or have you ever used smokeless tobacco? Never used smokeless tobacco Information not available 12/02/2023 What is your exercise level? Moderate Information not available 12/02/2023 Mental Status Question Answer Note LastModified by Organization D etails LastModified Time Do you feel stressed (tense, restless, nervous, or anxious, or unable to sleep at night)? [id number] Information not available 12/02/2023 Family History Relationship Description Onset Age of this Age Resolved Age Notes LastModified by Organization Details LastModified Time Father Chronic obstructive pulmonary disease 60 78 [email or web address] Not available 2023 09:47:06 Father Gastroesopha geal reflux disease 70 78 [email or web address] Not available 2023 09:47:06 Father Heart disease 55 78 [email or web address] Not available 2023 09:47:06 Father Malignant tumor of esophagus [email or web address] Not available 2023 09:45:20 Mother Malignant tumor of colon [email or web address] Not available 2023 09:45:20 Medical History Condition Response Autoimmune disease Y Osteoporosis/Osteopenia Y Obesity Y Other Y GI Problems Y High Cholesterol Y Gynecological History Statement/Question Response Sexually Active? N Obstetrics History GPAL:G 0 P 0 0 0 0 Past Encounters Encounter ID Performer Location Encounter Start Date Encounter Closed Date Diagnosis/Indication Diagnosis SNOMED-CT Code Diagnosis ICD10 Code Diagnosis Note [id number] Pat Mayberry NP [facility] [address] [place] [phone] 12/02/2023 09:33:17 12/02/2023 10:39:35 Colonoscopy planned 182459379 Z76.89 Right side d abdominal pain 514766696 R10.9 Four-month history right-side d abdominal pain comes and goes worse after eating without food triggers identified . CTA as well CT abdomen pelvis with contrast reviewed 10/2023 from [facility] noted cholecyste ctomy as well as small umbilical hernia and right inguinal hernia containing fat. Hiatal hernia with minimal thickening of the distal esophagus noted on CTA. Recommend comprehens marcin evaluation with EGD /colonosco py to further evaluate. She will need cardiac clearance from Dr. Lopez prior to procedures . Ulcerative colitis 55940 004 K51.90 Diagnosed with UC in 1977 not currently on medication for treatment. Last colonoscop y 03/[address] Lazo noted chronic active colitis with focal acute cryptitis and crypt disease noted on pathology from descending colon. She was previously treated with Lialda and Canasa however at some point was discontinu ed. Not currently on medication for treatment. Occasional episodes of diarrhea as well as right-side d abdominal pain. Denies hematochez ia. Recommend CRP and fecal calprotect in today to further evaluate. Recommend colonoscop y with random colon biopsies to further evaluate and determine treatment based on findings. [id number] Pat Mayberry NP [facility] [address] [place] [address] DR [place] DANIEL KEMP [phone] 02/04/2024 09:40:26 02/04/2024 13:24:31 Ulcerative colitis 16887871 K51.90 Diagnosed with UC in 1977 not currently on medication for treatment. Colonoscop y 11/2023 with mild erythema noted in the left colon, no overt colitis noted. Negative random colon biopsies. Prior colonoscop y 03/[address] Lazo noted chronic active colitis with focal acute cryptitis and crypt disease noted on pathology from descending colon. She was previously treated with Lialda and Canasa however at some point was discontinu ed. Not currently on medication for treatment. Denies abdominal pain, diarrhea or hematochez ia. Normal CRP from 12/02/2023 . Fecal calprotect in elevated at 226 from 12/06/2023 . We will continue to monitor at this time. Consider CT enterograp hy to evaluate for small bowel disease in the future based on symptoms as there was some concern in the past with possible Crohns. Gastro-eso phageal reflux disease with esophagitis 003103619 K21.00 Reflux esophagiti s noted on EGD, confirmed with pathology. Currently taking Tums for treatment of GERD with frequent uncontroll ed symptoms. She has been prescribed Nexium, Protonix and Prilosec in the past however was unable to tolerate medication . Recommend famotidine 40 mg p.o. daily for treatment as well as reflux precaution s and avoidance of known food triggers. History of Schatzkis ring [id number] 2922231 Z87.19 Schatzki's ring noted on EGD 12/17/2023 . Esophageal dilatation performed up to 20 mm using dilating balloon with resolution of symptoms. Health Concerns Section Related Observation LastModified by Organization Detai ls LastModified Time None Recorded Concern Status LastModified by Organization Details LastModified Time None Recorded Advance Directives Directive Y: Payers Insurance Date Sequence Insurance Name Policy Number Policy Guajardo Covered Member ID Guajardo Member ID Guarantor Name 03/05/2024 2 [employer] - [employer] (MEDICARE SUPPLEMENT) Lyn Ayoub [id number] Lyn Ayoub 02/04/2024 2 [employer] Lyn Ayoub [id number] Lyn Ayoub 02/01/2024 1 MED[place]ARE-[place]ICARE[place] Lyn Ayoub [id number] Lyn Ayoub Notes Date Note Type Note Provider Name and Address Organization Details Recorded Time 12/02/2023 text/html 68-year-old fema mohinder with a past medical history 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 Patient presents to clinic today to establish care. Previously followed with Dr. Lazo. Diagnosed with UC in 1977 not currently on medication for treatment. Last colonoscopy 03/[address] Lazo noted chronic active colitis with focal acute cryptitis and crypt disease noted on pathology from descending colon. She was previously treated with Lialda and Canasa however at some point was discontinued. EGD 12/[address] Lazo noted bile reflux negative H pylori as well as reflux esophagitis. She has not currently on medication for treatment of GERD. She reports daily bowel movements with occasional episodes of diarrhea. Denies recent hematochezia. She has been experiencing significant right-sided abdominal pain for the past 4 months. Pain comes and goes, worse after eating without specific food triggers identified. CTA completed [facility] from 10/31/23 noted hiatal hernia with minimal thickening of the distal esophagus. CT abdomen pelvis with contrast completed 11/05/2023 at [facility] notice small umbilical hernia and right inguinal hernia containing fat as well as changes consistent with cholecystectomy otherwise negative. Patient's mother with history colon cancer. Patient's father with history esophageal cancer. Pat Mayberry NP [address] [place] [address], [address], [place], [address], [place] - [place] - [place] & [place] 12/02/2023 12:56:08 02/04/2024 text/html patient returns to clinic today for follow-up post upper and lower endoscopy completed 12/17/23. EGD with Schatzki's ring with evidence of reflux esophagitis noted. Esophageal dilatation performed up to 20 mm using dilating balloon. Pathology noted reactive gastropathy as well as reflux esophagitis. Negative H pylori or celiac. Symptoms of dysphagia have resolved at this time. Currently taking Tums for treatment of GERD. She has been prescribed Nexium, Protonix and Prilosec in the past however has not tolerated medications. Colonoscopy with mild erythema noted in the left colon, negative for overt colitis. Negative random colon biopsies. Currently reports regular daily bowel movements without hematochezia or abdominal pain. Prior colonoscopy completed by Dr. Lazo 03/26/2023 noted chronic active colitis with focal acute cryptitis and crypt disease noted on pathology from descending colon. She was previously treated with Lialda and Canasa however at some point was discontinued. Patient's mother with history colon cancer. Patient's father with history esophageal cancer. Pat Mayberry NP [address] [place] [address], [address], [place], [address], [facility] [place] & [place] 02/04/2024 13:12:11 OBGyn Episode No OBEpisode recorded.
--- NOTE | 2024-12-12 08:00 | MM_ITS ---
PROCEDURE INFORMATION: Exam: MG Bilateral Screening 3D Mammography Exam date and time: 12/12/2024 8:04 AM Age: 69 years old Clinical indication: Screening examination. TECHNIQUE: Imaging protocol: Bilateral Screening tomosynthesis and 2D mammography including computer-aided detection (CAD) when performed. COMPARISON: 1. MG MM DIG SCREENING MAMM BI W/CAD 10/23/2023 8:03 AM 2. MG MM DIG SCREENING MAMM BI W/CAD 10/21/2022 8:05 AM FINDINGS: MAMMOGRAPHY: Breast composition: There are scattered areas of fibroglandular density. Mass: None. Architectural distortion: None. Calcifications: No suspicious calcifications. Asymmetric density: None. Skin thickening: None. Axillary adenopathy: None. Other findings: A power pack overlies the left chest. IMPRESSION: No mammographic evidence of malignancy. Annual screening is recommended unless otherwise clinically indicated. ASSESSMENT: BI-RADS Category 1: Negative.
[2024-12-12 11:51] LABS: Hematocrit 45.9 % (37.0-47.0); Hemoglobin 14.7 g/dL (12.2-16.2); Immature Granulocytes % 0.3 %; Mean Corpuscular HGB Conc 32.0 g/dL (31.8-35.4); Mean Corpuscular Hemoglobin 29.2 pg (27.0-31.2); Mean Corpuscular Volume 91.3 fl (81-99); Nucleated Red Blood Cells % 0 %; Platelet Count 257 K/mm3 (142-424); Red Blood Count 5.03 M/mm3 (4.20-5.40); Red Cell Distribution Width-SD 41.1 fL; White Blood Count 6.5 K/mm3 (4.8-10.8)
[2024-12-12 12:13] LABS: Alanine Aminotransferase 16 U/L (12-78); Albumin Level 4.5 g/dl (3.5-5.0); Alkaline Phosphatase 94 U/L (38-126); Anion Gap 10.6 mEq/L (5-15); Aspartate Amino Transferase 26 U/L (14-36); Bilirubin,Direct 0.4 mg/dl (0.0-0.4); Bilirubin,Indirect 0.7 mg/dL (0.0-0.9); Bilirubin,Total 1.1 mg/dl (0.2-1.3); Bilirubin,Unconjugated 0.8 mg/dL (0.0-1.1); Blood Urea Nitrogen 15 mg/dl (7-17); Calcium 9.5 mg/dl (8.4-10.2); Carbon Dioxide 27 mmol/L (22.0-30.0); Chloride 105 mmol/L (98-107); Cholesterol 247 mg/dl (140-200); Creatinine,Serum 0.70 mg/dl (0.52-1.04); Estimated Glomerular Filt Rate 83 ml/min (>60); GFR (African American) 101 ML/MIN (>60); Glucose 101 mg/dl (74-100); HDL Cholesterol 38 mg/dl (40-60); Magnesium 1.9 mg/dl (1.6-2.3); Potassium 4.6 mmoL/L (3.5-5.1); Sodium 138 mmol/L (136-145); Total Protein,Serum 7.1 g/dl (6.3-8.2); Triglycerides 151 mg/dl (30-150)
[2024-12-12 12:31] LABS: Free T4 (Free Thyroxine) 1.07 ng/dl (0.78-2.19)
[2024-12-12 12:46] LABS: Thyroid Stimulating Hormone 3.57 uIU/mL (0.465-4.68)
[2024-12-12 12:48] LABS: Hemoglobin A1C 6.7 % (4.0-6.0)
== END 2024-12-12 23:59 | disposition home or self-care (01) ==
PROVIDERS: Nurse Practitioner; PCP Internal Medicine; Visit Provider Obstetrics & Gynecology
DX: Z12.31 Encounter for screening mammogram for malignant neoplasm of breast (principal); R92.323 Mammographic fibroglandular density, bilateral breasts; I10 Essential (primary) hypertension; R53.83 Other fatigue; E66.811 Obesity, class 1; R73.02 Impaired glucose tolerance (oral); Z86.79 Personal history of other diseases of the circulatory system
CPT/HCPCS: 36415; 77063; 77067; 80048; 80061; 80076; 83036; 83735; 84439; 84443; 85025

== ENCOUNTER 2025-01-26 13:55 | Outpatient (CLI) | payer MEDICARE, SELFPAY ==
[2025-01-26 14:08] LABS: Adenovirus F 40/41, stool Not Detected (NotDetected); Clostridium Difficile A/B, PCR Not Detected (NotDetected); Cyclospora Cayetanesis Not Detected (NotDetected); Plesimonas Shigalloides, PCR Not Detected (NotDetected); Salmonella, PCR Not Detected (NotDetected); Shiga-like toxin E coli Not Detected (NotDetected); Shigella Enterovasive E coli Not Detected (NotDetected); Vibrio, PCR Not Detected (NotDetected); Yersinia Entercolitica, PCR Not Detected (NotDetected)
== END 2025-01-26 23:59 | disposition home or self-care (01) ==
LOC: LAB 13:56
PROVIDERS: PCP Internal Medicine; Visit Provider Nurse Practitioner Family
DX: K92.1 Melena (principal); K51.818 Other ulcerative colitis with other complication
CPT/HCPCS: 83993; 87506

== ENCOUNTER 2025-02-01 07:52 | Outpatient (CLI) | payer MEDICARE, SELFPAY ==
--- OUTSIDE RECORDS SUMMARY | 2025-02-01 07:55 | XMS_ITS ---
Author Organization Unknown ENCOUNTERS Encounter Performer Location Date Diagnosis Diagnosis Status Emergency Phoebe Martin [facility] [address] [facility] [address] [place] [address] [id number] TONJA Pre Admit Phoebe Martin [facility] [address] [facility] [address] [place] [address] [id number] [facility] Ad[facility] [address] [facility] [address] [place] [address] [id number] Emergency [address] [place] [address] [id number] TONJA Pre Admit [facility] [address] [facility] [address] [place] [address] [id number] Emergency [address] [place] [address] [id number] TONJA Emergency Hal Garrett [facility] [address] [facility] [address] [place] [address] [id number] TONJA Emergency Adiel Joseph [place] [id number] [facility] [address] [place] [address] [id number] TONJA Outpatient [place] [id number] [facility] [address] [place] [address] [id number] Inpatient [place] [id number] [facility] [address] [place] [address] [id number] TONJA Emergency [facility] [address] [facility] [address] [place] [address] [id number] Outpatient Jonathan Bill [facility] [address] [facility] [address] [place] [address] [id number] TONJA Emergency [place] [id number] [facility] [address] [place] [address] [id number] *Note: Encounters from your own facility or health system may be excluded. Allergies, Adverse Reactions, Alerts Allergen Type Severity Identification Date verapamil drug allergy 2 [id number] diazepam drug allergy 0 [id number] metronidazole drug allergy 2 [id number] clindamycin drug allergy 0 [id number] Tetracyclines drug allergy 0 20190523 Medications Name Date Quantity Days Supplied GPI Number
--- OUTSIDE RECORDS SUMMARY | 2025-02-01 07:55 | XMS_ITS | Clinical Summary ---
Author Organization [facility] Address [address] [place] [address] Care Team Providers Care Wiring Inspector Name Role Phone Unavailable Primary Care Provider [...] 2006 UKY-Zoster Vaccines (1 of 2) 2006 [id number] Vaccine (1 - 20 24-25 season) 2025 UKY-Influenza Vaccine (#1) 2025 UKY-RSV Vaccine: 60+ [...] age to complete this topic Insurance MEDICARE [facility]
--- OUTSIDE RECORDS SUMMARY | 2025-02-01 07:55 | XMS_ITS | Clinical Summary ---
Author Organization [facility] Address [address] [place] [address] Phone Care Team Providers Care Orthotist Prosthetist Name Role Phone Brandon Woods MD Primary Care Provider [phone] Allergies Active Allergy Reactions Criticality Noted Date [...] COVID-19 Vaccine (1 - 2023-2 5 season) 2025 Influenza Vaccine (#1) 2025 Hepatitis B Vaccine Aged Out No longe r eligible based on patient's age to complete this topic Meningococcal B Vaccine Aged Out No l onger eligible based on patient's age to complete this topic Insurance [employer] [place] [address] CIGNA MEDICARE SUPPLEMENT INS Care Teams Orthotist Prosthetist Relationship Specialty Start Date End Date Brandon Woods MD [address] [place] [address] [place] [id number] PCP - General Internal Medicine 09/26/15
[2025-02-01 08:18] LABS: Blood Urea Nitrogen 14 mg/dl (7-17); Creatinine,Serum 0.70 mg/dl (0.52-1.04); Estimated Glomerular Filt Rate 83 ml/min (>60); GFR (African American) 101 ML/MIN (>60)
--- NOTE | 2025-02-01 08:45 | CT_ITS ---
FINAL REPORT TECHNIQUE: Thin section axial images are obtained through the abdomen and pelvis after intravenous contrast. Reconstruction images were obtained from the axial data. Exam was performed using dose reduction techniques. CLINICAL HISTORY: History of UC/blood in stool/RUQ and RLQ pain COMPARISON: 11/05/2023 FINDINGS: LUNG BASES: Lung bases are clear. Heart size is normal. LIVER: Fatty infiltrated. No focal lesion. GALLBLADDER/BILIARY SYSTEM: Gallbladder is absent. No biliary dilatation. SPLEEN: Unremarkable. PANCREAS: Unremarkable. ADRENALS: Unremarkable. KIDNEYS/URETERS/BLADDER: There are bilateral parapelvic renal cysts. No hydronephrosis, solid renal mass, or renal stone. Unremarkable urinary bladder. GI TRACT: There is a small hiatal hernia. No small bowel obstruction is seen. There are fluid-filled small bowel loops which are nonspecific. Appendix is not visualized. There is colonic wall thickening involving the proximal colon, descending colon and rectosigmoid colon. Findings are favored to be related to colitis which may be infectious or inflammatory. PELVIC ORGANS: Uterus is absent. LYMPH NODES/RETROPERITONEUM/MESENTERY: There are a few, mildly enlarged mesenteric lymph nodes and mildly enlarged retroperitoneal lymph nodes, favor reactive. No abdominal aortic aneurysm. ABDOMINAL WALL: The abdominal wall is intact. FREE FLUID: No ascites. BONES: No acute osseous abnormality. IMPRESSION: Areas of colonic wall thickening most consistent with colitis which may be infectious or inflammatory. Nonspecific, fluid-filled small bowel loops. Scattered, mildly prominent lymph nodes, favor reactive. Reviewed, Interpreted and Dictated by Marifer Boykin MD Transcribed by Nimco Elizabeth Authenticated and . [facility]
[2025-02-01] MEDS: IOPAMIDOL-370 (76%);100ML BOTTLE 75 ML IV (09:06)
[2025-02-01] MEDS: SODIUM CHLORIDE 0.9% 10ML SYR (RAD ONLY) 10 ML IV (09:06)
== END 2025-02-01 23:59 | disposition home or self-care (01) ==
LOC: RAD 07:53
PROVIDERS: PCP Internal Medicine; Visit Provider Nurse Practitioner Family
DX: K51.90 Ulcerative colitis, unspecified, without complications (principal); K92.1 Melena; R93.3 Abnormal findings on diagnostic imaging of other parts of digestive tract; R59.0 Localized enlarged lymph nodes; R14.0 Abdominal distension (gaseous)
CPT/HCPCS: 36415; 74177; 82565; 84520; Q9967

== ENCOUNTER 2025-03-13 12:59 | Day surgery (SDC) | payer MEDICARE, SELFPAY ==
[2025-03-10 09:55] VITALS: BMI 30.6
--- NOTE | 2025-03-12 12:52 | P.HP_ITS ---
History of Present Illness *Admission Date: 03/13/25 *History of present illness: Mrs. Ayoub is a 69-year-old female who is here for diagnostic colonoscopy. The patient has had an increase in diarrhea and was recently seen in the office by Celeste MENDOZA on January 25, 2025. The patient does have a history of Crohn's disease. Her colonoscopy in March 2023 showed chronic active colitis with focal crypt abscess on biopsies. She was previously on Lialda and Canasa but eventually stopped treatment. She was seen by Dr. Iban Benitez at [facility] and had an endoscopy in November. He did find mild erythema in the left colon but no evidence of colitis on biopsies. She was improved at that time. She did have a small bowel follow-through that showed some retained stool throughout the colon. Her recent fecal calprotectin after her office visit last month spiked up to 3500. The examination is deemed medically necessary for diagnostic colonoscopy. The patient has been seen, interviewed and examined prior to the procedure by both myself and the anesthesia provider. [facility] Disclaimer: The information contained in this section may have been updated after the patient was seen, as this information can be updated by other users. Medical History Ulcerative colitis V tach Fatigue Abnormal vaginal bleeding in postmenopausal patient Esophagitis Hiatal hernia Chest pain Vaginal odor Recurrent UTI Acid reflux disease Eosinophilia Allergic rhinitis Chronic cough Dyspnea Dyspnea Chest pain Family history of ischemic heart disease Abnormal ECG Syncope Dyspnea HLD (hyperlipidemia) HTN (hypertension) Chest pain Surgical History History of tubal ligation H/O: hysterectomy History of permanent cardiac pacemaker placement Hx of cholecystectomy Family History Other Cancer Heart attack Social History Smoking Status: Never smoker second hand exposure: No alcohol intake: never substance use type: denies use current occupational status: retired Travel in the last 8 weeks?: None housing: house current occupational exposures/hazards: No caffeine: Yes Have you lived/traveled outside US in past 30 days?: No Contact w/someone who lives/traveled outside US past 30 days?: No Exposure to someone with infectious disease in past 14 days?: No Do you have a fever (greater than 100.4 F or 38 C)?: No Have you tested positive for COVID-19?: No Exposed to someone with COVID-19 in past 14 days?: No Do you have a sore throat?: No Do you have a cough?: No Do you have any weakness?: No Are you experiencing any nausea/vomitting?: No Do you have any diarrhea?: No Are you experiencing any unusual bleeding?: No Do you have any muscle aches/pain?: No Do you have any abdominal pain?: No Are you experiencing loss of taste or smell?: No Other Medical History Have you received the Flu Vaccine for this season: No Have you received the Pneumonia Vaccine: No Review of Systems Review of Systems Review of systems (narrative): Negative *Cardiovascular Comments: Negative *Gastrointestinal Comments: Negative *Genitourinary Comments: Negative *Musculoskeletal Comments: Negative *Neurologic Comments: Negative Meds Home Medications and Allergies Home Medications ?Medication ?Instructions ?Recorded ?Confirmed ?Type sodium,potassium,mag sulfates 17.5 See Rx Instructions PO .COMPLEX 02/27/25 03/10/25 Rx gram-3.13 gram-1.6 gram oral soln #354 mL (Suprep Bowel Prep Kit) New Prescriptions to Start Prescriptions: Allergies Allergy/AdvReac Type Severity Reaction Status Date / Time metronidazole (From Flagyl) Allergy Mild Vomiting Verified 03/13/25 13:28 clindamycin (CLINDAMYCIN) Allergy Unknown Other Verified 03/13/25 13:28 diazepam (From VALIUM) Allergy Unknown Headache Verified 03/13/25 13:28 Tetracyclines (TETRACYCLINES) Allergy Unknown Vomiting Verified 03/13/25 13:28 verapamil AdvReac Mild Fatigued Verified 03/13/25 13:28 Exam Data for Last 24 hours I & O for Last 24 hours: Intake & Output 03/09/25 03/10/25 03/11/25 03/12/25 23:59 23:59 23:59 23:59 Weight 184 lb *Routine HEENT Exam Head: Present normocephalic Eye: Present EOMI and PERRL ENT: Present mucous membranes moist *Routine Neck Exam Neck: Present supple *Routine Respiratory Exam Respiratory: Present CTA bilaterally *Routine Cardiovascular Exam Cardiovascular: Present RRR *Routine Abdominal Exam Abdominal: Present soft and normoactive bowel sounds; Absent tenderness *Routine Rectal Exam Rectal:: deferred *Routine Genitalia Exam Genitalia:: deferred *Routine Extremities Exam Extremities: Absent cyanosis, clubbing or edema *Routine Skin Exam Skin: Present warm; Absent rash *Routine Neurological Exam Neurological: Present alert and oriented X3 Assessment and Plan *Assessment and plan (1) Blood in stool: Status: Acute Category: Medical Code(s): K92.1 - Melena (2) Abdominal pain: Status: Acute Category: Medical Code(s): R10.9 - Unspecified abdominal pain (3) History of Crohn's disease: Status: Acute Category: Medical Code(s): Z87.19 - Personal history of other diseases of the digestive system (4) High fecal calprotectin: Status: Acute Category: Medical Code(s): R19.5 - Other fecal abnormalities Plan A/P: 1. History of Crohn's disease with recent new onset of diarrhea, abdominal pain and blood in stool is the preprocedural diagnosis. The patient also had a very high fecal calprotectin (greater than 3500). The patient will be anesthetized/sedated using MAC sedation. The patient has been seen and examined. Cardiac and lung assessment prior to the examination is stable. Proceed with planned diagnostic colonoscopy.
--- NOTE | 2025-03-13 06:47 | P.PCN_ITS ---
[facility] Procedure Note Date: 03/13/25 Time: 14:45 Procedure Note:: Colonoscopy Procedure Report: Colonoscopy with cold biopsies Endoscopist: Davie Lazo II, MD Referring physician: Brandon Woods MD Date of Procedure: March 13, 2025 Equipment: Olympus [id number] adult colonoscope Sedation: MAC sedation Indication: Mrs. Ayoub is a 69-year-old female who is here for diagnostic colonoscopy. The patient has had an increase in diarrhea and was recently seen in the office by Celeste MENDOZA on January 25, 2025. The patient does have a history of Crohn's disease. Her colonoscopy in March 2023 showed chronic active colitis with focal crypt abscess on biopsies. She was previously on Lialda and Canasa but eventually stopped treatment. She was seen by Dr. Iban Benitez at [facility] and had panendoscopy in November. Dr. Benitez did find mild erythema in the left colon but no evidence of colitis on biopsies. She was improved at that time. She did have a small bowel follow-through that showed some retained stool throughout the colon. The patient does report more recent diarrhea and abdominal pain. She has also had some blood and mucus with her bowel movements. Her recent fecal calprotectin after her office visit last month spiked up to 3500. The patient did have improvement with prednisone but then had some relapse after tapering off. The examination is deemed medically necessary for diagnostic colonoscopy. Procedure: Prior to the procedure, a history and physical exam was performed, and patient's medications and allergies were reviewed. The risks, benefits and alternatives of the sedation and procedure were discussed with the patient. All questions were answered and informed consent was obtained. The patient was brought to the procedure room. Patient identification and proposed procedure were verified by the physician and the nurse. The patient was placed in a left lateral decubitus position and the scope was passed under direct vision. Throughout the procedure, the patient's blood pressure, pulse, and oxygen saturations were monitored continuously. The colonoscopy was accomplished without difficulty. The patient tolerated the procedure well. Findings: On digital rectal examination there was normal rectal tone. There were no external hemorrhoids. The colonoscope was introduced through the anal canal to the rectum and advanced to the cecum. The ileocecal valve and appendiceal orifice were identified. The scope was advanced a short distance into the ileum which appeared grossly normal. The scope was then withdrawn into the colon. There was regional patchy mucosal erythema, edema and granularity throughout the ascending, transverse, descending and sigmoid colon with skip areas. This was consistent with regional Crohn's colitis and multiple biopsies were obtained. There was sparing of the rectum. Upon retroflexion within the rectum there were grade 1-2 internal hemorrhoids. The preparation was excellent throughout with [place] Preparation Score of 9. The cecal time was 10 minutes. Impression: 1. Mild to moderate regional colitis consistent with Crohn's colitis with sparing of the rectum and terminal ileum Plan: I will follow-up the biopsies. I do feel that mesalamine is suboptimal in m aintaining remission. I would consider oral budesonide with a step up approach to Tremfya. I would also recommend neuromodulator treatment because of her severe abdominal pain.
[2025-03-13 13:24] VITALS: BP 144/66; PULSE 77; RESP 18; TEMP 36.3; O2SAT 95
[2025-03-13] MEDS: LACTATED RINGERS 1000ML 1,000 ML 50 ML IV (13:38)
--- NOTE | 2025-03-13 13:46 | P.PNANES_ITS ---
[facility] Disclaimer: The information contained in this section may have been updated after the patient was seen, as this information can be updated by other users. Medical History Ulcerative colitis V tach Fatigue Abnormal vaginal bleeding in postmenopausal patient Esophagitis Hiatal hernia Chest pain Vaginal odor Recurrent UTI Acid reflux disease Eosinophilia Allergic rhinitis Chronic cough Dyspnea Dyspnea Chest pain Family history of ischemic heart disease Abnormal ECG Syncope Dyspnea HLD (hyperlipidemia) HTN (hypertension) Chest pain Surgical History History of tubal ligation H/O: hysterectomy History of permanent cardiac pacemaker placement Hx of cholecystectomy Family History Other Cancer Heart attack Social History Smoking Status: Never smoker second hand exposure: No alcohol intake: never substance use type: denies use current occupational status: retired Travel in the last 8 weeks?: None housing: house current occupational exposures/hazards: No caffeine: Yes Have you lived/traveled outside US in past 30 days?: No Contact w/someone who lives/traveled outside US past 30 days?: No Exposure to someone with infectious disease in past 14 days?: No Do you have a fever (greater than 100.4 F or 38 C)?: No Have you tested positive for COVID-19?: No Exposed to someone with COVID-19 in past 14 days?: No Do you have a sore throat?: No Do you have a cough?: No Do you have any weakness?: No Are you experiencing any nausea/vomitting?: No Do you have any diarrhea?: No Are you experiencing any unusual bleeding?: No Do you have any muscle aches/pain?: No Do you have any abdominal pain?: No Are you experiencing loss of taste or smell?: No [facility] Anesthesia Checklist Patient Identification Patient Identification: Arm Band and Verbal (Name & ) Structural Data Admitted From: Home Planned Operative Procedure/s: colonscopy Consent for Planned Operative Procedure(s) Verified: Yes Verified Documents: Surgical Consent and History and Physical NPO Status Verified Time NPO: 00:00 Additional verifications Anesthesia Reactions: Yes (fentynal-vomiting) Hx Blood Transfusions: No Blood Transfusion Reaction: No Previous Colonoscopy: Yes Airway Assessment Mallampati Score:: Class II Dentition: Partials Neurological Assessment Level of Consciousness: Awake, Alert and Appropriate Hx Seizures: No Numbness or tingling in extremities: No Anesthesia Plan Anesthesia Risk discussed: Yes Anesthesia Plan: Verified ASA Class: II Anesthesia Type: MAC
[2025-03-13 14:48] VITALS: BP 115/50; PULSE 93; RESP 18; TEMP 36.1; O2SAT 99
[2025-03-13 14:58] VITALS: BP 123/68; PULSE 89; TEMP 36.1; O2SAT 99
[2025-03-13 15:08] VITALS: BP 127/57; PULSE 81; O2SAT 99
[2025-03-13 15:18] VITALS: BP 120/67; PULSE 80; O2SAT 100
== END 2025-03-13 15:18 | disposition home or self-care (01) ==
PROVIDERS: PCP Internal Medicine; Visit Provider Internal Medicine Gastroenterology
PROC: 0DJD8ZZ Inspection of Lower Intestinal Tract, Via Natural or Artificial Opening Endoscopic (ICD-10-PCS; CPT 45378; principal; 2025-03-13 15:00)
DX: K50.119 Crohn's disease of large intestine with unspecified complications (principal); K92.1 Melena; K52.89 Other specified noninfective gastroenteritis and colitis; Z88.1 Allergy status to other antibiotic agents; Z87.19 Personal history of other diseases of the digestive system; Z88.3 Allergy status to other anti-infective agents; Z88.8 Allergy status to other drugs, medicaments and biological substances
CPT/HCPCS: 45380; 88305; J2003; J2704; J7120

== ENCOUNTER 2025-04-28 12:51 | Outpatient (CLI) | payer MEDICARE, SELFPAY ==
--- OUTSIDE RECORDS SUMMARY | 2025-04-28 12:54 | XMS_ITS | Clinical Summary ---
Author Organization [facility] Address [address] [place] [address] Care Team Providers Care Loan Processor Name Role Phone Unavailable Primary Care Provider [...] UKY-Bone Density Scan 1955 UKY-Depression Screening 1955 UKY-/Child/Adol SDOH Screenings 1955 UKY- SDOH Screenings 1974 UKY-Adult SDOH Screenings 1974 UKY-DTaP,Tdap,and Td Vaccine s (1 - Tdap) 1975 CT Colonography 2001 Colonoscopy 2001 FIT-DNA 2001 FIT 2001 FOBT 2001 Sigmoidoscopy 2001 UKY-Colorectal Cancer Screening 2001 UKY-Pneumococcal Vaccine: 50 + Years (1 of 1 - PCV) 2006 UKY-Zoster Vaccines (1 of 2) 2006 [id number] Vaccine (1 - 20 25-26 season) 2025 UKY-Influenza Vaccine (#1) 2025 UKY-RSV [...] age to complete this topic Insurance MEDICARE [facility]
--- OUTSIDE RECORDS SUMMARY | 2025-04-28 12:54 | XMS_ITS | Clinical Summary ---
Author Organization [facility] Address [address] [place] [address] Phone Care Team Providers Care Signal Maintainer Name Role Phone Brandon Woods MD Primary Care Provider Allergies Active Allergy Reactions Criticality Noted Date [...] on file Sexual Orientation Not on file Last Filed Vital Signs Vital Sign Reading [...] Density Screening 2021 COVID-19 Vaccine (1 - 2024-2 6 season) 2025 Influenza Vaccine (#1) 2025 Hepatitis B Vaccine Aged Out No longe r eligible based on patient's age to complete this topic Meningococcal B Vaccine Aged Out No l onger eligible based on patient's age to complete this topic Insurance [employer] AA [employer] AA [employer] CLAIMS AA * Guarantor: Lyn Ayoub Account Type Relation to Patient Date of Phone Billing Address [place] Personal/Family Self 1955 [address] [place] [address] [place] [address] [employer] MEDICARE SUPPLEMENT INS Care Teams Signal Maintainer Relationship Specialty Start Date End Date Brandon Woods MD [address] [place] [address] PCP - General Internal Medicine 09/26/15
--- NOTE | 2025-04-28 12:57 | XR_ITS ---
FINAL REPORT CLINICAL HISTORY: Evaluation of left ankle pain COMPARISON: 02/03/2024 FINDINGS: AP, oblique, and lateral views of the left ankle were obtained. There is no fracture or dislocation. There is mild degenerative joint disease. Soft tissues are unremarkable. IMPRESSION: No acute osseous abnormality of the left ankle. Mild degenerative disease. Reviewed, Interpreted and Dictated by Marifer Boykin MD Transcribed by Kim Black Authenticated and [facility]
--- NOTE | 2025-04-28 12:57 | XR_ITS ---
FINAL REPORT CLINICAL HISTORY: Evaluation of left foot pain COMPARISON: 02/03/2024 FINDINGS: AP, oblique and lateral views of the left foot were obtained. There is no acute fracture or dislocation. Mild degenerative joint disease is most pronounced at the 1st MTP joint. Osteopenia is noted. Soft tissues are unremarkable. IMPRESSION: No acute osseous abnormality of the left foot. Mild degenerative disease. Reviewed, Interpreted and Dictated by Marifer Boykin MD Transcribed by Kim Black Authenticated and [facility]
[2025-05-02 21:09] LABS: Calprotectin, Fecal 98 ug/g (0-120)
== END 2025-04-28 23:59 | disposition home or self-care (01) ==
LOC: LAB 12:52
PROVIDERS: PCP Internal Medicine; Visit Provider Nurse Practitioner Family
DX: K50.119 Crohn's disease of large intestine with unspecified complications (principal); M19.072 Primary osteoarthritis, left ankle and foot
CPT/HCPCS: 73610; 73630; 83993